=== PATIENT | male | born 1955 ===

== ENCOUNTER 2017-01-08 17:51 | Inpatient (IN) | payer BC, OTHER ==
[2017-01-08] MEDS ORDERED: DiphenhydrAMINE 50 mg/ml Inj IVP STA (18:27)
[2017-01-08 18:59] LABS: ABG ALLEN TEST YES; ARTERIAL BLOOD GAS HCO3 24.8 mmol/L (21-28); ARTERIAL BLOOD GAS MODE ROOM AIR; ARTERIAL BLOOD GAS PO2 105 mm/Hg (80-100)
[2017-01-08] MEDS ORDERED: Insulin Regular 100 units/ml SC STA (19:17)
[2017-01-08] MEDS ORDERED: Sodium Chloride 0.9% 1,000 ML IV STA (19:18)
--- NOTE | 2017-01-08 19:23 | ED PDOC ---
HPI: Abdomen Time Seen by Provider: 01/08/17 18:06 Chief Complaint (Nursing): Abdominal Pain Chief Complaint (Provider): Abdominal Pain History Per: Patient History/Exam Limitations: no limitations Onset/Duration Of Symptoms: Days (x1) Location Of Pain/Discomfort: Diffuse Quality Of Discomfort: "Pain" Associated Symptoms: Chills, Nausea, Vomiting, Loss Of Appetite Additional Complaint(s): 18:06 Stas Couch is a 61 year old male that presents to the ED with a chief complaint of intractable, nonbilious, nonbloody vomiting and abdominal pain that he has been experiencing for the past day. Patient states that he has no been able to take medication today due to symptoms. He has presented to ED many times in the past for the same episode. Past Medical History Reviewed: Historical Data, Nursing Documentation, Vital Signs Vital Signs: Last Vital Signs Temp 97.8 F 01/09/17 13:00 Pulse 71 01/09/17 13:00 Resp 18 01/09/17 13:00 BP 153/77 H 01/09/17 13:00 Pulse Ox 96 01/09/17 13:00 - Medical History PMH: Diabetes, HTN, Hypercholesterolemia, Kidney Stones, Pancreatitis Other PMH: Chronic Kidney Disease - Surgical History Surgical History: Cholecystectomy - Family History Family History: States: Other (Father of [place]) - Social History Alcohol: None Drugs: Denies - Home Medications Home Medications: Ambulatory Orders Medication Instructions Recorded Insulin Detemir [Levemir] 45 unit SC HS 01/08/17 Insulin Lispro [humALOG] 30 unit SC TID 01/08/17 Lisinopril [Zestril] 10 mg PO DAILY 01/08/17 amLODIPine [Norvasc] 10 mg PO DAILY 01/08/17 - Allergies Allergies/Adverse Reactions: Allergies Allergy/AdvReac Type Severity Reaction Status Date / Time iodine Allergy RASH Verified 01/08/17 17:59 Review of Systems ROS Statement: Except As Marked, All Systems Reviewed And Found Negative Constitutional: Positive for: Chills, Weakness, Malaise Cardiovascular: Positive for: Chest Pain, Light Headedness Respiratory: Positive for: Shortness of Breath Gastrointestinal: Positive for: Nausea, Vomiting, Abdominal Pain. Negative for : Diarrhea, Melena, Hematochezia, Hematemesis Physical Exam - Reviewed Nursing Documentation Reviewed: Yes Vital Signs Reviewed: Yes - Physical Exam Appears: Positive for: Uncomfortable, In Acute Distress Head Exam: Positive for: ATRAUMATIC, NORMOCEPHALIC Skin: Positive for: Warm, Dry Eye Exam: Positive for: EOMI, PERRL ENT: Positive for: Other (dry mucous membranes) Neck: Positive for: Painless ROM, Supple Cardiovascular/Chest: Positive for: Chest Non Tender, Tachycardia. Negative for : Murmur, Irregularly Irregular Respiratory: Positive for: Normal Breath Sounds. Negative for: Wheezing Gastrointestinal/Abdominal: Positive for: Bowel Sounds, Soft, Tenderness ( diffuse). Negative for: Mass, Distended, Guarding, Rebound Back: Positive for: Normal Inspection. Negative for: Vertebral Tenderness Extremity: Positive for: Normal ROM. Negative for: Calf Tenderness Lymphatic: Negative for: Adenopathy Neurologic/Psych: Positive for: Alert, Oriented. Negative for: Motor/Sensory Deficits - Laboratory Results Result Diagrams: 01/09/17 07:30 01/09/17 07:30 - ECG O2 Sat by Pulse Oximetry: 99 (RA) Pulse Ox Interpretation: Normal Medical Decision Making Medical Decision Makin:25 Initial Impression: Vomiting/Abdominal Pain Initial Plan: * CBC * CMP * PTT * PT * Lipase * Magnesium * Phosphorous * Troponin * Glucose * Blood * POC * Urine dipstick * Dilaudid 1 mg IV * Insulin 10 units SC * Pepcid 40 mg IV * Zofran 8 mg IV * Sodium Chloride 1000 mL at 1000 mLs/hr * Chest X-ray * Reevaluation Labs demonstrate leukocytosis and elevated lactic acid. Most likely due to inflammatory response from acute distress, and numbers are similar to previous admissions (current MR does not have most of this patient's chart). He is afebrile and has no other infectious symptoms. He is not in DKA. Pt typically requires bowel rest and IVF and symptomatic treatment for his symptoms. LUCILA Olmstead FP resident for hospitalization. Scribe Attestation: Documented by Teagan Day, acting as a scribe for Paola Arnold MD. Provider Scribe Attestation: All medical record entries made by the Scribe were at my direction and personally dictated by me. I have reviewed the chart and agree that the record accurately reflects my personal performance of the history, physical exam, medical decision making, and the department course for this patient. I have also personally directed, reviewed, and agree with the discharge instructions and disposition. Disposition - Clinical Impression Clinical Impression: Gastroparesis, Hyperglycemia Counseled Patient/Family Regarding: Studies Performed, Diagnosis - Disposition Disposition Time: 20:00 Condition: GUARDED - Pt Status Changed To: Hospital Disposition Of: Observation - POA Present On Arrival: Poor Glycemic Control
[2017-01-08 19:37] LABS: BASO # 0.2 K/uL (0.0-0.2); BASO % 1.1 % (0.0-2.0); HEMATOCRIT 41.7 % (35.0-51.0); LYMPH # 1.4 K/uL (1.0-4.3); LYMPH % 7.6 % (20.0-40.0); MEAN CORPUSCULAR HEMOGLOBIN 25.9 pg (27.0-31.0); MEAN CORPUSCULAR HGB CONC 32.7 g/dL (33.0-37.0); MEAN PLATELET VOLUME 9.5 fl (7.2-11.7); MONO # 0.8 K/uL (0.0-0.8); MONO % 4.3 % (0.0-10.0); NEUT # 16.2 K/uL (1.8-7.0); PLATELET COUNT 278 K/uL (130-400); RED CELL DISTRIBUTION WIDTH 16.1 % (11.5-14.5); WHITE BLOOD COUNT 18.7 K/uL (4.8-10.8)
[2017-01-08 19:50] LABS: ALB/GLOB RATIO 1.2 (1.0-2.1); ALKALINE PHOSPHATASE 91 U/L (38-126); AST/SGOT 93 U/L (17-59); BILIRUBIN,TOTAL 3.1 mg/dl (0.2-1.3); BLOOD UREA NITROGEN 14 mg/dl (9-20); CALCIUM 9.4 mg/dL (8.4-10.2); CARBON DIOXIDE 19 mmol/L (22-30); CHLORIDE 91 mmol/L (98-107); GFR AFRICAN-AMERICAN > 60; LIPASE 98 U/L (23-300); MAGNESIUM 1.6 MG/DL (1.6-2.3); PHOSPHOROUS 2.9 mg/dl (2.5-4.5); SODIUM 131 mmol/l (132-148)
[2017-01-08 19:59] LABS: ALT/SGPT < 6 U/L (21-72)
[2017-01-08] MEDS ORDERED: Sodium Chloride 0.9% 1,000 ML IV SCH (20:00)
[2017-01-08 20:03] LABS: GLUCOSE,RANDOM 476 mg/dL (75-110); POTASSIUM 8.9 MMOL/L (3.6-5.0)
[2017-01-08] MEDS ORDERED: Dextrose 50% SYRINGE Inj (50 ml) IV PRN (20:04)
[2017-01-08] MEDS ORDERED: Glucagon Recombinant 1 mg Inj IM PRN (20:04)
[2017-01-08] MEDS ORDERED: Insulin Regular 100 units/ml IV STA (20:06)
[2017-01-08 20:18] LABS: NEUTROPHIL 87 % (42-75); TOTAL CELLS COUNTED 100
--- NOTE | 2017-01-08 20:48 | CP.PCM.HP ---
<Nguyễn Olmstead - Last Filed: 01/09/17 01:28> History of Present Illness - History of Present Illness History of Present Illness: 61 M w/ PMHx of T2DM, HTN, diabetic neuropathy, gastroparesis, presented to ED with intractable abdominal pain associated with onset of nausea/vomiting started this morning. At time of evaluation, patient is poor historian as he just received Diluadid for pain. Patient has been historically poor at controlling DM. ROS is limited due to patient's clinical condition though denies chest pain, sob, or headache. Patient has been evaluated by GI Dr Hernandez previously for gastroparesis. Patient recently admitted earlier this month, Insulin regime was changed due to episode of hypoglycemia. Patient states taking Levemir 50U HS and Humalog 30U TID. Other history obtained from previous charts. PMH: DM w/Gastroparesis, HTN, HLD, Diabetic neuropathy, Drug Use Hx PSH: Lap Saranya Allergies: IV contrast (hives) Meds: As per chart ED Course: Vitals remarkable for tachycardia and elevated BP * CBC, CMP, Coags, Lipase, Mg, Phos, Troponin, Accucheck, Urine dipstick * Labs notable for leukocytosis, pH normal, Lactate 4.1, Glu 476, K 8.9 ( hemolyzed) * Dilaudid 1 mg IV x 2, Insulin 10 units SC x 2, Pepcid 40 mg IV, Zofran 8 mg IV * Sodium Chloride 1000 mL at 1000 mLs/hr * Chest X-ray Of note, patient's chart is mostly on Present on Admission - Present on Admission Any Indicators Present on Admission: Yes History of Uncontrolled Diabetes: Yes Review of Systems - Review of Systems Systems not reviewed;Unavailable: Acuity of Condition All systems: reviewed and no additional remarkable complaints except (mentioned in HPI) Past Patient History - Past Social History Alcohol: None Drugs: Denies - CARDIAC Hx Hypercholesterolemia: Yes Hx Hypertension: Yes - RENAL Hx Kidney Stones: Yes - GASTROINTESTINAL Hx Pancreatitis: Yes - PSYCHIATRIC Hx Substance Use: No - SURGICAL HISTORY Hx Cholecystectomy: Yes - ANESTHESIA Hx Anesthesia: Yes Hx Anesthesia Reactions: No Meds Allergies/Adverse Reactions: Allergies Allergy/AdvReac Type Severity Reaction Status Date / Time iodine Allergy RASH Verified 01/08/17 17:59 Physical Exam - Constitutional Appears: No Acute Distress - Head Exam Head Exam: ATRAUMATIC, NORMAL INSPECTION, NORMOCEPHALIC - Eye Exam Eye Exam: Normal appearance - Respiratory Exam Respiratory Exam: Clear to Auscultation Bilateral, NORMAL BREATHING PATTERN. absent: Decreased Breath Sounds, Rales, Rhonchi, Wheezes - Cardiovascular Exam Cardiovascular Exam: Tachycardia, +S1, +S2 - GI/Abdominal Exam GI & Abdominal Exam: Normal Bowel Sounds, Soft, Tenderness (diffuse) - Extremities Exam Extremities exam: Positive for: normal inspection - Neurological Exam Neurological exam: Alert - Psychiatric Exam Psychiatric exam: Normal Affect, Normal Mood - Skin Skin Exam: Dry, Intact, Normal Color, Warm Results - Vital Signs Recent Vital Signs: Last Vital Signs Temp 99.8 F H 01/08/17 18:00 Pulse 135 H 01/08/17 18:00 Resp 20 01/08/17 18:00 BP 161/90 H 01/08/17 18:00 Pulse Ox 99 01/08/17 19:31 - Labs Result Diagrams: 01/08/17 19:20 01/08/17 21:06 Assessment & Plan - Assessment and Plan (Free Text) Assessment: 61 M w/ PMHx of T2DM (uncontrolled), HTN, diabetic neuropathy, gastroparesis admitted for intractable abdominal pain associated with n/v and hyperglycemia. Of note, patient's chart is mostly on Plan: 1) Intractable abdominal pain, secondary to gastroparesis - Admit to telemetry for continuos cardiac monitoring - Pain control with dilaudid - Alternating Zofran/Reglan - Monitor for improvement/resolution 2) Nausea & vomiting, likely 2/2 gastroparesis - s/p IV pepcid, Zofran - Zofran 4mg, IV, Q6H - Reglan 10mg, IV, ACTID - Pepcid 20mg, BID, PO 3) Leukocytosis - Most c/w stress response given absence of febrile illness, CXR w/o changes when compared to prior. - Repeat CBC in AM 4) T2DM, uncontrolled - Poorly controlled diabetic, no signs of DKA or hyperosmolar at this time. ABG wnl though increased AG noted on initial chem - HgbA1c: 12% 10/2016 - Repeat CMP/lactic acid/serum osm stat - Accu-checks - Hypoglycemic Bundle (corrective high dose) - 1L bolus in ED, give another 1L at this time - c/w NS @ 250cc/hr and adjust accordingly to glucose reads - will hold home PO meds at this time until can confirm with pharmacy/patient - Will give Levemir 40HS and Humalog 30 ACTID 5) Hypertension, uncontrolled - c/w home medication 6) DVT prophylaxis - Lovenox 40mg, SC, Daily Of note, patient's chart is mostly on - Date & Time Date: 01/08/17 Time: 20:55 <Jordan Mccord - Last Filed: 01/09/17 07:11> Results - Vital Signs Recent Vital Signs: Last Vital Signs Temp 98.2 F 01/09/17 05:00 Pulse 102 H 01/09/17 05:00 Resp 20 01/09/17 05:00 BP 137/71 01/09/17 05:00 Pulse Ox 96 01/09/17 05:00 - Labs Result Diagrams: 01/08/17 19:20 01/08/17 21:06 Labs: Laboratory Results - last 24 hr 01/08/17 01/08/17 01/08/17 21:06 21:11 23:08 Sodium 134 Potassium 7.2 H* Chloride 94 L Carbon Dioxide 20 L Anion Gap 27 H BUN 14 Creatinine 0.8 Est GFR ( Amer) > 60 Est GFR (Non-Af Amer) > 60 POC Glucose (mg/dL) 394 H 408 H* Random Glucose 426 H* Lactic Acid 5.1 H* Calcium 9.3 Total Bilirubin 1.8 H AST 71 H D ALT < 6 L Alkaline Phosphatase 74 Total Protein 9.0 H Albumin 4.9 Globulin 4.1 H Albumin/Globulin Ratio 1.2 Urine Color Urine Clarity Urine pH Ur Specific [place] Urine Protein Urine Glucose (UA) Urine Ketones Urine Blood Urine Nitrate Urine Bilirubin Urine Urobilinogen Ur Leukocyte Esterase Urine RBC (Auto) Urine Microscopic WBC 01/09/17 01/09/17 00:54 04:36 Sodium Potassium Chloride Carbon Dioxide Anion Gap BUN Creatinine Est GFR ( Amer) Est GFR (Non-Af Amer) POC Glucose (mg/dL) 417 H* Random Glucose Lactic Acid Calcium Total Bilirubin AST ALT Alkaline Phosphatase Total Protein Albumin Globulin Albumin/Globulin Ratio Urine Color Straw Urine Clarity Clear Urine pH 7.0 Ur Specific [place] 1.022 Urine Protein Negative Urine Glucose (UA) >=500 Urine Ketones Trace Urine Blood Negative Urine Nitrate Negative Urine Bilirubin Negative Urine Urobilinogen 0.2-1.0 Ur Leukocyte Esterase Neg Urine RBC (Auto) 1 Urine Microscopic WBC < 1 Attending/Attestation - Attestation I have personally seen and examined this patient.: Yes I have fully participated in the care of the patient.: Yes I have reviewed all pertinent clinical information: Yes
[2017-01-08] MEDS: Sodium Chloride 0.9% 1,000 ML IV SCH ×2 (21:54→23:37)
[2017-01-08 21:56] LABS: ALB/GLOB RATIO 1.2 (1.0-2.1); ALKALINE PHOSPHATASE 74 U/L (38-126); AST/SGOT 71 U/L (17-59); BILIRUBIN,TOTAL 1.8 mg/dl (0.2-1.3); BLOOD UREA NITROGEN 14 mg/dl (9-20); CALCIUM 9.3 mg/dL (8.4-10.2); CARBON DIOXIDE 20 mmol/L (22-30); CHLORIDE 94 mmol/L (98-107); GFR AFRICAN-AMERICAN > 60; SODIUM 134 mmol/l (132-148)
[2017-01-08 22:00] LABS: ALT/SGPT < 6 U/L (21-72)
[2017-01-08] MEDS ORDERED: Insulin Regular 100 units/ml SC SCH (22:00)
[2017-01-08 22:04] LABS: GLUCOSE,RANDOM 426 mg/dL (75-110); POTASSIUM 7.2 MMOL/L (3.6-5.0)
[2017-01-08] MEDS: Insulin Detemir 100 Units/ml Inj SC SCH (23:29)
[2017-01-09] MEDS: Sodium Chloride 0.9% 1,000 ML IV SCH ×14 (00:41→21:25)
[2017-01-09] MEDS: Insulin Regular 100 units/ml SC SCH ×7 (02:13→22:11)
[2017-01-09 04:47] LABS: RBC URINE 1 /hpf (0-3); URINE BILIRUBIN NEGATIVE (NEGATIVE); URINE BLOOD NEGATIVE (NEGATIVE); URINE COLOR STRAW (YELLOW); URINE GLUCOSE (UA) >=500 mg/dL (Normal); URINE KETONE TRACE mg/dL (NEGATIVE); URINE LEUKOCYTE ESTERASE NEG Leu/uL (Negative); URINE PROTEIN NEGATIVE (NEGATIVE); URINE UROBILINOGEN 0.2-1.0 mg/dL (0.2-1.0); WBC URINE < 1 /hpf (0-5)
[2017-01-09] MEDS ORDERED: Insulin Lispro (humaLOG) 100 Units/ml Inj SC SCH (07:30)
[2017-01-09 07:35] LABS: HEMATOCRIT 38.1 % (35.0-51.0); MEAN CELL VOLUME 80.1 fl (80.0-94.0); MEAN CORPUSCULAR HEMOGLOBIN 25.5 pg (27.0-31.0); MEAN CORPUSCULAR HGB CONC 31.9 g/dL (33.0-37.0); RED CELL DISTRIBUTION WIDTH 15.7 % (11.5-14.5)
[2017-01-09 08:02] LABS: ALB/GLOB RATIO 1.1 (1.0-2.1); ALKALINE PHOSPHATASE 56 U/L (38-126); ALT/SGPT 23 U/L (21-72); AST/SGOT 17 U/L (17-59); BILIRUBIN,TOTAL 0.4 mg/dl (0.2-1.3); BLOOD UREA NITROGEN 9 mg/dl (9-20); CALCIUM 8.6 mg/dL (8.4-10.2); CARBON DIOXIDE 27 mmol/L (22-30); CHLORIDE 104 mmol/L (98-107); GFR AFRICAN-AMERICAN > 60; GLUCOSE,RANDOM 212 mg/dL (75-110); POTASSIUM 4.9 MMOL/L (3.6-5.0); SODIUM 142 mmol/l (132-148); TOTAL PROTEIN 6.6 G/DL (6.3-8.2)
--- NOTE | 2017-01-09 08:09 | CP.PCM.PN ---
<Iman Pyle - Last Filed: 01/09/17 15:53> Subjective - Date & Time of Evaluation Date of Evaluation: 01/09/17 Time of Evaluation: 07:40 - Subjective Subjective: Patient seen and examined bedside feeling better. No overnight events. Reports abd pain has subsided with meds, but he is still on pain 6/10 w/o radiation. Denies fever, N/V/D after admission. Denies dysuria, skin infection, URI infection. Objective - Vital Signs/Intake and Output Vital Signs (last 24 hours): Temp Pulse Resp BP Pulse Ox 97.8 F 82 18 134/69 99 01/09/17 08:01 01/09/17 08:01 01/09/17 08:01 01/09/17 08:01 01/09/17 08:01 - Medications Medications: Current Medications Atorvastatin Calcium (Lipitor) 10 mg PO DAILY [facility] Dextrose (Glutose 15) 0 gm PO ONCE PRN; Protocol PRN Reason: Hypoglycemia Protocol Dextrose (Dextrose 50% Inj) 0 ml IV STAT PRN; Protocol PRN Reason: Hyglycemia Protocol Enoxaparin Sodium (Lovenox) 40 mg SC DAILY [facility] PRN Reason: Protocol Famotidine (Pepcid) 20 mg PO BID [facility] Furosemide (Lasix) 40 mg PO DAILY [facility] Gabapentin (Neurontin) 300 mg PO TID [facility] Glucagon (Glucagen Diagnostic Kit) 0 mg IM STAT PRN; Protocol PRN Reason: Hypoglycemia Protocol Hydromorphone HCl (Dilaudid) 2 mg IVP Q4 PRN PRN Reason: Pain, moderate (4-7) Last Admin: 01/09/17 04:10 Dose: 2 mg Hydromorphone HCl (Dilaudid) 4 mg IVP Q6 PRN PRN Reason: Pain, severe (8-10) Sodium Chloride (Sodium Chloride 0.9%) 1,000 mls @ 250 mls/hr IV .Q4H [facility] Last Admin: 01/09/17 04:55 Dose: 250 mls/hr Sodium Chloride (Sodium Chloride 0.9%) 1,000 mls @ 999 mls/hr IV .Q1H1M [facility] Stop: 01/09/17 23:31 Last Admin: 01/09/17 00:41 Dose: Not Given Insulin Detemir (Levemir) 40 units SC HS [facility] Last Admin: 01/08/17 23:29 Dose: 40 units Insulin Human Lispro (Humalog) 30 units SC ACTID [facility] Insulin Human Regular (Humulin R) 0 units SC ACHS [facility] PRN Reason: Protocol Last Admin: 01/09/17 06:41 Dose: 8 units Lisinopril (Zestril) 10 mg PO HS [facility] Last Admin: 01/08/17 23:36 Dose: 10 mg Metformin HCl (Glucophage) 1,000 mg PO BIDWM [facility] Metoclopramide HCl (Reglan) 10 mg IVP TID [facility] Ondansetron HCl (Zofran Inj) 4 mg IVP Q6 PRN PRN Reason: Nausea/Vomiting - Labs Labs: 01/09/17 07:30 01/09/17 07:30 - Constitutional Appears: Non-toxic, No Acute Distress - Head Exam Head Exam: ATRAUMATIC, NORMOCEPHALIC - Eye Exam Eye Exam: Normal appearance - Respiratory Exam Respiratory Exam: Clear to Ausculation Bilateral. absent: Rales, Rhonchi, Wheezes - Cardiovascular Exam Cardiovascular Exam: REGULAR RHYTHM, +S1, +S2 - GI/Abdominal Exam GI & Abdominal Exam: Soft, Tenderness, Normal Bowel Sounds. absent: Rebound Additional comments: Td to palpation periumbilical area. - Extremities Exam Extremities Exam: Normal Inspection. absent: Calf Tenderness - Neurological Exam Neurological Exam: Alert, Awake, Oriented x3 - Psychiatric Exam Psychiatric exam: Normal Affect, Normal Mood - Skin Skin Exam: Intact Assessment and Plan - Assessment and Plan (Free Text) Plan: 61 M w/ PMHx of T2DM (uncontrolled), HTN, diabetic neuropathy, gastroparesis admitted for intractable abdominal pain associated with n/v and hyperglycemia. Of note, patient's chart is mostly on Plan: 1) Intractable abdominal pain, secondary to gastroparesis - Admit to telemetry - Dilaudid IV for pain control - Alternating Zofran/Reglan - Monitor for improvement/resolution 2) Nausea & vomiting -secondary to gastroparesis - IV pepcid, Zofran - Zofran 4mg, IV, Q6H - Reglan 10mg, IV, ACTID - Pepcid 20mg, BID, PO 3) Leukocytosis - Most c/w stress response given absence of febrile illness, CXR w/o changes when compared to prior. - F/U CBC 4) T2DM, uncontrolled - Poorly controlled diabetic.no signs of DKA or hyperosmolar at this time. ABG wnl though increased AG noted on initial chem - HgbA1c: 12% 10/2016 - Repeat CMP/lactic acid/serum osm stat - Accu-checks - Hypoglycemic Bundle (corrective high dose) - c/w NS @ 250cc/hr and adjust accordingly to glucose reads - Levemir 40HS -Humalog 30 ACTID 5) Hypertension, uncontrolled - c/w home medication -Lisinopril 10 mg PO daily 6) DVT prophylaxis - Lovenox 40mg, SC, Daily <Jerzy Salvador - Last Filed: 01/11/17 06:40> Objective - Vital Signs/Intake and Output Vital Signs (last 24 hours): Temp Pulse Resp BP Pulse Ox 98.5 F 86 20 162/74 H 97 01/11/17 04:47 01/11/17 04:47 01/11/17 04:47 01/11/17 04:47 01/11/17 04:47 - Medications Medications: Current Medications Amlodipine Besylate (Norvasc) 10 mg PO DAILY [facility] Last Admin: 01/10/17 08:27 Dose: 10 mg Atorvastatin Calcium (Lipitor) 10 mg PO DAILY [facility] Dextrose (Glutose 15) 0 gm PO ONCE PRN; Protocol PRN Reason: Hypoglycemia Protocol Dextrose (Dextrose 50% Inj) 0 ml IV STAT PRN; Protocol PRN Reason: Hyglycemia Protocol Enoxaparin Sodium (Lovenox) 40 mg SC DAILY [facility] PRN Reason: Protocol Last Admin: 01/10/17 08:20 Dose: 40 mg Famotidine (Pepcid) 20 mg PO BID [facility] Furosemide (Lasix) 40 mg PO DAILY [facility] Gabapentin (Neurontin) 300 mg PO TID [facility] Glucagon (Glucagen Diagnostic Kit) 0 mg IM STAT PRN; Protocol PRN Reason: Hypoglycemia Protocol Hydromorphone HCl (Dilaudid) 2 mg IVP Q4 PRN PRN Reason: Pain, moderate (4-7) Last Admin: 01/11/17 04:41 Dose: 2 mg Hydromorphone HCl (Dilaudid) 4 mg IVP Q6 PRN PRN Reason: Pain, severe (8-10) Sodium Chloride (Sodium Chloride 0.9%) 1,000 mls @ 250 mls/hr IV .Q4H [facility] Last Admin: 01/11/17 06:01 Dose: 250 mls/hr Insulin Detemir (Levemir) 40 units SC HS [facility] Last Admin: 01/10/17 22:10 Dose: Not Given Insulin Human Regular (Humulin R) 0 units SC ACHS [facility] PRN Reason: Protocol Last Admin: 01/10/17 22:10 Dose: Not Given Insulin Human Regular (Humulin R) 30 units SC ACTID [facility] Last Admin: 01/10/17 16:35 Dose: Not Given Lisinopril (Zestril) 10 mg PO HS [facility] Last Admin: 01/10/17 22:08 Dose: 10 mg Metformin HCl (Glucophage) 1,000 mg PO BIDWM [facility] Metoclopramide HCl (Reglan) 10 mg IVP TID [facility] Last Admin: 01/10/17 16:22 Dose: 10 mg Ondansetron HCl (Zofran Inj) 4 mg IVP Q6 PRN PRN Reason: Nausea/Vomiting - Labs Labs: 01/09/17 07:30 01/09/17 07:30 Attending/Attestation - Attestation I have personally seen and examined this patient.: Yes I have fully participated in the care of the patient.: Yes I have reviewed all pertinent clinical information, including history, physical exam and plan: Yes
[2017-01-09] MEDS: Enoxaparin 40 mg Syringe SC SCH (09:24)
--- NOTE | 2017-01-09 09:40 | RAD ---
HISTORY: vomiting COMPARISON: No prior. FINDINGS: LUNGS: No active pulmonary disease. PLEURA: No significant pleural effusion identified, no pneumothorax apparent. CARDIOVASCULAR: Normal. OSSEOUS STRUCTURES: No significant abnormalities. VISUALIZED UPPER ABDOMEN: Normal. OTHER FINDINGS: None. IMPRESSION: No active disease.
[2017-01-09] MEDS ORDERED: Insulin Regular 100 units/ml SC SCH (11:30)
--- NOTE | 2017-01-09 13:57 | CARD ---
APPROVED REPORT EKG Measurement Heart [id number] <Conclusion> Sinus tachycardia Otherwise normal ECG
[2017-01-09] MEDS: Insulin Detemir 100 Units/ml Inj SC SCH (22:12)
[2017-01-10] MEDS: Sodium Chloride 0.9% 1,000 ML IV SCH ×6 (01:25→22:11)
[2017-01-10] MEDS: Insulin Regular 100 units/ml SC SCH ×7 (06:35→22:10)
[2017-01-10] MEDS: Enoxaparin 40 mg Syringe SC SCH (08:20)
--- NOTE | 2017-01-10 08:48 | CP.PCM.PN ---
<Iman Pyle - Last Filed: 01/10/17 17:33> Subjective - Date & Time of Evaluation Date of Evaluation: 01/10/17 Time of Evaluation: 07:45 - Subjective Subjective: Patient seen and examined bedside feeling better today. Abdominal pain subsided with meds. Denies fever, nausea, vomiting, diarrhea. Start liquid diet. Objective - Vital Signs/Intake and Output Vital Signs (last 24 hours): Temp Pulse Resp BP Pulse Ox 98.7 F 83 18 149/74 95 01/10/17 08:00 01/10/17 08:27 01/10/17 08:00 01/10/17 08:27 01/10/17 08:00 - Medications Medications: Current Medications Amlodipine Besylate (Norvasc) 10 mg PO DAILY [facility] Last Admin: 01/10/17 08:27 Dose: 10 mg Atorvastatin Calcium (Lipitor) 10 mg PO DAILY [facility] Dextrose (Glutose 15) 0 gm PO ONCE PRN; Protocol PRN Reason: Hypoglycemia Protocol Dextrose (Dextrose 50% Inj) 0 ml IV STAT PRN; Protocol PRN Reason: Hyglycemia Protocol Enoxaparin Sodium (Lovenox) 40 mg SC DAILY [facility] PRN Reason: Protocol Last Admin: 01/10/17 08:20 Dose: 40 mg Famotidine (Pepcid) 20 mg PO BID [facility] Furosemide (Lasix) 40 mg PO DAILY [facility] Gabapentin (Neurontin) 300 mg PO TID [facility] Glucagon (Glucagen Diagnostic Kit) 0 mg IM STAT PRN; Protocol PRN Reason: Hypoglycemia Protocol Hydromorphone HCl (Dilaudid) 2 mg IVP Q4 PRN PRN Reason: Pain, moderate (4-7) Last Admin: 01/10/17 08:16 Dose: 2 mg Hydromorphone HCl (Dilaudid) 4 mg IVP Q6 PRN PRN Reason: Pain, severe (8-10) Sodium Chloride (Sodium Chloride 0.9%) 1,000 mls @ 250 mls/hr IV .Q4H [facility] Last Admin: 01/10/17 05:20 Dose: 250 mls/hr Insulin Detemir (Levemir) 40 units SC HS [facility] Last Admin: 01/09/17 22:12 Dose: Not Given Insulin Human Regular (Humulin R) 0 units SC ACHS [facility] PRN Reason: Protocol Last Admin: 01/10/17 06:35 Dose: Not Given Insulin Human Regular (Humulin R) 30 units SC ACTID [facility] Last Admin: 01/10/17 08:18 Dose: Not Given Lisinopril (Zestril) 10 mg PO HS [facility] Last Admin: 01/09/17 21:24 Dose: 10 mg Metformin HCl (Glucophage) 1,000 mg PO BIDWM [facility] Metoclopramide HCl (Reglan) 10 mg IVP TID [facility] Last Admin: 01/10/17 08:19 Dose: 10 mg Ondansetron HCl (Zofran Inj) 4 mg IVP Q6 PRN PRN Reason: Nausea/Vomiting - Labs Labs: 01/09/17 07:30 01/09/17 07:30 - Constitutional Appears: Non-toxic, No Acute Distress - Eye Exam Eye Exam: Normal appearance - Respiratory Exam Respiratory Exam: Clear to Ausculation Bilateral. absent: Rales, Rhonchi, Wheezes, Stridor - Cardiovascular Exam Cardiovascular Exam: REGULAR RHYTHM, +S1, +S2 - GI/Abdominal Exam GI & Abdominal Exam: Soft, Tenderness, Normal Bowel Sounds Additional comments: Mild Td to palpation epigastric area. no rebound td - Extremities Exam Extremities Exam: Normal Inspection. absent: Calf Tenderness, Pedal Edema - Psychiatric Exam Psychiatric exam: Normal Affect, Normal Mood - Skin Skin Exam: Intact Assessment and Plan - Assessment and Plan (Free Text) Plan: 61 M w/ PMHx of T2DM (uncontrolled), HTN, diabetic neuropathy, gastroparesis admitted for intractable abdominal pain associated with n/v and hyperglycemia. Of note, patient's chart is mostly on Plan: 1) Intractable abdominal pain, secondary to gastroparesis - Admit to telemetry - Dilaudid IV for pain control - Alternating Zofran/Reglan - Monitor for improvement/resolution 2) Nausea & vomiting -secondary to gastroparesis - IV pepcid, Zofran - Zofran 4mg, IV, Q6H - Reglan 10mg, IV, ACTID - Pepcid 20mg, BID, PO 3) Leukocytosis - Most c/w stress response given absence of febrile illness, CXR w/o changes when compared to prior. - F/U CBC 4) T2DM, uncontrolled - Poorly controlled diabetic. - HgbA1c: 12% 10/2016 - Accu-checks - Hypoglycemic Bundle (corrective high dose) - c/w NS @ 250cc/hr and adjust accordingly to glucose reads - Levemir 40HS -Humalog 30 ACTID 5) Hypertension, uncontrolled - c/w home medication -Lisinopril 10 mg PO daily 6) DVT prophylaxis - Lovenox 40mg, SC, Daily <SuriJordan A - Last Filed: 01/12/17 07:02> Objective - Vital Signs/Intake and Output Vital Signs (last 24 hours): Temp Pulse Resp BP Pulse Ox 97.8 F 85 18 162/77 H 96 01/12/17 04:50 01/12/17 04:50 01/12/17 04:50 01/12/17 04:50 01/12/17 04:50 - Medications Medications: Current Medications Amlodipine Besylate (Norvasc) 10 mg PO DAILY [facility] Last Admin: 01/11/17 08:51 Dose: 10 mg Atorvastatin Calcium (Lipitor) 10 mg PO DAILY [facility] Dextrose (Glutose 15) 0 gm PO ONCE PRN; Protocol PRN Reason: Hypoglycemia Protocol Dextrose (Dextrose 50% Inj) 0 ml IV STAT PRN; Protocol PRN Reason: Hyglycemia Protocol Enoxaparin Sodium (Lovenox) 40 mg SC DAILY [facility] PRN Reason: Protocol Last Admin: 01/11/17 08:51 Dose: 40 mg Famotidine (Pepcid) 20 mg PO BID [facility] Furosemide (Lasix) 40 mg PO DAILY [facility] Gabapentin (Neurontin) 300 mg PO TID [facility] Glucagon (Glucagen Diagnostic Kit) 0 mg IM STAT PRN; Protocol PRN Reason: Hypoglycemia Protocol Hydromorphone HCl (Dilaudid) 2 mg IVP Q4 PRN PRN Reason: Pain, moderate (4-7) Last Admin: 01/12/17 05:42 Dose: 2 mg Hydromorphone HCl (Dilaudid) 4 mg IVP Q6 PRN PRN Reason: Pain, severe (8-10) Insulin Detemir (Levemir) 40 units SC HS [facility] Last Admin: 01/11/17 22:12 Dose: Not Given Insulin Human Regular (Humulin R) 0 units SC ACHS [facility] PRN Reason: Protocol Last Admin: 01/11/17 22:11 Dose: Not Given Insulin Human Regular (Humulin R) 30 units SC ACTID [facility] Last Admin: 01/11/17 17:29 Dose: Not Given Lisinopril (Zestril) 10 mg PO HS [facility] Last Admin: 01/11/17 21:27 Dose: 10 mg Metformin HCl (Glucophage) 1,000 mg PO BIDWM [facility] Metoclopramide HCl (Reglan) 10 mg IVP TID [facility] Last Admin: 01/11/17 17:30 Dose: 10 mg Ondansetron HCl (Zofran Inj) 4 mg IVP Q6 PRN PRN Reason: Nausea/Vomiting - Labs Labs: 01/11/17 11:20 01/09/17 07:30 Attending/Attestation - Attestation I have personally seen and examined this patient.: Yes I have fully participated in the care of the patient.: Yes I have reviewed all pertinent clinical information, including history, physical exam and plan: Yes
[2017-01-10] MEDS: Insulin Detemir 100 Units/ml Inj SC SCH ×2 (22:07→22:10)
[2017-01-11] MEDS: Sodium Chloride 0.9% 1,000 ML IV SCH ×6 (02:00→23:06)
[2017-01-11] MEDS: Insulin Regular 100 units/ml SC SCH ×7 (06:59→22:11)
[2017-01-11] MEDS: Enoxaparin 40 mg Syringe SC SCH (08:51)
[2017-01-11 11:24] LABS: HEMATOCRIT 39.4 % (35.0-51.0); MEAN CELL VOLUME 79.9 fl (80.0-94.0); MEAN CORPUSCULAR HEMOGLOBIN 25.9 pg (27.0-31.0); MEAN CORPUSCULAR HGB CONC 32.4 g/dL (33.0-37.0); RED CELL DISTRIBUTION WIDTH 15.4 % (11.5-14.5); WHITE BLOOD COUNT 11.8 K/uL (4.8-10.8)
--- NOTE | 2017-01-11 12:20 | CP.PCM.PN ---
<LdIman medel - Last Filed: 01/11/17 15:19> Subjective - Date & Time of Evaluation Date of Evaluation: 01/11/17 Time of Evaluation: 07:20 - Subjective Subjective: Patient seen and examined bedside feeling better but still c/o abd pain occasional. On liquid diet for 24 hours. Willing to have soft diet. Denies N/V/ D. will start diabetic soft diet. Objective - Vital Signs/Intake and Output Vital Signs (last 24 hours): Temp Pulse Resp BP Pulse Ox 98.2 F 87 18 168/75 H 97 01/11/17 09:00 01/11/17 09:00 01/11/17 09:00 01/11/17 09:00 01/11/17 09:00 - Medications Medications: Current Medications Amlodipine Besylate (Norvasc) 10 mg PO DAILY [facility] Last Admin: 01/11/17 08:51 Dose: 10 mg Atorvastatin Calcium (Lipitor) 10 mg PO DAILY [facility] Dextrose (Glutose 15) 0 gm PO ONCE PRN; Protocol PRN Reason: Hypoglycemia Protocol Dextrose (Dextrose 50% Inj) 0 ml IV STAT PRN; Protocol PRN Reason: Hyglycemia Protocol Enoxaparin Sodium (Lovenox) 40 mg SC DAILY [facility] PRN Reason: Protocol Last Admin: 01/11/17 08:51 Dose: 40 mg Famotidine (Pepcid) 20 mg PO BID [facility] Furosemide (Lasix) 40 mg PO DAILY [facility] Gabapentin (Neurontin) 300 mg PO TID [facility] Glucagon (Glucagen Diagnostic Kit) 0 mg IM STAT PRN; Protocol PRN Reason: Hypoglycemia Protocol Hydromorphone HCl (Dilaudid) 2 mg IVP Q4 PRN PRN Reason: Pain, moderate (4-7) Last Admin: 01/11/17 08:49 Dose: 2 mg Hydromorphone HCl (Dilaudid) 4 mg IVP Q6 PRN PRN Reason: Pain, severe (8-10) Sodium Chloride (Sodium Chloride 0.9%) 1,000 mls @ 250 mls/hr IV .Q4H [facility] Last Admin: 01/11/17 12:05 Dose: 250 mls/hr Insulin Detemir (Levemir) 40 units SC HS [facility] Last Admin: 01/10/17 22:10 Dose: Not Given Insulin Human Regular (Humulin R) 0 units SC ACHS [facility] PRN Reason: Protocol Last Admin: 01/11/17 12:06 Dose: Not Given Insulin Human Regular (Humulin R) 30 units SC ACTID [facility] Last Admin: 01/11/17 12:06 Dose: 30 units Lisinopril (Zestril) 10 mg PO HS [facility] Last Admin: 01/10/17 22:08 Dose: 10 mg Metformin HCl (Glucophage) 1,000 mg PO BIDWM [facility] Metoclopramide HCl (Reglan) 10 mg IVP TID [facility] Last Admin: 01/11/17 12:05 Dose: 10 mg Ondansetron HCl (Zofran Inj) 4 mg IVP Q6 PRN PRN Reason: Nausea/Vomiting - Labs Labs: 01/11/17 11:20 01/09/17 07:30 - Constitutional Appears: Non-toxic, No Acute Distress - Neck Exam Neck Exam: Normal Inspection - Respiratory Exam Respiratory Exam: Clear to Ausculation Bilateral. absent: Rales, Rhonchi, Wheezes - Cardiovascular Exam Cardiovascular Exam: REGULAR RHYTHM, +S1, +S2 - GI/Abdominal Exam GI & Abdominal Exam: Soft, Tenderness, Normal Bowel Sounds. absent: Guarding, Rebound Additional comments: mild periumbilical Td, no guarding - Extremities Exam Extremities Exam: Normal Inspection. absent: Pedal Edema - Neurological Exam Neurological Exam: Alert, Awake, Oriented x3 - Psychiatric Exam Psychiatric exam: Normal Affect, Normal Mood - Skin Skin Exam: Intact Assessment and Plan - Assessment and Plan (Free Text) Plan: 61 M w/ PMHx of T2DM (uncontrolled), HTN, diabetic neuropathy, gastroparesis admitted for intractable abdominal pain associated with n/v and hyperglycemia. Of note, patient's chart is mostly on Plan: 1) Intractable abdominal pain, secondary to gastroparesis - Admit to telemetry - Dilaudid IV for pain control - Alternating Zofran/Reglan - Monitor for improvement/resolution 2) Nausea & vomiting -resolved -secondary to gastroparesis - IV pepcid, Zofran - Zofran 4mg, IV, Q6H - Reglan 10mg, IV, ACTID - Pepcid 20mg, BID, PO 3) Leukocytosis -resolved - Most c/w stress response given absence of febrile illness, CXR w/o changes when compared to prior. - F/U CBC 4) T2DM, uncontrolled - Poorly controlled diabetic. - HgbA1c: 12% 10/2016 -Blood sugar 222 mg/dl - Accu-checks - Hypoglycemic Bundle (corrective high dose) - c/w NS @ 250cc/hr and adjust accordingly to glucose reads - Levemir 40HS -Humalog 30 ACTID 5) Hypertension, uncontrolled - c/w home medication -Lisinopril 10 mg PO daily 6) DVT prophylaxis - Lovenox 40mg, SC, Daily <Jerzy Salvador - Last Filed: 01/12/17 07:16> Objective - Vital Signs/Intake and Output Vital Signs (last 24 hours): Temp Pulse Resp BP Pulse Ox 97.8 F 85 18 162/77 H 96 01/12/17 04:50 01/12/17 04:50 01/12/17 04:50 01/12/17 04:50 01/12/17 04:50 - Medications Medications: Current Medications Amlodipine Besylate (Norvasc) 10 mg PO DAILY [facility] Last Admin: 01/11/17 08:51 Dose: 10 mg Atorvastatin Calcium (Lipitor) 10 mg PO DAILY [facility] Dextrose (Glutose 15) 0 gm PO ONCE PRN; Protocol PRN Reason: Hypoglycemia Protocol Dextrose (Dextrose 50% Inj) 0 ml IV STAT PRN; Protocol PRN Reason: Hyglycemia Protocol Enoxaparin Sodium (Lovenox) 40 mg SC DAILY [facility] PRN Reason: Protocol Last Admin: 01/11/17 08:51 Dose: 40 mg Famotidine (Pepcid) 20 mg PO BID [facility] Furosemide (Lasix) 40 mg PO DAILY [facility] Gabapentin (Neurontin) 300 mg PO TID [facility] Glucagon (Glucagen Diagnostic Kit) 0 mg IM STAT PRN; Protocol PRN Reason: Hypoglycemia Protocol Hydromorphone HCl (Dilaudid) 2 mg IVP Q4 PRN PRN Reason: Pain, moderate (4-7) Last Admin: 01/12/17 05:42 Dose: 2 mg Hydromorphone HCl (Dilaudid) 4 mg IVP Q6 PRN PRN Reason: Pain, severe (8-10) Insulin Detemir (Levemir) 40 units SC [facility] Last Admin: 01/11/17 22:12 Dose: Not Given Insulin Human Regular (Humulin R) 0 units SC [facility] PRN Reason: Protocol Last Admin: 01/11/17 22:11 Dose: Not Given Insulin Human Regular (Humulin R) 30 units SC ACTID [facility] Last Admin: 01/11/17 17:29 Dose: Not Given Lisinopril (Zestril) 10 mg PO HS [facility] Last Admin: 01/11/17 21:27 Dose: 10 mg Metformin HCl (Glucophage) 1,000 mg PO BIDWM [facility] Metoclopramide HCl (Reglan) 10 mg IVP TID [facility] Last Admin: 01/11/17 17:30 Dose: 10 mg Ondansetron HCl (Zofran Inj) 4 mg IVP Q6 PRN PRN Reason: Nausea/Vomiting - Labs Labs: 01/11/17 11:20 01/09/17 07:30 Attending/Attestation - Attestation I have personally seen and examined this patient.: Yes I have fully participated in the care of the patient.: Yes I have reviewed all pertinent clinical information, including history, physical exam and plan: Yes
[2017-01-11] MEDS: Insulin Detemir 100 Units/ml Inj SC SCH (22:12)
[2017-01-12] MEDS: Sodium Chloride 0.9% 1,000 ML IV SCH (03:16)
[2017-01-12] MEDS: Insulin Regular 100 units/ml SC SCH ×7 (08:26→21:38)
[2017-01-12] MEDS: Enoxaparin 40 mg Syringe SC SCH (08:27)
--- NOTE | 2017-01-12 09:40 | CP.PCM.DIS ---
Provider - Provider Date of Admission: 01/08/17 19:51 Attending physician: Jordan Armstrong MD Hospital Course - Lab Results Lab Results: Most Recent Lab Values WBC 11.8 K/uL (4.8-10.8) H 01/11/17 11:20 RBC 4.93 Mil/uL (4.40-5.90) 01/11/17 11:20 Hgb 12.8 g/dL (12.0-18.0) 01/11/17 11:20 Hct 39.4 % (35.0-51.0) 01/11/17 11:20 MCV 79.9 fl (80.0-94.0) L 01/11/17 11:20 MCH 25.9 pg (27.0-31.0) L 01/11/17 11:20 MCHC 32.4 g/dL (33.0-37.0) L 01/11/17 11:20 RDW 15.4 % (11.5-14.5) H 01/11/17 11:20 Plt Count 210 K/uL (130-400) 01/11/17 11:20 MPV 9.5 fl (7.2-11.7) 01/08/17 19:20 Neut % (Auto) 87.0 % (50.0-75.0) H 01/08/17 19:20 Lymph % (Auto) 7.6 % (20.0-40.0) L 01/08/17 19:20 [place] % (Auto) 4.3 % (0.0-10.0) 01/08/17 19:20 Eos % (Auto) 0.0 % (0.0-4.0) 01/08/17 19:20 Baso % (Auto) 1.1 % (0.0-2.0) 01/08/17 19:20 Neut # 16.2 K/uL (1.8-7.0) H 01/08/17 19:20 Lymph # 1.4 K/uL (1.0-4.3) 01/08/17 19:20 [place] # 0.8 K/uL (0.0-0.8) 01/08/17 19:20 Eos # 0.0 K/uL (0.0-0.7) 01/08/17 19:20 Baso # 0.2 K/uL (0.0-0.2) 01/08/17 19:20 Neutrophils % (Manual) 87 % (42-75) H 01/08/17 19:20 Band Neutrophils % 3 % (0-2) H 01/08/17 19:20 Lymphocytes % (Manual) 6 % (20-50) L 01/08/17 19:20 Monocytes % (Manual) 4 % (0-10) 01/08/17 19:20 Platelet Estimate Normal (NORMAL) 01/08/17 19:20 Hypochromasia (manual) Slight 01/08/17 19:20 Microcytosis (manual) Slight 01/08/17 19:20 pCO2 28 mm/Hg (35-45) L 01/08/17 18:48 pO2 105 mm/Hg (80-100) H 01/08/17 18:48 HCO3 24.8 mmol/L (21-28) 01/08/17 18:48 ABG pH 7.50 (7.35-7.45) H 01/08/17 18:48 ABG Total CO2 22.7 mmol/L (22-28) 01/08/17 18:48 ABG O2 Saturation 100.1 % (95-98) H 01/08/17 18:48 ABG Base Excess -0.2 mmol/L (-2.0-3.0) 01/08/17 18:48 Kirby Test Yes 01/08/17 18:48 ABG Potassium 4.4 mmol/L (3.6-5.2) 01/08/17 18:48 A-a O2 Difference 10.0 mm/Hg 01/08/17 18:48 Sodium 126.0 mmol/L (132-148) L 01/08/17 18:48 Chloride 94.0 mmol/L (98-107) L 01/08/17 18:48 Glucose 489 mg/dL (75-110) H* 01/08/17 18:48 Lactate 4.1 mmol/L (0.7-2.1) H* 01/08/17 18:48 Vent Mode Room air 01/08/17 18:48 FiO2 21.0 % 01/08/17 18:48 Crit Value Called To chay Arnold md 01/08/17 18:48 Crit Value Called By Sb 01/08/17 18:48 Crit Value Read Back Y 01/08/17 18:48 Blood Gas Notified Time 18501/08/17 18:48 Sodium 142 mmol/l (132-148) 01/09/17 07:30 Potassium 4.9 MMOL/L (3.6-5.0) 01/09/17 07:30 Chloride 104 mmol/L (98-107) 01/09/17 07:30 Carbon Dioxide 27 mmol/L (22-30) 01/09/17 07:30 Anion Gap 16 (10-20) 01/09/17 07:30 BUN 9 mg/dl (9-20) 01/09/17 07:30 Creatinine 0.6 mg/dL (0.8-1.5) L 01/09/17 07:30 Est GFR ( Amer) > 60 01/09/17 07:30 Est GFR (Non-Af Amer) > 60 01/09/17 07:30 POC Glucose (mg/dL) 289 mg/dL (65-110) H 01/12/17 05:26 Random Glucose 212 mg/dL (75-110) H 01/09/17 07:30 Lactic Acid 1.8 MMOL/L (0.7-2.1) 01/09/17 07:30 Calcium 8.6 mg/dL (8.4-10.2) 01/09/17 07:30 Phosphorus 2.9 mg/dl (2.5-4.5) 01/08/17 19:20 Magnesium 1.6 MG/DL (1.6-2.3) 01/08/17 19:20 Total Bilirubin 0.4 mg/dl (0.2-1.3) 01/09/17 07:30 AST 17 U/L (17-59) D 01/09/17 07:30 ALT 23 U/L (21-72) 01/09/17 07:30 Alkaline Phosphatase 56 U/L (38-126) 01/09/17 07:30 Troponin I 0.0180 ng/mL (0.00-0.120) 01/08/17 19:20 Total Protein 6.6 G/DL (6.3-8.2) 01/09/17 07:30 Albumin 3.5 g/dL (3.5-5.0) D 01/09/17 07:30 Globulin 3.1 gm/dL (2.2-3.9) 01/09/17 07:30 Albumin/Globulin Ratio 1.1 (1.0-2.1) 01/09/17 07:30 Lipase 98 U/L (23-300) 01/08/17 19:20 Arterial Blood Potassium 4.4 mmol/L (3.6-5.2) 01/08/17 18:48 Urine Color Straw (YELLOW) 01/09/17 04:36 Urine Clarity Clear (Clear) 01/09/17 04:36 Urine pH 7.0 (5.0-8.0) 01/09/17 04:36 Ur Specific [place] 1.022 (1.003-1.030) 01/09/17 04:36 Urine Protein Negative mg/dL (NEGATIVE) 01/09/17 04:36 Urine Glucose (UA) >=500 mg/dL (Normal) 01/09/17 04:36 Urine Ketones Trace mg/dL (NEGATIVE) 01/09/17 04:36 Urine Blood Negative (NEGATIVE) 01/09/17 04:36 Urine Nitrate Negative (NEGATIVE) 01/09/17 04:36 Urine Bilirubin Negative (NEGATIVE) 01/09/17 04:36 Urine Urobilinogen 0.2-1.0 mg/dL (0.2-1.0) 01/09/17 04:36 Ur Leukocyte Esterase Neg Michael/uL (Negative) 01/09/17 04:36 Urine RBC (Auto) 1 /hpf (0-3) 01/09/17 04:36 Urine Microscopic WBC < 1 /hpf (0-5) 01/09/17 04:36 Discharge Exam - Head Exam Head Exam: ATRAUMATIC, NORMOCEPHALIC Discharge Plan - Follow Up Plan Condition: GUARDED Disposition: HOME/ ROUTINE Additional Instructions: -Follow up with Dr Armstrong in 7 days. -Follow up with GI Dr Yair Renteria in 2-3 weeks -Continue regular soft diet at home for 2 days. -Continue same home meds for diabetes and gastroparesis at home. -IF severe abdominal pain, vomiting, diarrhea, pass out go to ER
[2017-01-12] MEDS: Oxycodone/Acetaminophen 5/325 mg Tab PO PRN ×3 (09:57→21:30)
--- NOTE | 2017-01-12 15:12 | CP.PCM.PN ---
<LdIman medel - Last Filed: 01/12/17 15:36> Subjective - Date & Time of Evaluation Date of Evaluation: 01/12/17 Time of Evaluation: 07:55 - Subjective Subjective: Patient seen and examined bedside feeling better. Patient still c/o abd pain occs that has subsided with pain meds. Tolerating his diet. Denies nausea, vomiting, diarrhea, chest pain, palpitation. Patient willing to go home today due to he has to pay the rent. 13: 15 PM Patient reports that has not been tolerating completely regular diet and still has abd pain and is afraid to go home with abd pain. Possible discharge for tomorrow. Objective - Vital Signs/Intake and Output Vital Signs (last 24 hours): Temp Pulse Resp BP Pulse Ox 98.4 F 81 18 159/79 H 96 01/12/17 08:00 01/12/17 09:00 01/12/17 08:00 01/12/17 08:25 01/12/17 08:00 - Medications Medications: Current Medications Amlodipine Besylate (Norvasc) 10 mg PO DAILY [facility] Last Admin: 01/12/17 08:25 Dose: 10 mg Atorvastatin Calcium (Lipitor) 10 mg PO DAILY [facility] Dextrose (Glutose 15) 0 gm PO ONCE PRN; Protocol PRN Reason: Hypoglycemia Protocol Dextrose (Dextrose 50% Inj) 0 ml IV STAT PRN; Protocol PRN Reason: Hyglycemia Protocol Enoxaparin Sodium (Lovenox) 40 mg SC DAILY [facility] PRN Reason: Protocol Last Admin: 01/12/17 08:27 Dose: 40 mg Famotidine (Pepcid) 20 mg PO BID [facility] Furosemide (Lasix) 40 mg PO DAILY [facility] Gabapentin (Neurontin) 300 mg PO TID [facility] Glucagon (Glucagen Diagnostic Kit) 0 mg IM STAT PRN; Protocol PRN Reason: Hypoglycemia Protocol Insulin Detemir (Levemir) 40 units SC HS [facility] Last Admin: 01/11/17 22:12 Dose: Not Given Insulin Human Regular (Humulin R) 0 units SC ACHS [facility] PRN Reason: Protocol Last Admin: 01/12/17 08:26 Dose: Not Given Insulin Human Regular (Humulin R) 30 units SC ACTID [facility] Last Admin: 01/12/17 08:26 Dose: Not Given Lisinopril (Zestril) 10 mg PO HS [facility] Last Admin: 01/11/17 21:27 Dose: 10 mg Metformin HCl (Glucophage) 1,000 mg PO BIDWM [facility] Metoclopramide HCl (Reglan) 10 mg IVP TID [facility] Last Admin: 01/12/17 08:27 Dose: 10 mg Ondansetron HCl (Zofran Inj) 4 mg IVP Q6 PRN PRN Reason: Nausea/Vomiting Oxycodone/Acetaminophen (Percocet 5/325 Mg Tab) 1 tab PO Q6 PRN PRN Reason: Pain, severe (8-10) Stop: 01/15/17 09:52 Last Admin: 01/12/17 09:57 Dose: 1 tab - Labs Labs: 01/11/17 11:20 01/09/17 07:30 - Constitutional Appears: Non-toxic, No Acute Distress - Head Exam Head Exam: ATRAUMATIC, NORMOCEPHALIC - Eye Exam Eye Exam: Normal appearance - Respiratory Exam Respiratory Exam: Clear to Ausculation Bilateral. absent: Rales, Rhonchi, Wheezes - Cardiovascular Exam Cardiovascular Exam: REGULAR RHYTHM, +S1, +S2 - GI/Abdominal Exam GI & Abdominal Exam: Soft, Normal Bowel Sounds. absent: Tenderness - Extremities Exam Extremities Exam: absent: Calf Tenderness, Normal Inspection, Pedal Edema - Neurological Exam Neurological Exam: Alert, Awake, Oriented x3 - Psychiatric Exam Psychiatric exam: Normal Affect, Normal Mood - Skin Skin Exam: Intact Assessment and Plan - Assessment and Plan (Free Text) Plan: 61 M w/ PMHx of T2DM (uncontrolled), HTN, diabetic neuropathy, gastroparesis admitted for intractable abdominal pain associated with n/v and hyperglycemia. Of note, patient's chart is mostly on Plan: 1) Intractable abdominal pain, secondary to gastroparesis - Admit to telemetry - Percocet 1 tab Q 6h PRN - Alternating Zofran/Reglan - Monitor for improvement/resolution 2) Nausea & vomiting -resolved -secondary to gastroparesis - IV pepcid, Zofran - Zofran 4mg, IV, Q6H - Reglan 10mg, IV, ACTID - Pepcid 20mg, BID, PO 3) Leukocytosis -resolved - Most c/w stress response given absence of febrile illness, CXR w/o changes when compared to prior. 4) T2DM, uncontrolled - Poorly controlled diabetic. - HgbA1c: 12% 10/2016 -Blood sugar 289 mg/dl - Accu-checks - Hypoglycemic Bundle (corrective high dose) - Levemir 40HS -Humalog 30 ACTID 5) Hypertension, uncontrolled - c/w home medication -Lisinopril 10 mg PO daily 6) DVT prophylaxis - Lovenox 40mg, SC, Daily <Jordan Mccord - Last Filed: 01/17/17 07:02> Objective - Vital Signs/Intake and Output Vital Signs (last 24 hours): Temp Pulse Resp BP Pulse Ox 98.4 F 84 18 129/73 97 01/13/17 12:00 01/13/17 12:00 01/13/17 12:00 01/13/17 12:00 01/13/17 12:00 - Labs Labs: 01/11/17 11:20 01/09/17 07:30 Attending/Attestation - Attestation I have personally seen and examined this patient.: Yes I have fully participated in the care of the patient.: Yes I have reviewed all pertinent clinical information, including history, physical exam and plan: Yes
[2017-01-12] MEDS: Insulin Detemir 100 Units/ml Inj SC SCH (22:00)
[2017-01-13] MEDS: Insulin Regular 100 units/ml SC SCH ×4 (06:49→12:21)
[2017-01-13] MEDS: Enoxaparin 40 mg Syringe SC SCH (08:54)
[2017-01-13] MEDS: Oxycodone/Acetaminophen 5/325 mg Tab PO PRN (08:57)
--- NOTE | 2017-01-13 11:18 | CP.PCM.DIS ---
<Brandyn Palacio - Last Filed: 01/13/17 13:33> Provider - Provider Date of Admission: 01/08/17 19:51 Attending physician: Jordan Mccord MD Time Spent in preparation of Discharge (in minutes): 45 Hospital Course - Lab Results Lab Results: Most Recent Lab Values WBC 11.8 K/uL (4.8-10.8) H 01/11/17 11:20 RBC 4.93 Mil/uL (4.40-5.90) 01/11/17 11:20 Hgb 12.8 g/dL (12.0-18.0) 01/11/17 11:20 Hct 39.4 % (35.0-51.0) 01/11/17 11:20 MCV 79.9 fl (80.0-94.0) L 01/11/17 11:20 MCH 25.9 pg (27.0-31.0) L 01/11/17 11:20 MCHC 32.4 g/dL (33.0-37.0) L 01/11/17 11:20 RDW 15.4 % (11.5-14.5) H 01/11/17 11:20 Plt Count 210 K/uL (130-400) 01/11/17 11:20 MPV 9.5 fl (7.2-11.7) 01/08/17 19:20 Neut % (Auto) 87.0 % (50.0-75.0) H 01/08/17 19:20 Lymph % (Auto) 7.6 % (20.0-40.0) L 01/08/17 19:20 [place] % (Auto) 4.3 % (0.0-10.0) 01/08/17 19:20 Eos % (Auto) 0.0 % (0.0-4.0) 01/08/17 19:20 Baso % (Auto) 1.1 % (0.0-2.0) 01/08/17 19:20 Neut # 16.2 K/uL (1.8-7.0) H 01/08/17 19:20 Lymph # 1.4 K/uL (1.0-4.3) 01/08/17 19:20 [place] # 0.8 K/uL (0.0-0.8) 01/08/17 19:20 Eos # 0.0 K/uL (0.0-0.7) 01/08/17 19:20 Baso # 0.2 K/uL (0.0-0.2) 01/08/17 19:20 Neutrophils % (Manual) 87 % (42-75) H 01/08/17 19:20 Band Neutrophils % 3 % (0-2) H 01/08/17 19:20 Lymphocytes % (Manual) 6 % (20-50) L 01/08/17 19:20 Monocytes % (Manual) 4 % (0-10) 01/08/17 19:20 Platelet Estimate Normal (NORMAL) 01/08/17 19:20 Hypochromasia (manual) Slight 01/08/17 19:20 Microcytosis (manual) Slight 01/08/17 19:20 pCO2 28 mm/Hg (35-45) L 01/08/17 18:48 pO2 105 mm/Hg (80-100) H 01/08/17 18:48 HCO3 24.8 mmol/L (21-28) 01/08/17 18:48 ABG pH 7.50 (7.35-7.45) H 01/08/17 18:48 ABG Total CO2 22.7 mmol/L (22-28) 01/08/17 18:48 ABG O2 Saturation 100.1 % (95-98) H 01/08/17 18:48 ABG Base Excess -0.2 mmol/L (-2.0-3.0) 01/08/17 18:48 Kirby Test Yes 01/08/17 18:48 ABG Potassium 4.4 mmol/L (3.6-5.2) 01/08/17 18:48 A-a O2 Difference 10.0 mm/Hg 01/08/17 18:48 Sodium 126.0 mmol/L (132-148) L 01/08/17 18:48 Chloride 94.0 mmol/L (98-107) L 01/08/17 18:48 Glucose 489 mg/dL (75-110) H* 01/08/17 18:48 Lactate 4.1 mmol/L (0.7-2.1) H* 01/08/17 18:48 Vent Mode Room air 01/08/17 18:48 FiO2 21.0 % 01/08/17 18:48 Crit Value Called To chay Arnold md 01/08/17 18:48 Crit Value Called By Amarjit 01/08/17 18:48 Crit Value Read Back Y 01/08/17 18:48 Blood Gas Notified Time 18501/08/17 18:48 Sodium 142 mmol/l (132-148) 01/09/17 07:30 Potassium 4.9 MMOL/L (3.6-5.0) 01/09/17 07:30 Chloride 104 mmol/L (98-107) 01/09/17 07:30 Carbon Dioxide 27 mmol/L (22-30) 01/09/17 07:30 Anion Gap 16 (10-20) 01/09/17 07:30 BUN 9 mg/dl (9-20) 01/09/17 07:30 Creatinine 0.6 mg/dL (0.8-1.5) L 01/09/17 07:30 Est GFR ( Amer) > 60 01/09/17 07:30 Est GFR (Non-Af Amer) > 60 01/09/17 07:30 POC Glucose (mg/dL) 274 mg/dL (65-110) H 01/13/17 05:15 Random Glucose 212 mg/dL (75-110) H 01/09/17 07:30 Lactic Acid 1.8 MMOL/L (0.7-2.1) 01/09/17 07:30 Calcium 8.6 mg/dL (8.4-10.2) 01/09/17 07:30 Phosphorus 2.9 mg/dl (2.5-4.5) 01/08/17 19:20 Magnesium 1.6 MG/DL (1.6-2.3) 01/08/17 19:20 Total Bilirubin 0.4 mg/dl (0.2-1.3) 01/09/17 07:30 AST 17 U/L (17-59) D 01/09/17 07:30 ALT 23 U/L (21-72) 01/09/17 07:30 Alkaline Phosphatase 56 U/L (38-126) 01/09/17 07:30 Troponin I 0.0180 ng/mL (0.00-0.120) 01/08/17 19:20 Total Protein 6.6 G/DL (6.3-8.2) 01/09/17 07:30 Albumin 3.5 g/dL (3.5-5.0) D 01/09/17 07:30 Globulin 3.1 gm/dL (2.2-3.9) 01/09/17 07:30 Albumin/Globulin Ratio 1.1 (1.0-2.1) 01/09/17 07:30 Lipase 98 U/L (23-300) 01/08/17 19:20 Arterial Blood Potassium 4.4 mmol/L (3.6-5.2) 01/08/17 18:48 Urine Color Straw (YELLOW) 01/09/17 04:36 Urine Clarity Clear (Clear) 01/09/17 04:36 Urine pH 7.0 (5.0-8.0) 01/09/17 04:36 Ur Specific [place] 1.022 (1.003-1.030) 01/09/17 04:36 Urine Protein Negative mg/dL (NEGATIVE) 01/09/17 04:36 Urine Glucose (UA) >=500 mg/dL (Normal) 01/09/17 04:36 Urine Ketones Trace mg/dL (NEGATIVE) 01/09/17 04:36 Urine Blood Negative (NEGATIVE) 01/09/17 04:36 Urine Nitrate Negative (NEGATIVE) 01/09/17 04:36 Urine Bilirubin Negative (NEGATIVE) 01/09/17 04:36 Urine Urobilinogen 0.2-1.0 mg/dL (0.2-1.0) 01/09/17 04:36 Ur Leukocyte Esterase Neg Michael/uL (Negative) 01/09/17 04:36 Urine RBC (Auto) 1 /hpf (0-3) 01/09/17 04:36 Urine Microscopic WBC < 1 /hpf (0-5) 01/09/17 04:36 - Hospital Course Hospital Course: PAtient 61 y/o male IDDM type 2 HTN with multiplies admission due to abdominal pian secondary to gastroparesis reported feeling weel today tolerated d well PO , he had breakfast pain improved, he denied nausea,vomits, fever, chest pain palpitation urinary or sleeping problems. Discharge Exam - Head Exam Head Exam: ATRAUMATIC, NORMOCEPHALIC - Eye Exam Eye Exam: Normal appearance - ENT Exam ENT Exam: Mucous Membranes Dry - Neck Exam Neck exam: Full Rom - Respiratory Exam Respiratory Exam: Clear to PA & Lateral, NORMAL BREATHING PATTERN - Cardiovascular Exam Cardiovascular Exam: REGULAR RHYTHM, RRR, +S1. absent: JVD - GI/Abdominal Exam GI & Abdominal Exam: Normal Bowel Sounds - Extremities Exam Extremities exam: full ROM, normal capillary refill - Neurological Exam Neurological exam: Alert, Normal Gait, Oriented x3 - Psychiatric Exam Psychiatric exam: Normal Affect, Normal Mood - Skin Skin Exam: Normal Color Discharge Plan - Discharge Medications Prescriptions: Atorvastatin [Lipitor] 10 mg PO DAILY #30 tab Gabapentin [Neurontin] 300 mg PO TID #30 cap Famotidine [Pepcid] 20 mg PO BID #20 tab Metoclopramide HCl [Reglan] 10 mg PO Q8H #30 tablet MetFORMIN [glucoPHAGE] 1,000 mg PO BIDWM #60 tab - Follow Up Plan Condition: GUARDED Disposition: HOME/ ROUTINE Instructions: Diabetic Hyperglycemia (DC), Diabetic Gastroparesis (DC) Additional Instructions: -Follow up with Dr Mccord in 7 days. -Follow up with GI Dr Yair Renteria in 2-3 weeks -Continue regular soft diet at home for 2 days. -Continue same home meds for diabetes and gastroparesis at home. -IF severe abdominal pain, vomiting, diarrhea, pass out go to ER <Suzi Madrid - Last Filed: 01/14/17 09:03> Provider - Provider Date of Admission: 01/08/17 19:51 Attending physician: Jordan Mccord MD Hospital Course - Lab Results Lab Results: Most Recent Lab Values WBC 11.8 K/uL (4.8-10.8) H 01/11/17 11:20 RBC 4.93 Mil/uL (4.40-5.90) 01/11/17 11:20 Hgb 12.8 g/dL (12.0-18.0) 01/11/17 11:20 Hct 39.4 % (35.0-51.0) 01/11/17 11:20 MCV 79.9 fl (80.0-94.0) L 01/11/17 11:20 MCH 25.9 pg (27.0-31.0) L 01/11/17 11:20 MCHC 32.4 g/dL (33.0-37.0) L 01/11/17 11:20 RDW 15.4 % (11.5-14.5) H 01/11/17 11:20 Plt Count 210 K/uL (130-400) 01/11/17 11:20 MPV 9.5 fl (7.2-11.7) 01/08/17 19:20 Neut % (Auto) 87.0 % (50.0-75.0) H 01/08/17 19:20 Lymph % (Auto) 7.6 % (20.0-40.0) L 01/08/17 19:20 [place] % (Auto) 4.3 % (0.0-10.0) 01/08/17 19:20 Eos % (Auto) 0.0 % (0.0-4.0) 01/08/17 19:20 Baso % (Auto) 1.1 % (0.0-2.0) 01/08/17 19:20 Neut # 16.2 K/uL (1.8-7.0) H 01/08/17 19:20 Lymph # 1.4 K/uL (1.0-4.3) 01/08/17 19:20 [place] # 0.8 K/uL (0.0-0.8) 01/08/17 19:20 Eos # 0.0 K/uL (0.0-0.7) 01/08/17 19:20 Baso # 0.2 K/uL (0.0-0.2) 01/08/17 19:20 Neutrophils % (Manual) 87 % (42-75) H 01/08/17 19:20 Band Neutrophils % 3 % (0-2) H 01/08/17 19:20 Lymphocytes % (Manual) 6 % (20-50) L 01/08/17 19:20 Monocytes % (Manual) 4 % (0-10) 01/08/17 19:20 Platelet Estimate Normal (NORMAL) 01/08/17 19:20 Hypochromasia (manual) Slight 01/08/17 19:20 Microcytosis (manual) Slight 01/08/17 19:20 pCO2 28 mm/Hg (35-45) L 01/08/17 18:48 pO2 105 mm/Hg (80-100) H 01/08/17 18:48 HCO3 24.8 mmol/L (21-28) 01/08/17 18:48 ABG pH 7.50 (7.35-7.45) H 01/08/17 18:48 ABG Total CO2 22.7 mmol/L (22-28) 01/08/17 18:48 ABG O2 Saturation 100.1 % (95-98) H 01/08/17 18:48 ABG Base Excess -0.2 mmol/L (-2.0-3.0) 01/08/17 18:48 Kirby Test Yes 01/08/17 18:48 ABG Potassium 4.4 mmol/L (3.6-5.2) 01/08/17 18:48 A-a O2 Difference 10.0 mm/Hg 01/08/17 18:48 Sodium 126.0 mmol/L (132-148) L 01/08/17 18:48 Chloride 94.0 mmol/L (98-107) L 01/08/17 18:48 Glucose 489 mg/dL (75-110) H* 01/08/17 18:48 Lactate 4.1 mmol/L (0.7-2.1) H* 01/08/17 18:48 Vent Mode Room air 01/08/17 18:48 FiO2 21.0 % 01/08/17 18:48 Crit Value Called To chay Arnold md 01/08/17 18:48 Crit Value Called By Amarjit 01/08/17 18:48 Crit Value Read Back Y 01/08/17 18:48 Blood Gas Notified Time 1858 01/08/17 18:48 Sodium 142 mmol/l (132-148) 01/09/17 07:30 Potassium 4.9 MMOL/L (3.6-5.0) 01/09/17 07:30 Chloride 104 mmol/L (98-107) 01/09/17 07:30 Carbon Dioxide 27 mmol/L (22-30) 01/09/17 07:30 Anion Gap 16 (10-20) 01/09/17 07:30 BUN 9 mg/dl (9-20) 01/09/17 07:30 Creatinine 0.6 mg/dL (0.8-1.5) L 01/09/17 07:30 Est GFR ( Amer) > 60 01/09/17 07:30 Est GFR (Non-Af Amer) > 60 01/09/17 07:30 POC Glucose (mg/dL) 356 mg/dL (65-110) H 01/13/17 11:07 Random Glucose 212 mg/dL (75-110) H 01/09/17 07:30 Lactic Acid 1.8 MMOL/L (0.7-2.1) 01/09/17 07:30 Calcium 8.6 mg/dL (8.4-10.2) 01/09/17 07:30 Phosphorus 2.9 mg/dl (2.5-4.5) 01/08/17 19:20 Magnesium 1.6 MG/DL (1.6-2.3) 01/08/17 19:20 Total Bilirubin 0.4 mg/dl (0.2-1.3) 01/09/17 07:30 AST 17 U/L (17-59) D 01/09/17 07:30 ALT 23 U/L (21-72) 01/09/17 07:30 Alkaline Phosphatase 56 U/L (38-126) 01/09/17 07:30 Troponin I 0.0180 ng/mL (0.00-0.120) 01/08/17 19:20 Total Protein 6.6 G/DL (6.3-8.2) 01/09/17 07:30 Albumin 3.5 g/dL (3.5-5.0) D 01/09/17 07:30 Globulin 3.1 gm/dL (2.2-3.9) 01/09/17 07:30 Albumin/Globulin Ratio 1.1 (1.0-2.1) 01/09/17 07:30 Lipase 98 U/L (23-300) 01/08/17 19:20 Arterial Blood Potassium 4.4 mmol/L (3.6-5.2) 01/08/17 18:48 Urine Color Straw (YELLOW) 01/09/17 04:36 Urine Clarity Clear (Clear) 01/09/17 04:36 Urine pH 7.0 (5.0-8.0) 01/09/17 04:36 Ur Specific [place] 1.022 (1.003-1.030) 01/09/17 04:36 Urine Protein Negative mg/dL (NEGATIVE) 01/09/17 04:36 Urine Glucose (UA) >=500 mg/dL (Normal) 01/09/17 04:36 Urine Ketones Trace mg/dL (NEGATIVE) 01/09/17 04:36 Urine Blood Negative (NEGATIVE) 01/09/17 04:36 Urine Nitrate Negative (NEGATIVE) 01/09/17 04:36 Urine Bilirubin Negative (NEGATIVE) 01/09/17 04:36 Urine Urobilinogen 0.2-1.0 mg/dL (0.2-1.0) 01/09/17 04:36 Ur Leukocyte Esterase Neg [place]/uL (Negative) 01/09/17 04:36 Urine RBC (Auto) 1 /hpf (0-3) 01/09/17 04:36 Urine Microscopic WBC < 1 /hpf (0-5) 01/09/17 04:36 Discharge Exam - Skin Additional comments: ATTESTATION STATEMENT ATTENDING NOTE PATIENT SEEN AND EXAMINED. CASE DISCUSSED WITH RESIDENT. AGREE WITH PLAN.
[2017-01-13 12:24] VITALS: BP 129/73; PULSE 84; RESP 18; TEMP 98.4; O2SAT 97
== END 2017-01-13 15:00 | disposition home or self-care (01) | DRG 74 ==
LOC: H.ER 17:51 → H.ERHOLD 19:51 → H.TEL 21:56
PROVIDERS: ADMIT Family Medicine; ATTEND Family Medicine
DX: E11.43 Type 2 diabetes mellitus with diabetic autonomic (poly)neuropathy (principal); E11.22 Type 2 diabetes mellitus with diabetic chronic kidney disease; K31.84 Gastroparesis; E11.65 Type 2 diabetes mellitus with hyperglycemia; E78.00 Pure hypercholesterolemia, unspecified; E78.5 Hyperlipidemia, unspecified; I12.9 Hypertensive chronic kidney disease with stage 1 through stage 4 chronic kidney disease, or unspecified chronic kidney disease; N18.9 Chronic kidney disease, unspecified

== ENCOUNTER 2017-01-15 22:05 | Inpatient (IN) | payer OTHER ==
[2017-01-15] MEDS ORDERED: Sodium Chloride 0.9% 1,000 ML IV STA (22:37)
[2017-01-15 22:55] LABS: BASO # 0.1 K/uL (0.0-0.2); BASO % 0.6 % (0.0-2.0); HEMATOCRIT 46.9 % (35.0-51.0); LYMPH # 0.8 K/uL (1.0-4.3); LYMPH % 4.7 % (20.0-40.0); MEAN CELL VOLUME 79.9 fl (80.0-94.0); MEAN CORPUSCULAR HEMOGLOBIN 25.3 pg (27.0-31.0); MEAN CORPUSCULAR HGB CONC 31.7 g/dL (33.0-37.0); MEAN PLATELET VOLUME 9.3 fl (7.2-11.7); MONO # 0.3 K/uL (0.0-0.8); MONO % 2.1 % (0.0-10.0); NEUT # 15.4 K/uL (1.8-7.0); NEUT % 92.6 % (50.0-75.0); NRBC % 0.1 % (0.0-0.0); PLATELET COUNT 297 K/uL (130-400); RED CELL DISTRIBUTION WIDTH 15.9 % (11.5-14.5); WHITE BLOOD COUNT 16.6 K/uL (4.8-10.8)
--- NOTE | 2017-01-15 23:00 | ED PDOC ---
HPI: Abdomen Time Seen by Provider: 01/15/17 22:26 Chief Complaint (Nursing): Abdominal Pain Chief Complaint (Provider): Abdominal Pain History Per: Patient History/Exam Limitations: no limitations Onset/Duration Of Symptoms: Hrs (started aroud 2 PM today) Associated Symptoms: Nausea, Vomiting. denies: Fever, Diarrhea Additional Complaint(s): 22:26 Stas Couch is a 61 year old male with a history of diabetes, diabetic gastroparesis, and SVT that presents to the ED with a chief complaint of epigastric abdominal pain, nausea, and vomiting that began around 2:00 PM today. Patient states that he has vomited several times, and has been experiencing shortness of breath and chest pain for the past few hours. He denies any fever or diarrhea. PMD: Jordan Mccord Past Medical History Reviewed: Historical Data, Nursing Documentation, Vital Signs Vital Signs: Last Vital Signs Temp 98.9 F 01/16/17 00:47 Pulse 105 H 01/16/17 02:00 Resp 20 01/16/17 02:00 BP 213/109 H 01/16/17 02:00 Pulse Ox 99 01/16/17 02:00 - Medical History PMH: Diabetes, HTN, Hypercholesterolemia, Kidney Stones, Pancreatitis, Chronic Kidney Disease - Surgical History Surgical History: Cholecystectomy - Family History Family History: States: Unknown Family Hx - Home Medications Home Medications: Ambulatory Orders Medication Instructions Recorded Insulin Detemir [Levemir] 45 unit SC HS 01/08/17 Insulin Lispro [humALOG] 30 unit SC TID 01/08/17 Lisinopril [Zestril] 10 mg PO DAILY 01/08/17 amLODIPine [Norvasc] 10 mg PO DAILY 01/08/17 Atorvastatin [Lipitor] 10 mg PO DAILY #30 tab 01/13/17 Famotidine [Pepcid] 20 mg PO BID #20 tab 01/13/17 Gabapentin [Neurontin] 300 mg PO TID #30 cap 01/13/17 MetFORMIN [glucoPHAGE] 1,000 mg PO BIDWM #60 tab 01/13/17 Metoclopramide HCl [Reglan] 10 mg PO Q8H #30 tablet 01/13/17 oxyCODONE/Acetaminophen [Percocet 1 tab PO Q6 PRN #0 tab 01/13/17 5/325 mg Tab] - Allergies Allergies/Adverse Reactions: Allergies Allergy/AdvReac Type Severity Reaction Status Date / Time iodine Allergy RASH Verified 01/08/17 17:59 Review of Systems ROS Statement: Except As Marked, All Systems Reviewed And Found Negative Constitutional: Negative for: Fever Cardiovascular: Positive for: Chest Pain Respiratory: Positive for: Shortness of Breath Gastrointestinal: Positive for: Nausea, Vomiting, Abdominal Pain (epigastric). Negative for: Diarrhea Physical Exam - Reviewed Nursing Documentation Reviewed: Yes Vital Signs Reviewed: Yes - Physical Exam Appears: Positive for: Uncomfortable, In Acute Distress Head Exam: Positive for: ATRAUMATIC, NORMOCEPHALIC Skin: Positive for: Normal Color, Warm Cardiovascular/Chest: Positive for: Regular Rate, Rhythm, Tachycardia (SVT). Negative for: Edema, Murmur Gastrointestinal/Abdominal: Positive for: Soft, Tenderness (epigastric tenderness) Extremity: Positive for: Normal ROM. Negative for: Tenderness Neurologic/Psych: Positive for: Alert, Oriented - Laboratory Results Result Diagrams: 01/15/17 22:50 01/15/17 22:50 - ECG O2 Sat by Pulse Oximetry: 98 (RA) Pulse Ox Interpretation: Normal - Progress Re-evaluation Time: 23:50 Condition: Re-examined, Improving,but remains with symptoms - Critical Care Total Time (In Min): 30 Documented Critical Care: Time excludes all time spent performint seperately billable procedures Medical Decision Making Medical Decision Makin:10 Initial Impression: Diabetic Hyperglycemia r/o DKA, SVT, Diabetic Gastroparesis with current vomiting and abdominal pain Initial Plan: * EKG done at 22:12 showed SVT, rate 220 BPM. Normal QRS, no ST changes. According to ACLS protocol, patient placed in critical care for 30 minutes for SVT treatment. Given peripheral line adenosine 6 mg administered for conversion of SVT. Rate converted successfully, no complications, tolerated well. * EKG after adenosine showered sinus tachycardia [id number] BPM, normal QRS, no ST changes. * VBG Shock Panel * CMP * CBC * Lipase * Troponin * Ketone Serum * Reglan 10 mg IV * Sodium Chloride 1000 mL at 1000 mLs/hr * Reevaluate * Discussed with Dr Wilkerson who will be on consult for SVT and elevated trop. Recommends ASA and admission to ICU. Scribe Attestation: Documented by Teagan Day, acting as a scribe for Denise Galvan MD. Provider Scribe Attestation: All medical record entries made by the Scribe were at my direction and personally dictated by me. I have reviewed the chart and agree that the record accurately reflects my personal performance of the history, physical exam, medical decision making, and the department course for this patient. I have also personally directed, reviewed, and agree with the discharge instructions and disposition Disposition - Clinical Impression Clinical Impression: Hyperglycemia due to type 1 diabetes mellitus, SVT (supraventricular tachycardia), Elevated troponin, Abdominal pain, Gastroparesis - Patient ED Disposition Is Patient to be Admitted: Yes Discussed With : Reji Villalobos Doctor Will See Patient In The: ED Counseled Patient/Family Regarding: Studies Performed, Diagnosis - Disposition Disposition Time: 23:40 Condition: CRITICAL - Pt Status Changed To: Hospital Disposition Of: Inpatient - Admit Certification Admit to Inpatient:: After my assessment, the patient will require hospitalization for at least two midnights. This is because of the severity of symptoms shown, intensity of services needed, and/or the medical risk in this patient being treated as an outpatient. - POA Present On Arrival: Poor Glycemic Control
[2017-01-15 23:06] LABS: ALKALINE PHOSPHATASE 85 U/L (38-126); ALT/SGPT 47 U/L (21-72); AST/SGOT 37 U/L (17-59); BILIRUBIN,TOTAL 0.7 mg/dl (0.2-1.3); BLOOD UREA NITROGEN 10 mg/dl (9-20); CALCIUM 9.8 mg/dL (8.4-10.2); CARBON DIOXIDE 20 mmol/L (22-30); CHLORIDE 97 mmol/L (98-107); GFR AFRICAN-AMERICAN > 60; LIPASE 59 U/L (23-300); POTASSIUM 3.6 MMOL/L (3.6-5.0); SODIUM 143 mmol/l (132-148); TOTAL PROTEIN 8.5 G/DL (6.3-8.2)
[2017-01-15 23:07] LABS: ALB/GLOB RATIO 1.2 (1.0-2.1)
[2017-01-15 23:08] LABS: GLUCOSE,RANDOM 471 mg/dL (75-110)
[2017-01-15 23:20] LABS: NEUTROPHIL 91 % (42-75); TOTAL CELLS COUNTED 100
[2017-01-15] MEDS ORDERED: Insulin Regular 100 units/ml IV STA (23:20)
[2017-01-15] MEDS ORDERED: Potassium Chl 20 mEq in NS 1,000 ML IV SCH (23:30)
[2017-01-15] MEDS ORDERED: Insulin Regular 100 units/ml ONE (23:46)
[2017-01-15] MEDS ORDERED: Aspirin 325 mg EC Tablets PO ONE (23:46)
[2017-01-16 00:06] LABS: ABG ALLEN TEST YES; ARTERIAL BLOOD GAS HCO3 24.5 mmol/L (21-28); ARTERIAL BLOOD GAS PH 7.44 (7.35-7.45); ARTERIAL BLOOD GAS PO2 75 mm/Hg (80-100)
--- NOTE | 2017-01-16 00:30 | CP.PCM.CON ---
History of Present Illness - History of Present Illness History of Present Illness: CC/reason for ICU: n/v/abd pain 2/2 DM gastroparesis, elevated trop 2/2 SVT This is a 61 YOM w/MHx significant for DM2 with complications, HTN, and HLD with recurrent gastroparesis who presents to ER today with similar symptoms as in the past. He has had n/v and abd pain since earlier today. States he has been unable to take his insulin today as well and was noted to be in an SVT on admission. Denies CP/SOB/f/c/d. ROS: 14 systems reviewed, negative other than HPI MHx: DM2 with recurrent gastroparesis, neuropathy, HTN, HLD, substance abuse SHx: Lap jaren Allergies: Contrast dye Medications: per med rec Family/Social Hx: No EtOH or tobacco, does have Hx of multiple substance abuse Past Patient History - Past Medical History & Family History Past Medical History?: Yes - Past Social History Smoking Status: Never Smoked - CARDIAC Hx Hypercholesterolemia: Yes Hx Hypertension: Yes - PULMONARY Hx Respiratory Disorders: No - NEUROLOGICAL Hx Neurological Disorder: No - HEENT Hx HEENT Problems: No - RENAL Hx Chronic Kidney Disease: Yes Hx Kidney Stones: Yes - ENDOCRINE/METABOLIC Hx Endocrine Disorders: Yes Hx Diabetes Mellitus Type 1: Yes - HEMATOLOGICAL/ONCOLOGICAL Hx Blood Disorders: No - INTEGUMENTARY Hx Dermatological Problems: No - MUSCULOSKELETAL/RHEUMATOLOGICAL Hx Musculoskeletal Disorders: No Hx Falls: No - GASTROINTESTINAL Hx Pancreatitis: Yes - GENITOURINARY/GYNECOLOGICAL Hx Genitourinary Disorders: No - PSYCHIATRIC Hx Psychophysiologic Disorder: No Hx Substance Use: No - SURGICAL HISTORY Hx Cholecystectomy: Yes - ANESTHESIA Hx Anesthesia: Yes Hx Anesthesia Reactions: No Meds Allergies/Adverse Reactions: Allergies Allergy/AdvReac Type Severity Reaction Status Date / Time iodine Allergy RASH Verified 01/08/17 17:59 - Medications Medications: Current Medications Enoxaparin Sodium (Lovenox) 40 mg SC DAILY MONSTER PRN Reason: Protocol Potassium Chloride/Sodium Chloride (Potassium Chl 20 Meq In Ns) 1,000 mls @ 500 mls/hr IV .Q2H [facility] Last Admin: 01/15/17 23:54 Dose: 500 mls/hr Metoclopramide HCl (Reglan) 10 mg IVP Q6 PRN PRN Reason: Nausea/Vomiting Ondansetron HCl (Zofran Inj) 4 mg IVP Q6 PRN PRN Reason: Nausea/Vomiting Physical Exam - Constitutional Appears: No Acute Distress - Head Exam Head Exam: ATRAUMATIC, NORMOCEPHALIC - Eye Exam Eye Exam: EOMI, PERRL - ENT Exam ENT Exam: Mucous Membranes Dry - Neck Exam Neck exam: Positive for: Full Rom - Respiratory Exam Respiratory Exam: Clear to Auscultation Bilateral, NORMAL BREATHING PATTERN - Cardiovascular Exam Cardiovascular Exam: Tachycardia, +S1, +S2 - GI/Abdominal Exam GI & Abdominal Exam: Normal Bowel Sounds, Soft, Tenderness - Extremities Exam Extremities exam: Positive for: full ROM, normal inspection - Neurological Exam Neurological exam: Alert, CN II-XII Intact, Oriented x3 - Psychiatric Exam Psychiatric exam: Normal Affect, Normal Mood - Skin Skin Exam: Dry, Warm Results - Vital Signs Recent Vital Signs: Last Vital Signs Temp 99.9 F H 01/15/17 22:06 Pulse 122 H 01/16/17 00:29 Resp 18 01/16/17 00:29 BP 196/98 H 01/16/17 00:29 Pulse Ox 99 01/16/17 00:29 - Labs Result Diagrams: 01/15/17 22:50 01/15/17 22:50 Labs: Laboratory Results - last 24 hr 01/15/17 01/15/17 22:50 23:45 WBC 16.6 H RBC 5.87 Hgb 14.9 D Hct 46.9 MCV 79.9 L MCH 25.3 L MCHC 31.7 L RDW 15.9 H Plt Count 297 MPV 9.3 Neut % (Auto) 92.6 H Lymph % (Auto) 4.7 L [place] % (Auto) 2.1 Eos % (Auto) 0.0 Baso % (Auto) 0.6 Neut # 15.4 H Lymph # 0.8 L [place] # 0.3 Eos # 0.0 Baso # 0.1 Neutrophils % (Manual) 91 H Band Neutrophils % 1 Lymphocytes % (Manual) 5 L Monocytes % (Manual) 3 Platelet Estimate Normal Hypochromasia (manual) Slight Microcytosis (manual) Slight pCO2 34 L pO2 75 L HCO3 24.5 ABG pH 7.44 ABG Total CO2 24.1 ABG O2 Saturation 98.2 H ABG Base Excess -0.5 Kirby Test Yes ABG Potassium 3.8 A-a O2 Difference 32.0 Glucose 462 H* Lactate 1.7 FiO2 21.0 Crit Value Called To Denise smith md Crit Value Called By 6001 Crit Value Read Back Y Blood Gas Notified Time 6 Sodium 143 137.0 Potassium 3.6 Chloride 97 L 102.0 Carbon Dioxide 20 L Anion Gap 30 H BUN 10 Creatinine 0.6 L Est GFR ( Amer) > 60 Est GFR (Non-Af Amer) > 60 Random Glucose 471 H* D Calcium 9.8 Total Bilirubin 0.7 AST 37 ALT 47 Alkaline Phosphatase 85 Troponin I 0.1770 H* Total Protein 8.5 H Albumin 4.6 Globulin 4.0 H Albumin/Globulin Ratio 1.2 Lipase 59 Arterial Blood Potassium 3.8 - EKG Data EKG Interpreted by: Myself EKG shows normal: Sinus rhythm Rate: Tachycardia Assessment & Plan (1) Elevated troponin Assessment and Plan: 61 y/o male with multiple medical probs and recurrent admissions for gastroparesis and also for SVT returns today with similar symptoms. 1) Elevated troponins -serial trops -AM EKG -Echo if no recent available -Cardiology consult -Received 325 of ASA, would not give any other anticoag unless 2nd troponin is significantly elevated 2) Elevated ser gluc -- normal pH, no DKA and does not appear to be HONC at this point -NPO for now, IVF -Accucheck -Resume home insulin dose with SSI as needed 3) Diabetic gastroparesis -NPO and IVF for now -IV Reglan and zofran PRN for n/v -Dilaudid x 1-2 more doses for abd pain, then scale back 4) HTN -- BP elevated -Given a dose of 20 IV labetolol with improvement -Cont home BP medications as tolerated -Stop/decrease IVF if tolerating PO 5) DVT PPx -- SQ Lovenox Status: Acute (2) Gastroparesis Status: Acute (3) SVT (supraventricular tachycardia) Status: Acute (4) Hyperglycemia Status: Acute
[2017-01-16 01:15] VITALS: BMI 31.4
[2017-01-16] MEDS ORDERED: Labetalol 5mg/ml (4ml) IVP STA (01:33)
--- NOTE | 2017-01-16 01:50 | CP.PCM.HP ---
<Reji Villalobos - Last Filed: 01/16/17 05:58> History of Present Illness - History of Present Illness History of Present Illness: 61 yo M w PMHx of Gastroparesis, DM2, HTN, Nephrolithiasis, and CKD is admitted for SVT associated w sharp, 07/24, diffuse abdominal pain associated with several bouts of vomiting. Pt states pain began at 2pm after eating a [employer] $ 0.99 cheeseburger. As per report from ER physician, canvassing manager Dr Wilkerson, is aware of SVT and states elevated troponins have occurred w previous episodes of SVT. Pt is in obvious distress and is requesting pain/nausea medication. He states chest pain has resolved, but he denies fevers/chills, SOB, dyspnea, hematemesis, diarrhea, constipation, hematochezia, or melena. PMD: Dr. Mccord PMH: DM w/Gastroparesis, HTN, HLD, Diabetic neuropathy, Drug Use Hx PSH: Lap Saranya Allergies: IV contrast (hives) Meds: As per chart ER Course: -CBC -CMP -Lipase -Ketone -EKG -IVF -Dilaudid -Zofran -NS 1L -Adenosine -Insulin -Cardio Consult Present on Admission - Present on Admission Any Indicators Present on Admission: Yes History of DVT/PE: No History of Uncontrolled Diabetes: Yes Urinary Catheter: No Decubitus Ulcer Present: No Review of Systems - Review of Systems Review of Systems: see HPI Past Patient History - Past Medical History & Family History Past Medical History?: Yes - Past Social History Smoking Status: Never Smoked - CARDIAC Hx Hypercholesterolemia: Yes Hx Hypertension: Yes - PULMONARY Hx Respiratory Disorders: No - NEUROLOGICAL Hx Neurological Disorder: No - HEENT Hx HEENT Problems: No - RENAL Hx Chronic Kidney Disease: Yes Hx Kidney Stones: Yes - ENDOCRINE/METABOLIC Hx Endocrine Disorders: Yes Hx Diabetes Mellitus Type 1: Yes - HEMATOLOGICAL/ONCOLOGICAL Hx Blood Disorders: No - INTEGUMENTARY Hx Dermatological Problems: No - MUSCULOSKELETAL/RHEUMATOLOGICAL Hx Musculoskeletal Disorders: No Hx Falls: No - GASTROINTESTINAL Hx Pancreatitis: Yes - GENITOURINARY/GYNECOLOGICAL Hx Genitourinary Disorders: No - PSYCHIATRIC Hx Psychophysiologic Disorder: No Hx Substance Use: No - SURGICAL HISTORY Hx Cholecystectomy: Yes - ANESTHESIA Hx Anesthesia: Yes Hx Anesthesia Reactions: No Meds Allergies/Adverse Reactions: Allergies Allergy/AdvReac Type Severity Reaction Status Date / Time iodine Allergy RASH Verified 01/08/17 17:59 Physical Exam - Constitutional Appears: In Acute Distress, Unkempt - Head Exam Head Exam: ATRAUMATIC, NORMAL INSPECTION - Eye Exam Eye Exam: EOMI Pupil Exam: PERRL - ENT Exam ENT Exam: Mucous Membranes Dry - Neck Exam Neck exam: Positive for: Full Rom - Respiratory Exam Respiratory Exam: Clear to Auscultation Bilateral. absent: Rales, Respiratory Distress - Cardiovascular Exam Cardiovascular Exam: REGULAR RHYTHM - GI/Abdominal Exam GI & Abdominal Exam: Normal Bowel Sounds, Tenderness - Neurological Exam Neurological exam: Alert, CN II-XII Intact, Oriented x3 Results - Vital Signs Recent Vital Signs: Last Vital Signs Temp 98.9 F 01/16/17 00:47 Pulse 122 H 01/16/17 00:47 Resp 18 01/16/17 00:47 BP 196/98 H 01/16/17 00:47 Pulse Ox 99 01/16/17 00:29 - Labs Result Diagrams: 01/15/17 22:50 01/15/17 22:50 Assessment & Plan - Assessment and Plan (Free Text) Plan: 61 yo M w PMHx of Gastroparesis, DM2, HTN, Nephrolithiasis, and CKD is admitted for SVT associated w sharp, 10/10 abd pain 1) SVT w +troponin -Troponin 0.177 (H) -EKG: No acute infarct -f/u Serial Troponins -f/u Echo -f/u Cardio Consult 2) Intractable abdominal pain -Very likely due to gastroparesis -Dilaudid for pain control -Zofran -Reglan -Pepcid -f/u pain control 3) DM2 -Poorly controlled -DKA/HHS ruled out; pH 7.44 -Insulin 10u given, awaiting f/u FS -Levemir 40u SC HS -Humalog 30 ACTID -f/u FS -f/u labs 4) HTN -Uncontrolled -Continue w home medication 5) DVT Prophylaxis -Lovenox 40mg SC Daily 6) PUD Prophylaxis -Pepcid BID <Jordan Mccord - Last Filed: 01/17/17 07:06> Results - Vital Signs Recent Vital Signs: Last Vital Signs Temp 97.7 F 01/17/17 05:00 Pulse 95 H 01/17/17 05:00 Resp 20 01/17/17 05:00 BP 163/89 H 01/17/17 05:00 Pulse Ox 98 01/17/17 05:00 - Labs Result Diagrams: 01/16/17 08:49 01/16/17 08:49 Labs: Laboratory Results - last 24 hr 01/16/17 01/16/17 01/16/17 08:49 11:22 16:01 WBC 17.1 H RBC 4.99 Hgb 12.6 D Hct 39.6 MCV 79.2 L MCH 25.2 L MCHC 31.8 L RDW 15.9 H Plt Count 280 MPV 9.1 Neut % (Auto) 82.7 H Lymph % (Auto) 10.0 L Ramsey % (Auto) 6.5 Eos % (Auto) 0.0 Baso % (Auto) 0.8 Neut # 14.2 H Lymph # 1.7 Ramsey # 1.1 H Eos # 0.0 Baso # 0.1 Sodium 138 Potassium 3.6 Chloride 100 Carbon Dioxide 25 Anion Gap 17 BUN 10 Creatinine 0.6 L Est GFR ( Amer) > 60 Est GFR (Non-Af Amer) > 60 POC Glucose (mg/dL) 215 H 69 Random Glucose 286 H Calcium 8.8 Troponin I 0.4050 H* Digoxin < 0.4 L 01/16/17 01/16/17 01/16/17 16:13 17:20 21:26 WBC RBC Hgb Hct MCV MCH MCHC RDW Plt Count MPV Neut % (Auto) Lymph % (Auto) Ramsey % (Auto) Eos % (Auto) Baso % (Auto) Neut # Lymph # Ramsey # Eos # Baso # Sodium Potassium Chloride Carbon Dioxide Anion Gap BUN Creatinine Est GFR ( Amer) Est GFR (Non-Af Amer) POC Glucose (mg/dL) 165 H 279 H Random Glucose Calcium Troponin I 0.3050 H* Digoxin 01/17/17 01/17/17 02:07 05:32 WBC RBC Hgb Hct MCV MCH MCHC RDW Plt Count MPV Neut % (Auto) Lymph % (Auto) Ramsey % (Auto) Eos % (Auto) Baso % (Auto) Neut # Lymph # Ramsey # Eos # Baso # Sodium Potassium Chloride Carbon Dioxide Anion Gap BUN Creatinine Est GFR ( Amer) Est GFR (Non-Af Amer) POC Glucose (mg/dL) 338 H 350 H Random Glucose Calcium Troponin I Digoxin Attending/Attestation - Attestation I have personally seen and examined this patient.: Yes I have fully participated in the care of the patient.: Yes I have reviewed all pertinent clinical information: Yes
[2017-01-16] MEDS: Sodium Chloride 0.9% 1,000 ML IV SCH ×2 (06:49→21:53)
[2017-01-16] MEDS: Insulin Lispro (humaLOG) 100 Units/ml Inj SC SCH ×3 (06:51→16:11)
--- NOTE | 2017-01-16 07:58 | CP.PCM.PN ---
<William Bloom - Last Filed: 01/16/17 11:58> Subjective - Date & Time of Evaluation Date of Evaluation: 01/16/17 Time of Evaluation: 07:54 - Subjective Subjective: The patient is a 61 y/o man w PMHx of Gastroparesis, DM2, HTN, Nephrolithiasis, and CKD is admitted for SVT associated w sharp, 07/24, diffuse abdominal pain associated with several bouts of vomiting. The patient was seen this morning. There are no acute events since arriving to ICU. Patient's repeat BP and tachycardia is less severe compared to earlier this morning. Patient is sitting up, tolerating clear liquids, and reports less pain than initial presentation. The patient denies headaches, dizziness, chest pain, dyspnea, nausea, vomiting, dysuria, diarrhea, and fevers. Objective - Vital Signs/Intake and Output Vital Signs (last 24 hours): Temp Pulse Resp BP Pulse Ox 98.8 F 100 H 17 140/75 100 01/16/17 04:00 01/16/17 06:00 01/16/17 06:00 01/16/17 06:00 01/16/17 06:00 Intake and Output: 01/16/17 01/16/17 06:59 18:59 Intake Total 500 126 Output Total 700 400 Balance -200 -274 - Medications Medications: Current Medications Amlodipine Besylate (Norvasc) 10 mg PO DAILY COUNTS [facility]CLUDE 234 BEDS AT [facility] Atorvastatin Calcium (Lipitor) 10 mg PO DAILY COUNTS INCLUDE 234 BEDS AT THE [facility] Enoxaparin Sodium (Lovenox) 40 mg SC DAILY COUNTS INCLUDE 234 BEDS AT THE [facility] PRN Reason: Protocol Famotidine (Pepcid) 20 mg PO BID COUNTS INCLUDE 234 BEDS AT THE [facility] Gabapentin (Neurontin) 300 mg PO TID COUNTS INCLUDE 234 BEDS AT THE [facility] Potassium Chloride/Sodium Chloride (Potassium Chl 20 Meq In Ns) 1,000 mls @ 500 mls/hr IV .Q2H COUNTS INCLUDE 234 BEDS AT THE [facility] Last Admin: 01/15/17 23:54 Dose: 500 mls/hr Sodium Chloride (Sodium Chloride 0.9%) 1,000 mls @ 126 mls/hr IV .Q7H57M COUNTS INCLUDE 234 BEDS AT THE [facility] Stop: 01/17/17 06:16 Last Admin: 01/16/17 06:49 Dose: 126 mls/hr Insulin Detemir (Levemir) 40 units SC HS COUNTS INCLUDE 234 BEDS AT [facility] Insulin Human Lispro (Humalog) 30 units SC ACTID COUNTS INCLUDE 234 BEDS AT THE [facility] Last Admin: 01/16/17 06:51 Dose: 30 u Lisinopril (Zestril) 10 mg PO DAILY COUNTS INCLUDE 234 BEDS AT [facility] Metformin HCl (Glucophage) 1,000 mg PO BIDWM COUNTS INCLUDE 234 BEDS AT THE [facility] Metoclopramide HCl (Reglan) 10 mg IVP Q6 PRN PRN Reason: Nausea/Vomiting Metoprolol Tartrate (Lopressor) 25 mg PO Q12 COUNTS INCLUDE 234 BEDS AT THE [facility] Ondansetron HCl (Zofran Inj) 4 mg IVP Q6 PRN PRN Reason: Nausea/Vomiting Oxycodone/Acetaminophen (Percocet 5/325 Mg Tab) 1 tab PO Q4 PRN PRN Reason: Pain, severe (8-10) Stop: 01/19/17 07:42 - Constitutional Appears: No Acute Distress - Head Exam Head Exam: ATRAUMATIC, NORMOCEPHALIC - Eye Exam Eye Exam: EOMI Pupil Exam: PERRL - Respiratory Exam Respiratory Exam: Clear to Ausculation Bilateral, NORMAL BREATHING PATTERN. absent: Accessory Muscle Use, Chest Wall Tenderness, Decreased Breath Sounds, Prolonged Expiratory Phase, Rales, Rhonchi, Wheezes, Respiratory Distress, Stridor - Cardiovascular Exam Cardiovascular Exam: Tachycardia, REGULAR RHYTHM - GI/Abdominal Exam GI & Abdominal Exam: Soft, Tenderness, Normal Bowel Sounds Additional comments: obese abdomen - Extremities Exam Extremities Exam: absent: Calf Tenderness, Tenderness - Neurological Exam Neurological Exam: Alert, Awake, Oriented x3 - Skin Skin Exam: Dry, Intact, Warm Assessment and Plan - Assessment and Plan (Free Text) Assessment: The patient is a 61 y/o man w PMHx of Gastroparesis, DM2, HTN, Nephrolithiasis, and CKD is admitted for SVT associated w sharp, 07/24, diffuse abdominal pain associated with several bouts of vomiting Plan: 1) SVT w +troponin -given adenosine in ED -Troponin 0.177 (H) -EKG: No acute infarct, NSR -2nd troponin elevated at 0.4050 -follow up 3rd troponin -f/u Echo -Cardio Consult, Dr. Wilkerson saw patient; recommendations appreciated 2) Intractable abdominal pain -Very likely due to gastroparesis -DC Dilaudid for pain control -start percocet PO Q4h -Zofran prn for nausea -Reglan prn for nausea and gastroparesis -Pepcid -monitor pain 3) DM2 -Poorly controlled -DKA/HHS ruled out; pH 7.44 -Insulin 10u given, awaiting f/u FS -Levemir 40u SC HS -Humalog 30 ACTID -metformin 1000 mg BID w/ meals -gabapentin 300 mg TID -1 maintenance IVF, NS @ 126mL/hr -f/u FS -f/u labs -dietitian referral ordered 4) HTN -Uncontrolled -last BP 140/75 -Continue w home medication: lisinopril 10 mg PO daily, amlodipine 10 mg PO daily, metoprolol tartrate 25 mg PO Q12 5) Hypercholesterolemia -atorvastatin 10 mg PO daily 6) DVT Prophylaxis -Lovenox 40mg SC Daily 7) PUD Prophylaxis -Pepcid BID <Jordan Mccord - Last Filed: 01/17/17 07:07> Objective - Vital Signs/Intake and Output Vital Signs (last 24 hours): Temp Pulse Resp BP Pulse Ox 97.7 F 95 H 20 163/89 H 98 01/17/17 05:00 01/17/17 05:00 01/17/17 05:00 01/17/17 05:00 01/17/17 05:00 - Medications Medications: Current Medications Amlodipine Besylate (Norvasc) 10 mg PO DAILY COUNTS INCLUDE 234 BEDS AT [facility] Last Admin: 01/16/17 08:13 Dose: 10 mg Atorvastatin Calcium (Lipitor) 10 mg PO DAILY COUNTS INCLUDE 234 BEDS AT [facility] Last Admin: 01/16/17 08:12 Dose: 10 mg Enoxaparin Sodium (Lovenox) 40 mg SC DAILY COUNTS INCLUDE 234 BEDS AT THE [facility] PRN Reason: Protocol Last Admin: 01/16/17 08:13 Dose: 40 mg Famotidine (Pepcid) 20 mg PO BID COUNTS INCLUDE 234 BEDS AT [facility] Last Admin: 01/16/17 16:12 Dose: 20 mg Gabapentin (Neurontin) 300 mg PO TID COUNTS INCLUDE 234 BEDS AT [facility] Last Admin: 01/16/17 16:11 Dose: 300 mg Potassium Chloride/Sodium Chloride (Potassium Chl 20 Meq In Ns) 1,000 mls @ 500 mls/hr IV .Q2H COUNTS INCLUDE 234 BEDS AT THE [facility] Last Admin: 01/15/17 23:54 Dose: 500 mls/hr Insulin Detemir (Levemir) 40 units SC HS COUNTS INCLUDE 234 BEDS AT [facility] Last Admin: 01/16/17 21:53 Dose: Not Given Insulin Human Lispro (Humalog) 30 units SC ACTID COUNTS INCLUDE 234 BEDS AT [facility] Last Admin: 01/16/17 16:11 Dose: Not Given Insulin Human Lispro (Humalog) 0 units SC ACHS COUNTS INCLUDE 234 BEDS AT THE [facility] PRN Reason: Protocol Lisinopril (Zestril) 10 mg PO DAILY COUNTS INCLUDE 234 BEDS AT [facility] Last Admin: 01/16/17 08:14 Dose: 10 mg Metformin HCl (Glucophage) 1,000 mg PO BIDWM COUNTS INCLUDE 234 BEDS AT [facility] Last Admin: 01/16/17 16:11 Dose: Not Given Metoclopramide HCl (Reglan) 10 mg IVP Q6 PRN PRN Reason: Nausea/Vomiting Metoprolol Tartrate (Lopressor) 25 mg PO Q12 COUNTS INCLUDE 234 BEDS AT THE [facility] Last Admin: 01/16/17 21:06 Dose: 25 mg Ondansetron HCl (Zofran Inj) 4 mg IVP Q6 PRN PRN Reason: Nausea/Vomiting Oxycodone/Acetaminophen (Percocet 5/325 Mg Tab) 1 tab PO Q4 PRN PRN Reason: Pain, severe (8-10) Stop: 01/19/17 07:42 Last Admin: 01/17/17 02:14 Dose: 1 tab - Labs Labs: 01/16/17 08:49 01/16/17 08:49 Attending/Attestation - Attestation I have personally seen and examined this patient.: Yes I have fully participated in the care of the patient.: Yes I have reviewed all pertinent clinical information, including history, physical exam and plan: Yes
[2017-01-16] MEDS: Enoxaparin 40 mg Syringe SC SCH (08:13)
[2017-01-16 08:59] LABS: BASO # 0.1 K/uL (0.0-0.2); BASO % 0.8 % (0.0-2.0); HEMATOCRIT 39.6 % (35.0-51.0); LYMPH # 1.7 K/uL (1.0-4.3); MEAN CELL VOLUME 79.2 fl (80.0-94.0); MEAN CORPUSCULAR HEMOGLOBIN 25.2 pg (27.0-31.0); MEAN CORPUSCULAR HGB CONC 31.8 g/dL (33.0-37.0); MEAN PLATELET VOLUME 9.1 fl (7.2-11.7); MONO # 1.1 K/uL (0.0-0.8); MONO % 6.5 % (0.0-10.0); NEUT # 14.2 K/uL (1.8-7.0); NEUT % 82.7 % (50.0-75.0); NRBC % 0.1 % (0.0-0.0); RED CELL DISTRIBUTION WIDTH 15.9 % (11.5-14.5); WHITE BLOOD COUNT 17.1 K/uL (4.8-10.8)
[2017-01-16 09:15] LABS: BLOOD UREA NITROGEN 10 mg/dl (9-20); CALCIUM 8.8 mg/dL (8.4-10.2); CARBON DIOXIDE 25 mmol/L (22-30); CHLORIDE 100 mmol/L (98-107); GFR AFRICAN-AMERICAN > 60; GLUCOSE,RANDOM 286 mg/dL (75-110); POTASSIUM 3.6 MMOL/L (3.6-5.0); SODIUM 138 mmol/l (132-148)
--- NOTE | 2017-01-16 10:32 | CP.PCM.CON ---
History of Present Illness - History of Present Illness History of Present Illness: THE PATIENT IS A 61 YEAR OLD MALE KNOWN TO ME FROM [facility] ADMISSIONS. HE HAS A HISTORY OF HYPERTENSION, HYPERLIPIDEMIA, DM, CHRONIC PANCREATITIS AND GASTROPARESIS. HE IS OFTEN ADMITTED FOR SEVERE ABDOMINAL PAIN AND THIS TRIGGERS HYPERTENSION AND PRIOR EPISODES OF SVT WITH MILDLY ELEVATED TROPONINS. THERE IS ALSO A QUESTION OF COMPLIANCE WITH HIS MEDICINES INCLUDING METOPROLOL. HE STATES THAT HE FORGOT TO TAKE HIS METOPROLOL YESTERDAY AND LATER ATE A CHEESEBURGER AND HAD SEVERE ABDOMINAL PAIN AND THEN NOTED A RAPID HEART RATE THAT LASTED ABOUT 4 HOURS. HE DID NOT HAVE ANY CHEST PAIN BUT HAD SOB. HE WAS FOUND TO BE IN SVT AGAIN IN THE ER AND WAS GIVEN IV ADENOSINE WITH CONVERSION TO SINUS RHYTHM WITHOUT ANY ACUTE CHANGES. HIS TROPONIN WAS MILDLY ELEVATED HAS HAPPENED BEFORE AFTER AN SVT EPISODE. HE FEELS GOOD NOW. Past Patient History - Past Medical History & Family History Past Medical History?: Yes - Past Social History Smoking Status: Never Smoked - CARDIAC Hx Hypercholesterolemia: Yes Hx Hypertension: Yes - PULMONARY Hx Respiratory Disorders: No - NEUROLOGICAL Hx Neurological Disorder: No - HEENT Hx HEENT Problems: No - RENAL Hx Chronic Kidney Disease: Yes Hx Kidney Stones: Yes - ENDOCRINE/METABOLIC Hx Endocrine Disorders: Yes Hx Diabetes Mellitus Type 1: Yes - HEMATOLOGICAL/ONCOLOGICAL Hx Blood Disorders: No - INTEGUMENTARY Hx Dermatological Problems: No - MUSCULOSKELETAL/RHEUMATOLOGICAL Hx Musculoskeletal Disorders: No Hx Falls: No - GASTROINTESTINAL Hx Pancreatitis: Yes - GENITOURINARY/GYNECOLOGICAL Hx Genitourinary Disorders: No - PSYCHIATRIC Hx Psychophysiologic Disorder: No Hx Substance Use: No - SURGICAL HISTORY Hx Cholecystectomy: Yes - ANESTHESIA Hx Anesthesia: Yes Hx Anesthesia Reactions: No Meds Allergies/Adverse Reactions: Allergies Allergy/AdvReac Type Severity Reaction Status Date / Time iodine Allergy RASH Verified 01/08/17 17:59 - Medications Medications: Current Medications Amlodipine Besylate (Norvasc) 10 mg PO DAILY [facility] Last Admin: 01/16/17 08:13 Dose: 10 mg Atorvastatin Calcium (Lipitor) 10 mg PO DAILY [facility] Last Admin: 01/16/17 08:12 Dose: 10 mg Enoxaparin Sodium (Lovenox) 40 mg SC DAILY [facility] PRN Reason: Protocol Last Admin: 01/16/17 08:13 Dose: 40 mg Famotidine (Pepcid) 20 mg PO BID [facility] Last Admin: 01/16/17 08:14 Dose: 20 mg Gabapentin (Neurontin) 300 mg PO TID [facility] Last Admin: 01/16/17 08:13 Dose: 300 mg Potassium Chloride/Sodium Chloride (Potassium Chl 20 Meq In Ns) 1,000 mls @ 500 mls/hr IV .Q2H [facility] Last Admin: 01/15/17 23:54 Dose: 500 mls/hr Sodium Chloride (Sodium Chloride 0.9%) 1,000 mls @ 126 mls/hr IV .Q7H57M [facility] Stop: 01/17/17 06:16 Last Admin: 01/16/17 06:49 Dose: 126 mls/hr Insulin Detemir (Levemir) 40 units SC HS [facility] Insulin Human Lispro (Humalog) 30 units SC ACTID [facility] Last Admin: 01/16/17 06:51 Dose: 30 u Lisinopril (Zestril) 10 mg PO DAILY [facility] Last Admin: 01/16/17 08:14 Dose: 10 mg Metformin HCl (Glucophage) 1,000 mg PO BIDWM [facility] Last Admin: 01/16/17 08:11 Dose: 1,000 mg Metoclopramide HCl (Reglan) 10 mg IVP Q6 PRN PRN Reason: Nausea/Vomiting Metoprolol Tartrate (Lopressor) 25 mg PO Q12 [facility] Last Admin: 01/16/17 08:13 Dose: 25 mg Ondansetron HCl (Zofran Inj) 4 mg IVP Q6 PRN PRN Reason: Nausea/Vomiting Oxycodone/Acetaminophen (Percocet 5/325 Mg Tab) 1 tab PO Q4 PRN PRN Reason: Pain, severe (8-10) Stop: 01/19/17 07:42 Physical Exam - Respiratory Exam Respiratory Exam: Clear to Auscultation Bilateral - Cardiovascular Exam Cardiovascular Exam: REGULAR RHYTHM, +S1 - Additional Findings Additional findings: EKG #1 SVT, R 220 EKG #2 ST, R 131, NO ACUTE CHANGES K+ 3.6 ECHOCARDIOGRAM WITHIN THE PAST YEAR SHOWED GOOD LV SYSTOLIC FUNCTION Results - Vital Signs Recent Vital Signs: Last Vital Signs Temp 98.2 F 01/16/17 08:00 Pulse 100 H 01/16/17 08:14 Resp 18 01/16/17 08:00 BP 143/70 01/16/17 08:14 Pulse Ox 100 01/16/17 08:00 - Labs Result Diagrams: 01/16/17 08:49 01/16/17 08:49 Labs: Laboratory Results - last 24 hr 01/16/17 01/16/17 01/16/17 01:55 05:28 08:49 WBC 17.1 H RBC 4.99 Hgb 12.6 D Hct 39.6 MCV 79.2 L MCH 25.2 L MCHC 31.8 L RDW 15.9 H Plt Count 280 MPV 9.1 Neut % (Auto) 82.7 H Lymph % (Auto) 10.0 L Emmet % (Auto) 6.5 Eos % (Auto) 0.0 Baso % (Auto) 0.8 Neut # 14.2 H Lymph # 1.7 Emmet # 1.1 H Eos # 0.0 Baso # 0.1 Sodium 138 Potassium 3.6 Chloride 100 Carbon Dioxide 25 Anion Gap 17 BUN 10 Creatinine 0.6 L Est GFR ( Amer) > 60 Est GFR (Non-Af Amer) > 60 POC Glucose (mg/dL) 392 H 394 H Random Glucose 286 H Calcium 8.8 Troponin I 0.4050 H* Digoxin < 0.4 L Assessment & Plan - Assessment and Plan (Free Text) Assessment: SVT FROM NON-COMPLIANCE WITH BETA PAOLA THE PATIENT DIS NOT HAVE CHEST PAIN AND THE MILDLY ELEVATED TROPONIN WAS PROBABLY FROM THE 4 HOUR SVT EPISODE HYPERTENSION CHRONIC PANCREATITIS DM WITH GASTROPARESIS Plan: THE PATIENT WAS GIVEN O2, ADENOSINE AND ASPIRIN IN THE ER METOPROLOL, AMLODIPINE, LISINOPRIL, GLUCOPHAGE AND ATORVASTATIN THE PATIENT WAS ADMITTED TO THE ICU AND CAN BE TRANSFERRED TO 4N ON TELEMETRY RECOMMEND OBSERVING PATIENT ONE MORE NIGHT IN LIGHT OF THE SVT EPISODE OUT PATIENT STRESS THEN IN THE NEAR FUTURE IS RECOMMENDED
[2017-01-16] MEDS: Oxycodone/Acetaminophen 5/325 mg Tab PO PRN ×3 (10:33→22:10)
--- NOTE | 2017-01-16 19:53 | CARD ---
APPROVED REPORT EXAM: Two-dimensional and M-mode echocardiogram with Doppler and color Doppler. Other Information Quality : GoodRhythm : NSR INDICATION Elevated Troponin 2D DIMENSIONS IVSd1.16 (0.7-1.1cm)LVDd4.71 (3.9-5.9cm) LVOT Diameter2.19 (1.8-2.4cm)PWd1.11 (0.7-1.1cm) IVSs1.50 (0.8-1.2cm)LVDs3.02 (2.5-4.0cm) FS (%) 35.9 %PWs1.57 (0.8-1.2cm) M-Mode DIMENSIONS Left Atrium (MM)4.00 (2.5-4.0cm)IVSd1.26 (0.7-1.1cm) Aortic Root2.85 (2.2-3.7cm)LVDd4.29 (4.0-5.6cm) Aortic Cusp Exc.2.09 (1.5-2.0cm)PWd1.32 (0.7-1.1cm) IVSs1.88 cmFS (%) 42 % LVDs2.50 (2.0-3.8cm)PWs1.71 cm Mitral Valve MV E Cpzoekqi08.0cm/sMV DECEL [id number] A Sxrsrbyg45.3cm/s MV OKS17rsN/A ratio1.1MVA (PHT)4.16cm2 TDI Lateral E' Peak V7.90cm/sMedial E' Peak V8.64cm/sE/Lateral E'11.4 E/Medial E'10.4 Pulmonary Valve PV Peak Utirdlvg53.4cm/s Tricuspid Valve TR Peak Euutolnb570bv/sRAP [id number] Peak Gr.17mmHg [id number] LEFT VENTRICLE The left ventricle is normal size. There is normal left ventricular wall thickness. The left ventricular function is normal. The left ventricular ejection fraction is - 65%. There is normal LV segmental wall motion. The left ventricular diastolic function is normal. No left ventricle thrombus noted on this study. There is no ventricular septal defect visualized. There is no left ventricular aneurysm. There is no mass noted in the left ventricle. RIGHT VENTRICLE The right ventricle is normal size. There is normal right ventricular wall thickness. The right ventricular systolic function is normal. ATRIA The left atrium size is normal. There is no thrombus suspected in the left atrium. The right atrium size is normal. The interatrial septum is intact with no evidence for an atrial septal defect. AORTIC VALVE The aortic valve is normal in structure and function. No aortic regurgitation is present. There is no aortic valvular stenosis. MITRAL VALVE The mitral valve is normal in structure and function. There is no evidence of mitral valve prolapse. There is no mitral valve stenosis. There is no mitral valve regurgitation noted. TRICUSPID VALVE The tricuspid valve is normal in structure and function. There is trace tricuspid regurgitation. Right ventricular systolic pressure is estimated at 27 mmHg. There is no tricuspid valve prolapse or vegetation. There is no tricuspid valve stenosis. PULMONIC VALVE The pulmonary valve is normal in structure and function. There is no pulmonic valvular regurgitation. GREAT VESSELS The aortic root is normal in size. The IVC is normal in size and collapses >50% with inspiration. PERICARDIAL EFFUSION Tiny anterior and posterior echo free space. There is no pleural effusion. <Conclusion> The left ventricle is normal in size and wall thickness. The left ventricular function is normal. The left ventricular ejection fraction is - 65%. The left atrium, right ventricle and right atrium are normal in size. The mitral, aortic and tricuspid valves are normal. There is trace tricuspid regurgitation.
--- NOTE | 2017-01-16 20:00 | CARD ---
APPROVED REPORT EKG Measurement Heart [id number] <Conclusion> Normal sinus rhythm Normal ECG
--- NOTE | 2017-01-16 20:05 | CARD ---
APPROVED REPORT EKG Measurement Heart [id number] <Conclusion> Supraventricular tachycardia Septal infarct, age undetermined ST & T wave abnormality, consider inferior ischemia Abnormal ECG
--- NOTE | 2017-01-16 20:05 | CARD ---
APPROVED REPORT EKG Measurement Heart [id number] [place] [id number] <Conclusion> Sinus tachycardia with premature atrial complexes Possible Left atrial enlargement Borderline ECG
[2017-01-16] MEDS: Insulin Detemir 100 Units/ml Inj SC SCH (21:53)
[2017-01-17] MEDS ORDERED: Labetalol 5mg/ml (4ml) IVP STA ×2 (00:47→16:16)
[2017-01-17] MEDS: Oxycodone/Acetaminophen 5/325 mg Tab PO PRN ×4 (02:14→21:21)
[2017-01-17] MEDS: Sodium Chloride 0.9% 1,000 ML IV SCH (05:48)
[2017-01-17] MEDS: Insulin Lispro (humaLOG) 100 Units/ml Inj SC SCH ×10 (09:21→21:54)
[2017-01-17] MEDS: Enoxaparin 40 mg Syringe SC SCH (09:29)
--- NOTE | 2017-01-17 12:03 | CP.PCM.PN ---
Subjective - Date & Time of Evaluation Date of Evaluation: 01/17/17 Time of Evaluation: 11:30 - Subjective Subjective: PATIENT STATES HIS BLOOD PRESSURE WAS HIGH, HAD VOMITING TODAY, AND HE FEELS WEEK Objective - Vital Signs/Intake and Output Vital Signs (last 24 hours): Temp Pulse Resp BP Pulse Ox 97.8 F 100 H 20 181/78 H 100 01/17/17 08:08 01/17/17 09:28 01/17/17 08:08 01/17/17 09:28 01/17/17 08:08 Intake and Output: 01/17/17 01/17/17 06:59 18:59 Intake Total 1750 Output Total 1600 Balance 150 - Medications Medications: Current Medications Amlodipine Besylate (Norvasc) 10 mg PO DAILY [facility] Last Admin: 01/17/17 09:28 Dose: 10 mg Atorvastatin Calcium (Lipitor) 10 mg PO DAILY [facility] Last Admin: 01/17/17 09:29 Dose: 10 mg Enoxaparin Sodium (Lovenox) 40 mg SC DAILY [facility] PRN Reason: Protocol Last Admin: 01/17/17 09:29 Dose: 40 mg Famotidine (Pepcid) 20 mg PO BID [facility] Last Admin: 01/17/17 09:28 Dose: 20 mg Gabapentin (Neurontin) 300 mg PO TID [facility] Last Admin: 01/17/17 09:27 Dose: 300 mg Potassium Chloride/Sodium Chloride (Potassium Chl 20 Meq In Ns) 1,000 mls @ 500 mls/hr IV .Q2H [facility] Last Admin: 01/15/17 23:54 Dose: 500 mls/hr Insulin Detemir (Levemir) 40 units SC HS [facility] Last Admin: 01/16/17 21:53 Dose: Not Given Insulin Human Lispro (Humalog) 30 units SC ACTID [facility] Last Admin: 01/17/17 09:21 Dose: Not Given Insulin Human Lispro (Humalog) 0 units SC ACHS [facility] PRN Reason: Protocol Last Admin: 01/17/17 10:53 Dose: Not Given Lisinopril (Zestril) 10 mg PO DAILY [facility] Last Admin: 01/17/17 09:27 Dose: 10 mg Metformin HCl (Glucophage) 1,000 mg PO BIDWM [facility] Last Admin: 01/17/17 09:26 Dose: 1,000 mg Metoclopramide HCl (Reglan) 10 mg IVP Q6 PRN PRN Reason: Nausea/Vomiting Last Admin: 01/17/17 07:57 Dose: 10 mg Metoprolol Tartrate (Lopressor) 25 mg PO Q12 [facility] Last Admin: 01/17/17 09:27 Dose: 25 mg Ondansetron HCl (Zofran Inj) 4 mg IVP Q6 PRN PRN Reason: Nausea/Vomiting Oxycodone/Acetaminophen (Percocet 5/325 Mg Tab) 1 tab PO Q4 PRN PRN Reason: Pain, severe (8-10) Stop: 01/19/17 07:42 Last Admin: 01/17/17 09:44 Dose: 1 tab - Labs Labs: 01/16/17 08:49 01/16/17 08:49 - Respiratory Exam Respiratory Exam: Clear to Ausculation Bilateral - Cardiovascular Exam Cardiovascular Exam: REGULAR RHYTHM, +S1, +S2 - Additional Findings Additional findings: [employer] NSR ECHO GOOD LV FUNCTION Assessment and Plan - Assessment and Plan (Free Text) Assessment: HYPERTENSION SVT DM WITH GASTROPARESIS Plan: CONTINUE METOPROLOL, ZESTRIL, AMLODIPINE, ATORVASTATIN, LOVENOX, INSULIN EKG AND TROPONIN IN AM
--- NOTE | 2017-01-17 14:47 | CP.PCM.PN ---
<William Bloom - Last Filed: 01/17/17 14:43> Subjective - Date & Time of Evaluation Date of Evaluation: 01/17/17 Time of Evaluation: 07:15 - Subjective Subjective: The patient is a 61 y/o man w PMHx of Gastroparesis, DM2, HTN, Nephrolithiasis, and CKD is admitted for SVT associated w sharp, 07/24, diffuse abdominal pain associated with several bouts of vomiting. The patient was seen this morning. There are no acute events since arriving to ICU. The patient had an elevated BP of 190 systolic, which resolved with labetolol 5 mg. The patient was asymptomatic and had no complaints despite elevated BP. The patient is refusing to take his insulin because he states that he "knows his own body and when his sugar is elevated." However, his blood sugars have risen to the 300s. Patient is sitting up, tolerating PO on heart healthy diet, and reports less pain than initial presentation. The patient had nausea this morning and had I episode of non-bloody/non-bilious vomit. The patient denies headaches, dizziness, chest pain, dyspnea, dysuria, diarrhea, and fevers Objective - Vital Signs/Intake and Output Vital Signs (last 24 hours): Temp Pulse Resp BP Pulse Ox 97.8 F 87 20 164/72 H 95 01/17/17 12:43 01/17/17 12:43 01/17/17 12:43 01/17/17 12:43 01/17/17 12:43 Intake and Output: 01/17/17 01/17/17 06:59 18:59 Intake Total 1750 Output Total 1600 Balance 150 - Medications Medications: Current Medications Amlodipine Besylate (Norvasc) 10 mg PO DAILY [facility] Last Admin: 01/17/17 09:28 Dose: 10 mg Atorvastatin Calcium (Lipitor) 10 mg PO DAILY [facility] Last Admin: 01/17/17 09:29 Dose: 10 mg Enoxaparin Sodium (Lovenox) 40 mg SC DAILY [facility] PRN Reason: Protocol Last Admin: 01/17/17 09:29 Dose: 40 mg Famotidine (Pepcid) 20 mg PO BID [facility] Last Admin: 01/17/17 09:28 Dose: 20 mg Gabapentin (Neurontin) 300 mg PO TID [facility] Last Admin: 01/17/17 13:04 Dose: 300 mg Potassium Chloride/Sodium Chloride (Potassium Chl 20 Meq In Ns) 1,000 mls @ 500 mls/hr IV .Q2H [facility] Last Admin: 01/15/17 23:54 Dose: 500 mls/hr Insulin Detemir (Levemir) 40 units SC HS [facility] Last Admin: 01/16/17 21:53 Dose: Not Given Insulin Human Lispro (Humalog) 30 units SC ACTID [facility] Last Admin: 01/17/17 13:04 Dose: Not Given Insulin Human Lispro (Humalog) 0 units SC ACHS [facility] PRN Reason: Protocol Last Admin: 01/17/17 13:05 Dose: Not Given Lisinopril (Zestril) 10 mg PO DAILY [facility] Last Admin: 01/17/17 09:27 Dose: 10 mg Metformin HCl (Glucophage) 1,000 mg PO BIDWM [facility] Last Admin: 01/17/17 09:26 Dose: 1,000 mg Metoclopramide HCl (Reglan) 10 mg IVP Q6 PRN PRN Reason: Nausea/Vomiting Last Admin: 01/17/17 07:57 Dose: 10 mg Metoprolol Tartrate (Lopressor) 25 mg PO Q12 [facility] Last Admin: 01/17/17 09:27 Dose: 25 mg Ondansetron HCl (Zofran Inj) 4 mg IVP Q6 PRN PRN Reason: Nausea/Vomiting Oxycodone/Acetaminophen (Percocet 5/325 Mg Tab) 1 tab PO Q4 PRN PRN Reason: Pain, severe (8-10) Stop: 01/19/17 07:42 Last Admin: 01/17/17 09:44 Dose: 1 tab - Labs Labs: 01/16/17 08:49 01/16/17 08:49 - Constitutional Appears: No Acute Distress - Head Exam Head Exam: ATRAUMATIC, NORMOCEPHALIC - Eye Exam Eye Exam: EOMI Pupil Exam: PERRL - ENT Exam ENT Exam: Mucous Membranes Moist - Neck Exam Neck Exam: Full ROM - Respiratory Exam Respiratory Exam: Clear to Ausculation Bilateral, NORMAL BREATHING PATTERN. absent: Accessory Muscle Use, Chest Wall Tenderness, Decreased Breath Sounds, Prolonged Expiratory Phase, Rales, Rhonchi, Wheezes, Respiratory Distress, Stridor - Cardiovascular Exam Cardiovascular Exam: REGULAR RHYTHM. absent: Tachycardia - GI/Abdominal Exam GI & Abdominal Exam: Soft, Normal Bowel Sounds. absent: Tenderness Additional comments: obese abdomen - Extremities Exam Extremities Exam: Normal Inspection. absent: Calf Tenderness, Pedal Edema, Tenderness - Neurological Exam Neurological Exam: Alert, Awake, Normal Gait, Oriented x3 - Skin Skin Exam: Dry, Intact, Normal Color, Warm Assessment and Plan - Assessment and Plan (Free Text) Assessment: The patient is a 61 y/o man w PMHx of Gastroparesis, DM2, HTN, Nephrolithiasis, and CKD is admitted for SVT associated w sharp, 07/24, diffuse abdominal pain associated with several bouts of vomiting Plan: 1) SVT w +troponin -given adenosine in ED -Troponin 0.177 (H) -EKG: No acute infarct, NSR -2nd troponin elevated at 0.4050 -3rd troponin 0.3050 -Echo: EF 65%, LV normal in size, wall thickness, and function; mitral tricuspid , and aortic valves are normal; trace tricuspid regurgitation -Cardio Consult, Dr. Wilkerson saw patient; recommendations appreciated -repeat EKG and troponins tomorrow AM 2) Intractable abdominal pain -Very likely due to gastroparesis -continue with percocet PO Q4h -Zofran prn for nausea -Reglan prn for nausea and gastroparesis -Pepcid -monitor pain 3) DM2 -Poorly controlled -DKA/HHS ruled out; pH 7.44 -Insulin 10u given, awaiting f/u FS -Levemir 40u SC HS -Humalog 30 ACTID -metformin 1000 mg BID w/ meals -gabapentin 300 mg TID -1 maintenance IVF, NS @ 126mL/hr -f/u FS -f/u labs -dietitian referral ordered -patient refusing insulin 4) HTN -Uncontrolled -BP systolic 190 overnight, resolved with labetolol 5 mg -last BP 164/72 -Continue w home medication: lisinopril 10 mg PO daily, amlodipine 10 mg PO daily, metoprolol tartrate 25 mg PO Q12 5) Hypercholesterolemia -atorvastatin 10 mg PO daily 6) DVT Prophylaxis -Lovenox 40mg SC Daily 7) PUD Prophylaxis -Pepcid BID <Jordan Mccord - Last Filed: 01/23/17 06:56> Objective - Vital Signs/Intake and Output Vital Signs (last 24 hours): Temp Pulse Resp BP Pulse Ox 97.9 F 86 18 144/82 98 01/19/17 13:00 01/19/17 13:00 01/19/17 13:00 01/19/17 13:00 01/19/17 13:00 - Labs Labs: 01/16/17 08:49 01/16/17 08:49 Attending/Attestation - Attestation I have personally seen and examined this patient.: Yes I have fully participated in the care of the patient.: Yes I have reviewed all pertinent clinical information, including history, physical exam and plan: Yes
[2017-01-17] MEDS: Insulin Detemir 100 Units/ml Inj SC SCH (21:56)
[2017-01-18] MEDS: Oxycodone/Acetaminophen 5/325 mg Tab PO PRN ×4 (03:38→22:28)
[2017-01-18] MEDS: Insulin Lispro (humaLOG) 100 Units/ml Inj SC SCH ×6 (06:53→22:31)
[2017-01-18] MEDS ORDERED: Insulin Detemir 100 Units/ml Inj SC SCH (08:12)
[2017-01-18] MEDS: Enoxaparin 40 mg Syringe SC SCH (08:17)
--- NOTE | 2017-01-18 09:37 | CP.PCM.PN ---
<William Bloom - Last Filed: 01/18/17 15:54> Subjective - Date & Time of Evaluation Date of Evaluation: 01/18/17 Time of Evaluation: 09:34 - Subjective Subjective: The patient is a 61 y/o man w PMHx of Gastroparesis, DM2, HTN, Nephrolithiasis, and CKD is admitted for SVT associated w sharp, 07/24, diffuse abdominal pain associated with several bouts of vomiting. The patient was seen this morning. There are no acute events. The patient's elevated BP's have stabilized but still elevated at 160/80. The patient is refusing to take his insulin because he states that he "knows his own body and when his sugar is elevated." However, his blood sugars have risen to the 300s. Patient is also not eating and drinks juices for lunch. Patient is sitting up , tolerating PO on heart healthy diet, and reports less pain than initial presentation. The patient complains of some nausea with 1-2 episodes non-bloody /non-bilious vomit. The patient denies headaches, dizziness, chest pain, dyspnea, dysuria, diarrhea, and fevers Objective - Vital Signs/Intake and Output Vital Signs (last 24 hours): Temp Pulse Resp BP Pulse Ox 98.3 F 88 18 160/80 H 99 01/18/17 08:18 01/18/17 09:00 01/18/17 08:18 01/18/17 08:35 01/18/17 08:18 - Medications Medications: Current Medications Amlodipine Besylate (Norvasc) 10 mg PO DAILY [facility] Last Admin: 01/18/17 08:35 Dose: 10 mg Atorvastatin Calcium (Lipitor) 10 mg PO DAILY [facility] Last Admin: 01/18/17 08:16 Dose: 10 mg Enoxaparin Sodium (Lovenox) 40 mg SC DAILY [facility] PRN Reason: Protocol Last Admin: 01/18/17 08:17 Dose: 40 mg Famotidine (Pepcid) 20 mg PO BID [facility] Last Admin: 01/18/17 08:13 Dose: 20 mg Gabapentin (Neurontin) 300 mg PO TID [facility] Last Admin: 01/18/17 08:14 Dose: 300 mg Insulin Detemir (Levemir) 20 units SC [facility] Insulin Human Lispro (Humalog) 30 units SC ACTID [facility] Last Admin: 01/18/17 08:12 Dose: 30 u Insulin Human Lispro (Humalog) 0 units SC ACHS [facility] PRN Reason: Protocol Last Admin: 01/18/17 06:53 Dose: 8 unit Lisinopril (Zestril) 10 mg PO DAILY [facility] Last Admin: 01/18/17 08:15 Dose: 10 mg Metformin HCl (Glucophage) 1,000 mg PO BIDWM [facility] Last Admin: 01/18/17 08:16 Dose: 1,000 mg Metoclopramide HCl (Reglan) 10 mg IVP Q6 PRN PRN Reason: Nausea/Vomiting Last Admin: 01/17/17 07:57 Dose: 10 mg Metoprolol Tartrate (Lopressor) 25 mg PO Q12 [facility] Last Admin: 01/18/17 08:16 Dose: 25 mg Ondansetron HCl (Zofran Inj) 4 mg IVP Q6 PRN PRN Reason: Nausea/Vomiting Oxycodone/Acetaminophen (Percocet 5/325 Mg Tab) 1 tab PO Q4 PRN PRN Reason: Pain, severe (8-10) Stop: 01/19/17 07:42 Last Admin: 01/18/17 03:38 Dose: 1 tab - Labs Labs: 01/16/17 08:49 01/16/17 08:49 - Constitutional Appears: No Acute Distress - Head Exam Head Exam: ATRAUMATIC, NORMOCEPHALIC - ENT Exam ENT Exam: Mucous Membranes Moist - Respiratory Exam Respiratory Exam: Clear to Ausculation Bilateral. absent: Accessory Muscle Use , Chest Wall Tenderness, Decreased Breath Sounds, Prolonged Expiratory Phase, Rales, Rhonchi, Wheezes, Respiratory Distress, Stridor - Cardiovascular Exam Cardiovascular Exam: REGULAR RHYTHM. absent: Tachycardia - GI/Abdominal Exam GI & Abdominal Exam: Soft, Normal Bowel Sounds. absent: Tenderness Additional comments: obese abdomen - Extremities Exam Extremities Exam: Full ROM. absent: Calf Tenderness, Tenderness - Neurological Exam Neurological Exam: Alert, Awake, Oriented x3 - Skin Skin Exam: Dry, Intact, Normal Color, Warm Assessment and Plan - Assessment and Plan (Free Text) Assessment: The patient is a 61 y/o man w PMHx of Gastroparesis, DM2, HTN, Nephrolithiasis, and CKD is admitted for SVT associated w sharp, 10/10, diffuse abdominal pain associated with several bouts of vomiting Plan: 1) SVT w +troponin -given adenosine in ED -Troponin 0.177 (H) -EKG: No acute infarct, NSR -2nd troponin elevated at 0.4050 -3rd troponin 0.3050 -Echo: EF 65%, LV normal in size, wall thickness, and function; mitral tricuspid , and aortic valves are normal; trace tricuspid regurgitation -Cardio Consult, Dr. Wilkerson saw patient; recommendations appreciated -EKG: (prelim), NSR, normal EKG -troponins: 0.1070 2) Intractable abdominal pain -Very likely due to gastroparesis -continue with percocet PO Q4h -Zofran prn for nausea -Reglan prn for nausea and gastroparesis -Pepcid -monitor pain 3) DM2 -Poorly controlled -DKA/HHS ruled out; pH 7.44 -decreased Levemir 40u SC HS to 20 units -decreased Humalog 30 ACTID to 10 units -metformin 1000 mg BID w/ meals -gabapentin 300 mg TID -1 maintenance IVF, NS @ 126mL/hr -f/u FS -hypoglycemia protocol ordered -dietitian referral, recommendations appreciated -patient refusing levemir insulin, agrees to half dose (20 units) 4) HTN -Uncontrolled -BP systolic 190 overnight, resolved with labetolol 5 mg -last BP 164/72 -Continue w home medication: lisinopril 10 mg PO daily, amlodipine 10 mg PO daily, metoprolol tartrate 25 mg PO Q12 5) Hypercholesterolemia -atorvastatin 10 mg PO daily 6) DVT Prophylaxis -Lovenox 40mg SC Daily 7) PUD Prophylaxis -Pepcid BID <Jordan Mccord - Last Filed: 01/23/17 06:57> Objective - Vital Signs/Intake and Output Vital Signs (last 24 hours): Temp Pulse Resp BP Pulse Ox 97.9 F 86 18 144/82 98 01/19/17 13:00 01/19/17 13:00 01/19/17 13:00 01/19/17 13:00 01/19/17 13:00 - Labs Labs: 01/16/17 08:49 01/16/17 08:49 Attending/Attestation - Attestation I have personally seen and examined this patient.: Yes I have fully participated in the care of the patient.: Yes I have reviewed all pertinent clinical information, including history, physical exam and plan: Yes
--- NOTE | 2017-01-18 10:57 | CP.PCM.PN ---
Subjective - Date & Time of Evaluation Date of Evaluation: 01/18/17 Time of Evaluation: 10:00 - Subjective Subjective: NO CHEST PAIN OR SOB HAD VOMITING AGAIN Objective - Vital Signs/Intake and Output Vital Signs (last 24 hours): Temp Pulse Resp BP Pulse Ox 98.3 F 88 18 160/80 H 99 01/18/17 08:18 01/18/17 09:00 01/18/17 08:18 01/18/17 08:35 01/18/17 08:18 - Medications Medications: Current Medications Amlodipine Besylate (Norvasc) 10 mg PO DAILY [facility] Last Admin: 01/18/17 08:35 Dose: 10 mg Atorvastatin Calcium (Lipitor) 10 mg PO DAILY [facility] Last Admin: 01/18/17 08:16 Dose: 10 mg Enoxaparin Sodium (Lovenox) 40 mg SC DAILY [facility] PRN Reason: Protocol Last Admin: 01/18/17 08:17 Dose: 40 mg Famotidine (Pepcid) 20 mg PO BID [facility] Last Admin: 01/18/17 08:13 Dose: 20 mg Gabapentin (Neurontin) 300 mg PO TID [facility] Last Admin: 01/18/17 08:14 Dose: 300 mg Insulin Detemir (Levemir) 20 units SC HS [facility] Insulin Human Lispro (Humalog) 30 units SC ACTID [facility] Last Admin: 01/18/17 08:12 Dose: 30 u Insulin Human Lispro (Humalog) 0 units SC ACHS [facility] PRN Reason: Protocol Last Admin: 01/18/17 06:53 Dose: 8 unit Lisinopril (Zestril) 10 mg PO DAILY [facility] Last Admin: 01/18/17 08:15 Dose: 10 mg Metformin HCl (Glucophage) 1,000 mg PO BIDWM [facility] Last Admin: 01/18/17 08:16 Dose: 1,000 mg Metoclopramide HCl (Reglan) 10 mg IVP Q6 PRN PRN Reason: Nausea/Vomiting Last Admin: 01/17/17 07:57 Dose: 10 mg Metoprolol Tartrate (Lopressor) 25 mg PO Q12 [facility] Last Admin: 01/18/17 08:16 Dose: 25 mg Ondansetron HCl (Zofran Inj) 4 mg IVP Q6 PRN PRN Reason: Nausea/Vomiting Oxycodone/Acetaminophen (Percocet 5/325 Mg Tab) 1 tab PO Q4 PRN PRN Reason: Pain, severe (8-10) Stop: 01/19/17 07:42 Last Admin: 01/18/17 03:38 Dose: 1 tab - Labs Labs: 01/16/17 08:49 01/16/17 08:49 - Respiratory Exam Respiratory Exam: Clear to Ausculation Bilateral - Cardiovascular Exam Cardiovascular Exam: REGULAR RHYTHM, +S1, +S2 - Additional Findings Additional findings: EKG NSR TROPONIN NORMAL Assessment and Plan - Assessment and Plan (Free Text) Assessment: HYPERTENSION S/P SVT WHEN NON-COMPLIANT WITH METOPROLOL-REMAINS IN NSR DM GASTROPARESIS Plan: CONTINUE METOPROLOL, AMLODIPINE, LISINOPRIL, ATORVASTATIN, LOVENOX
[2017-01-18] MEDS ORDERED: Dextrose 50% SYRINGE Inj (50 ml) IV PRN (11:54)
[2017-01-18] MEDS ORDERED: Glucagon Recombinant 1 mg Inj IM PRN (11:54)
[2017-01-18] MEDS ORDERED: Dextrose 50% SYRINGE Inj (50 ml) ONE (11:56)
--- NOTE | 2017-01-18 11:57 | CARD ---
APPROVED REPORT EKG Measurement Heart [id number] <Conclusion> Normal sinus rhythm Normal ECG
[2017-01-19] MEDS: Oxycodone/Acetaminophen 5/325 mg Tab PO PRN ×3 (03:31→13:29)
--- NOTE | 2017-01-19 08:17 | CP.PCM.PN ---
<William Bloom - Last Filed: 01/19/17 14:08> Subjective - Date & Time of Evaluation Date of Evaluation: 01/19/17 Time of Evaluation: 08:15 - Subjective Subjective: The patient is a 61 y/o man w PMHx of Gastroparesis, DM2, HTN, Nephrolithiasis, and CKD is admitted for SVT associated w sharp, 07/24, diffuse abdominal pain associated with several bouts of vomiting. The patient was seen this morning. There are no acute events. The patient's BP 's have stabilized in 130s systolic. The patient is now taking his insulin. Patient is also now eating his food. Patient is sitting up, tolerating PO on heart healthy diet, and reports less pain than initial presentation. The patient denies headaches, dizziness, chest pain, dyspnea, dysuria, diarrhea, and fevers Objective - Vital Signs/Intake and Output Vital Signs (last 24 hours): Temp Pulse Resp BP Pulse Ox 98.4 F 74 20 131/76 97 01/19/17 04:17 01/19/17 04:17 01/19/17 04:17 01/19/17 04:17 01/19/17 04:17 Intake and Output: 01/19/17 01/19/17 06:59 18:59 Intake Total 350 Output Total 480 Balance -130 - Medications Medications: Current Medications Amlodipine Besylate (Norvasc) 10 mg PO DAILY [facility] Last Admin: 01/18/17 08:35 Dose: 10 mg Atorvastatin Calcium (Lipitor) 10 mg PO DAILY [facility] Last Admin: 01/18/17 08:16 Dose: 10 mg Dextrose (Glutose 15) 0 gm PO ONCE PRN; Protocol PRN Reason: Hypoglycemia Protocol Dextrose (Dextrose 50% Inj) 0 ml IV STAT PRN; Protocol PRN Reason: Hyglycemia Protocol Last Admin: 01/18/17 12:03 Dose: 50 ml Enoxaparin Sodium (Lovenox) 40 mg SC DAILY [facility] PRN Reason: Protocol Last Admin: 01/18/17 08:17 Dose: 40 mg Famotidine (Pepcid) 20 mg PO BID [facility] Last Admin: 01/18/17 16:08 Dose: 20 mg Gabapentin (Neurontin) 300 mg PO TID [facility] Last Admin: 01/18/17 16:08 Dose: 300 mg Glucagon (Glucagen Diagnostic Kit) 0 mg IM STAT PRN; Protocol PRN Reason: Hypoglycemia Protocol Insulin Detemir (Levemir) 20 units SC HS [facility] Last Admin: 01/18/17 22:32 Dose: 20 u Insulin Human Lispro (Humalog) 0 units SC ACHS [facility] PRN Reason: Protocol Last Admin: 01/18/17 22:31 Dose: Not Given Insulin Human Lispro (Humalog) 15 units SC ACTID [facility] Last Admin: 01/18/17 16:44 Dose: Not Given Lisinopril (Zestril) 10 mg PO DAILY [facility] Last Admin: 01/18/17 08:15 Dose: 10 mg Metformin HCl (Glucophage) 1,000 mg PO BIDWM [facility] Last Admin: 01/18/17 16:10 Dose: 1,000 mg Metoclopramide HCl (Reglan) 10 mg IVP Q6 PRN PRN Reason: Nausea/Vomiting Last Admin: 01/17/17 07:57 Dose: 10 mg Metoprolol Tartrate (Lopressor) 25 mg PO Q12 [facility] Last Admin: 01/18/17 22:00 Dose: 25 mg Ondansetron HCl (Zofran Inj) 4 mg IVP Q6 PRN PRN Reason: Nausea/Vomiting - Labs Labs: 01/16/17 08:49 01/16/17 08:49 - Constitutional Appears: No Acute Distress - Head Exam Head Exam: ATRAUMATIC, NORMOCEPHALIC - ENT Exam ENT Exam: Mucous Membranes Moist - Neck Exam Neck Exam: Full ROM - Respiratory Exam Respiratory Exam: Clear to Ausculation Bilateral. absent: Accessory Muscle Use , Chest Wall Tenderness, Decreased Breath Sounds, Prolonged Expiratory Phase, Rales, Rhonchi, Wheezes, Respiratory Distress, Stridor - Cardiovascular Exam Cardiovascular Exam: REGULAR RHYTHM. absent: Tachycardia - GI/Abdominal Exam GI & Abdominal Exam: Soft, Normal Bowel Sounds. absent: Tenderness Additional comments: obese abdomen - Extremities Exam Extremities Exam: Normal Inspection. absent: Calf Tenderness, Tenderness - Neurological Exam Neurological Exam: Alert, Awake, Normal Gait, Oriented x3 - Skin Skin Exam: Dry, Intact, Normal Color, Warm Assessment and Plan - Assessment and Plan (Free Text) Assessment: The patient is a 61 y/o man w PMHx of Gastroparesis, DM2, HTN, Nephrolithiasis, and CKD is admitted for SVT associated w adria, 07/24, diffuse abdominal pain associated with several bouts of vomiting Plan: 1) SVT w +troponin -given adenosine in ED -Troponin 0.177 (H) -EKG: No acute infarct, NSR -2nd troponin elevated at 0.4050 -3rd troponin 0.3050 -Echo: EF 65%, LV normal in size, wall thickness, and function; mitral tricuspid , and aortic valves are normal; trace tricuspid regurgitation -Cardio Consult, Dr. Wilkerson; recommendations appreciated -EKG: NSR, normal EKG -troponins: 0.1070 2) Intractable abdominal pain -Very likely due to gastroparesis -continue with percocet PO Q4h -Zofran prn for nausea -Reglan prn for nausea and gastroparesis -Pepcid -monitor pain 3) DM2 -Poorly controlled -DKA/HHS ruled out; pH 7.44 -decreased Levemir 40u SC HS to 20 units -decreased Humalog 30 ACTID to 15 units -metformin 1000 mg BID w/ meals -gabapentin 300 mg TID -1 maintenance IVF, NS @ 126mL/hr -f/u FS -hypoglycemia protocol ordered -dietitian referral, recommendations appreciated -patient taking levemir insulin 4) HTN -Uncontrolled -BP stable -last BP 131/76 -Continue w home medication: lisinopril 10 mg PO daily, amlodipine 10 mg PO daily, metoprolol tartrate 25 mg PO Q12 5) Hypercholesterolemia -atorvastatin 10 mg PO daily 6) DVT Prophylaxis -Lovenox 40mg SC Daily 7) PUD Prophylaxis -Pepcid BID <Jordan Mccord - Last Filed: 01/23/17 06:58> Objective - Vital Signs/Intake and Output Vital Signs (last 24 hours): Temp Pulse Resp BP Pulse Ox 97.9 F 86 18 144/82 98 01/19/17 13:00 01/19/17 13:00 01/19/17 13:00 01/19/17 13:00 01/19/17 13:00 - Labs Labs: 01/16/17 08:49 01/16/17 08:49 Attending/Attestation - Attestation I have personally seen and examined this patient.: Yes I have fully participated in the care of the patient.: Yes I have reviewed all pertinent clinical information, including history, physical exam and plan: Yes
[2017-01-19] MEDS: Insulin Lispro (humaLOG) 100 Units/ml Inj SC SCH ×4 (08:26→12:31)
[2017-01-19 08:32] VITALS: RESP 18; O2SAT 98
--- NOTE | 2017-01-19 09:32 | CP.PCM.PN ---
Subjective - Date & Time of Evaluation Date of Evaluation: 01/19/17 Time of Evaluation: 08:00 - Subjective Subjective: FEELS BETTER NO CHEST PAIN, PALPITATIONS OR SOB Objective - Vital Signs/Intake and Output Vital Signs (last 24 hours): Temp Pulse Resp BP Pulse Ox 98.1 F 91 H 18 109/62 98 01/19/17 08:31 01/19/17 08:31 01/19/17 08:31 01/19/17 08:31 01/19/17 08:31 Intake and Output: 01/19/17 01/19/17 06:59 18:59 Intake Total 350 Output Total 480 Balance -130 - Medications Medications: Current Medications Amlodipine Besylate (Norvasc) 10 mg PO DAILY [facility] Last Admin: 01/19/17 08:29 Dose: Not Given Atorvastatin Calcium (Lipitor) 10 mg PO DAILY [facility] Last Admin: 01/19/17 08:27 Dose: 10 mg Dextrose (Glutose 15) 0 gm PO ONCE PRN; Protocol PRN Reason: Hypoglycemia Protocol Dextrose (Dextrose 50% Inj) 0 ml IV STAT PRN; Protocol PRN Reason: Hyglycemia Protocol Last Admin: 01/18/17 12:03 Dose: 50 ml Enoxaparin Sodium (Lovenox) 40 mg SC DAILY [facility] PRN Reason: Protocol Last Admin: 01/18/17 08:17 Dose: 40 mg Famotidine (Pepcid) 20 mg PO BID [facility] Last Admin: 01/19/17 08:25 Dose: 20 mg Gabapentin (Neurontin) 300 mg PO TID [facility] Last Admin: 01/19/17 08:25 Dose: 300 mg Glucagon (Glucagen Diagnostic Kit) 0 mg IM STAT PRN; Protocol PRN Reason: Hypoglycemia Protocol Insulin Detemir (Levemir) 20 units SC HS [facility] Last Admin: 01/18/17 22:32 Dose: 20 u Insulin Human Lispro (Humalog) 0 units SC ACHS [facility] PRN Reason: Protocol Last Admin: 01/19/17 08:28 Dose: Not Given Insulin Human Lispro (Humalog) 15 units SC ACTID [facility] Last Admin: 01/19/17 08:26 Dose: 15 u Lisinopril (Zestril) 10 mg PO DAILY [facility] Last Admin: 01/19/17 08:29 Dose: Not Given Metformin HCl (Glucophage) 1,000 mg PO BIDWM [facility] Last Admin: 01/19/17 08:26 Dose: 1,000 mg Metoclopramide HCl (Reglan) 10 mg IVP Q6 PRN PRN Reason: Nausea/Vomiting Last Admin: 01/17/17 07:57 Dose: 10 mg Metoprolol Tartrate (Lopressor) 25 mg PO Q12 [facility] Last Admin: 01/19/17 08:28 Dose: Not Given Ondansetron HCl (Zofran Inj) 4 mg IVP Q6 PRN PRN Reason: Nausea/Vomiting Oxycodone/Acetaminophen (Percocet 5/325 Mg Tab) 1 tab PO Q4 PRN PRN Reason: Pain, severe (8-10) Stop: 01/22/17 08:22 Last Admin: 01/19/17 08:24 Dose: 1 tab - Labs Labs: 01/16/17 08:49 01/16/17 08:49 - Respiratory Exam Respiratory Exam: Clear to Ausculation Bilateral - Cardiovascular Exam Cardiovascular Exam: REGULAR RHYTHM, +S1, +S2 - Additional Findings Additional 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
--- NOTE | 2017-01-19 10:48 | CP.PCM.DIS ---
<William Bloom - Last Filed: 01/19/17 14:08> Provider - Provider Date of Admission: 01/15/17 23:54 Attending physician: Jordan Mccord MD Time Spent in preparation of Discharge (in minutes): 30 Diagnosis - Discharge Diagnosis (1) SVT (supraventricular tachycardia) Status: Acute (2) Gastroparesis Status: Chronic Hospital Course - Lab Results Lab Results: Micro Results 01/16/17 17:00 Nose MRSA Culture (Admit) - Final MRSA NOT DETECTED 01/16/17 14:30 Naris MRSA Culture (Admit) - Final MRSA NOT DETECTED Most Recent Lab Values WBC 17.1 K/uL (4.8-10.8) H 01/16/17 08:49 RBC 4.99 Mil/uL (4.40-5.90) 01/16/17 08:49 Hgb 12.6 g/dL (12.0-18.0) D 01/16/17 08:49 Hct 39.6 % (35.0-51.0) 01/16/17 08:49 MCV 79.2 fl (80.0-94.0) L 01/16/17 08:49 MCH 25.2 pg (27.0-31.0) L 01/16/17 08:49 MCHC 31.8 g/dL (33.0-37.0) L 01/16/17 08:49 RDW 15.9 % (11.5-14.5) H 01/16/17 08:49 Plt Count 280 K/uL (130-400) 01/16/17 08:49 MPV 9.1 fl (7.2-11.7) 01/16/17 08:49 Neut % (Auto) 82.7 % (50.0-75.0) H 01/16/17 08:49 Lymph % (Auto) 10.0 % (20.0-40.0) L 01/16/17 08:49 [place] % (Auto) 6.5 % (0.0-10.0) 01/16/17 08:49 Eos % (Auto) 0.0 % (0.0-4.0) 01/16/17 08:49 Baso % (Auto) 0.8 % (0.0-2.0) 01/16/17 08:49 Neut # 14.2 K/uL (1.8-7.0) H 01/16/17 08:49 Lymph # 1.7 K/uL (1.0-4.3) 01/16/17 08:49 [place] # 1.1 K/uL (0.0-0.8) H 01/16/17 08:49 Eos # 0.0 K/uL (0.0-0.7) 01/16/17 08:49 Baso # 0.1 K/uL (0.0-0.2) 01/16/17 08:49 Neutrophils % (Manual) 91 % (42-75) H 01/15/17 22:50 Band Neutrophils % 1 % (0-2) 01/15/17 22:50 Lymphocytes % (Manual) 5 % (20-50) L 01/15/17 22:50 Monocytes % (Manual) 3 % (0-10) 01/15/17 22:50 Platelet Estimate Normal (NORMAL) 01/15/17 22:50 Hypochromasia (manual) Slight 01/15/17 22:50 Microcytosis (manual) Slight 01/15/17 22:50 pCO2 34 mm/Hg (35-45) L 01/15/17 23:45 pO2 75 mm/Hg (80-100) L 01/15/17 23:45 HCO3 24.5 mmol/L (21-28) 01/15/17 23:45 ABG pH 7.44 (7.35-7.45) 01/15/17 23:45 ABG Total CO2 24.1 mmol/L (22-28) 01/15/17 23:45 ABG O2 Saturation 98.2 % (95-98) H 01/15/17 23:45 ABG Base Excess -0.5 mmol/L (-2.0-3.0) 01/15/17 23:45 Kirby Test Yes 01/15/17 23:45 ABG Potassium 3.8 mmol/L (3.6-5.2) 01/15/17 23:45 A-a O2 Difference 32.0 mm/Hg 01/15/17 23:45 Sodium 137.0 mmol/L (132-148) 01/15/17 23:45 Chloride 102.0 mmol/L (98-107) 01/15/17 23:45 Glucose 462 mg/dL (75-110) H* 01/15/17 23:45 Lactate 1.7 mmol/L (0.7-2.1) 01/15/17 23:45 FiO2 21.0 % 01/15/17 23:45 Crit Value Called To Denise smith md 01/15/17 23:45 Crit Value Called By [id number] 01/15/17 23:45 Crit Value Read Back Y 01/15/17 23:45 Blood Gas Notified Time 6 01/15/17 23:45 Sodium 138 mmol/l (132-148) 01/16/17 08:49 Potassium 3.6 MMOL/L (3.6-5.0) 01/16/17 08:49 Chloride 100 mmol/L (98-107) 01/16/17 08:49 Carbon Dioxide 25 mmol/L (22-30) 01/16/17 08:49 Anion Gap 17 (10-20) 01/16/17 08:49 BUN 10 mg/dl (9-20) 01/16/17 08:49 Creatinine 0.6 mg/dL (0.8-1.5) L 01/16/17 08:49 Est GFR ( Amer) > 60 01/16/17 08:49 Est GFR (Non-Af Amer) > 60 01/16/17 08:49 POC Glucose (mg/dL) 293 mg/dL (65-110) H 01/19/17 05:39 Random Glucose 286 mg/dL (75-110) H 01/16/17 08:49 Calcium 8.8 mg/dL (8.4-10.2) 01/16/17 08:49 Total Bilirubin 0.7 mg/dl (0.2-1.3) 01/15/17 22:50 AST 37 U/L (17-59) 01/15/17 22:50 ALT 47 U/L (21-72) 01/15/17 22:50 Alkaline Phosphatase 85 U/L (38-126) 01/15/17 22:50 Troponin I 0.1070 ng/mL (0.00-0.120) 01/18/17 06:10 Total Protein 8.5 G/DL (6.3-8.2) H 01/15/17 22:50 Albumin 4.6 g/dL (3.5-5.0) 01/15/17 22:50 Globulin 4.0 gm/dL (2.2-3.9) H 01/15/17 22:50 Albumin/Globulin Ratio 1.2 (1.0-2.1) 01/15/17 22:50 Lipase 59 U/L (23-300) 01/15/17 22:50 Arterial Blood Potassium 3.8 mmol/L (3.6-5.2) 01/15/17 23:45 Digoxin < 0.4 ng/mL (0.8-2.0) L 01/16/17 08:49 Serum Ketones Trace (NEGATIVE) 01/15/17 22:50 - Hospital Course Hospital Course: The patient is a 61 y/o man w PMHx of Gastroparesis, DM2, HTN, Nephrolithiasis, and CKD is admitted for SVT associated w sharp, 07/24, diffuse abdominal pain associated with several bouts of vomiting. The patient was treated in ED for SVt with adenosine. The patient had CBC, CMP, ABG, Lipase,troponins, ketone, and EKG done. The patient was given IVF bolus NS, dilaudid, zofran, and insulin. Critical care and cardiology were consulted. The patient was initially admitted to ICU but was transferred to regular Tele floor. The patient had elevated troponins but has had history of elevated tropinins with SVT. The patient was seen by cardiology who recommended stress test as outpatient due to currently being too weak for this admission. Patient had an echo that showed no acute abnormalities and otherwise normal with EF of 65%. The patient's BPs were initially severely elevated but resolved with labetolol. The patient is on 3 antihypertensive medications to control BP. The patient' s SVT resolved but the patient complains of nausea/vomiting. The patient's blood sugars were elevated due to patient refusing insulin in fear of hypoglycemia. The patient is improving steadily and is now taking his insulin. The patient was also seen by telemarketing manager/cage supervisor. The patient was initially on dilaudid for pain management but switched to PO percocet. The patient has been seen, examined, and deemed medically fit with no contraindication for discharge home. The patient will have home medications e- prescribed to [facility] and will be given written script for percocet. The patient is to follow up with Dr. Renteria for GI, Dr. Wilkerson for cardiology, and Dr. Mccord. - Date & Time of H&P Date of H&P: 01/16/17 Time of H&P: 01:39 Discharge Exam - Head Exam Head Exam: ATRAUMATIC, NORMOCEPHALIC - Eye Exam Eye Exam: EOMI Pupil Exam: PERRL - ENT Exam ENT Exam: Mucous Membranes Moist - Respiratory Exam Respiratory Exam: Clear to PA & Lateral. absent: Accessory Muscle Use, Chest Wall Tenderness, Decreased Breath Sounds, Prolonged Expiratory Phase, Rales, Rhonchi, Wheezes, Respiratory Distress, Stridor - Cardiovascular Exam Cardiovascular Exam: REGULAR RHYTHM. absent: Tachycardia - GI/Abdominal Exam GI & Abdominal Exam: Normal Bowel Sounds. absent: Soft, Tenderness Additional comments: obese abdomen - Neurological Exam Neurological exam: Alert, Normal Gait, Oriented x3 - Skin Skin Exam: Dry, Intact, Normal Color, Warm Discharge Plan - Discharge Medications Prescriptions: Metoprolol Tartrate [Lopressor] 25 mg PO Q12 #60 tab oxyCODONE/Acetaminophen [Percocet 5/325 mg Tab] 1 tab PO Q6 PRN #120 tab PRN Reason: Pain, Severe (8-10) - Follow Up Plan Condition: GOOD Disposition: HOME/ ROUTINE Instructions: Supraventricular Tachycardia (DC), Diabetic Gastroparesis (DC), Diabetic Hyperglycemia (DC) Referrals: Yair Renteria MD [Staff Provider] - Gregory Wilkerson MD [Staff Provider] - Jordan Mccord MD [Family Provider] - <Jordan Mccord - Last Filed: 01/23/17 06:59> Provider - Provider Date of Admission: 01/15/17 23:54 Attending physician: Jordan Mccord MD Hospital Course - Lab Results Lab Results: Micro Results 01/16/17 17:00 Nose MRSA Culture (Admit) - Final MRSA NOT DETECTED 01/16/17 14:30 Naris MRSA Culture (Admit) - Final MRSA NOT DETECTED Most Recent Lab Values WBC 17.1 K/uL (4.8-10.8) H 01/16/17 08:49 RBC 4.99 Mil/uL (4.40-5.90) 01/16/17 08:49 Hgb 12.6 g/dL (12.0-18.0) D 01/16/17 08:49 Hct 39.6 % (35.0-51.0) 01/16/17 08:49 MCV 79.2 fl (80.0-94.0) L 01/16/17 08:49 MCH 25.2 pg (27.0-31.0) L 01/16/17 08:49 MCHC 31.8 g/dL (33.0-37.0) L 01/16/17 08:49 RDW 15.9 % (11.5-14.5) H 01/16/17 08:49 Plt Count 280 K/uL (130-400) 01/16/17 08:49 MPV 9.1 fl (7.2-11.7) 01/16/17 08:49 Neut % (Auto) 82.7 % (50.0-75.0) H 01/16/17 08:49 Lymph % (Auto) 10.0 % (20.0-40.0) L 01/16/17 08:49 [place] % (Auto) 6.5 % (0.0-10.0) 01/16/17 08:49 Eos % (Auto) 0.0 % (0.0-4.0) 01/16/17 08:49 Baso % (Auto) 0.8 % (0.0-2.0) 01/16/17 08:49 Neut # 14.2 K/uL (1.8-7.0) H 01/16/17 08:49 Lymph # 1.7 K/uL (1.0-4.3) 01/16/17 08:49 [place] # 1.1 K/uL (0.0-0.8) H 01/16/17 08:49 Eos # 0.0 K/uL (0.0-0.7) 01/16/17 08:49 Baso # 0.1 K/uL (0.0-0.2) 01/16/17 08:49 Neutrophils % (Manual) 91 % (42-75) H 01/15/17 22:50 Band Neutrophils % 1 % (0-2) 01/15/17 22:50 Lymphocytes % (Manual) 5 % (20-50) L 01/15/17 22:50 Monocytes % (Manual) 3 % (0-10) 01/15/17 22:50 Platelet Estimate Normal (NORMAL) 01/15/17 22:50 Hypochromasia (manual) Slight 01/15/17 22:50 Microcytosis (manual) Slight 01/15/17 22:50 pCO2 34 mm/Hg (35-45) L 01/15/17 23:45 pO2 75 mm/Hg (80-100) L 01/15/17 23:45 HCO3 24.5 mmol/L (21-28) 01/15/17 23:45 ABG pH 7.44 (7.35-7.45) 01/15/17 23:45 ABG Total CO2 24.1 mmol/L (22-28) 01/15/17 23:45 ABG O2 Saturation 98.2 % (95-98) H 01/15/17 23:45 ABG Base Excess -0.5 mmol/L (-2.0-3.0) 01/15/17 23:45 Kirby Test Yes 01/15/17 23:45 ABG Potassium 3.8 mmol/L (3.6-5.2) 01/15/17 23:45 A-a O2 Difference 32.0 mm/Hg 01/15/17 23:45 Sodium 137.0 mmol/L (132-148) 01/15/17 23:45 Chloride 102.0 mmol/L (98-107) 01/15/17 23:45 Glucose 462 mg/dL (75-110) H* 01/15/17 23:45 Lactate 1.7 mmol/L (0.7-2.1) 01/15/17 23:45 FiO2 21.0 % 01/15/17 23:45 Crit Value Called To Denise smith md 01/15/17 23:45 Crit Value Called By [id number] 01/15/17 23:45 Crit Value Read Back Y 01/15/17 23:45 Blood Gas Notified Time 6 01/15/17 23:45 Sodium 138 mmol/l (132-148) 01/16/17 08:49 Potassium 3.6 MMOL/L (3.6-5.0) 01/16/17 08:49 Chloride 100 mmol/L (98-107) 01/16/17 08:49 Carbon Dioxide 25 mmol/L (22-30) 01/16/17 08:49 Anion Gap 17 (10-20) 01/16/17 08:49 BUN 10 mg/dl (9-20) 01/16/17 08:49 Creatinine 0.6 mg/dL (0.8-1.5) L 01/16/17 08:49 Est GFR ( Amer) > 60 01/16/17 08:49 Est GFR (Non-Af Amer) > 60 01/16/17 08:49 POC Glucose (mg/dL) 216 mg/dL (65-110) H 01/19/17 11:12 Random Glucose 286 mg/dL (75-110) H 01/16/17 08:49 Calcium 8.8 mg/dL (8.4-10.2) 01/16/17 08:49 Total Bilirubin 0.7 mg/dl (0.2-1.3) 01/15/17 22:50 AST 37 U/L (17-59) 01/15/17 22:50 ALT 47 U/L (21-72) 01/15/17 22:50 Alkaline Phosphatase 85 U/L (38-126) 01/15/17 22:50 Troponin I 0.1070 ng/mL (0.00-0.120) 01/18/17 06:10 Total Protein 8.5 G/DL (6.3-8.2) H 01/15/17 22:50 Albumin 4.6 g/dL (3.5-5.0) 01/15/17 22:50 Globulin 4.0 gm/dL (2.2-3.9) H 01/15/17 22:50 Albumin/Globulin Ratio 1.2 (1.0-2.1) 01/15/17 22:50 Lipase 59 U/L (23-300) 01/15/17 22:50 Arterial Blood Potassium 3.8 mmol/L (3.6-5.2) 01/15/17 23:45 Digoxin < 0.4 ng/mL (0.8-2.0) L 01/16/17 08:49 Serum Ketones Trace (NEGATIVE) 01/15/17 22:50 Attending/Attestation - Attestation I have personally seen and examined this patient.: Yes I have fully participated in the care of the patient.: Yes I have reviewed all pertinent clinical information, including history, physical exam and plan: Yes
[2017-01-19] MEDS: Enoxaparin 40 mg Syringe SC SCH (12:29)
[2017-01-19 15:06] VITALS: BP 144/82; PULSE 86; TEMP 97.9
== END 2017-01-19 15:20 | disposition home or self-care (01) | DRG 309 ==
LOC: H.ER 22:05 → H.ERHOLD 23:54 → H.ICU/CCU 01-16 01:07 → H.TEL 01-16 17:54
PROVIDERS: ADMIT Family Medicine; ATTEND Family Medicine
DX: I47.1 Supraventricular tachycardia (principal); K86.1 Other chronic pancreatitis; K31.84 Gastroparesis; E11.43 Type 2 diabetes mellitus with diabetic autonomic (poly)neuropathy; E11.65 Type 2 diabetes mellitus with hyperglycemia; I10 Essential (primary) hypertension; E78.5 Hyperlipidemia, unspecified; Z91.14 Patient's other noncompliance with medication regimen

== ENCOUNTER 2017-02-03 14:01 | Inpatient (IN) | payer OTHER ==
[2017-02-03 14:01] VITALS: BMI 31.4
[2017-02-03] MEDS ORDERED: HYDROmorphone 0.5 mg/0.5 ml ISec IVP STA (14:25)
[2017-02-03] MEDS ORDERED: HYDROmorphone 0.5 mg/0.5 ml ISec ONE ×2 (14:27→15:11)
[2017-02-03] MEDS ORDERED: Sodium Chloride 0.9% 1,000 ML IV SCH ×2 (14:30→17:45)
--- NOTE | 2017-02-03 14:34 | ED PDOC ---
HPI: Abdomen Time Seen by Provider: 02/03/17 14:15 Chief Complaint (Nursing): Abdominal Pain History Per: Patient Additional Complaint(s): Pt is a 61 yr old male who states that "my pancreatitis" is acting up again. Pt states that he get pancreatitis exacerbations from time to time and that his last episode was 3-4 wks ago. Pt states that the trigger is unknown--today he simply woke up with the abd pain. The pain is located mid-abdomen above the umbilicus. (+) several episodes of vomiting. No fever. Pt states that he is usually admitted to the hospital when he gets pancreatitis. Pt describes the pain as strong and is a "9" on a 1-10 scale. Denies alcohol consumption. PMD: Dr. Jordna Armstrong . Past Medical History Reviewed: Historical Data, Nursing Documentation, Vital Signs - Medical History PMH: Diabetes, HTN, Hypercholesterolemia, Kidney Stones, Pancreatitis, Chronic Kidney Disease Other PMH: Other PMH: SVT, diabetic gastroparesis - Surgical History Surgical History: Cholecystectomy - Family History Family History: States: Diabetes - Social History Current smoker - smoking cessation education provided: No Alcohol: None Drugs: Denies - Home Medications Home Medications: Ambulatory Orders Medication Instructions Recorded Lisinopril [Zestril] 10 mg PO DAILY 01/08/17 amLODIPine [Norvasc] 10 mg PO DAILY 01/08/17 Atorvastatin [Lipitor] 10 mg PO DAILY #30 tab 01/13/17 Famotidine [Pepcid] 20 mg PO BID #20 tab 01/13/17 Gabapentin [Neurontin] 300 mg PO TID #30 cap 01/13/17 MetFORMIN [glucoPHAGE] 1,000 mg PO BIDWM #60 tab 01/13/17 Metoclopramide HCl [Reglan] 10 mg PO Q8H #30 tablet 01/13/17 Insulin Detemir [Levemir] 20 units SC HS vial 01/19/17 Insulin Lispro [humALOG] 15 unit SC TID #1 01/19/17 Metoprolol Tartrate [Lopressor] 25 mg PO Q12 #60 tab 01/19/17 oxyCODONE/Acetaminophen [Percocet 1 tab PO Q6 PRN #120 tab 01/19/17 5/325 mg Tab] - Allergies Allergies/Adverse Reactions: Allergies Allergy/AdvReac Type Severity Reaction Status Date / Time iodine Allergy RASH Verified 01/08/17 17:59 Review of Systems Constitutional: Negative for: Fever Cardiovascular: Negative for: Chest Pain Respiratory: Negative for: Shortness of Breath Gastrointestinal: Positive for: Nausea, Vomiting, Abdominal Pain Genitourinary Male: Negative for: Dysuria Physical Exam - Reviewed Nursing Documentation Reviewed: Yes Vital Signs Reviewed: Yes - Physical Exam Appears: Positive for: Uncomfortable (patient is vomiting in front of me) Skin: Positive for: Normal Color, Warm, Dry Eye Exam: Positive for: Normal appearance ENT: Positive for: Normal ENT Inspection Neck: Positive for: Normal Cardiovascular/Chest: Positive for: Regular Rate, Rhythm Respiratory: Positive for: Normal Breath Sounds. Negative for: Rales, Rhonchi Gastrointestinal/Abdominal: Positive for: Bowel Sounds, Soft, Tenderness (mid- abdomen). Negative for: Guarding, Rebound Back: Positive for: Normal Inspection Extremity: Positive for: Normal ROM Lymphatic: Positive for: Deferred Neurologic/Psych: Positive for: Alert. Negative for: Motor/Sensory Deficits Medical Decision Making Medical Decision Making: Initial Impression: Pancreatitis Initial Plan: Will check labs, hydrate, give anti-emetic and pain medication (pt is requesting that his first dose of pain medication be given IM while the RN looks for an IV) Disposition - Clinical Impression Clinical Impression: Pancreatitis - Patient ED Disposition Is Patient to be Admitted: Transfer of Care - Disposition Disposition Time: 15:00 Condition: FAIR Patient Signed Over To: Marysol Rodriguez Handoff Comments: To follow up lab results, reassess patient to see if symptoms are improving and disposition accordingly.
[2017-02-03 15:17] LABS: BASO # 0.1 K/uL (0.0-0.2); BASO % 0.7 % (0.0-2.0); HEMATOCRIT 43.5 % (35.0-51.0); LYMPH % 6.6 % (20.0-40.0); MEAN CELL VOLUME 80.1 fl (80.0-94.0); MEAN CORPUSCULAR HEMOGLOBIN 25.6 pg (27.0-31.0); MEAN CORPUSCULAR HGB CONC 31.9 g/dL (33.0-37.0); MEAN PLATELET VOLUME 9.4 fl (7.2-11.7); MONO # 0.3 K/uL (0.0-0.8); MONO % 1.8 % (0.0-10.0); NEUT % 90.9 % (50.0-75.0); PLATELET COUNT 275 K/uL (130-400); RED CELL DISTRIBUTION WIDTH 16.2 % (11.5-14.5); WHITE BLOOD COUNT 15.4 K/uL (4.8-10.8)
[2017-02-03 15:19] LABS: VENOUS BLOOD GAS BASE EXCESS 3.7 mmol/L (0.0-2.0); VENOUS BLOOD GAS PCO2 39 mmHg (40-60); VENOUS BLOOD PH 7.46 (7.32-7.43)
[2017-02-03 15:35] LABS: ALB/GLOB RATIO 1.1 (1.0-2.1); ALCOHOL SERUM < 10 mg/dl (0-10); ALKALINE PHOSPHATASE 84 U/L (38-126); ALT/SGPT 27 U/L (21-72); AST/SGOT 23 U/L (17-59); BILIRUBIN,TOTAL 0.7 mg/dl (0.2-1.3); BLOOD UREA NITROGEN 11 mg/dl (9-20); CALCIUM 10.5 mg/dL (8.4-10.2); CARBON DIOXIDE 21 mmol/L (22-30); CHLORIDE 96 mmol/L (98-107); GFR AFRICAN-AMERICAN > 60; LIPASE 60 U/L (23-300); POTASSIUM 4.9 MMOL/L (3.6-5.0); SODIUM 140 mmol/l (132-148); TOTAL PROTEIN 8.7 G/DL (6.3-8.2)
[2017-02-03 15:41] LABS: RBC URINE 9 /hpf (0-3); URINE BILIRUBIN NEGATIVE (NEGATIVE); URINE BLOOD NEGATIVE (NEGATIVE); URINE COLOR STRAW (YELLOW); URINE GLUCOSE (UA) >=500 mg/dL (Normal); URINE KETONE 80 mg/dL (NEGATIVE); URINE LEUKOCYTE ESTERASE NEG Leu/uL (Negative); URINE PROTEIN 30 mg/dL (NEGATIVE); URINE UROBILINOGEN 0.2-1.0 mg/dL (0.2-1.0); WBC URINE < 1 /hpf (0-5)
[2017-02-03 15:50] LABS: GLUCOSE,RANDOM 404 mg/dL (75-110)
[2017-02-03] MEDS ORDERED: Sodium Chloride 0.9% 1,000 ML IV STA (16:17)
[2017-02-03] MEDS ORDERED: Insulin Regular 100 units/ml IV STA ×2 (16:17→18:01)
[2017-02-03] MEDS ORDERED: Insulin Regular 100 units/ml ONE (16:22)
[2017-02-03 16:56] LABS: NEUTROPHIL 89 % (42-75); REACTIVE LYMPHOCYTES 2 % (0-0); TOTAL CELLS COUNTED 100
[2017-02-03 16:58] LABS: LARGE PLATELETS PRESENT
--- NOTE | 2017-02-03 17:10 | ED PDOC ---
- Laboratory Results Result Diagrams: 02/03/17 15:00 02/03/17 15:00 - Progress ED Course And Treament: Pt administered multiple doses of pain medication, no relief of pain. Re-evaluation Time: 17:00 Condition: Unchanged Disposition - Clinical Impression Clinical Impression: Intractable abdominal pain, Intractable vomiting - POA Present On Arrival: Poor Glycemic Control - Disposition Disposition: Hospitalized as Observation Patient Disposition Time: 17:10 Condition: STABLE
--- NOTE | 2017-02-03 17:29 | CP.PCM.HP ---
History of Present Illness - History of Present Illness History of Present Illness: 61 M w/ PMHx of T2DM, HTN, diabetic neuropathy, gastroparesis, presented to ED with complaints of his "pancreatitis is acting up again" (pt does not have dpocumented history of pancreatitis but does have gastroparesis that leads to abdominal pain as he does not eat in small portions) pt reports intractable abdominal pain associated with onset of nausea/vomiting started this morning. At time of evaluation, patient stated he was in too much pain and really needed something to take the edge off as he could not talk due to due pain. Patient has been historically poor at controlling DM. ROS is limited due to patient's clinical condition though denies chest pain, sob, or headache. Patient has been evaluated by GI previously for gastroparesis. Other history obtained from previous charts.Patient recently admitted earlier this month, Insulin regime was changed due to episode of hypoglycemia. PMH: DM w/Gastroparesis, HTN, HLD, Diabetic neuropathy, Drug Use Hx PSH: Lap Saranya Allergies: IV contrast (hives) Meds: As per chart Of note, patient's has 2 medical records as this medical record does not have any of his previous visit from previous years - for more info please look up Present on Admission - Present on Admission Any Indicators Present on Admission: Yes History of Uncontrolled Diabetes: Yes Review of Systems - Review of Systems All systems: reviewed and no additional remarkable complaints except Review of Systems: Per HPI Past Patient History - Past Medical History & Family History Past Medical History?: Yes - Past Social History Smoking Status: Never Smoked - CARDIAC Hx Hypercholesterolemia: Yes Hx Hypertension: Yes - PULMONARY Hx Respiratory Disorders: No - NEUROLOGICAL Hx Neurological Disorder: No - HEENT Hx HEENT Problems: No - RENAL Hx Chronic Kidney Disease: Yes Hx Kidney Stones: Yes - ENDOCRINE/METABOLIC Hx Endocrine Disorders: Yes Hx Diabetes Mellitus Type 1: Yes - HEMATOLOGICAL/ONCOLOGICAL Hx Blood Disorders: No - INTEGUMENTARY Hx Dermatological Problems: No - MUSCULOSKELETAL/RHEUMATOLOGICAL Hx Musculoskeletal Disorders: No Hx Falls: No - GASTROINTESTINAL Hx Pancreatitis: Yes - GENITOURINARY/GYNECOLOGICAL Hx Genitourinary Disorders: No - PSYCHIATRIC Hx Psychophysiologic Disorder: No Hx Substance Use: No - SURGICAL HISTORY Hx Cholecystectomy: Yes - ANESTHESIA Hx Anesthesia: Yes Hx Anesthesia Reactions: No Meds Allergies/Adverse Reactions: Allergies Allergy/AdvReac Type Severity Reaction Status Date / Time iodine Allergy RASH Verified 01/08/17 17:59 Physical Exam - Constitutional Appears: Well, No Acute Distress - Head Exam Head Exam: NORMOCEPHALIC - Eye Exam Eye Exam: Normal appearance - ENT Exam ENT Exam: Mucous Membranes Moist - Neck Exam Neck exam: Negative for: Tenderness, Thyromegaly - Respiratory Exam Respiratory Exam: Clear to Auscultation Bilateral, NORMAL BREATHING PATTERN. absent: Rhonchi, Wheezes - Cardiovascular Exam Cardiovascular Exam: REGULAR RHYTHM, +S1, +S2 - GI/Abdominal Exam GI & Abdominal Exam: Normal Bowel Sounds, Soft, Tenderness - Extremities Exam Extremities exam: Negative for: calf tenderness, pedal edema - Neurological Exam Neurological exam: Alert, Oriented x3 Results - Vital Signs Recent Vital Signs: Last Vital Signs Temp 97.6 F 02/03/17 17:19 Pulse 120 H 02/03/17 17:19 Resp 16 02/03/17 17:19 BP 188/96 H 02/03/17 17:19 Pulse Ox 97 02/03/17 17:19 - Labs Result Diagrams: 02/03/17 15:00 02/03/17 15:00 Labs: Laboratory Results - last 24 hr 02/03/17 02/03/17 02/03/17 15:00 15:10 15:20 WBC 15.4 H RBC 5.43 Hgb 13.9 Hct 43.5 MCV 80.1 MCH 25.6 L MCHC 31.9 L RDW 16.2 H Plt Count 275 MPV 9.4 Neut % (Auto) 90.9 H Lymph % (Auto) 6.6 L [place] % (Auto) 1.8 Eos % (Auto) 0.0 Baso % (Auto) 0.7 Neut # 14.0 H Lymph # 1.0 [place] # 0.3 Eos # 0.0 Baso # 0.1 Neutrophils % (Manual) 89 H Band Neutrophils % 1 Lymphocytes % (Manual) 6 L Reactive Lymphs % 2 H Monocytes % (Manual) 2 Platelet Estimate Normal Large Platelets Present Anisocytosis (manual) Slight pO2 28 L VBG pH 7.46 H VBG pCO2 39 L VBG HCO3 26.8 VBG Total CO2 28.9 H VBG O2 Sat (Calc) 63.1 VBG Base Excess 3.7 H VBG Potassium 4.5 Glucose 423 H* Lactate 3.8 H FiO2 21.0 Blood Gas Comments Vbg Crit Value Called To Brenna mark r.n. Crit Value Called By Cheyanne Crit Value Read Back Y Blood Gas Notified Time 1518 Sodium 140 135.0 Potassium 4.9 Chloride 96 L 95.0 L Carbon Dioxide 21 L Anion Gap 28 H BUN 11 Creatinine 0.6 L Est GFR ( Amer) > 60 Est GFR (Non-Af Amer) > 60 Random Glucose 404 H* D Calcium 10.5 H Total Bilirubin 0.7 AST 23 ALT 27 Alkaline Phosphatase 84 Total Protein 8.7 H Albumin 4.5 Globulin 4.2 H Albumin/Globulin Ratio 1.1 Lipase 60 Venous Blood Potassium 4.5 Urine Color Straw Urine Clarity Clear Urine pH 8.0 Ur Specific [place] 1.024 Urine Protein 30 Urine Glucose (UA) >=500 Urine Ketones 80 Urine Blood Negative Urine Nitrate Negative Urine Bilirubin Negative Urine Urobilinogen 0.2-1.0 Ur Leukocyte Esterase Neg Urine RBC (Auto) 9 H Urine Microscopic WBC < 1 Ur Squamous Epith Cells < 1 Alcohol, Quantitative < 10 Assessment & Plan - Assessment and Plan (Free Text) Assessment: 61 M w/ PMHx of T2DM (uncontrolled), HTN, diabetic neuropathy, gastroparesis admitted for intractable abdominal pain associated with n/v and hyperglycemia. Please note patient's chart is mostly on Plan: 1) Intractable abdominal pain, secondary to gastroparesis - NPO - Pain control with dilaudid - Alternating Zofran/Reglan - Monitor for improvement/resolution 2) T2DM, uncontrolled - Poorly controlled diabetic, no signs of DKA or hyperosmolar at this time. - HgbA1c: 12% 10/2016 - Repeat CMP/lactic acid - Accu-checks -SSI (corrective high dose) - Hypoglycemic Bundle - 1L bolus in ED, give another 1L at this time - c/w NS @ 200cc/hr and adjust accordingly to glucose reads - will hold home metformin and humalog PO - Continue with Levemir HS 3) Nausea & vomiting, likely 2/2 gastroparesis - Zofran 4mg, IV, Q6H - Reglan 10mg, TID 4) Leukocytosis - Most c/w stress response given absence of febrile illness, CXR w/o changes when compared to prior. - Repeat CBC in AM 5) Hypertension, uncontrolled - c/w home medication 6) DVT prophylaxis - Lovenox 40mg SC Daily
[2017-02-03] MEDS ORDERED: Glucagon Recombinant 1 mg Inj IM PRN (17:32)
[2017-02-03] MEDS ORDERED: Dextrose 50% SYRINGE Inj (50 ml) IV PRN (17:32)
[2017-02-03] MEDS ORDERED: Labetalol 5mg/ml (4ml) ONE (17:51)
[2017-02-03] MEDS ORDERED: Labetalol 5mg/ml (4ml) IVP STA (17:52)
[2017-02-03] MEDS: Insulin Detemir 100 Units/ml Inj SC SCH ×2 (22:13→22:24)
[2017-02-03] MEDS: Insulin Regular 100 units/ml SC SCH (22:13)
[2017-02-03] MEDS: Sodium Chloride 0.9% 1,000 ML IV SCH (22:15)
[2017-02-04] MEDS: Sodium Chloride 0.9% 1,000 ML IV SCH ×4 (04:54→22:13)
[2017-02-04] MEDS: Insulin Regular 100 units/ml SC SCH ×4 (06:35→21:33)
[2017-02-04 07:15] LABS: HEMATOCRIT 36.2 % (35.0-51.0); MEAN CELL VOLUME 81.2 fl (80.0-94.0); MEAN CORPUSCULAR HEMOGLOBIN 25.6 pg (27.0-31.0); MEAN CORPUSCULAR HGB CONC 31.5 g/dL (33.0-37.0); RED CELL DISTRIBUTION WIDTH 16.1 % (11.5-14.5); WHITE BLOOD COUNT 14.5 K/uL (4.8-10.8)
[2017-02-04 07:17] LABS: ALKALINE PHOSPHATASE 46 U/L (38-126); ALT/SGPT 27 U/L (21-72); AST/SGOT 16 U/L (17-59); BILIRUBIN,TOTAL 0.5 mg/dl (0.2-1.3); BLOOD UREA NITROGEN 9 mg/dl (9-20); CARBON DIOXIDE 21 mmol/L (22-30); CHLORIDE 104 mmol/L (98-107); GFR AFRICAN-AMERICAN > 60; GLUCOSE,RANDOM 258 mg/dL (75-110); POTASSIUM 4.2 MMOL/L (3.6-5.0); SODIUM 138 mmol/l (132-148); TOTAL PROTEIN 6.1 G/DL (6.3-8.2)
[2017-02-04] MEDS: Enoxaparin 40 mg Syringe SC SCH (09:03)
--- NOTE | 2017-02-04 09:11 | CP.PCM.PN ---
Subjective - Date & Time of Evaluation Date of Evaluation: 02/04/17 Time of Evaluation: 09:04 - Subjective Subjective: pt seen and examined at bedside. No acute events overnight. Lying in bed comfortably, mild discomfort, but NAD. Reports being able to sleep all night without difficulty. Reports improvement in abdominal pain but is still about a 6 /10 and exacerbated by movement. Feels thirsty. Denies nausea, vomiting, and diarrhea last night. Pt seen ambulating around room before rounding but upon interviewing reports he has not been OOB/ambulating. Denies fever/chills, night sweats, headaches, changes in vision, CP/SOB/Palpitations, N/V/D/C, urinary symptoms. Objective - Vital Signs/Intake and Output Vital Signs (last 24 hours): Temp Pulse Resp BP Pulse Ox 98.7 F 91 H 18 153/72 H 95 02/04/17 08:07 02/04/17 08:07 02/04/17 08:07 02/04/17 08:07 02/04/17 08:07 - Medications Medications: Current Medications Amlodipine Besylate (Norvasc) 10 mg PO DAILY [facility] Atorvastatin Calcium (Lipitor) 10 mg PO DAILY [facility] Dextrose (Glutose 15) 0 gm PO ONCE PRN; Protocol PRN Reason: Hypoglycemia Protocol Dextrose (Dextrose 50% Inj) 0 ml IV STAT PRN; Protocol PRN Reason: Hyglycemia Protocol Enoxaparin Sodium (Lovenox) 40 mg SC DAILY [facility] PRN Reason: Protocol Famotidine (Pepcid) 20 mg PO BID [facility] Gabapentin (Neurontin) 300 mg PO TID [facility] Glucagon (Glucagen Diagnostic Kit) 0 mg IM STAT PRN; Protocol PRN Reason: Hypoglycemia Protocol Hydromorphone HCl (Dilaudid) 1 mg IVP Q4 PRN PRN Reason: Pain, moderate (4-7) Hydromorphone HCl (Dilaudid) 2 mg IVP Q6 PRN PRN Reason: Pain, severe (8-10) Last Admin: 02/04/17 06:04 Dose: 2 mg Sodium Chloride (Sodium Chloride 0.9%) 1,000 mls @ 200 mls/hr IV .Q5H [facility] Last Admin: 02/04/17 04:54 Dose: 200 mls/hr Insulin Detemir (Levemir) 20 units SC HS [facility] Last Admin: 02/03/17 22:24 Dose: Not Given Insulin Human Regular (Humulin R) 0 units SC ACHS [facility] PRN Reason: Protocol Last Admin: 02/04/17 06:35 Dose: 6 u Lisinopril (Zestril) 10 mg PO DAILY [facility] Metoclopramide HCl (Reglan) 10 mg IVP Q6 PRN PRN Reason: Nausea/Vomiting Metoprolol Tartrate (Lopressor) 25 mg PO Q12 [facility] Last Admin: 02/03/17 22:12 Dose: 25 mg - Labs Labs: 02/04/17 07:04 02/04/17 07:04 - Constitutional Appears: Non-toxic, No Acute Distress - Head Exam Head Exam: ATRAUMATIC, NORMOCEPHALIC (plethoric face) - Eye Exam Eye Exam: EOMI. absent: Conjunctival injection, Periorbital swelling, Scleral icterus Pupil Exam: PERRL - ENT Exam ENT Exam: Mucous Membranes Moist. absent: Mucous Membranes Dry - Neck Exam Neck Exam: Full ROM - Respiratory Exam Respiratory Exam: Clear to Ausculation Bilateral, NORMAL BREATHING PATTERN. absent: Rales, Rhonchi, Wheezes - Cardiovascular Exam Cardiovascular Exam: REGULAR RHYTHM, RRR, +S1, +S2. absent: Tachycardia, JVD, Murmur - GI/Abdominal Exam GI & Abdominal Exam: Guarding (voluntary), Soft, Hypoactive Bowel Sounds ( Hypoactive throughout, but HYPERactive in RLQ.), Rebound. absent: Distended, Firm, Rigid, Mass - Extremities Exam Extremities Exam: absent: Calf Tenderness, Pedal Edema - Neurological Exam Neurological Exam: Alert, Awake, CN II-XII Intact, Oriented x3 - Psychiatric Exam Psychiatric exam: Normal Affect, Normal Mood - Skin Skin Exam: Dry, Intact, Normal Color, Warm Assessment and Plan - Assessment and Plan (Free Text) Assessment: 61 M w/ PMHx of T2DM (uncontrolled), HTN, diabetic neuropathy, gastroparesis admitted for intractable abdominal pain associated with n/v and hyperglycemia. Plan: 1) Intractable abdominal pain, secondary to gastroparesis - Zofran 4mg, IV, Q6H - Reglan 10mg, TID - pain control ( Diladid 1mg, 2mg, Percocet) - allowed small amounts of water - Monitor for improvement/resolution - Abd Flat plate: pending - Troponin: f/u - Urine Tox: f/u - procalcitonin: f/u 2) T2DM, uncontrolled - HgbA1c: 12% 10/2016 - Repeat CMP/lactic acid - Accu-checks - SSI (corrective high dose) - Hypoglycemic Bundle - held home metformin and humalog PO - Continue with Levemir HS - AM Cortisol: pending 4) Leukocytosis - Most c/w stress response given absence of febrile illness, CXR w/o changes when compared to prior. - Repeat CBC in AM 5) Hypertension, uncontrolled - c/w home medication 6) DVT prophylaxis - Lovenox 40mg SC Daily
--- NOTE | 2017-02-04 11:57 | RAD ---
HISTORY: Rule out obstruction COMPARISON: None FINDINGS: BOWEL: The the bowel gas pattern is non obstructive. BONES: Normal. OTHER FINDINGS: Surgical clips in the right upper quadrant are related to prior cholecystectomy. IMPRESSION: Non specific bowel gas pattern.
[2017-02-04] MEDS: Insulin Detemir 100 Units/ml Inj SC SCH (21:34)
[2017-02-04] MEDS: Docusate-Senna 50 mg-8.6 mg Tab PO SCH (21:57)
[2017-02-05] MEDS: Sodium Chloride 0.9% 1,000 ML IV SCH ×2 (03:17→09:09)
[2017-02-05] MEDS: Insulin Regular 100 units/ml SC SCH ×5 (06:44→21:18)
[2017-02-05 08:03] LABS: BASO # 0.1 K/uL (0.0-0.2); BASO % 0.4 % (0.0-2.0); EOS # 0.2 K/uL (0.0-0.7); EOS % 1.4 % (0.0-4.0); HEMATOCRIT 36.2 % (35.0-51.0); LYMPH # 1.8 K/uL (1.0-4.3); MEAN CELL VOLUME 80.1 fl (80.0-94.0); MEAN CORPUSCULAR HEMOGLOBIN 25.5 pg (27.0-31.0); MEAN CORPUSCULAR HGB CONC 31.8 g/dL (33.0-37.0); MEAN PLATELET VOLUME 9.2 fl (7.2-11.7); MONO # 0.9 K/uL (0.0-0.8); MONO % 6.7 % (0.0-10.0); NEUT # 9.8 K/uL (1.8-7.0); NEUT % 77.5 % (50.0-75.0); RED CELL DISTRIBUTION WIDTH 16.5 % (11.5-14.5); WHITE BLOOD COUNT 12.7 K/uL (4.8-10.8)
--- NOTE | 2017-02-05 09:47 | CP.PCM.PN ---
<Braulio Dietrich - Last Filed: 02/05/17 11:15> Subjective - Date & Time of Evaluation Date of Evaluation: 02/05/17 Time of Evaluation: 07:05 - Subjective Subjective: pt seen and examined at bedside this morning. No acute events overnight. Has not been OOB/ambulating yet. Reports improving pain controlled with meds but still complains of some abdominal discomfort. Tolerating PO CLD without nausea or vomiting. Reports feeling hungry. No new medical complaints. Denies fever/ chills, headaches, changes in vision, CP/SOB/palpitations, D/C, urinary symptoms. Objective - Vital Signs/Intake and Output Vital Signs (last 24 hours): Temp Pulse Resp BP Pulse Ox 98.3 F 75 18 169/74 H 97 02/05/17 08:00 02/05/17 08:00 02/05/17 08:00 02/05/17 08:00 02/05/17 08:00 - Medications Medications: Current Medications Amlodipine Besylate (Norvasc) 10 mg PO DAILY [facility] Last Admin: 02/05/17 09:05 Dose: 10 mg Atorvastatin Calcium (Lipitor) 10 mg PO DAILY [facility] Last Admin: 02/05/17 09:04 Dose: 10 mg Dextrose (Glutose 15) 0 gm PO ONCE PRN; Protocol PRN Reason: Hypoglycemia Protocol Dextrose (Dextrose 50% Inj) 0 ml IV STAT PRN; Protocol PRN Reason: Hyglycemia Protocol Docusate Sodium (Colace) 100 mg PO DAILY [facility] Last Admin: 02/05/17 09:10 Dose: Not Given Enoxaparin Sodium (Lovenox) 40 mg SC DAILY [facility] PRN Reason: Protocol Last Admin: 02/04/17 09:03 Dose: 40 mg Famotidine (Pepcid) 20 mg PO BID [facility] Last Admin: 02/05/17 09:05 Dose: 20 mg Gabapentin (Neurontin) 300 mg PO TID [facility] Last Admin: 02/05/17 09:05 Dose: 300 mg Glucagon (Glucagen Diagnostic Kit) 0 mg IM STAT PRN; Protocol PRN Reason: Hypoglycemia Protocol Hydromorphone HCl (Dilaudid) 1 mg IVP Q4 PRN PRN Reason: Pain, moderate (4-7) Last Admin: 02/05/17 05:46 Dose: 1 mg Hydromorphone HCl (Dilaudid) 2 mg IVP Q6 PRN PRN Reason: Pain, severe (8-10) Last Admin: 02/05/17 01:15 Dose: 2 mg Insulin Detemir (Levemir) 20 units SC [facility] Last Admin: 02/04/17 21:34 Dose: Not Given Insulin Human Regular (Humulin R) 0 units SC [facility] PRN Reason: Protocol Last Admin: 02/05/17 06:44 Dose: 2 u Lisinopril (Zestril) 10 mg PO [facility] Metoclopramide HCl (Reglan) 10 mg IVP Q6 [facility] Last Admin: 02/05/17 09:07 Dose: 10 mg Metoprolol Tartrate (Lopressor) 25 mg PO Q12 [facility] Last Admin: 02/05/17 09:05 Dose: 25 mg Senna/Docusate Sodium (Senokot S 50 Mg-8.6 Mg) 2 tab PO [facility] Last Admin: 02/04/17 21:57 Dose: 2 tab - Labs Labs: 02/05/17 07:57 - Constitutional Appears: Non-toxic, No Acute Distress - Eye Exam Eye Exam: EOMI Pupil Exam: PERRL - ENT Exam ENT Exam: Mucous Membranes Moist - Respiratory Exam Respiratory Exam: Clear to Ausculation Bilateral, NORMAL BREATHING PATTERN. absent: Rales, Rhonchi, Wheezes - Cardiovascular Exam Cardiovascular Exam: REGULAR RHYTHM, RRR, +S1, +S2. absent: JVD, Rubs - GI/Abdominal Exam GI & Abdominal Exam: Guarding (voluntary guarding), Soft, Tenderness ( supraumbilical tenderness to palpation, unchanged.), Hyperactive Bowel Sounds ( hyperactive in RLQ), Hypoactive Bowel Sounds (hypoactive in LLQ, LUQ). absent: Rebound - Extremities Exam Extremities Exam: Full ROM, Normal Inspection. absent: Calf Tenderness, Pedal Edema, Tenderness - Neurological Exam Neurological Exam: Alert, Awake, CN II-XII Intact, Oriented x3 Assessment and Plan - Assessment and Plan (Free Text) Assessment: 61 M w/ PMHx of T2DM (uncontrolled), HTN, diabetic neuropathy, gastroparesis admitted for intractable abdominal pain associated with n/v and hyperglycemia. Plan: 1) Intractable abdominal pain, secondary to gastroparesis - Zofran 4mg, IV, Q6H - Reglan 10mg, TID - pain control ( Diladid 1mg, 2mg, Percocet) - tolerated CLD, advanced to full liquid - Monitor for improvement/resolution - Abd Flat plate: non-specific bowel gas pattern - Troponin: negative - Urine Tox: +Opiates - procalcitonin: f/u pain improving, will continue to control till pain is controlled strictly with oral meds. -referral to GI for possible GI pacemaker 2) T2DM, uncontrolled - HgbA1c: 12% 10/2016 - Repeat CMP/lactic acid - Accu-checks - SSI (corrective high dose) - Hypoglycemic Bundle - held home metformin and humalog PO - Continue with Levemir HS - AM Cortisol: pending 4) Leukocytosis - Most c/w stress response given absence of febrile illness, CXR w/o changes when compared to prior. - Repeat CBC: 12.7>11.5/36.2<213 5) Hypertension, uncontrolled - c/w home medication 6) DVT prophylaxis - Lovenox 40mg SC Daily <Jordan Mccord - Last Filed: 02/07/17 07:16> Objective - Vital Signs/Intake and Output Vital Signs (last 24 hours): Temp Pulse Resp BP Pulse Ox 98.0 F 68 18 154/75 H 95 02/06/17 12:03 02/06/17 12:03 02/06/17 12:03 02/06/17 12:03 02/06/17 12:03 - Labs Labs: 02/05/17 07:57 Attending/Attestation - Attestation I have personally seen and examined this patient.: Yes I have fully participated in the care of the patient.: Yes I have reviewed all pertinent clinical information, including history, physical exam and plan: Yes
[2017-02-05] MEDS: Enoxaparin 40 mg Syringe SC SCH (11:40)
[2017-02-05] MEDS: Insulin Detemir 100 Units/ml Inj SC SCH (21:22)
[2017-02-05] MEDS: Docusate-Senna 50 mg-8.6 mg Tab PO SCH (21:22)
[2017-02-06 08:21] VITALS: RESP 18
[2017-02-06] MEDS: Insulin Regular 100 units/ml SC SCH ×2 (09:03→12:25)
[2017-02-06] MEDS: Enoxaparin 40 mg Syringe SC SCH (09:05)
[2017-02-06] MEDS ORDERED: Oxycodone/Acetaminophen 5/325 mg Tab PO PRN (11:22)
[2017-02-06 12:04] VITALS: BP 154/75; PULSE 68; TEMP 98; O2SAT 95
--- NOTE | 2017-02-06 13:05 | CP.PCM.DIS ---
<Braulio Dietrich - Last Filed: 02/06/17 13:46> Provider - Provider Date of Admission: 02/04/17 11:21 Attending physician: Jordan Mccord MD Time Spent in preparation of Discharge (in minutes): 35 Diagnosis - Discharge Diagnosis (1) Gastroparesis due to DM Status: Chronic Comment: no pathology found on imaging, labs WNL, pain was controlled, pt was able to tolerate PO intake upon discharge, V/D resolved Hospital Course - Lab Results Lab Results: Micro Results 02/04/17 13:30 Blood Blood Culture - Preliminary NO GROWTH AFTER 24 HOURS 02/04/17 13:30 Blood Blood Culture - Preliminary NO GROWTH AFTER 24 HOURS Most Recent Lab Values WBC 12.7 K/uL (4.8-10.8) H 02/05/17 07:57 RBC 4.52 Mil/uL (4.40-5.90) 02/05/17 07:57 Hgb 11.5 g/dL (12.0-18.0) L 02/05/17 07:57 Hct 36.2 % (35.0-51.0) 02/05/17 07:57 MCV 80.1 fl (80.0-94.0) 02/05/17 07:57 MCH 25.5 pg (27.0-31.0) L 02/05/17 07:57 MCHC 31.8 g/dL (33.0-37.0) L 02/05/17 07:57 RDW 16.5 % (11.5-14.5) H 02/05/17 07:57 Plt Count 213 K/uL (130-400) 02/05/17 07:57 MPV 9.2 fl (7.2-11.7) 02/05/17 07:57 Neut % (Auto) 77.5 % (50.0-75.0) H 02/05/17 07:57 Lymph % (Auto) 14.0 % (20.0-40.0) L 02/05/17 07:57 [place] % (Auto) 6.7 % (0.0-10.0) 02/05/17 07:57 Eos % (Auto) 1.4 % (0.0-4.0) 02/05/17 07:57 Baso % (Auto) 0.4 % (0.0-2.0) 02/05/17 07:57 Neut # 9.8 K/uL (1.8-7.0) H 02/05/17 07:57 Lymph # 1.8 K/uL (1.0-4.3) 02/05/17 07:57 [place] # 0.9 K/uL (0.0-0.8) H 02/05/17 07:57 Eos # 0.2 K/uL (0.0-0.7) 02/05/17 07:57 Baso # 0.1 K/uL (0.0-0.2) 02/05/17 07:57 Neutrophils % (Manual) 89 % (42-75) H 02/03/17 15:00 Band Neutrophils % 1 % (0-2) 02/03/17 15:00 Lymphocytes % (Manual) 6 % (20-50) L 02/03/17 15:00 Reactive Lymphs % 2 % (0-0) H 02/03/17 15:00 Monocytes % (Manual) 2 % (0-10) 02/03/17 15:00 Platelet Estimate Normal (NORMAL) 02/03/17 15:00 Large Platelets Present 02/03/17 15:00 Anisocytosis (manual) Slight 02/03/17 15:00 pO2 28 mm/Hg (30-55) L 02/03/17 15:10 VBG pH 7.46 (7.32-7.43) H 02/03/17 15:10 VBG pCO2 39 mmHg (40-60) L 02/03/17 15:10 VBG HCO3 26.8 mmol/L 02/03/17 15:10 VBG Total CO2 28.9 mmol/L (22-28) H 02/03/17 15:10 VBG O2 Sat (Calc) 63.1 % (40-65) 02/03/17 15:10 VBG Base Excess 3.7 mmol/L (0.0-2.0) H 02/03/17 15:10 VBG Potassium 4.5 mmol/L (3.6-5.2) 02/03/17 15:10 Sodium 135.0 mmol/L (132-148) 02/03/17 15:10 Chloride 95.0 mmol/L (98-107) L 02/03/17 15:10 Glucose 423 mg/dL (75-110) H* 02/03/17 15:10 Lactate 3.8 mmol/L (0.7-2.1) H 02/03/17 15:10 FiO2 21.0 % 02/03/17 15:10 Blood Gas Comments Vbg 02/03/17 15:10 Crit Value Called To Brenna mark r.n. 02/03/17 15:10 Crit Value Called By Cheyanne 02/03/17 15:10 Crit Value Read Back Y 02/03/17 15:10 Blood Gas Notified Time 1518 02/03/17 15:10 Sodium 138 mmol/l (132-148) 02/04/17 07:04 Potassium 4.2 MMOL/L (3.6-5.0) 02/04/17 07:04 Chloride 104 mmol/L (98-107) 02/04/17 07:04 Carbon Dioxide 21 mmol/L (22-30) L 02/04/17 07:04 Anion Gap 17 (10-20) 02/04/17 07:04 BUN 9 mg/dl (9-20) 02/04/17 07:04 Creatinine 0.6 mg/dL (0.8-1.5) L 02/04/17 07:04 Est GFR ( Amer) > 60 02/04/17 07:04 Est GFR (Non-Af Amer) > 60 02/04/17 07:04 POC Glucose (mg/dL) 271 mg/dL (65-110) H 02/06/17 10:56 Random Glucose 258 mg/dL (75-110) H 02/04/17 07:04 Calcium 8.0 mg/dL (8.4-10.2) L 02/04/17 07:04 Total Bilirubin 0.5 mg/dl (0.2-1.3) 02/04/17 07:04 AST 16 U/L (17-59) L D 02/04/17 07:04 ALT 27 U/L (21-72) 02/04/17 07:04 Alkaline Phosphatase 46 U/L (38-126) 02/04/17 07:04 Troponin I < 0.0120 ng/mL (0.00-0.120) 02/04/17 13:30 Total Protein 6.1 G/DL (6.3-8.2) L 02/04/17 07:04 Albumin 3.0 g/dL (3.5-5.0) L D 02/04/17 07:04 Globulin 3.0 gm/dL (2.2-3.9) 02/04/17 07:04 Albumin/Globulin Ratio 1.0 (1.0-2.1) 02/04/17 07:04 Lipase 60 U/L (23-300) 02/03/17 15:00 Procalcitonin < 0.05 NG/ML (0.19-0.49) L 02/04/17 13:30 Cortisol AM Sample 12.2 ug/dL (4.46-22.7) 02/05/17 07:57 Venous Blood Potassium 4.5 mmol/L (3.6-5.2) 02/03/17 15:10 Urine Color Straw (YELLOW) 02/03/17 15:20 Urine Clarity Clear (Clear) 02/03/17 15:20 Urine pH 8.0 (5.0-8.0) 02/03/17 15:20 Ur Specific [place] 1.024 (1.003-1.030) 02/03/17 15:20 Urine Protein 30 mg/dL (NEGATIVE) 02/03/17 15:20 Urine Glucose (UA) >=500 mg/dL (Normal) 02/03/17 15:20 Urine Ketones 80 mg/dL (NEGATIVE) 02/03/17 15:20 Urine Blood Negative (NEGATIVE) 02/03/17 15:20 Urine Nitrate Negative (NEGATIVE) 02/03/17 15:20 Urine Bilirubin Negative (NEGATIVE) 02/03/17 15:20 Urine Urobilinogen 0.2-1.0 mg/dL (0.2-1.0) 02/03/17 15:20 Ur Leukocyte Esterase Neg Michael/uL (Negative) 02/03/17 15:20 Urine RBC (Auto) 9 /hpf (0-3) H 02/03/17 15:20 Urine Microscopic WBC < 1 /hpf (0-5) 02/03/17 15:20 Ur Squamous Epith Cells < 1 /hpf (0-5) 02/03/17 15:20 Urine Opiates Screen Positive (NEGATIVE) H 02/04/17 16:30 Urine Methadone Screen Negative (NEGATIVE) 02/04/17 16:30 Ur Barbiturates Screen Negative (NEGATIVE) 02/04/17 16:30 Ur Phencyclidine Scrn Negative (NEGATIVE) 02/04/17 16:30 Ur Amphetamines Screen Negative (NEGATIVE) 02/04/17 16:30 U Benzodiazepines Scrn Negative (NEGATIVE) 02/04/17 16:30 U Oth Cocaine Metabols Negative (NEGATIVE) 02/04/17 16:30 U Cannabinoids Screen Negative (NEGATIVE) 02/04/17 16:30 Alcohol, Quantitative < 10 mg/dl (0-10) 02/03/17 15:00 - Hospital Course Hospital Course: 62 y/o male with a PMHx of T2DM (uncontrolled), HTN, diabetic neuropathy, and known gastroparesis was admitted for intractable abdominal pain associated with nausea, vomiting, loose stools and hyperglycemia. During his hospital stay, pain was controlled with Dilaudid and Percocet. He was noted to have an elevated WBC, but that resolved on its own as the pt was afebrile with no signs of infection. Abdominal flat plate was ordered, which did not show any specific bowel abnormalities. He was slowly progressed with same sips of water, then clears, and then soft diet. He tolerated each transition well. Pain was well controlled. He improved daily. He was tested for PO tolerance and oral medication tolerance on his last day. The pt tolerated both respectively and after an uneventful hospital stay, he was discharged in stable condition. Discharge Exam - Head Exam Head Exam: ATRAUMATIC, NORMOCEPHALIC (plethoric face) - Eye Exam Eye Exam: EOMI Pupil Exam: PERRL - ENT Exam ENT Exam: Mucous Membranes Moist - Respiratory Exam Respiratory Exam: Clear to PA & Lateral, NORMAL BREATHING PATTERN, UNREMARKABLE - Cardiovascular Exam Cardiovascular Exam: REGULAR RHYTHM, RRR, +S1, +S2. absent: JVD, Systolic Murmur - GI/Abdominal Exam GI & Abdominal Exam: Guarding (voluntary guarding), Hyperactive Bowel Sounds ( in RLQ), Hypoactive Bowel Sounds (everywhere outside RLQ), Normal Bowel Sounds, Soft, Tenderness - Extremities Exam Extremities exam: full ROM, normal inspection, pedal pulses present - Back Exam Back exam: absent: CVA tenderness (L), CVA tenderness (R) - Neurological Exam Neurological exam: Alert, CN II-XII Intact, Normal Gait, Oriented x3 - Psychiatric Exam Psychiatric exam: Normal Affect, Normal Mood - Skin Skin Exam: Dry, Intact, Normal Color Discharge Plan - Follow Up Plan Condition: STABLE Disposition: HOME/ ROUTINE Instructions: Diabetic Gastroparesis (DC), Abdominal Pain (ED) Additional Instructions: schedule and follow up with Dr. Jordan Mccord within the week any worsening uncontrollable pain, with vomiting or diarrhea report back to ED. <Jordan Mccord - Last Filed: 02/07/17 07:24> Provider - Provider Date of Admission: 02/04/17 11:21 Attending physician: Jordan Mccord MD Hospital Course - Lab Results Lab Results: Micro Results 02/04/17 13:30 Blood Blood Culture - Preliminary NO GROWTH AFTER 48 HOURS 02/04/17 13:30 Blood Blood Culture - Preliminary NO GROWTH AFTER 48 HOURS Most Recent Lab Values WBC 12.7 K/uL (4.8-10.8) H 02/05/17 07:57 RBC 4.52 Mil/uL (4.40-5.90) 02/05/17 07:57 Hgb 11.5 g/dL (12.0-18.0) L 02/05/17 07:57 Hct 36.2 % (35.0-51.0) 02/05/17 07:57 MCV 80.1 fl (80.0-94.0) 02/05/17 07:57 MCH 25.5 pg (27.0-31.0) L 02/05/17 07:57 MCHC 31.8 g/dL (33.0-37.0) L 02/05/17 07:57 RDW 16.5 % (11.5-14.5) H 02/05/17 07:57 Plt Count 213 K/uL (130-400) 02/05/17 07:57 MPV 9.2 fl (7.2-11.7) 02/05/17 07:57 Neut % (Auto) 77.5 % (50.0-75.0) H 02/05/17 07:57 Lymph % (Auto) 14.0 % (20.0-40.0) L 02/05/17 07:57 [place] % (Auto) 6.7 % (0.0-10.0) 02/05/17 07:57 Eos % (Auto) 1.4 % (0.0-4.0) 02/05/17 07:57 Baso % (Auto) 0.4 % (0.0-2.0) 02/05/17 07:57 Neut # 9.8 K/uL (1.8-7.0) H 02/05/17 07:57 Lymph # 1.8 K/uL (1.0-4.3) 02/05/17 07:57 [place] # 0.9 K/uL (0.0-0.8) H 02/05/17 07:57 Eos # 0.2 K/uL (0.0-0.7) 02/05/17 07:57 Baso # 0.1 K/uL (0.0-0.2) 02/05/17 07:57 Neutrophils % (Manual) 89 % (42-75) H 02/03/17 15:00 Band Neutrophils % 1 % (0-2) 02/03/17 15:00 Lymphocytes % (Manual) 6 % (20-50) L 02/03/17 15:00 Reactive Lymphs % 2 % (0-0) H 02/03/17 15:00 Monocytes % (Manual) 2 % (0-10) 02/03/17 15:00 Platelet Estimate Normal (NORMAL) 02/03/17 15:00 Large Platelets Present 02/03/17 15:00 Anisocytosis (manual) Slight 02/03/17 15:00 pO2 28 mm/Hg (30-55) L 02/03/17 15:10 VBG pH 7.46 (7.32-7.43) H 02/03/17 15:10 VBG pCO2 39 mmHg (40-60) L 02/03/17 15:10 VBG HCO3 26.8 mmol/L 02/03/17 15:10 VBG Total CO2 28.9 mmol/L (22-28) H 02/03/17 15:10 VBG O2 Sat (Calc) 63.1 % (40-65) 02/03/17 15:10 VBG Base Excess 3.7 mmol/L (0.0-2.0) H 02/03/17 15:10 VBG Potassium 4.5 mmol/L (3.6-5.2) 02/03/17 15:10 Sodium 135.0 mmol/L (132-148) 02/03/17 15:10 Chloride 95.0 mmol/L (98-107) L 02/03/17 15:10 Glucose 423 mg/dL (75-110) H* 02/03/17 15:10 Lactate 3.8 mmol/L (0.7-2.1) H 02/03/17 15:10 FiO2 21.0 % 02/03/17 15:10 Blood Gas Comments Vbg 02/03/17 15:10 Crit Value Called To Brenna mark r.n. 02/03/17 15:10 Crit Value Called By Cheyanne 02/03/17 15:10 Crit Value Read Back Y 02/03/17 15:10 Blood Gas Notified Time 1518 02/03/17 15:10 Sodium 138 mmol/l (132-148) 02/04/17 07:04 Potassium 4.2 MMOL/L (3.6-5.0) 02/04/17 07:04 Chloride 104 mmol/L (98-107) 02/04/17 07:04 Carbon Dioxide 21 mmol/L (22-30) L 02/04/17 07:04 Anion Gap 17 (10-20) 02/04/17 07:04 BUN 9 mg/dl (9-20) 02/04/17 07:04 Creatinine 0.6 mg/dL (0.8-1.5) L 02/04/17 07:04 Est GFR ( Amer) > 60 02/04/17 07:04 Est GFR (Non-Af Amer) > 60 02/04/17 07:04 POC Glucose (mg/dL) 271 mg/dL (65-110) H 02/06/17 10:56 Random Glucose 258 mg/dL (75-110) H 02/04/17 07:04 Calcium 8.0 mg/dL (8.4-10.2) L 02/04/17 07:04 Total Bilirubin 0.5 mg/dl (0.2-1.3) 02/04/17 07:04 AST 16 U/L (17-59) L D 02/04/17 07:04 ALT 27 U/L (21-72) 02/04/17 07:04 Alkaline Phosphatase 46 U/L (38-126) 02/04/17 07:04 Troponin I < 0.0120 ng/mL (0.00-0.120) 02/04/17 13:30 Total Protein 6.1 G/DL (6.3-8.2) L 02/04/17 07:04 Albumin 3.0 g/dL (3.5-5.0) L D 02/04/17 07:04 Globulin 3.0 gm/dL (2.2-3.9) 02/04/17 07:04 Albumin/Globulin Ratio 1.0 (1.0-2.1) 02/04/17 07:04 Lipase 60 U/L (23-300) 02/03/17 15:00 Procalcitonin < 0.05 NG/ML (0.19-0.49) L 02/04/17 13:30 Cortisol AM Sample 12.2 ug/dL (4.46-22.7) 02/05/17 07:57 Venous Blood Potassium 4.5 mmol/L (3.6-5.2) 02/03/17 15:10 Urine Color Straw (YELLOW) 02/03/17 15:20 Urine Clarity Clear (Clear) 02/03/17 15:20 Urine pH 8.0 (5.0-8.0) 02/03/17 15:20 Ur Specific [place] 1.024 (1.003-1.030) 02/03/17 15:20 Urine Protein 30 mg/dL (NEGATIVE) 02/03/17 15:20 Urine Glucose (UA) >=500 mg/dL (Normal) 02/03/17 15:20 Urine Ketones 80 mg/dL (NEGATIVE) 02/03/17 15:20 Urine Blood Negative (NEGATIVE) 02/03/17 15:20 Urine Nitrate Negative (NEGATIVE) 02/03/17 15:20 Urine Bilirubin Negative (NEGATIVE) 02/03/17 15:20 Urine Urobilinogen 0.2-1.0 mg/dL (0.2-1.0) 02/03/17 15:20 Ur Leukocyte Esterase Neg Michael/uL (Negative) 02/03/17 15:20 Urine RBC (Auto) 9 /hpf (0-3) H 02/03/17 15:20 Urine Microscopic WBC < 1 /hpf (0-5) 02/03/17 15:20 Ur Squamous Epith Cells < 1 /hpf (0-5) 02/03/17 15:20 Urine Opiates Screen Positive (NEGATIVE) H 02/04/17 16:30 Urine Methadone Screen Negative (NEGATIVE) 02/04/17 16:30 Ur Barbiturates Screen Negative (NEGATIVE) 02/04/17 16:30 Ur Phencyclidine Scrn Negative (NEGATIVE) 02/04/17 16:30 Ur Amphetamines Screen Negative (NEGATIVE) 02/04/17 16:30 U Benzodiazepines Scrn Negative (NEGATIVE) 02/04/17 16:30 U Oth Cocaine Metabols Negative (NEGATIVE) 02/04/17 16:30 U Cannabinoids Screen Negative (NEGATIVE) 02/04/17 16:30 Alcohol, Quantitative < 10 mg/dl (0-10) 02/03/17 15:00 Attending/Attestation - Attestation I have personally seen and examined this patient.: Yes I have fully participated in the care of the patient.: Yes I have reviewed all pertinent clinical information, including history, physical exam and plan: Yes
== END 2017-02-06 14:49 | disposition home or self-care (01) | DRG 74 ==
LOC: H.ER 14:01 → H.ERHOLD 17:07 → H.TEL 19:16 → OBSVTOIN 02-04 11:21
PROVIDERS: ADMIT Family Medicine; ATTEND Family Medicine
DX: E11.43 Type 2 diabetes mellitus with diabetic autonomic (poly)neuropathy (principal); E11.22 Type 2 diabetes mellitus with diabetic chronic kidney disease; E11.65 Type 2 diabetes mellitus with hyperglycemia; K31.84 Gastroparesis; E78.00 Pure hypercholesterolemia, unspecified; E78.5 Hyperlipidemia, unspecified; I12.9 Hypertensive chronic kidney disease with stage 1 through stage 4 chronic kidney disease, or unspecified chronic kidney disease; N18.9 Chronic kidney disease, unspecified; Z91.041 Radiographic dye allergy status; D72.829 Elevated white blood cell count, unspecified

== ENCOUNTER 2017-05-09 10:45 | Inpatient (IN) | payer OTHER ==
[2017-05-09] MEDS ORDERED: Sodium Chloride 0.9% 1,000 ML IV STA ×3 (11:30→14:31)
[2017-05-09] MEDS ORDERED: Lidocaine 1% Inj (20ml) ONE (11:54)
--- NOTE | 2017-05-09 12:40 | ED PDOC ---
HPI: Abdomen Time Seen by Provider: 05/09/17 11:00 Chief Complaint (Nursing): Abdominal Pain History Per: Patient Onset/Duration Of Symptoms: Days (2) Current Symptoms Are (Timing): Still Present Severity: Moderate Pain Scale Rating Of: 4 Location Of Pain/Discomfort: Epigastric Quality Of Discomfort: Unable To Describe Associated Symptoms: Nausea, Vomiting. denies: Diarrhea Exacerbating Factors: Food Alleviating Factors: None Additional Complaint(s): Epigastric abd pain assoc with nausea and vomiting x 2 days. Denies fever or diarrhea. Past Medical History Vital Signs: Last Vital Signs Temp 98.8 F 05/09/17 13:10 Pulse 134 H 05/09/17 13:10 Resp 21 05/09/17 13:10 BP 202/107 H 05/09/17 13:10 Pulse Ox 97 05/09/17 13:10 - Medical History PMH: Diabetes, HTN, Hypercholesterolemia, Kidney Stones, Pancreatitis, Chronic Kidney Disease Denies: HIV - Surgical History Surgical History: Cholecystectomy - Family History Family History: States: Unknown Family Hx, Diabetes - Home Medications Home Medications: Ambulatory Orders Medication Instructions Recorded Lisinopril [Zestril] 10 mg PO DAILY 01/08/17 amLODIPine [Norvasc] 10 mg PO DAILY 01/08/17 Atorvastatin [Lipitor] 10 mg PO DAILY #30 tab 01/13/17 Famotidine [Pepcid] 20 mg PO BID #20 tab 01/13/17 Gabapentin [Neurontin] 300 mg PO TID #30 cap 01/13/17 MetFORMIN [glucoPHAGE] 1,000 mg PO BIDWM #60 tab 01/13/17 Metoclopramide HCl [Reglan] 10 mg PO Q8H #30 tablet 01/13/17 Insulin Detemir [Levemir] 20 units SC HS vial 01/19/17 Insulin Lispro [humALOG] 15 unit SC TID #1 01/19/17 Metoprolol Tartrate [Lopressor] 25 mg PO Q12 #60 tab 01/19/17 oxyCODONE/Acetaminophen [Percocet 1 tab PO Q6 PRN #120 tab 01/19/17 5/325 mg Tab] - Allergies Allergies/Adverse Reactions: Allergies Allergy/AdvReac Type Severity Reaction Status Date / Time iodine Allergy RASH Verified 01/08/17 17:59 Review of Systems ROS Statement: Except As Marked, All Systems Reviewed And Found Negative Constitutional: Negative for: Fever Gastrointestinal: Positive for: Nausea, Vomiting, Abdominal Pain Physical Exam - Reviewed Nursing Documentation Reviewed: Yes Vital Signs Reviewed: Yes - Physical Exam Appears: Positive for: Non-toxic Head Exam: Positive for: ATRAUMATIC, NORMAL INSPECTION, NORMOCEPHALIC Skin: Positive for: Normal Color, Warm, DRY Eye Exam: Positive for: EOMI, Normal appearance, PERRL ENT: Positive for: Normal ENT Inspection Neck: Positive for: Normal, Painless ROM Cardiovascular/Chest: Positive for: Regular Rate, Rhythm Respiratory: Positive for: CNT, Normal Breath Sounds Gastrointestinal/Abdominal: Positive for: Bowel Sounds, Soft, Tenderness ( epigastric) Back: Positive for: Normal Inspection Extremity: Positive for: Normal ROM Neurologic/Psych: Positive for: Alert, Oriented - Laboratory Results Result Diagrams: 05/09/17 13:40 - ECG O2 Sat by Pulse Oximetry: 98 - Progress Re-evaluation Time: 14:38 Condition: Unchanged - Critical Care Total Time (In Min): 30 Documented Critical Care: Time excludes all time spent performint seperately billable procedures Disposition - Clinical Impression Clinical Impression: Gastroparesis due to DM, DKA (diabetic ketoacidosis) - Patient ED Disposition Is Patient to be Admitted: Yes - Disposition Disposition Time: 14:37 Condition: FAIR Forms: [facility] (Danish) - Pt Status Changed To: Hospital Disposition Of: Inpatient - Admit Certification Admit to Inpatient:: After my assessment, the patient will require hospitalization for at least two midnights. This is because of the severity of symptoms shown, intensity of services needed, and/or the medical risk in this patient being treated as an outpatient. - POA Present On Arrival: None
[2017-05-09] MEDS ORDERED: Insulin Regular 100 units/ml SC STA (12:44)
--- NOTE | 2017-05-09 12:52 | PCM.SURG1 ---
Surgeon's Initial Post Op Note - Surgeon's Notes Surgeon: Jasbir Alfredo MD Vine Pruner: None Type of Anesthesia: Local Pre-Operative Diagnosis: Poor venous access Operative Findings: Patent right basilic vein. Post-Operative Diagnosis: Poor venous access Operation Performed: Single lumen picc placement right basilic vein, 39 cm. Tip is in the SVC. Specimen/Specimens Removed: None Estimated Blood Loss: EBL {In ML}: 2 Blood Products Given: N/A Drains Used: No Drains Post-Op Condition: Fair Date of Surgery/Procedure: 05/09/17 Time of Surgery/Procedure: 12:50
[2017-05-09] MEDS ORDERED: Insulin Regular 100 units/ml ONE (13:17)
[2017-05-09] MEDS ORDERED: Labetalol 5 mg/ml Inj 20ML IVP STA (13:54)
[2017-05-09 14:15] LABS: ALB/GLOB RATIO 1.4 (1.0-2.1); AST/SGOT 30 U/L (17-59); BLOOD UREA NITROGEN 22 mg/dl (9-20); GFR AFRICAN-AMERICAN > 60; GFR NON-AFRICAN AMERICAN > 60
[2017-05-09 14:16] LABS: ALT/SGPT 25 U/L (21-72); CALCIUM 10.6 mg/dL (8.4-10.2); LIPASE 240 U/L (23-300)
[2017-05-09] MEDS ORDERED: Glucagon Recombinant 1 mg Inj IM PRN ×3 (14:27→21:52)
[2017-05-09] MEDS ORDERED: Dextrose 50% SYRINGE Inj (50 ml) IV PRN ×3 (14:27→21:52)
[2017-05-09 14:36] LABS: BASO % 0.2 % (0.0-2.0); HEMOGLOBIN 14.9 g/dL (12.0-18.0); LYMPH # 1.4 K/uL (1.0-4.3); LYMPH % 5.1 % (20.0-40.0); MEAN CELL VOLUME 81.4 fl (80.0-94.0); MEAN CORPUSCULAR HEMOGLOBIN 25.8 pg (27.0-31.0); MEAN CORPUSCULAR HGB CONC 31.7 g/dL (33.0-37.0); MEAN PLATELET VOLUME 11.3 fl (7.2-11.7); MONO # 1.1 K/uL (0.0-0.8); NEUT # 25.2 K/uL (1.8-7.0); NEUT % 90.7 % (50.0-75.0); PLATELET COUNT 249 K/uL (130-400); RBC 5.79 Mil/uL (4.40-5.90); RED CELL DISTRIBUTION WIDTH 16.4 % (11.5-14.5); WHITE BLOOD COUNT 27.8 K/uL (4.8-10.8)
[2017-05-09 14:47] LABS: ABG ALLEN TEST YES; ARTERIAL BLOOD GAS HCO3 17.2 mmol/L (21-28); ARTERIAL BLOOD GAS O2 SAT 98.5 % (95-98); ARTERIAL BLOOD GAS PCO2 30 mm/Hg (35-45); ARTERIAL BLOOD GAS PH 7.31 (7.35-7.45); ARTERIAL BLOOD GAS PO2 85 mm/Hg (80-100)
--- NOTE | 2017-05-09 15:14 | RAD ---
HISTORY: cough COMPARISON: Comparison chest 01/08/2017 FINDINGS: LUNGS: Suspect mild bibasilar atelectasis right greater than left. Interval placement right sided PICC line with tip in the SVC PLEURA: No significant pleural effusion identified, no pneumothorax apparent. CARDIOVASCULAR: Heart remains enlarged. OSSEOUS STRUCTURES: Mild multilevel degenerative spondylosis of the thoracic spine VISUALIZED UPPER ABDOMEN: Re- demonstrated are metallic clips right upper quadrant gliotic consistent with prior cholecystectomy OTHER FINDINGS: None. IMPRESSION: No active disease.
[2017-05-09 15:16] LABS: ANISOCYTOSIS SLIGHT; LYMPHOCYTE 5 % (20-50); MONOCYTE 4 % (0-10); NEUTROPHIL 91 % (42-75); PLATELET ESTIMATE NORMAL (NORMAL); TOTAL CELLS COUNTED 100
[2017-05-09 15:17] LABS: LARGE PLATELETS PRESENT
[2017-05-09 16:05] LABS: URINE BILIRUBIN NEGATIVE (NEGATIVE); URINE BLOOD SMALL (NEGATIVE); URINE CLARITY CLEAR (Clear); URINE COLOR STRAW (YELLOW); URINE GLUCOSE (UA) >=500 mg/dL (Normal); URINE LEUKOCYTE ESTERASE NEG Leu/uL (Negative); URINE NITRATE NEGATIVE (NEGATIVE); URINE PROTEIN 100 mg/dL (NEGATIVE); URINE UROBILINOGEN 0.2-1.0 mg/dL (0.2-1.0)
--- NOTE | 2017-05-09 17:12 | CP.PCM.HP ---
<EddieKayleigh - Last Filed: 05/09/17 17:18> History of Present Illness - History of Present Illness History of Present Illness: 62 yr old M presented to the ED by ambulance with complaint of abd pain, nausea and vomiting since yesterday after lunch. He denies fevers, chills, SOB, chest pain or dizziness. His abdominal pain is 10/10, is periumbilical and radiates inside his abd through to his back. His multiple episodes of emesis have been nonbilious and nonbloody. His last meal yesterday for lunch was [employer] with baked potatoes, while at work his BP was in the 200's/100's. On the way home he was able to drive but had to pulling unit floorhand due to emesis. Since yesterday he has only been able to tolerate water by mouth. He has normal urine and stool output. He has a PMHx including IDDM Type 2, HTN, HLD, diabetic neuropathy and recurrent diabetic gastroparesis. PMD: Dr. Armstrong Specialists: Dr. Landrum- GI PMHx: IDDM Type 2, HTN, HLD, diabetic neuropathy and recurrent diabetic gastroparesis SurgHx: Laparascopic cholecystectomy Social: hx substance abuse, former smoker Meds: Atorvastatin 10mg PO QD, Famotidine 20mg PO BID, Gabapentin 600mg PO TID, Insulin Lispro 52 units SC HS, Lisinopril 10mg PO QD, Metformin 1,000 mg PO BID , Reglan 10mg PO Q8, Metoprolol 25mg PO Q12, Percocet 1 tab PO Q4 PRN pain, Pioglitazone 30mg PO QD Allergies: IV iodine contrast (hives) ED course: -VSS: BP 164/97 mmHg, HR 130, T 99.4F, O2 98% room air -CBC: WBC 27.8, H/H 14.9/47.1, plts 249, left shift 90.7 -CMP: Na 137 , K+ 4.7, Cl 97, HCO3 17, BUN/Cr 22/0.9, glucose 586 , anion gap 28 -ABG: pCO2 30, pO2 85, HCO3 17, pH 7.31, glucose 551, Lactate: 2.2 -Lipase: 240 -UA: ketones 80, rest wnl -BCx, UCx -ED tx: Right basilic vein PICC line placed, IV Insulin 6 units stat, NS 1L IV bolus, NS at rate of 250 mls/hr, Clonidine 0.2mg PO once, Labetolol 10mg IV stat , Dyclomine 10mg PO once, Reglan 10mg IV once, Famotidine 20mg IV once, Insulin drip at 10 units/hr, Morphine 4mg IM once, Morphine 4 mg IV once, Present on Admission - Present on Admission Any Indicators Present on Admission: Yes History of DVT/PE: No History of Uncontrolled Diabetes: Yes Urinary Catheter: No Decubitus Ulcer Present: No Review of Systems - Review of Systems All systems: reviewed and no additional remarkable complaints except (for what is mentioned in HPI) Past Patient History - Past Medical History & Family History Past Medical History?: Yes - Past Social History Smoking Status: Former Smoker - CARDIAC Hx Hypercholesterolemia: Yes Hx Hypertension: Yes - PULMONARY Hx Respiratory Disorders: No - NEUROLOGICAL Hx Neurological Disorder: No - HEENT Hx HEENT Problems: No - RENAL Hx Chronic Kidney Disease: Yes Hx Kidney Stones: Yes - ENDOCRINE/METABOLIC Hx Endocrine Disorders: Yes Hx Diabetes Mellitus Type 2: Yes - HEMATOLOGICAL/ONCOLOGICAL Hx Human Immunodeficiency Virus (HIV): No - INTEGUMENTARY Hx Dermatological Problems: No - MUSCULOSKELETAL/RHEUMATOLOGICAL Hx Musculoskeletal Disorders: No Hx Falls: No - GASTROINTESTINAL Hx Pancreatitis: Yes - GENITOURINARY/GYNECOLOGICAL Hx Genitourinary Disorders: No - PSYCHIATRIC Hx Psychophysiologic Disorder: Yes Hx Substance Use: Yes - SURGICAL HISTORY Hx Cholecystectomy: Yes - ANESTHESIA Hx Anesthesia: Yes Hx Anesthesia Reactions: No Meds Allergies/Adverse Reactions: Allergies Allergy/AdvReac Type Severity Reaction Status Date / Time iodine Allergy RASH Verified 01/08/17 17:59 Physical Exam - Constitutional Appears: Non-toxic - Head Exam Head Exam: ATRAUMATIC, NORMOCEPHALIC - Eye Exam Eye Exam: EOMI, PERRL - ENT Exam ENT Exam: Mucous Membranes Moist (patient drinking ice water in ED) - Neck Exam Neck exam: Positive for: Full Rom. Negative for: Lymphadenopathy - Respiratory Exam Respiratory Exam: Clear to Auscultation Bilateral, NORMAL BREATHING PATTERN - Cardiovascular Exam Cardiovascular Exam: REGULAR RHYTHM, +S1, +S2 - GI/Abdominal Exam GI & Abdominal Exam: Guarding, Normal Bowel Sounds, Soft, Tenderness (to light palpation diffuse , worse periumbilically) - Extremities Exam Extremities exam: Positive for: full ROM (RUE PICC line in place, IV fluids running). Negative for: calf tenderness, pedal edema - Back Exam Back exam: absent: CVA tenderness (L), CVA tenderness (R) - Neurological Exam Neurological exam: Alert, CN II-XII Intact, Oriented x3 - Psychiatric Exam Psychiatric exam: Flat Affect, Normal Mood - Skin Skin Exam: Dry, Intact, Normal Color, Warm Results - Vital Signs Recent Vital Signs: Last Vital Signs Temp 98 F 05/09/17 16:37 Pulse 109 H 05/09/17 16:37 Resp 20 05/09/17 16:37 BP 129/80 05/09/17 16:37 Pulse Ox 98 05/09/17 16:37 - Labs Result Diagrams: 05/09/17 13:40 05/09/17 13:40 Labs: Laboratory Results - last 24 hr 05/09/17 15:45 Urine Color Straw Urine Clarity Clear Urine pH 6.0 Ur Specific Spencer 1.027 Urine Protein 100 Urine Glucose (UA) >=500 Urine Ketones 80 Urine Blood Small Urine Nitrate Negative Urine Bilirubin Negative Urine Urobilinogen 0.2-1.0 Ur Leukocyte Esterase Neg Urine RBC (Auto) 7 H Urine Microscopic WBC < 1 Assessment & Plan - Assessment and Plan (Free Text) Assessment: 62 yr old M admitted for DKA, severe abd pain, n/v and intolerance to PO diet since yesterday. Patient currently on insulin drip, NPO, abd pain managed with medication. Patient will be admitted to ICU for further management. Endocrinology was consulted. DKA -glucose 586, serum HCO3 17, Anion gap 28 -ketonuria 80 -Admit to ICU -Insulin drip at 10 units/hr -IVF 1/2 NS + KCl 20 Meq at rate of 150mls/hr -Accucheck Q2 -NPO -f/u repeat BMP Intractable abdominal pain/Nausea/vomiting -acute -Likely secondary to worsened diabetic gastroparesis -Lipase wnl -NPO diet -Pain controlled with Dilaudid 1mg IV Q4 PRN for moderate pain 4-7, Dilaudid 2mg IV Q4 PRN for severe pain 8-10 -Zofran 4mg IV Q4 PRN nausea/vomiting -Reglan 10mg IV ACTID -Continue IVF SIRS -WBC 27.8, pt tachycardic on admission at 130 -rest of vitals signs within normal limits -pt has PMHx of chronic high baseline leukocytosis -f/u BCx, UCx, CBC in AM IDDM2 -uncontrolled -Home meds held for now: Metformin 1,000 mg PO BID, Pioglitazone 30mg PO QD, Insulin Lispro 52 units SC HS -insulin drip as per DKA management above -Accuchecks ACHS Hypertension -uncontrolled, chronic -Likely exacerbated by acute pain -Continue home medications Lisinopril 10mg PO HS, Metoprolol succinate 25mg PO QD -Continue telemetry monitoring DVT Prophylaxis -Lovenox 40mg SC daily - Date & Time Date: 05/09/17 Time: 13:00 <Jordan Armstrong - Last Filed: 05/10/17 10:27> Results - Vital Signs Recent Vital Signs: Last Vital Signs Temp 98.2 F 05/10/17 08:00 Pulse 94 H 05/10/17 08:33 Resp 11 L 05/10/17 08:00 BP 144/86 05/10/17 08:33 Pulse Ox 96 05/10/17 08:00 - Labs Result Diagrams: 05/10/17 05:05 05/10/17 05:05 Labs: Laboratory Results - last 24 hr 05/09/17 05/09/17 05/09/17 15:34 15:45 16:35 WBC RBC Hgb Hct MCV MCH MCHC RDW Plt Count MPV Neut % (Auto) Lymph % (Auto) Dundy % (Auto) Eos % (Auto) Baso % (Auto) Neut # Lymph # Dundy # Eos # Baso # Sodium Potassium Chloride Carbon Dioxide Anion Gap BUN Creatinine Est GFR ( Amer) Est GFR (Non-Af Amer) POC Glucose (mg/dL) 490 H* 389 H Random Glucose Calcium Magnesium Total Bilirubin AST ALT Alkaline Phosphatase Total Protein Albumin Globulin Albumin/Globulin Ratio Triglycerides Cholesterol LDL Cholesterol Direct HDL Cholesterol Lipase TSH 3rd Generation Urine Color Straw Urine Clarity Clear Urine pH 6.0 Ur Specific Spencer 1.027 Urine Protein 100 Urine Glucose (UA) >=500 Urine Ketones 80 Urine Blood Small Urine Nitrate Negative Urine Bilirubin Negative Urine Urobilinogen 0.2-1.0 Ur Leukocyte Esterase Neg Urine RBC (Auto) 7 H Urine Microscopic WBC < 1 05/09/17 05/09/17 05/09/17 17:36 18:37 20:30 WBC RBC Hgb Hct MCV MCH MCHC RDW Plt Count MPV Neut % (Auto) Lymph % (Auto) Dundy % (Auto) Eos % (Auto) Baso % (Auto) Neut # Lymph # Dundy # Eos # Baso # Sodium 137 Potassium 3.9 Chloride 105 Carbon Dioxide 23 Anion Gap 13 BUN 19 Creatinine 0.7 L Est GFR ( Amer) > 60 Est GFR (Non-Af Amer) > 60 POC Glucose (mg/dL) 256 H 216 H Random Glucose 86 Calcium 9.2 Magnesium Total Bilirubin AST ALT Alkaline Phosphatase Total Protein Albumin Globulin Albumin/Globulin Ratio Triglycerides Cholesterol LDL Cholesterol Direct HDL Cholesterol Lipase TSH 3rd Generation Urine Color Urine Clarity Urine pH Ur Specific Spencer Urine Protein Urine Glucose (UA) Urine Ketones Urine Blood Urine Nitrate Urine Bilirubin Urine Urobilinogen Ur Leukocyte Esterase Urine RBC (Auto) Urine Microscopic WBC 05/09/17 05/09/17 05/10/17 20:54 22:55 04:54 WBC RBC Hgb Hct MCV MCH MCHC RDW Plt Count MPV Neut % (Auto) Lymph % (Auto) Dundy % (Auto) Eos % (Auto) Baso % (Auto) Neut # Lymph # Dundy # Eos # Baso # Sodium Potassium Chloride Carbon Dioxide Anion Gap BUN Creatinine Est GFR ( Amer) Est GFR (Non-Af Amer) POC Glucose (mg/dL) 79 201 H 306 H Random Glucose Calcium Magnesium Total Bilirubin AST ALT Alkaline Phosphatase Total Protein Albumin Globulin Albumin/Globulin Ratio Triglycerides Cholesterol LDL Cholesterol Direct HDL Cholesterol Lipase TSH 3rd Generation Urine Color Urine Clarity Urine pH Ur Specific Spencer Urine Protein Urine Glucose (UA) Urine Ketones Urine Blood Urine Nitrate Urine Bilirubin Urine Urobilinogen Ur Leukocyte Esterase Urine RBC (Auto) Urine Microscopic WBC 05/10/17 05/10/17 05:05 05:05 WBC 22.7 H RBC 4.59 Hgb 11.8 L D Hct 37.3 MCV 81.1 MCH 25.8 L MCHC 31.8 L RDW 15.6 H Plt Count 188 MPV 10.7 Neut % (Auto) 82.6 H Lymph % (Auto) 9.0 L Dundy % (Auto) 7.7 Eos % (Auto) 0.3 Baso % (Auto) 0.4 Neut # 18.7 H Lymph # 2.0 Dundy # 1.7 H Eos # 0.1 Baso # 0.1 Sodium 132 Potassium 4.0 Chloride 101 Carbon Dioxide 25 Anion Gap 11 BUN 16 Creatinine 0.7 L Est GFR ( Amer) > 60 Est GFR (Non-Af Amer) > 60 POC Glucose (mg/dL) Random Glucose 290 H Calcium 8.3 L Magnesium 1.7 Total Bilirubin 0.6 AST 22 ALT 23 Alkaline Phosphatase 49 Total Protein 6.2 L Albumin 3.4 L D Globulin 2.8 Albumin/Globulin Ratio 1.2 Triglycerides 81 Cholesterol 143 LDL Cholesterol Direct 88 HDL Cholesterol 35 Lipase 54 TSH 3rd Generation 1.18 Urine Color Urine Clarity Urine pH Ur Specific Spencer Urine Protein Urine Glucose (UA) Urine Ketones Urine Blood Urine Nitrate Urine Bilirubin Urine Urobilinogen Ur Leukocyte Esterase Urine RBC (Auto) Urine Microscopic WBC Attending/Attestation - Attestation I have personally seen and examined this patient.: Yes I have fully participated in the care of the patient.: Yes I have reviewed all pertinent clinical information: Yes
[2017-05-09] MEDS ORDERED: Potassium Chloride 20 MEQ in Sodium Chloride 0.45% 1,000 ML IV SCH ×2 (19:00→19:02)
[2017-05-09 21:13] LABS: BLOOD UREA NITROGEN 19 mg/dl (9-20); CALCIUM 9.2 mg/dL (8.4-10.2); GFR AFRICAN-AMERICAN > 60; GFR NON-AFRICAN AMERICAN > 60
--- NOTE | 2017-05-09 21:14 | CP.CCUPN ---
CCU Subjective - Physician Review Subjective (Free Text): Consultation for ICU admission and mgmt: 62M with PMH of DM II, recurrent and frequent DKAs, HTN, Hyperlipidemia, Obesity , Pancreatitis with intermittent chronic abdominal pain, narcotic substance abuse with pain medication -seeking behavior, admitted again today for DKA assoc with abdominal pain, nausea and vomiting. Usual past presentations have consisted of: DKA with abdominal pain, and requesting frequent pain relief with Dilaudid specifically. In the ER, found to be in DKA with serum Bicarb 17, BS= 586 and pH 7.31, lactate = 2.2 and AG approx 28, Lipase 240, and Urine with + ketones. He states he has been compliant with his insulin regimen. He denies any recent fevers, chills, cough, chest pain, SOB, palpitations, diarrhea , hematemesis , melena, headaches, dizziness, focal weakness, night sweats, nor an new dietary food intake, nor recent travel outside of [place]. He required a PICC line to be placed in ER for a more secure IV access. ALLERGIES: iodine contrast IV Home Meds: Pioglit, Metformin, Lispro insulin, Radha, Reglan, Lopressor, Lisinopril, Atorvastatin, Pepcid, Percocet . Other PMSFH: All nursing and physician documentation reviewed, no new pertinent info relevant to current problems. MAJOR PROBLEMS: 1. DKA 2. R/o Pancreatitis versus Hyperlipasemia 2' DKA / DM Gastroparesis 3. Accelerated HTN 4. H/o narcotic Substance Abuse, r/o other concurrent substance abuse PLAN: 1. IVF Hydration and insulin drip till AG normalizes. Check HGB A1c. 2. K supplementation as DKA resolves and serum bicarb normalizes, check mag and phos levels. 3. US Liver, GB, pancreas. Previous workup in the past has been negative. If abdominal pain persists, consider Gen Surg / GI consultation. 4. Urin Tox screen CCU Objective - Vital Signs / Intake & Output Vital Signs (Last 4 hours): Vital Signs Temp Pulse Resp BP Pulse Ox 05/09/17 18:16 99 F 109 H 18 119/66 05/09/17 17:41 99 F 109 H 18 119/66 99 - Physical Exam Head: Positive for: Normocephalic Pupils: Positive for: PERRL Extroacular Muscles: Positive for: EOMI Conjunctiva: Positive for: Normal. Negative for: Icteric Mouth: Positive for: Moist Mucous Membranes Pharnyx: Positive for: Normal. Negative for: ERYTHEMA, EXUDATE Neck: Negative for: Meningeal Signs, JVD, Lymphadenopathy Respiratory/Chest: Positive for: Clear to Auscultation. Negative for: Accessory Muscle Use, Wheezes Cardiovascular: Positive for: Regular Rate and Rhythm. Negative for: Murmurs, Rub Abdomen: Positive for: Normal Bowel Sounds. Negative for: Distention, Peritoneal Signs, Mass/Organomegaly Lower Extremity: Positive for: NORMAL PULSES. Negative for: CALF TENDERNESS, Cyanosis Neurological: Positive for: GCS=15, Motor Func Grossly Intact, Normal Sensory Function Skin: Positive for: Warm. Negative for: Rashes - Medications Active Medications: Active Medications Generic Name Dose Route Start Last Admin Trade Name Freq PRN Reason Stop Dose Admin Dextrose 0 ml 05/09/17 14:27 Dextrose 50% Inj IV STAT PRN Hyglycemia Protocol Protocol Dextrose 0 gm 05/09/17 14:27 Glutose 15 PO ONCE PRN Hypoglycemia Protocol Protocol Enoxaparin Sodium 40 mg 05/10/17 09:00 Lovenox SC DAILY MONSTER Protocol Famotidine 20 mg 05/09/17 21:00 05/09/17 20:41 Pepcid PO 20 mg Q12 MONSTER Administration Glucagon 0 mg 05/09/17 14:27 Glucagen Diagnostic Kit IM STAT PRN Hypoglycemia Protocol Protocol Hydromorphone HCl 1 mg 05/09/17 18:12 Dilaudid IVP Q4 PRN Pain, moderate (4-7) Hydromorphone HCl 2 mg 05/09/17 19:38 05/09/17 20:32 Dilaudid IVP 2 mg Q4 PRN Administration Pain, severe (8-10) Insulin Human Regular 100 101 mls @ 10.1 mls/hr 05/09/17 18:54 units/ Sodium Chloride IV .Q10H MONSTER Protocol 10 UNITS/HR Potassium Chloride 20 meq/ 1,010 mls @ 150 mls/hr 05/09/17 19:02 05/09/17 20: 42 Sodium Chloride IV 05/10/17 19:00 150 mls/hr .[id number] MONSTER Administration Lisinopril 10 mg 05/10/17 09:00 Zestril PO DAILY MONSTER Metoclopramide HCl 10 mg 05/10/17 07:30 Reglan IVP ACTID [facility] Metoprolol Tartrate 25 mg 05/10/17 09:00 Lopressor PO Q12 MONSTER - Patient Studies Lab Studies: Lab Studies 05/09/17 05/09/17 05/09/17 Range/Units 20:54 18:37 15:45 POC Glucose (mg/dL) 79 216 H (65-110) mg/dL Urine Color Straw (YELLOW) Urine Clarity Clear (Clear) Urine pH 6.0 (5.0-8.0) Ur Specific [place] 1.027 (1.003-1.030) Urine Protein 100 (NEGATIVE) mg/dL Urine Glucose (UA) >=500 (Normal) mg/dL Urine Ketones 80 (NEGATIVE) mg/dL Urine Blood Small (NEGATIVE) Urine Nitrate Negative (NEGATIVE) Urine Bilirubin Negative (NEGATIVE) Urine Urobilinogen 0.2-1.0 (0.2-1.0) mg/dL Ur Leukocyte Esterase Neg (Negative) Michael/uL Urine RBC (Auto) 7 H (0-3) /hpf Urine Microscopic WBC < 1 (0-5) /hpf Laboratory Results - last 24 hr 05/09/17 05/09/17 05/09/17 15:45 18:37 20:54 POC Glucose (mg/dL) 216 H 79 Urine Color Straw Urine Clarity Clear Urine pH 6.0 Ur Specific [place] 1.027 Urine Protein 100 Urine Glucose (UA) >=500 Urine Ketones 80 Urine Blood Small Urine Nitrate Negative Urine Bilirubin Negative Urine Urobilinogen 0.2-1.0 Ur Leukocyte Esterase Neg Urine RBC (Auto) 7 H Urine Microscopic WBC < 1 Radiology Interpretations (Free Text): (my interp) - clear, no gross consolidation EKG/Cardiology Interpretations (Free Text): Sinus Tachy, no acute ischemic changes (my interp). Fingerstick Blood Sugar Results: 216 Review of Systems - Review of Systems Review of Systems: as above, other 10+ ROS without pertinent negs or positives. Critical Care Progress Note - Extremities/Vascular Does the Patient have a Central Venous Catheter?: Yes Does the Patient need a Central Venous Catheter?: Yes Does the Patient have a Causey Catheter?: No Does the Patient need a Causey Catheter?: No - Prophylaxis GI Prophylaxis GI: Pepsid - Prophylaxis DVT Prophylaxis DVT: Lovenox - Nutrition Nutrition: Nutrition Category Date Time Status NPO Diet [DIET] Diets 05/09/17 Dinner Active
[2017-05-09] MEDS: Potassium Ch 20mEq in D5-1/2NS 1,000 ML IV SCH (21:30)
[2017-05-09] MEDS: Insulin Lispro (humaLOG) 100 Units/ml Inj SC SCH (23:06)
[2017-05-10] MEDS: Potassium Ch 20mEq in D5-1/2NS 1,000 ML IV SCH ×3 (04:51→21:05)
[2017-05-10 05:36] LABS: BASO # 0.1 K/uL (0.0-0.2); BASO % 0.4 % (0.0-2.0); EOS # 0.1 K/uL (0.0-0.7); EOS % 0.3 % (0.0-4.0); HEMOGLOBIN 11.8 g/dL (12.0-18.0); MEAN CELL VOLUME 81.1 fl (80.0-94.0); MEAN CORPUSCULAR HEMOGLOBIN 25.8 pg (27.0-31.0); MEAN CORPUSCULAR HGB CONC 31.8 g/dL (33.0-37.0); MEAN PLATELET VOLUME 10.7 fl (7.2-11.7); MONO # 1.7 K/uL (0.0-0.8); MONO % 7.7 % (0.0-10.0); NEUT # 18.7 K/uL (1.8-7.0); NEUT % 82.6 % (50.0-75.0); RBC 4.59 Mil/uL (4.40-5.90); RED CELL DISTRIBUTION WIDTH 15.6 % (11.5-14.5); WHITE BLOOD COUNT 22.7 K/uL (4.8-10.8)
[2017-05-10 05:43] LABS: ALB/GLOB RATIO 1.2 (1.0-2.1); ALBUMIN 3.4 g/dL (3.5-5.0); ALT/SGPT 23 U/L (21-72); AST/SGOT 22 U/L (17-59); BLOOD UREA NITROGEN 16 mg/dl (9-20); CALCIUM 8.3 mg/dL (8.4-10.2); GFR AFRICAN-AMERICAN > 60; GFR NON-AFRICAN AMERICAN > 60; HDL CHOLESTEROL 35 MG/DL (30-70); LIPASE 54 U/L (23-300); MAGNESIUM 1.7 MG/DL (1.6-2.3)
[2017-05-10 05:54] LABS: LDL CHOLESTEROL 88 mg/dL (0-129)
[2017-05-10] MEDS: Insulin Lispro (humaLOG) 100 Units/ml Inj SC SCH ×7 (06:54→21:13)
--- NOTE | 2017-05-10 08:18 | CON ---
DATE: ICU ROOM: #430 HISTORY OF PRESENT ILLNESS: This is a 62-year-old male with known history of type 2 insulin-requiring diabetes and longstanding gastroparesis, presenting here with intractable vomiting episodes and associated upper abdominal pain with nausea, dyspepsia, and generalized body weakness and is now being referred for diabetic evaluation and management. PAST MEDICAL HISTORY: As mentioned above. History of type 2 insulin-requiring diabetes, currently using Lispro, Humalog, given 52 units subcu t.i.d. as noted. He denies use of any long-acting basal insulin at this time. He is also on Actos taken as 30 mg daily and metformin at 1000 mg b.i.d. with meals. History of hypertensive cardiovascular disease and dyslipidemia, history of diabetic retinopathy and polyneuropathy with occasional painful paresthesias, history of recurrent diabetic gastroparesis with multiple admissions for the same. Had a prior laparoscopic cholecystectomy for underlying cholelithiasis. FAMILY HISTORY: Positive for diabetes, hypertension. SOCIAL HISTORY: The patient admits to previous history of smoking but quit a few months ago. No other substance use. He has a supportive family otherwise. REVIEW OF SYSTEMS: As mentioned above, admits to episodic bouts of dizziness and lightheadedness, worse on the day of admission. Also admits to easy fatigability and tiredness with bifrontal headaches. No chest pains or palpitations, but admits to occasional shortness of breath, especially on exertion. His oral intake has been variable and suboptimal with nausea, dyspepsia, and diffuse upper abdominal pain. Moreover, he also developed sudden onset of intractable vomiting episodes prompting this admission. No alterations of bowel or in the urinary patterns. He admits also to recent nocturia and polydipsia as noted. PHYSICAL EXAMINATION GENERAL: This is an overweight male, in no apparent distress. VITAL SIGNS: Blood pressure of 160/100, pulse of 90 beats per minute and regular, temperature of 99, respirations 20. Height is 5 feet 9 inches. Ty is 230 pounds. HEENT: Head is normocephalic. Eyes are anicteric with pink conjunctivae. Funduscopy not possible at this time. Ears, nose, and throat otherwise normal. NECK: Supple. Thyroid gland is normal in size. No carotid bruits or cervical adenopathy. CARDIOPULMONARY: Adynamic precordium. S1 and S2 is rapid and regular. LUNGS: Clear to auscultation. ABDOMEN: Flat, soft with positive bowel sounds. There is positive direct tenderness, but no evidence of rebound. Bowel sounds are present. EXTREMITIES: No peripheral edema. Pulses are +2 bilaterally. LABORATORY DATA: His initial chemistry showed a BUN of 22, sodium 137, potassium 4.7, chloride 97, CO2 is 17, glucose is 586, and creatinine is 0.9. His glucose levels tonight have ranged from 79 to 216 mg/dL. The latest CO2 is 23. ASSESSMENT: This is a 62-year-old male with uncontrolled and decompensated type 2 insulin-requiring diabetes, presented here with recurrent diabetic gastroparesis with acute exacerbation of the above-mentioned gastrointestinal-related symptoms and also concomitant hyperosmolar hyperglycemic state with mild ketose and dehydration and is now being referred for diabetic evaluation and management. PLAN OF MANAGEMENT: We will continue the vigorous IV hydration at this time with added potassium supplementation, as this is actually the most optimal therapy for this metabolic presentation, and we will discontinue the insulin drip infusion at this time. We will start him right away on a basal and bolus insulin regimen which is more physiologic at this time and start him with Levemir to be given as 20 units subcu at bedtime daily as ordered. We will add Humalog given as 10 units subcu t.i.d. before meals as ordered. We will modify the coverage scale to obviate hypoglycemia and detail order has been given. We will titrate his insulin regimen as his oral intake improves accordingly. We will advance him now to a soft moderate consistency diet which is also quite healthy as noted and ordered. We will also obtain serial chemistries and supplement accordingly as needed. We will also obtain baseline thyroid study and lipid panel as given. We will also obtain a hemoglobin A1C to optimize glycemic control and baseline thyroid functions studies will be ordered. We will follow. Yvette López MD
[2017-05-10] MEDS: Enoxaparin 40 mg Syringe SC SCH (08:32)
--- NOTE | 2017-05-10 10:37 | CARD ---
APPROVED REPORT EKG Measurement Heart [id number] <Conclusion> Sinus tachycardia Possible Left atrial enlargement Borderline ECG
--- NOTE | 2017-05-10 16:15 | CP.PCM.PN ---
<Kayleigh Morgan - Last Filed: 05/10/17 16:12> Subjective - Date & Time of Evaluation Date of Evaluation: 05/10/17 Time of Evaluation: 07:10 - Subjective Subjective: Patient seen and examined at bedside with Dr. Salvador, reports he is feeling much better today, has an appetite. Abdominal pain persists. Denies chest pain, weakness, dizziness or nausea/vomiting. Will advance diet as tolerated. Objective - Vital Signs/Intake and Output Vital Signs (last 24 hours): Temp Pulse Resp BP Pulse Ox 98.6 F 77 17 118/67 99 05/10/17 16:00 05/10/17 16:00 05/10/17 16:00 05/10/17 16:00 05/10/17 16:00 Intake and Output: 05/10/17 05/10/17 06:59 18:59 Intake Total 2135 400 Output Total 840 200 Balance 1295 200 - Medications Medications: Current Medications Dextrose (Dextrose 50% Inj) 0 ml IV STAT PRN; Protocol PRN Reason: Hyglycemia Protocol Dextrose (Glutose 15) 0 gm PO ONCE PRN; Protocol PRN Reason: Hypoglycemia Protocol Enoxaparin Sodium (Lovenox) 40 mg SC DAILY [facility] PRN Reason: Protocol Last Admin: 05/10/17 08:32 Dose: 40 mg Famotidine (Pepcid) 20 mg PO Q12 [facility] Last Admin: 05/10/17 08:32 Dose: 20 mg Glucagon (Glucagen Diagnostic Kit) 0 mg IM STAT PRN; Protocol PRN Reason: Hypoglycemia Protocol Hydromorphone HCl (Dilaudid) 1 mg IVP Q4 PRN PRN Reason: Pain, moderate (4-7) Hydromorphone HCl (Dilaudid) 2 mg IVP Q4 PRN PRN Reason: Pain, severe (8-10) Last Admin: 05/10/17 13:07 Dose: 2 mg Potassium Chloride/Dextrose/Sod Cl (Potassium Chl 20 Meq In D5-1/2ns) 1,000 mls @ 150 mls/hr IV .Q6H40M [facility] Stop: 05/10/17 21:22 Last Admin: 05/10/17 13:06 Dose: 150 mls/hr Insulin Detemir (Levemir) 24 units SC HS [facility] Insulin Human Lispro (Humalog) 0 units SC ACHS [facility] PRN Reason: Protocol Last Admin: 05/10/17 12:10 Dose: Not Given Insulin Human Lispro (Humalog) 14 units SC AC [facility] Lisinopril (Zestril) 10 mg PO DAILY [facility] Last Admin: 05/10/17 08:33 Dose: 10 mg Metoclopramide HCl (Reglan) 10 mg IVP ACTID [facility] Last Admin: 05/10/17 12:11 Dose: 10 mg Metoprolol Tartrate (Lopressor) 25 mg PO Q12 [facility] Last Admin: 05/10/17 08:31 Dose: 25 mg - Labs Labs: 05/10/17 05:05 05/10/17 05:05 - Constitutional Appears: Non-toxic, No Acute Distress - Head Exam Head Exam: ATRAUMATIC, NORMOCEPHALIC - Eye Exam Eye Exam: EOMI, PERRL - ENT Exam ENT Exam: Mucous Membranes Moist - Neck Exam Neck Exam: Full ROM - Respiratory Exam Respiratory Exam: Clear to Ausculation Bilateral, NORMAL BREATHING PATTERN - Cardiovascular Exam Cardiovascular Exam: REGULAR RHYTHM, +S1, +S2 - GI/Abdominal Exam GI & Abdominal Exam: Soft (obese), Tenderness (mild, diffuse to light palpation) - Extremities Exam Extremities Exam: Full ROM (RUE PICC line patent). absent: Calf Tenderness, Pedal Edema - Back Exam Back Exam: absent: CVA tenderness (L), CVA tenderness (R) - Neurological Exam Neurological Exam: Alert, Awake, CN II-XII Intact - Psychiatric Exam Psychiatric exam: Normal Affect, Normal Mood - Skin Skin Exam: Dry, Intact, Warm Assessment and Plan - Assessment and Plan (Free Text) Assessment: 62 yr old M admitted for DKA, severe abd pain, n/v and intolerance to PO diet since yesterday. DKA and SIRS have resolved s/p IV medication and IV fluids, abd pain persists and is managed with medication. Endocrinology on consult and DM medication was adjusted. Patient will be admitted to ICU for further management. Endocrinology was consulted. Intractable abdominal pain -acute on chronic, nausea and vomiting have resolved -Likely secondary to worsened diabetic gastroparesis -Lipase wnl -advance diet as tolerated -Pain controlled with Dilaudid 1mg IV Q4 PRN for moderate pain 4-7, Dilaudid 2mg IV Q4 PRN for severe pain 8-10 -Zofran 4mg IV Q4 PRN nausea/vomiting -Reglan 10mg IV ACTID Leukocytosis -WBC 22.7 -pt has PMHx of chronic high baseline leukocytosis -vitals signs within normal limits -f/u BCx, UCx, CBC in AM IDDM2 -uncontrolled -Endocrinology on consult-Dr. López: start Insulin Lispro 14 units SC AC, Insulin Detemir 24 units SC HS, Insulin Regular SC ACHS low dose protocol -Home meds held for now: Metformin 1,000 mg PO BID, Pioglitazone 30mg PO QD, Insulin Lispro 52 units SC HS -Accuchecks ACHS Hypertension -uncontrolled, chronic -Continue home medications Lisinopril 10mg PO HS, Metoprolol succinate 25mg PO QD -Monitor BP DVT Prophylaxis -Lovenox 40mg SC daily DKA -resolved SIRS -resolved <Jerzy Salvador - Last Filed: 05/14/17 06:59> Objective - Vital Signs/Intake and Output Vital Signs (last 24 hours): Temp Pulse Resp BP Pulse Ox 97.8 F 80 17 143/77 98 05/13/17 16:34 05/13/17 16:34 05/13/17 16:34 05/13/17 16:34 05/13/17 16:34 - Labs Labs: 05/13/17 06:00 05/11/17 06:30 Attending/Attestation - Attestation I have personally seen and examined this patient.: Yes I have fully participated in the care of the patient.: Yes I have reviewed all pertinent clinical information, including history, physical exam and plan: Yes
--- NOTE | 2017-05-10 17:55 | CP.CCUPN ---
CCU Subjective - Physician Review Subjective (Free Text): Still c/o intermittent nonspecific abdominal pain, states he requires Dilaudid for relief, but not now assoc with nausea, vomiting, nor any change in BMs. Mentation is normal and intact, no fevers or chills. Off insulin drip as of 10Pm yesterday as per [employer]. Given one time dose of Clonidine for accel hypertension. ROS: no new pertinent negs or positives on 10+ system review. Other PMSFH: All nursing and physician documentation reviewed, no new pertinent info relevant to current problems. MAJOR PROBLEMS: 1. DKA 2. No Pancreatitis, resolved Hyperlipasemia 2' DKA / DM Gastroparesis 3. Accelerated HTN 4. H/o narcotic Substance Abuse, r/o other concurrent substance abuse PLAN: 1. Stable for further observation on regular cuevas bed. No further need for ICU monitoring. 2. IVF hydration ongoing. 3. Monitor BS levels on current insulin regimen. 4. Chronic abd pain remains problematic with narcotic drug-seeking behavior. CCU Objective - Vital Signs / Intake & Output Vital Signs (Last 4 hours): Vital Signs Temp Pulse Resp BP Pulse Ox 05/10/17 16:00 98.6 F 77 17 118/67 99 Intake and Output (Last 8hrs): Intake & Output 05/10/17 05/10/17 05/10/17 06:59 14:59 22:59 Intake Total 2135 1600 300 Output Total 840 700 350 Balance 1295 900 -50 Intake: IV 1775 1200 300 Oral 360 400 Output: Urine 840 700 350 Urine, Voided 840 700 350 Other: # Voids Urine, Voided 1 - Physical Exam Head: Positive for: Normocephalic Pupils: Positive for: PERRL Extroacular Muscles: Positive for: EOMI Conjunctiva: Positive for: Normal. Negative for: Icteric Mouth: Positive for: Moist Mucous Membranes Pharnyx: Positive for: Normal. Negative for: ERYTHEMA, EXUDATE Neck: Negative for: Meningeal Signs, JVD, Lymphadenopathy Respiratory/Chest: Positive for: Clear to Auscultation. Negative for: Accessory Muscle Use, Wheezes Cardiovascular: Positive for: Regular Rate and Rhythm. Negative for: Murmurs, Rub Abdomen: Positive for: Normal Bowel Sounds. Negative for: Distention, Peritoneal Signs, Mass/Organomegaly Lower Extremity: Positive for: NORMAL PULSES. Negative for: CALF TENDERNESS, Cyanosis Neurological: Positive for: GCS=15, Motor Func Grossly Intact, Normal Sensory Function Skin: Positive for: Warm. Negative for: Rashes - Medications Active Medications: Active Medications Generic Name Dose Route Start Last Admin Trade Name Freq PRN Reason Stop Dose Admin Dextrose 0 ml 05/09/17 21:52 Dextrose 50% Inj IV STAT PRN Hyglycemia Protocol Protocol Dextrose 0 gm 05/09/17 21:52 Glutose 15 PO ONCE PRN Hypoglycemia Protocol Protocol Enoxaparin Sodium 40 mg 05/10/17 09:00 05/10/17 08:32 Lovenox SC 40 mg DAILY [facility] Administration Protocol Famotidine 20 mg 05/09/17 21:00 05/10/17 08:32 Pepcid PO 20 mg Q12 [facility] Administration Glucagon 0 mg 05/09/17 21:52 Glucagen Diagnostic Kit IM STAT PRN Hypoglycemia Protocol Protocol Hydromorphone HCl 1 mg 05/09/17 18:12 Dilaudid IVP Q4 PRN Pain, moderate (4-7) Hydromorphone HCl 2 mg 05/09/17 19:38 05/10/17 17:04 Dilaudid IVP 2 mg Q4 PRN Administration Pain, severe (8-10) Potassium Chloride/Dextrose/Sod Cl 1,000 mls @ 150 mls/hr 05/09/17 21:30 13:06 Potassium Chl 20 Meq In D5-1/2ns IV 05/10/17 21:22 150 mls/hr .Q6H40M [facility] Administration Insulin Detemir 24 units 05/10/17 22:00 Levemir SC HS [facility] Insulin Human Lispro 0 units 05/09/17 23:00 05/10/17 16:37 Humalog SC Not Given ACHS [facility] Protocol Insulin Human Lispro 14 units 05/10/17 16:30 05/10/17 16:35 Humalog SC 14 unit AC [facility] Administration Lisinopril 10 mg 05/10/17 09:00 05/10/17 08:33 Zestril PO 10 mg DAILY [facility] Administration Metoclopramide HCl 10 mg 05/10/17 07:30 05/10/17 16:34 Reglan IVP 10 mg ACTID [facility] Administration Metoprolol Tartrate 25 mg 05/10/17 09:00 05/10/17 08:31 Lopressor PO 25 mg Q12 [facility] Administration - Patient Studies Lab Studies: Microbiology Studies 05/09/17 16:15 Blood Culture - Preliminary Blood-Thru Central Line NO GROWTH AFTER 24 HOURS Lab Studies 05/10/17 05/10/17 05/10/17 Range/Units 16:35 11:06 05:05 WBC (4.8-10.8) K/uL RBC (4.40-5.90) Mil/uL Hgb (12.0-18.0) g/dL Hct (35.0-51.0) % MCV (80.0-94.0) fl MCH (27.0-31.0) pg MCHC (33.0-37.0) g/dL RDW (11.5-14.5) % Plt Count (130-400) K/uL MPV (7.2-11.7) fl Neut % (Auto) (50.0-75.0) % Lymph % (Auto) (20.0-40.0) % [place] % (Auto) (0.0-10.0) % Eos % (Auto) (0.0-4.0) % Baso % (Auto) (0.0-2.0) % Neut # (1.8-7.0) K/uL Lymph # (1.0-4.3) K/uL [place] # (0.0-0.8) K/uL Eos # (0.0-0.7) K/uL Baso # (0.0-0.2) K/uL Sodium (132-148) mmol/l Potassium (3.6-5.0) MMOL/L Chloride (98-107) mmol/L Carbon Dioxide (22-30) mmol/L Anion Gap (10-20) BUN (9-20) mg/dl Creatinine (0.8-1.5) mg/dL Est GFR ( Amer) Est GFR (Non-Af Amer) POC Glucose (mg/dL) 179 H 195 H (65-110) mg/dL Random Glucose (75-110) mg/dL Hemoglobin A1c 12.2 H (4.2-6.5) % Calcium (8.4-10.2) mg/dL Magnesium (1.6-2.3) MG/DL Total Bilirubin (0.2-1.3) mg/dl AST (17-59) U/L ALT (21-72) U/L Alkaline Phosphatase (38-126) U/L Total Protein (6.3-8.2) G/DL Albumin (3.5-5.0) g/dL Globulin (2.2-3.9) gm/dL Albumin/Globulin Ratio (1.0-2.1) Triglycerides (0-149) mg/DL Cholesterol (0-199) mg/dL LDL Cholesterol Direct (0-129) mg/dL HDL Cholesterol (30-70) MG/DL Lipase (23-300) U/L Procalcitonin (0.19-0.49) NG/ML TSH 3rd Generation (0.46-4.68) mIU/ML 05/10/17 05/10/17 05/10/17 Range/Units 05:05 05:05 04:54 WBC 22.7 H (4.8-10.8) K/uL RBC 4.59 (4.40-5.90) Mil/uL Hgb 11.8 L D (12.0-18.0) g/dL Hct 37.3 (35.0-51.0) % MCV 81.1 (80.0-94.0) fl MCH 25.8 L (27.0-31.0) pg MCHC 31.8 L (33.0-37.0) g/dL RDW 15.6 H (11.5-14.5) % Plt Count 188 (130-400) K/uL MPV 10.7 (7.2-11.7) fl Neut % (Auto) 82.6 H (50.0-75.0) % Lymph % (Auto) 9.0 L (20.0-40.0) % [place] % (Auto) 7.7 (0.0-10.0) % Eos % (Auto) 0.3 (0.0-4.0) % Baso % (Auto) 0.4 (0.0-2.0) % Neut # 18.7 H (1.8-7.0) K/uL Lymph # 2.0 (1.0-4.3) K/uL [place] # 1.7 H (0.0-0.8) K/uL Eos # 0.1 (0.0-0.7) K/uL Baso # 0.1 (0.0-0.2) K/uL Sodium 132 (132-148) mmol/l Potassium 4.0 (3.6-5.0) MMOL/L Chloride 101 (98-107) mmol/L Carbon Dioxide 25 (22-30) mmol/L Anion Gap 11 (10-20) BUN 16 (9-20) mg/dl Creatinine 0.7 L (0.8-1.5) mg/dL Est GFR ( Amer) > 60 Est GFR (Non-Af Amer) > 60 POC Glucose (mg/dL) 306 H (65-110) mg/dL Random Glucose 290 H (75-110) mg/dL Hemoglobin A1c (4.2-6.5) % Calcium 8.3 L (8.4-10.2) mg/dL Magnesium 1.7 (1.6-2.3) MG/DL Total Bilirubin 0.6 (0.2-1.3) mg/dl AST 22 (17-59) U/L ALT 23 (21-72) U/L Alkaline Phosphatase 49 (38-126) U/L Total Protein 6.2 L (6.3-8.2) G/DL Albumin 3.4 L D (3.5-5.0) g/dL Globulin 2.8 (2.2-3.9) gm/dL Albumin/Globulin Ratio 1.2 (1.0-2.1) Triglycerides 81 (0-149) mg/DL Cholesterol 143 (0-199) mg/dL LDL Cholesterol Direct 88 (0-129) mg/dL HDL Cholesterol 35 (30-70) MG/DL Lipase 54 (23-300) U/L Procalcitonin (0.19-0.49) NG/ML TSH 3rd Generation 1.18 (0.46-4.68) mIU/ML 05/09/17 05/09/17 05/09/17 Range/Units 22:55 20:54 20:30 WBC (4.8-10.8) K/uL RBC (4.40-5.90) Mil/uL Hgb (12.0-18.0) g/dL Hct (35.0-51.0) % MCV (80.0-94.0) fl MCH (27.0-31.0) pg MCHC (33.0-37.0) g/dL RDW (11.5-14.5) % Plt Count (130-400) K/uL MPV (7.2-11.7) fl Neut % (Auto) (50.0-75.0) % Lymph % (Auto) (20.0-40.0) % [place] % (Auto) (0.0-10.0) % Eos % (Auto) (0.0-4.0) % Baso % (Auto) (0.0-2.0) % Neut # (1.8-7.0) K/uL Lymph # (1.0-4.3) K/uL [place] # (0.0-0.8) K/uL Eos # (0.0-0.7) K/uL Baso # (0.0-0.2) K/uL Sodium 137 (132-148) mmol/l Potassium 3.9 (3.6-5.0) MMOL/L Chloride 105 (98-107) mmol/L Carbon Dioxide 23 (22-30) mmol/L Anion Gap 13 (10-20) BUN 19 (9-20) mg/dl Creatinine 0.7 L (0.8-1.5) mg/dL Est GFR ( Amer) > 60 Est GFR (Non-Af Amer) > 60 POC Glucose (mg/dL) 201 H 79 (65-110) mg/dL Random Glucose 86 (75-110) mg/dL Hemoglobin A1c (4.2-6.5) % Calcium 9.2 (8.4-10.2) mg/dL Magnesium (1.6-2.3) MG/DL Total Bilirubin (0.2-1.3) mg/dl AST (17-59) U/L ALT (21-72) U/L Alkaline Phosphatase (38-126) U/L Total Protein (6.3-8.2) G/DL Albumin (3.5-5.0) g/dL Globulin (2.2-3.9) gm/dL Albumin/Globulin Ratio (1.0-2.1) Triglycerides (0-149) mg/DL Cholesterol (0-199) mg/dL LDL Cholesterol Direct (0-129) mg/dL HDL Cholesterol (30-70) MG/DL Lipase (23-300) U/L Procalcitonin (0.19-0.49) NG/ML TSH 3rd Generation (0.46-4.68) mIU/ML 05/09/17 05/09/17 05/09/17 Range/Units 18:59 18:37 17:36 WBC (4.8-10.8) K/uL RBC (4.40-5.90) Mil/uL Hgb (12.0-18.0) g/dL Hct (35.0-51.0) % MCV (80.0-94.0) fl MCH (27.0-31.0) pg MCHC (33.0-37.0) g/dL RDW (11.5-14.5) % Plt Count (130-400) K/uL MPV (7.2-11.7) fl Neut % (Auto) (50.0-75.0) % Lymph % (Auto) (20.0-40.0) % [place] % (Auto) (0.0-10.0) % Eos % (Auto) (0.0-4.0) % Baso % (Auto) (0.0-2.0) % Neut # (1.8-7.0) K/uL Lymph # (1.0-4.3) K/uL [place] # (0.0-0.8) K/uL Eos # (0.0-0.7) K/uL Baso # (0.0-0.2) K/uL Sodium (132-148) mmol/l Potassium (3.6-5.0) MMOL/L Chloride (98-107) mmol/L Carbon Dioxide (22-30) mmol/L Anion Gap (10-20) BUN (9-20) mg/dl Creatinine (0.8-1.5) mg/dL Est GFR ( Amer) Est GFR (Non-Af Amer) POC Glucose (mg/dL) 216 H 256 H (65-110) mg/dL Random Glucose (75-110) mg/dL Hemoglobin A1c (4.2-6.5) % Calcium (8.4-10.2) mg/dL Magnesium (1.6-2.3) MG/DL Total Bilirubin (0.2-1.3) mg/dl AST (17-59) U/L ALT (21-72) U/L Alkaline Phosphatase (38-126) U/L Total Protein (6.3-8.2) G/DL Albumin (3.5-5.0) g/dL Globulin (2.2-3.9) gm/dL Albumin/Globulin Ratio (1.0-2.1) Triglycerides (0-149) mg/DL Cholesterol (0-199) mg/dL LDL Cholesterol Direct (0-129) mg/dL HDL Cholesterol (30-70) MG/DL Lipase (23-300) U/L Procalcitonin < 0.05 L (0.19-0.49) NG/ML TSH 3rd Generation (0.46-4.68) mIU/ML 05/09/17 05/09/17 Range/Units 16:35 15:34 WBC (4.8-10.8) K/uL RBC (4.40-5.90) Mil/uL Hgb (12.0-18.0) g/dL Hct (35.0-51.0) % MCV (80.0-94.0) fl MCH (27.0-31.0) pg MCHC (33.0-37.0) g/dL RDW (11.5-14.5) % Plt Count (130-400) K/uL MPV (7.2-11.7) fl Neut % (Auto) (50.0-75.0) % Lymph % (Auto) (20.0-40.0) % [place] % (Auto) (0.0-10.0) % Eos % (Auto) (0.0-4.0) % Baso % (Auto) (0.0-2.0) % Neut # (1.8-7.0) K/uL Lymph # (1.0-4.3) K/uL [place] # (0.0-0.8) K/uL Eos # (0.0-0.7) K/uL Baso # (0.0-0.2) K/uL Sodium (132-148) mmol/l Potassium (3.6-5.0) MMOL/L Chloride (98-107) mmol/L Carbon Dioxide (22-30) mmol/L Anion Gap (10-20) BUN (9-20) mg/dl Creatinine (0.8-1.5) mg/dL Est GFR ( Amer) Est GFR (Non-Af Amer) POC Glucose (mg/dL) 389 H 490 H* (65-110) mg/dL Random Glucose (75-110) mg/dL Hemoglobin A1c (4.2-6.5) % Calcium (8.4-10.2) mg/dL Magnesium (1.6-2.3) MG/DL Total Bilirubin (0.2-1.3) mg/dl AST (17-59) U/L ALT (21-72) U/L Alkaline Phosphatase (38-126) U/L Total Protein (6.3-8.2) G/DL Albumin (3.5-5.0) g/dL Globulin (2.2-3.9) gm/dL Albumin/Globulin Ratio (1.0-2.1) Triglycerides (0-149) mg/DL Cholesterol (0-199) mg/dL LDL Cholesterol Direct (0-129) mg/dL HDL Cholesterol (30-70) MG/DL Lipase (23-300) U/L Procalcitonin (0.19-0.49) NG/ML TSH 3rd Generation (0.46-4.68) mIU/ML Laboratory Results - last 24 hr 05/09/17 05/09/17 05/09/17 15:34 16:35 17:36 WBC RBC Hgb Hct MCV MCH MCHC RDW Plt Count MPV Neut % (Auto) Lymph % (Auto) [place] % (Auto) Eos % (Auto) Baso % (Auto) Neut # Lymph # [place] # Eos # Baso # Sodium Potassium Chloride Carbon Dioxide Anion Gap BUN Creatinine Est GFR ( Amer) Est GFR (Non-Af Amer) POC Glucose (mg/dL) 490 H* 389 H 256 H Random Glucose Hemoglobin A1c Calcium Magnesium Total Bilirubin AST ALT Alkaline Phosphatase Total Protein Albumin Globulin Albumin/Globulin Ratio Triglycerides Cholesterol LDL Cholesterol Direct HDL Cholesterol Lipase Procalcitonin TSH 3rd Generation 05/09/17 05/09/17 05/09/17 18:37 18:59 20:30 WBC RBC Hgb Hct MCV MCH MCHC RDW Plt Count MPV Neut % (Auto) Lymph % (Auto) [place] % (Auto) Eos % (Auto) Baso % (Auto) Neut # Lymph # [place] # Eos # Baso # Sodium 137 Potassium 3.9 Chloride 105 Carbon Dioxide 23 Anion Gap 13 BUN 19 Creatinine 0.7 L Est GFR ( Amer) > 60 Est GFR (Non-Af Amer) > 60 POC Glucose (mg/dL) 216 H Random Glucose 86 Hemoglobin A1c Calcium 9.2 Magnesium Total Bilirubin AST ALT Alkaline Phosphatase Total Protein Albumin Globulin Albumin/Globulin Ratio Triglycerides Cholesterol LDL Cholesterol Direct HDL Cholesterol Lipase Procalcitonin < 0.05 L TSH 3rd Generation 05/09/17 05/09/17 05/10/17 20:54 22:55 04:54 WBC RBC Hgb Hct MCV MCH MCHC RDW Plt Count MPV Neut % (Auto) Lymph % (Auto) [place] % (Auto) Eos % (Auto) Baso % (Auto) Neut # Lymph # [place] # Eos # Baso # Sodium Potassium Chloride Carbon Dioxide Anion Gap BUN Creatinine Est GFR ( Amer) Est GFR (Non-Af Amer) POC Glucose (mg/dL) 79 201 H 306 H Random Glucose Hemoglobin A1c Calcium Magnesium Total Bilirubin AST ALT Alkaline Phosphatase Total Protein Albumin Globulin Albumin/Globulin Ratio Triglycerides Cholesterol LDL Cholesterol Direct HDL Cholesterol Lipase Procalcitonin TSH 3rd Generation 05/10/17 05/10/17 05/10/17 05:05 05:05 05:05 WBC 22.7 H RBC 4.59 Hgb 11.8 L D Hct 37.3 MCV 81.1 MCH 25.8 L MCHC 31.8 L RDW 15.6 H Plt Count 188 MPV 10.7 Neut % (Auto) 82.6 H Lymph % (Auto) 9.0 L [place] % (Auto) 7.7 Eos % (Auto) 0.3 Baso % (Auto) 0.4 Neut # 18.7 H Lymph # 2.0 [place] # 1.7 H Eos # 0.1 Baso # 0.1 Sodium 132 Potassium 4.0 Chloride 101 Carbon Dioxide 25 Anion Gap 11 BUN 16 Creatinine 0.7 L Est GFR ( Amer) > 60 Est GFR (Non-Af Amer) > 60 POC Glucose (mg/dL) Random Glucose 290 H Hemoglobin A1c 12.2 H Calcium 8.3 L Magnesium 1.7 Total Bilirubin 0.6 AST 22 ALT 23 Alkaline Phosphatase 49 Total Protein 6.2 L Albumin 3.4 L D Globulin 2.8 Albumin/Globulin Ratio 1.2 Triglycerides 81 Cholesterol 143 LDL Cholesterol Direct 88 HDL Cholesterol 35 Lipase 54 Procalcitonin TSH 3rd Generation 1.18 05/10/17 05/10/17 11:06 16:35 WBC RBC Hgb Hct MCV MCH MCHC RDW Plt Count MPV Neut % (Auto) Lymph % (Auto) [place] % (Auto) Eos % (Auto) Baso % (Auto) Neut # Lymph # [place] # Eos # Baso # Sodium Potassium Chloride Carbon Dioxide Anion Gap BUN Creatinine Est GFR ( Amer) Est GFR (Non-Af Amer) POC Glucose (mg/dL) 195 H 179 H Random Glucose Hemoglobin A1c Calcium Magnesium Total Bilirubin AST ALT Alkaline Phosphatase Total Protein Albumin Globulin Albumin/Globulin Ratio Triglycerides Cholesterol LDL Cholesterol Direct HDL Cholesterol Lipase Procalcitonin TSH 3rd Generation Fingerstick Blood Sugar Results: 179 Critical Care Progress Note - Nutrition Nutrition: Nutrition Category Date Time Status Liquid Diet [DIET] Diets 05/10/17 Breakfast Active
--- NOTE | 2017-05-10 20:14 | PN ---
ENDO FOLLOWUP NOTE LOCATION: ICU, room 430. This is a 62-year-old male with recent uncontrolled type 2 insulin requiring diabetes presenting here with smaller hypoglycemic state and mild ketosis and also dehydration and has since then received intensive insulin therapy and vigorous IV hydration and is now being followed closely for metabolic management. His glycemic levels are much improved at this time, and the overnight glucose values were still elevated at 201 to 306 mg/dL. Today however, the glucose levels have improved with the initiation of a basal and bolus insulin regimen as ordered. The glucose values are now 179 to 195 mg/dL. His hemoglobin A1c, however, is extremely elevated at 12.2% and clearly indicative of suboptimal metabolic control of his diabetic condition even prior to this admission. The latest chemistry shows a BUN of 16, sodium 132, potassium 4.0, chloride 101, CO2 of 25, glucose 290, and creatinine 0.7. So at this time, we will modify his basal and bolus insulin regimen and increase the Humalog to 14 units subQ t.i.d. before meals to start at dinnertime today as ordered. We will also increase the basal insulin with Levemir to be given as 24 units subQ at bedtime daily is given. We will continue the low-dose correction scale using Humalog insulin as ordered. We will initiate diabetic education and dietary instruction with the patient and also include nutritional evaluation for healthier food choices as noted. We will obtain serial chemistries and supplement accordingly as needed. We will also continue vigorous IV hydration as given to optimize his fluid and electrolyte losses from the recent increased osmotic diuresis. We will follow. Yvette López MD
[2017-05-10] MEDS ORDERED: Insulin Detemir 100 Units/ml Inj SC SCH ×2 (22:00)
[2017-05-11 07:03] LABS: HEMOGLOBIN 12.8 g/dL (12.0-18.0); MEAN CELL VOLUME 81.6 fl (80.0-94.0); MEAN CORPUSCULAR HEMOGLOBIN 25.8 pg (27.0-31.0); MEAN CORPUSCULAR HGB CONC 31.6 g/dL (33.0-37.0); RBC 4.95 Mil/uL (4.40-5.90); WHITE BLOOD COUNT 13.5 K/uL (4.8-10.8)
[2017-05-11 07:16] LABS: BLOOD UREA NITROGEN 9 mg/dl (9-20); CALCIUM 8.4 mg/dL (8.4-10.2); GFR AFRICAN-AMERICAN > 60; GFR NON-AFRICAN AMERICAN > 60
[2017-05-11] MEDS: Potassium Ch 20mEq in D5-1/2NS 1,000 ML IV SCH (07:19)
[2017-05-11] MEDS: Insulin Lispro (humaLOG) 100 Units/ml Inj SC SCH ×9 (07:53→22:10)
[2017-05-11] MEDS: Enoxaparin 40 mg Syringe SC SCH ×2 (08:23→09:58)
--- NOTE | 2017-05-11 12:28 | CP.PCM.PN ---
<Kayleigh Morgan - Last Filed: 05/11/17 12:25> Subjective - Date & Time of Evaluation Date of Evaluation: 05/11/17 Time of Evaluation: 07:25 - Subjective Subjective: Patient seen and examined at bedside with Dr. Armstrong, in no acute distress. Reports his abd pain persists and managed with medication, he is tolerating clear liquid diet. Denies chest pain, SOB, weakness or dizziness. Possibility of obtaining gastric pacemaker was discussed with patient, pt will consider and f/u with his GI as outpatient. Will advance diet as tolerated. Objective - Vital Signs/Intake and Output Vital Signs (last 24 hours): Temp Pulse Resp BP Pulse Ox 98.2 F 86 18 160/84 H 98 05/11/17 07:36 05/11/17 08:22 05/11/17 07:36 05/11/17 08:23 05/11/17 07:36 Intake and Output: 05/11/17 05/11/17 06:59 18:59 Intake Total 850 Output Total 800 Balance 50 - Medications Medications: Current Medications Dextrose (Dextrose 50% Inj) 0 ml IV STAT PRN; Protocol PRN Reason: Hyglycemia Protocol Dextrose (Glutose 15) 0 gm PO ONCE PRN; Protocol PRN Reason: Hypoglycemia Protocol Enoxaparin Sodium (Lovenox) 40 mg SC DAILY [facility] PRN Reason: Protocol Last Admin: 05/11/17 09:58 Dose: Not Given Famotidine (Pepcid) 20 mg PO Q12 [facility] Last Admin: 05/11/17 08:22 Dose: 20 mg Glucagon (Glucagen Diagnostic Kit) 0 mg IM STAT PRN; Protocol PRN Reason: Hypoglycemia Protocol Hydromorphone HCl (Dilaudid) 1 mg IVP Q4 PRN PRN Reason: Pain, moderate (4-7) Hydromorphone HCl (Dilaudid) 2 mg IVP Q4 PRN PRN Reason: Pain, severe (8-10) Last Admin: 05/11/17 08:52 Dose: 2 mg Insulin Detemir (Levemir) 24 units SC HS [facility] Last Admin: 05/10/17 21:13 Dose: 24 units Insulin Human Lispro (Humalog) 0 units SC ACHS [facility] PRN Reason: Protocol Last Admin: 05/11/17 12:16 Dose: 4 units Insulin Human Lispro (Humalog) 14 units SC AC [facility] Last Admin: 05/11/17 12:15 Dose: 14 unit Lisinopril (Zestril) 10 mg PO DAILY [facility] Last Admin: 05/11/17 08:22 Dose: 10 mg Metoclopramide HCl (Reglan) 10 mg IVP ACTID [facility] Last Admin: 05/11/17 12:18 Dose: 10 mg Metoprolol Tartrate (Lopressor) 25 mg PO Q12 [facility] Last Admin: 05/11/17 08:23 Dose: 25 mg - Labs Labs: 05/11/17 06:30 05/11/17 06:30 - Constitutional Appears: No Acute Distress - Head Exam Head Exam: ATRAUMATIC, NORMOCEPHALIC - Eye Exam Eye Exam: EOMI, PERRL - ENT Exam ENT Exam: Mucous Membranes Moist - Neck Exam Neck Exam: Full ROM. absent: Lymphadenopathy - Respiratory Exam Respiratory Exam: Clear to Ausculation Bilateral, NORMAL BREATHING PATTERN - Cardiovascular Exam Cardiovascular Exam: REGULAR RHYTHM, +S1, +S2 - GI/Abdominal Exam GI & Abdominal Exam: Soft (obese), Tenderness (diffuse to light palpation), Normal Bowel Sounds - Extremities Exam Extremities Exam: Full ROM (RUE PICC line patent) - Back Exam Back Exam: absent: CVA tenderness (L), CVA tenderness (R) - Neurological Exam Neurological Exam: Alert, Awake, CN II-XII Intact, Oriented x3 - Psychiatric Exam Psychiatric exam: Normal Affect, Normal Mood - Skin Skin Exam: Dry, Intact, Warm Assessment and Plan - Assessment and Plan (Free Text) Assessment: 62 yr old M admitted for DKA, severe abd pain, n/v and intolerance to PO diet . DKA and SIRS have resolved s/p IV medication and IV fluids, abd pain persists and is managed with medication. Endocrinology on consult and DM medication was adjusted. Patient tolerated clear liquid diet, will advance to full liquid diet. Intractable abdominal pain -acute on chronic, nausea and vomiting have resolved -Likely secondary to worsened diabetic gastroparesis -Lipase wnl -advance diet as tolerated -Pain controlled with Dilaudid 1mg IV Q4 PRN for moderate pain 4-7, Dilaudid 2mg IV Q4 PRN for severe pain 8-10 -Zofran 4mg IV Q4 PRN nausea/vomiting -Reglan 20 mg IV ACTID Leukocytosis -improving, WBC 13.5 -pt has PMHx of chronic high baseline leukocytosis -vitals signs within normal limits -BCx and UCx negative x 24hrs IDDM2 -uncontrolled -Endocrinology on consult-Dr. López: start Insulin Lispro 14 units SC AC, Insulin Detemir 24 units SC HS, Insulin Regular SC ACHS low dose protocol -Home meds held for now: Metformin 1,000 mg PO BID, Pioglitazone 30mg PO QD, Insulin Lispro 52 units SC HS -Accuchecks ACHS Hypertension -uncontrolled, chronic -Continue home medications Lisinopril 10mg PO HS, Metoprolol succinate 25mg PO Q12 -Monitor BP DVT Prophylaxis -Lovenox 40mg SC daily <Jordan Armstrong - Last Filed: 05/14/17 06:49> Objective - Vital Signs/Intake and Output Vital Signs (last 24 hours): Temp Pulse Resp BP Pulse Ox 97.8 F 80 17 143/77 98 05/13/17 16:34 05/13/17 16:34 05/13/17 16:34 05/13/17 16:34 05/13/17 16:34 - Labs Labs: 05/13/17 06:00 05/11/17 06:30 Attending/Attestation - Attestation I have personally seen and examined this patient.: Yes I have fully participated in the care of the patient.: Yes I have reviewed all pertinent clinical information, including history, physical exam and plan: Yes
[2017-05-11] MEDS ORDERED: Insulin Detemir 100 Units/ml Inj SC SCH (22:00)
--- NOTE | 2017-05-11 22:24 | PN ---
ENDOCRINOLOGY FOLLOWUP NOTE LOCATION: Room 669. SUBJECTIVE: This is a 62-year-old male with recent uncontrolled type 2 insulin requiring diabetes presenting here with with acute exacerbation of diabetic gastroparesis and supervening hyperosmolar hyperglycemic state and dehydration and is being followed closely for metabolic management. He received intensive insulin therapy and vigorous IV hydration in the intensive care unit and since then he improved clinically and metabolically as noted thereof. His oral intake remained quite variable as per the nursing staff. He also continues to have episodic bouts of abdominal pain that has improved accordingly as noted. He is currently on clear liquid diet as given. LABORATORY DATA: His glucose values have ranged from 136 to 343 mm/dL. It was 273 before breakfast this morning and the latest chemistry showed BUN of 9, sodium 133, potassium 4.4, chloride 101, CO2 of 26, glucose 275 and creatinine 0.6. PLAN: So, at this time, we will modify once again his basal and bolus insulin regimen and increase the Humalog to 14 units subcu t.i.d. before meals to start at dinner time today as ordered. We will increase his basal insulin with Levemir to be given of 30 units subcu at bedtime daily was given. We will titrate incrementally as indicated to optimize metabolic control. We will also continue the low dose correction scale using Humalog insulin as given. We will continue the IV hydration as ordered and will titrate incremental as indicated to optimize metabolic control. We will obtain serial chemistries and also repeat another chemistry tomorrow morning and supplement accordingly as needed. We will follow with you. Yvette López MD
[2017-05-12] MEDS: Potassium Ch 20mEq in D5-1/2NS 1,000 ML IV SCH ×2 (00:58→13:04)
[2017-05-12] MEDS: Insulin Lispro (humaLOG) 100 Units/ml Inj SC SCH ×8 (07:21→21:51)
[2017-05-12] MEDS: Enoxaparin 40 mg Syringe SC SCH (08:59)
--- NOTE | 2017-05-12 14:52 | PN ---
ENDOCRINOLOGY FOLLOWUP NOTE LOCATION: Room 669. SUBJECTIVE: This is a 62-year-old male with recent uncontrolled type 2 insulin-requiring diabetes presenting here with diffuse abdominal pain and supervening intractable vomiting episode related to possible resurgence of his diabetic gastroparesis and is now being followed closely for metabolic management. He was also in hyperosmolar hyperglycemic state and dehydration and received intensive insulin therapy and vigorous IV hydration as ordered. His latest chemistry showed a BUN of 9, sodium 133, potassium 4.4, chloride 101, CO2 of 26, glucose 275 and creatinine 0.6. His glucose levels are fluctuating as his oral intake has improved accordingly. His glucose levels have ranged from 232 to 298 mg/dL. So at this time, we will modify his basal and bolus insulin regimen and increase the Humalog to 18 units subQ t.i.d. before meals to start at dinnertime today as ordered. We will also increase the Levemir to 34 units subQ at bedtime daily to start tonight. We will titrate incremental as indicated to optimize metabolic control. We will follow. Yvette López MD
[2017-05-12] MEDS ORDERED: Insulin Detemir 100 Units/ml Inj SC SCH (22:00)
--- NOTE | 2017-05-12 22:46 | CP.PCM.PN ---
Subjective - Date & Time of Evaluation Date of Evaluation: 05/12/17 Time of Evaluation: 08:10 - Subjective Subjective: Patient seen and examined at bedside. Reports he has been able to tolerate minimal PO diet due to his severe abdominal pain. IV fluids were resumed. Denies chest pain, weakness, dizziness or nausea/vomiting. Objective - Vital Signs/Intake and Output Vital Signs (last 24 hours): Temp Pulse Resp BP Pulse Ox 97.5 F L 77 17 134/76 97 05/12/17 17:00 05/12/17 21:50 05/12/17 17:00 05/12/17 21:50 05/12/17 17:00 Intake and Output: 05/12/17 05/13/17 18:59 06:59 Intake Total 600 Output Total 450 Balance 150 - Medications Medications: Current Medications Dextrose (Dextrose 50% Inj) 0 ml IV STAT PRN; Protocol PRN Reason: Hyglycemia Protocol Dextrose (Glutose 15) 0 gm PO ONCE PRN; Protocol PRN Reason: Hypoglycemia Protocol Enoxaparin Sodium (Lovenox) 40 mg SC DAILY [facility] PRN Reason: Protocol Last Admin: 05/12/17 08:59 Dose: 40 mg Famotidine (Pepcid) 20 mg PO Q12 [facility] Last Admin: 05/12/17 21:49 Dose: 20 mg Glucagon (Glucagen Diagnostic Kit) 0 mg IM STAT PRN; Protocol PRN Reason: Hypoglycemia Protocol Hydromorphone HCl (Dilaudid) 1 mg IVP Q4 PRN PRN Reason: Pain, moderate (4-7) Hydromorphone HCl (Dilaudid) 2 mg IVP Q4 PRN PRN Reason: Pain, severe (8-10) Last Admin: 05/12/17 21:39 Dose: 2 mg Potassium Chloride/Dextrose/Sod Cl (Potassium Chl 20 Meq In D5-1/2ns) 1,000 mls @ 100 mls/hr IV .Q10H [facility] Stop: 05/12/17 23:47 Last Admin: 05/12/17 13:04 Dose: 100 mls/hr Insulin Detemir (Levemir) 34 units SC HS [facility] Last Admin: 05/12/17 21:49 Dose: 34 units Insulin Human Lispro (Humalog) 0 units SC ACHS [facility] PRN Reason: Protocol Last Admin: 05/12/17 21:51 Dose: 3 units Insulin Human Lispro (Humalog) 18 units SC AC [facility] Last Admin: 05/12/17 16:32 Dose: Not Given Lisinopril (Zestril) 10 mg PO DAILY [facility] Last Admin: 05/12/17 08:58 Dose: 10 mg Metoclopramide HCl (Reglan) 20 mg IVP ACTID [facility] Last Admin: 05/12/17 16:34 Dose: 20 mg Metoprolol Tartrate (Lopressor) 25 mg PO Q12 [facility] Last Admin: 05/12/17 21:50 Dose: 25 mg - Labs Labs: 05/11/17 06:30 05/11/17 06:30 - Constitutional Appears: Other (Ill) - Head Exam Head Exam: ATRAUMATIC, NORMOCEPHALIC - Eye Exam Eye Exam: EOMI, PERRL - ENT Exam ENT Exam: Mucous Membranes Moist - Neck Exam Neck Exam: Full ROM. absent: Lymphadenopathy - Respiratory Exam Respiratory Exam: Clear to Ausculation Bilateral, NORMAL BREATHING PATTERN - Cardiovascular Exam Cardiovascular Exam: REGULAR RHYTHM, +S1, +S2 - GI/Abdominal Exam GI & Abdominal Exam: Soft (obese), Tenderness (diffusely to light palpation), Normal Bowel Sounds - Extremities Exam Extremities Exam: Full ROM. absent: Calf Tenderness, Pedal Edema - Back Exam Back Exam: absent: CVA tenderness (L), CVA tenderness (R) - Neurological Exam Neurological Exam: Alert, Awake, CN II-XII Intact - Psychiatric Exam Psychiatric exam: Flat Affect - Skin Skin Exam: Dry, Intact, Warm Assessment and Plan - Assessment and Plan (Free Text) Assessment: 62 yr old M admitted for DKA, severe abd pain, n/v and intolerance to PO diet . DKA and SIRS have resolved s/p IV medication and IV fluids, abd pain persists and is managed with medication. Endocrinology on consult and DM medication further adjusted. Patient tolerating minimal PO fluid, IV fluids resumed. Plan: Intractable abdominal pain -acute on chronic, nausea and vomiting have resolved -Likely secondary to worsened diabetic gastroparesis -Lipase wnl -advance diet as tolerated, in meatime IV fluids D5 1/2 NS with KCl 20 Meq at rate of 100 mls/hr -Pain controlled with Dilaudid 1mg IV Q4 PRN for moderate pain 4-7, Dilaudid 2mg IV Q4 PRN for severe pain 8-10 -Zofran 4mg IV Q4 PRN nausea/vomiting -Reglan 20 mg IV ACTID Leukocytosis -stable, WBC 13.5 -pt has PMHx of chronic high baseline leukocytosis -vitals signs within normal limits -BCx neg 48hrs and UCx negative IDDM2 -uncontrolled -Endocrinology on consult-Dr. López: start Insulin Lispro 14 units SC AC, Insulin Detemir 30 units SC HS, Insulin Regular SC ACHS low dose protocol -Home meds held for now: Metformin 1,000 mg PO BID, Pioglitazone 30mg PO QD, Insulin Lispro 52 units SC HS -Accuchecks ACHS Hypertension -uncontrolled, chronic -Continue home medications Lisinopril 10mg PO HS, Metoprolol succinate 25mg PO Q12 -Monitor BP DVT Prophylaxis -Lovenox 40mg SC daily
[2017-05-12] MEDS ORDERED: Potassium Ch 20mEq in D5-1/2NS 1,000 ML IV SCH (23:45)
[2017-05-13] MEDS: Insulin Lispro (humaLOG) 100 Units/ml Inj SC SCH ×6 (07:00→16:26)
[2017-05-13 07:28] LABS: HEMOGLOBIN 13.9 g/dL (12.0-18.0); MEAN CELL VOLUME 81.6 fl (80.0-94.0); MEAN CORPUSCULAR HEMOGLOBIN 26.5 pg (27.0-31.0); MEAN CORPUSCULAR HGB CONC 32.4 g/dL (33.0-37.0); RBC 5.27 Mil/uL (4.40-5.90); RED CELL DISTRIBUTION WIDTH 15.5 % (11.5-14.5); WHITE BLOOD COUNT 10.5 K/uL (4.8-10.8)
[2017-05-13] MEDS: Enoxaparin 40 mg Syringe SC SCH (09:28)
[2017-05-13] MEDS: Potassium Ch 20mEq in D5-1/2NS 1,000 ML IV SCH (09:31)
--- NOTE | 2017-05-13 09:50 | CP.PCM.PN ---
Subjective - Date & Time of Evaluation Date of Evaluation: 05/13/17 Time of Evaluation: 09:05 - Subjective Subjective: Pt seen and evaluated at bedside, pt is upset he had not gotten his pain medication since last night at 9:30pm, initially pt was not responding to questions, he later reported he was able to eat half a bagel today, denies any nausea or vomiting after that. his nurse brought him pain medication while i was at bedside. Objective - Vital Signs/Intake and Output Vital Signs (last 24 hours): Temp Pulse Resp BP Pulse Ox 97.5 F L 83 20 144/82 97 05/13/17 09:33 05/13/17 09:33 05/13/17 09:33 05/13/17 09:33 05/13/17 09:33 - Medications Medications: Current Medications Dextrose (Dextrose 50% Inj) 0 ml IV STAT PRN; Protocol PRN Reason: Hyglycemia Protocol Dextrose (Glutose 15) 0 gm PO ONCE PRN; Protocol PRN Reason: Hypoglycemia Protocol Enoxaparin Sodium (Lovenox) 40 mg SC DAILY [facility] PRN Reason: Protocol Last Admin: 05/12/17 08:59 Dose: 40 mg Famotidine (Pepcid) 20 mg PO Q12 [facility] Last Admin: 05/12/17 21:49 Dose: 20 mg Glucagon (Glucagen Diagnostic Kit) 0 mg IM STAT PRN; Protocol PRN Reason: Hypoglycemia Protocol Hydromorphone HCl (Dilaudid) 1 mg IVP Q4 PRN PRN Reason: Pain, moderate (4-7) Hydromorphone HCl (Dilaudid) 2 mg IVP Q4 PRN PRN Reason: Pain, severe (8-10) Last Admin: 05/12/17 21:39 Dose: 2 mg Potassium Chloride/Dextrose/Sod Cl (Potassium Chl 20 Meq In D5-1/2ns) 1,000 mls @ 100 mls/hr IV .Q10H [facility] Stop: 05/14/17 23:47 Last Admin: 05/13/17 01:00 Dose: 100 mls/hr Insulin Detemir (Levemir) 34 units SC HS [facility] Last Admin: 05/12/17 21:49 Dose: 34 units Insulin Human Lispro (Humalog) 0 units SC ACHS [facility] PRN Reason: Protocol Last Admin: 05/13/17 07:00 Dose: Not Given Insulin Human Lispro (Humalog) 18 units SC AC [facility] Last Admin: 05/12/17 16:32 Dose: Not Given Lisinopril (Zestril) 10 mg PO DAILY [facility] Last Admin: 05/12/17 08:58 Dose: 10 mg Metoclopramide HCl (Reglan) 20 mg IVP ACTID [facility] Last Admin: 05/12/17 16:34 Dose: 20 mg Metoprolol Tartrate (Lopressor) 25 mg PO Q12 [facility] Last Admin: 05/12/17 21:50 Dose: 25 mg - Labs Labs: 05/13/17 06:00 05/11/17 06:30 - Constitutional Appears: Non-toxic, No Acute Distress - Eye Exam Eye Exam: Normal appearance - ENT Exam ENT Exam: Mucous Membranes Moist - Respiratory Exam Respiratory Exam: Clear to Ausculation Bilateral, NORMAL BREATHING PATTERN. absent: Rhonchi, Wheezes - Cardiovascular Exam Cardiovascular Exam: REGULAR RHYTHM, +S1, +S2 - GI/Abdominal Exam GI & Abdominal Exam: Soft, Tenderness, Normal Bowel Sounds - Extremities Exam Extremities Exam: absent: Calf Tenderness, Pedal Edema - Neurological Exam Neurological Exam: Alert, Awake, Oriented x3 - Psychiatric Exam Psychiatric exam: Agitated Assessment and Plan - Assessment and Plan (Free Text) Assessment: 62 yr old M admitted for DKA, severe abd pain, n/v and intolerance to PO diet . DKA and SIRS have resolved s/p IV medication and IV fluids, abd pain persists and is managed with medication. Endocrinology on consult and DM medication further adjusted. Plan: Intractable abdominal pain -acute on chronic, nausea and vomiting have resolved -Likely secondary to worsened diabetic gastroparesis -Lipase wnl -advance diet as tolerated, in meatime IV fluids D5 1/2 NS with KCl 20 Meq at rate of 100 mls/hr -Pain controlled with Dilaudid 1mg IV Q4 PRN for moderate pain 4-7, Dilaudid 2mg IV Q4 PRN for severe pain 8-10 -Zofran 4mg IV Q4 PRN nausea/vomiting -Reglan 20 mg IV ACTID Leukocytosis -stable, WBC 13.5 -pt has PMHx of chronic high baseline leukocytosis -vitals signs within normal limits -BCx neg 48hrs and UCx negative IDDM2 -uncontrolled -Endocrinology on consult-Dr. López: start Insulin Lispro 14 units SC AC, Insulin Detemir 30 units SC HS, Insulin Regular SC ACHS low dose protocol -Home meds held for now: Metformin 1,000 mg PO BID, Pioglitazone 30mg PO QD, Insulin Lispro 52 units SC HS -Accuchecks ACHS Hypertension -uncontrolled, chronic -Continue home medications Lisinopril 10mg PO HS, Metoprolol succinate 25mg PO Q12 -Monitor BP DVT Prophylaxis -Lovenox 40mg SC daily Discharge Disposition: pt currently tolerating diabetic diet, and remain medically stable. Possible discharge in the morning
--- NOTE | 2017-05-13 14:04 | PN ---
DATE: 05/13/2017 Room 669. SUBJECTIVE: This is a 62-year-old male with recent uncontrolled type 2 insulin-requiring diabetes presenting here with intractable vomiting and associated diffuse abdominal pain and has been evaluated to have acute exacerbation diabetic gastroparesis and is now being followed closely for metabolic management. His oral intake remains quite variable and suboptimal at this time as noted and continues to have episodic abdominal pain as noted. His glycemic levels today have ranged from 295-486 mg/dL. The glucose level at bedtime was 360 last night as noted. LABORATORY DATA: The latest chemistry showed a BUN of 9, sodium 133, potassium 4.4, chloride 101, CO2 of 26, glucose 275, and creatinine 0.6. PLAN: So at this time, we will repeat the chemistries tomorrow and adjust his IV fluid hydration accordingly. We will also modify his current basal and bolus insulin regimen as ordered today. We will increase his Humalog to 24 units subcutaneous t.i.d. before meals to start at the lunch time today as ordered. We will also increase the Levemir to 40 units subcutaneous at bedtime daily to start tonight. We will continue the low dose correction scale using Humalog insulin as given. We will follow her . Yvette López MD
[2017-05-13 16:35] VITALS: BP 143/77; PULSE 80; RESP 17; TEMP 97.8; O2SAT 98
--- NOTE | 2017-05-13 20:36 | CP.PCM.DIS ---
Provider - Provider Date of Admission: 05/09/17 14:35 Attending physician: Jordan Armstrong MD Consults: Follow up with Dr. Armstrong in the next 2-3 days. If symptoms worsen please return to the ER Time Spent in preparation of Discharge (in minutes): 30 Diagnosis - Discharge Diagnosis (1) DKA (diabetic ketoacidosis) Status: Acute (2) Abdominal pain Status: Acute Hospital Course - Lab Results Lab Results: Micro Results 05/09/17 16:15 Blood-Thru Central Line Blood Culture - Preliminary NO GROWTH AFTER 4 DAYS 05/10/17 04:57 Nose MRSA Culture (Admit) - Final MRSA NOT DETECTED 05/09/17 15:45 Urine,Clean Catch Urine Culture - Final No Growth (<1,000 CFU/ML) Most Recent Lab Values WBC 10.5 K/uL (4.8-10.8) 05/13/17 06:00 RBC 5.27 Mil/uL (4.40-5.90) 05/13/17 06:00 Hgb 13.9 g/dL (12.0-18.0) 05/13/17 06:00 Hct 43.0 % (35.0-51.0) 05/13/17 06:00 MCV 81.6 fl (80.0-94.0) 05/13/17 06:00 MCH 26.5 pg (27.0-31.0) L 05/13/17 06:00 MCHC 32.4 g/dL (33.0-37.0) L 05/13/17 06:00 RDW 15.5 % (11.5-14.5) H 05/13/17 06:00 Plt Count 175 K/uL (130-400) 05/13/17 06:00 MPV 10.7 fl (7.2-11.7) 05/10/17 05:05 Neut % (Auto) 82.6 % (50.0-75.0) H 05/10/17 05:05 Lymph % (Auto) 9.0 % (20.0-40.0) L 05/10/17 05:05 [place] % (Auto) 7.7 % (0.0-10.0) 05/10/17 05:05 Eos % (Auto) 0.3 % (0.0-4.0) 05/10/17 05:05 Baso % (Auto) 0.4 % (0.0-2.0) 05/10/17 05:05 Neut # 18.7 K/uL (1.8-7.0) H 05/10/17 05:05 Lymph # 2.0 K/uL (1.0-4.3) 05/10/17 05:05 [place] # 1.7 K/uL (0.0-0.8) H 05/10/17 05:05 Eos # 0.1 K/uL (0.0-0.7) 05/10/17 05:05 Baso # 0.1 K/uL (0.0-0.2) 05/10/17 05:05 Neutrophils % (Manual) 91 % (42-75) H 05/09/17 13:40 Lymphocytes % (Manual) 5 % (20-50) L 05/09/17 13:40 Monocytes % (Manual) 4 % (0-10) 05/09/17 13:40 Platelet Estimate Normal (NORMAL) 05/09/17 13:40 Large Platelets Present 05/09/17 13:40 Anisocytosis (manual) Slight 05/09/17 13:40 pCO2 30 mm/Hg (35-45) L 05/09/17 14:26 pO2 85 mm/Hg (80-100) 05/09/17 14:26 HCO3 17.2 mmol/L (21-28) L 05/09/17 14:26 ABG pH 7.31 (7.35-7.45) L 05/09/17 14:26 ABG Total CO2 16.0 mmol/L (22-28) L 05/09/17 14:26 ABG O2 Saturation 98.5 % (95-98) H 05/09/17 14:26 ABG Base Excess -9.7 mmol/L (-2.0-3.0) L 05/09/17 14:26 [place] Test Yes 05/09/17 14:26 ABG Potassium 4.9 mmol/L (3.6-5.2) 05/09/17 14:26 A-a O2 Difference 27.0 mm/Hg 05/09/17 14:26 Sodium 128.0 mmol/L (132-148) L 05/09/17 14:26 Chloride 99.0 mmol/L (98-107) 05/09/17 14:26 Glucose 551 mg/dL (75-110) H* D 05/09/17 14:26 Lactate 2.2 mmol/L (0.7-2.1) H 05/09/17 14:26 FiO2 21.0 % 05/09/17 14:26 Crit Value Called To Dr riki gurrola 05/09/17 14:26 Crit Value Called By 15 05/09/17 14:26 Crit Value Read Back Y 05/09/17 14:26 Blood Gas Notified Time 1447 05/09/17 14:26 Sodium 133 mmol/l (132-148) 05/11/17 06:30 Potassium 4.4 MMOL/L (3.6-5.0) 05/11/17 06:30 Chloride 101 mmol/L (98-107) 05/11/17 06:30 Carbon Dioxide 26 mmol/L (22-30) 05/11/17 06:30 Anion Gap 11 (10-20) 05/11/17 06:30 BUN 9 mg/dl (9-20) 05/11/17 06:30 Creatinine 0.6 mg/dL (0.8-1.5) L 05/11/17 06:30 Est GFR ( Amer) > 60 05/11/17 06:30 Est GFR (Non-Af Amer) > 60 05/11/17 06:30 POC Glucose (mg/dL) 148 mg/dL (65-110) H 05/13/17 17:09 Random Glucose 275 mg/dL (75-110) H 05/11/17 06:30 Hemoglobin A1c 12.2 % (4.2-6.5) H 05/10/17 05:05 Calcium 8.4 mg/dL (8.4-10.2) 05/11/17 06:30 Magnesium 1.7 MG/DL (1.6-2.3) 05/10/17 05:05 Total Bilirubin 0.6 mg/dl (0.2-1.3) 05/10/17 05:05 AST 22 U/L (17-59) 05/10/17 05:05 ALT 23 U/L (21-72) 05/10/17 05:05 Alkaline Phosphatase 49 U/L (38-126) 05/10/17 05:05 Total Protein 6.2 G/DL (6.3-8.2) L 05/10/17 05:05 Albumin 3.4 g/dL (3.5-5.0) L D 05/10/17 05:05 Globulin 2.8 gm/dL (2.2-3.9) 05/10/17 05:05 Albumin/Globulin Ratio 1.2 (1.0-2.1) 05/10/17 05:05 Triglycerides 81 mg/DL (0-149) 05/10/17 05:05 Cholesterol 143 mg/dL (0-199) 05/10/17 05:05 LDL Cholesterol Direct 88 mg/dL (0-129) 05/10/17 05:05 HDL Cholesterol 35 MG/DL (30-70) 05/10/17 05:05 Lipase 54 U/L (23-300) 05/10/17 05:05 Procalcitonin < 0.05 NG/ML (0.19-0.49) L 05/09/17 18:59 TSH 3rd Generation 1.18 mIU/ML (0.46-4.68) 05/10/17 05:05 Arterial Blood Potassium 4.9 mmol/L (3.6-5.2) 05/09/17 14:26 Urine Color Straw (YELLOW) 05/09/17 15:45 Urine Clarity Clear (Clear) 05/09/17 15:45 Urine pH 6.0 (5.0-8.0) 05/09/17 15:45 Ur Specific [place] 1.027 (1.003-1.030) 05/09/17 15:45 Urine Protein 100 mg/dL (NEGATIVE) 05/09/17 15:45 Urine Glucose (UA) >=500 mg/dL (Normal) 05/09/17 15:45 Urine Ketones 80 mg/dL (NEGATIVE) 05/09/17 15:45 Urine Blood Small (NEGATIVE) 05/09/17 15:45 Urine Nitrate Negative (NEGATIVE) 05/09/17 15:45 Urine Bilirubin Negative (NEGATIVE) 05/09/17 15:45 Urine Urobilinogen 0.2-1.0 mg/dL (0.2-1.0) 05/09/17 15:45 Ur Leukocyte Esterase Neg Michael/uL (Negative) 05/09/17 15:45 Urine RBC (Auto) 7 /hpf (0-3) H 05/09/17 15:45 Urine Microscopic WBC < 1 /hpf (0-5) 05/09/17 15:45 - Hospital Course Hospital Course: 62 yr old M admitted for DKA, severe abd pain, n/v and intolerance to PO diet . DKA and SIRS have resolved s/p IV medication and IV fluids, abd pain persists and is managed with medication. Intractable abdominal pain -acute on chronic, nausea and vomiting have resolved -Likely secondary to worsened diabetic gastroparesis -Lipase wnl -advance diet as tolerated, in meatime IV fluids D5 1/2 NS with KCl 20 Meq at rate of 100 mls/hr -Pain was controlled with Dilaudid 1mg IV Q4 PRN for moderate pain 4-7, Dilaudid 2mg IV Q4 PRN for severe pain 8-10 -Zofran 4mg IV Q4 PRN nausea/vomiting -Reglan 20 mg IV ACTID Leukocytosis -stable, WBC 13.5 -pt has PMHx of chronic high baseline leukocytosis -vitals signs within normal limits -BCx neg 48hrs and UCx negative IDDM2 -uncontrolled -Endocrinology on consult-Dr. López: start Insulin Lispro 14 units SC AC, Insulin Detemir 30 units SC HS, Insulin Regular SC ACHS low dose protocol -Home meds were held: Metformin 1,000 mg PO BID, Pioglitazone 30mg PO QD, Insulin Lispro 52 units SC HS -Accuchecks ACHS Hypertension -uncontrolled, chronic - home medications Lisinopril 10mg PO HS, Metoprolol succinate 25mg PO Q12 were continued -Monitor BP DVT Prophylaxis -Lovenox 40mg SC daily Patient was tolerating diabetic diet, and remain medically stable. PT is stable for discharge. Picc line has been removed from patients right arm, no bleeding noted on site. PAtient has been advised to continue with home mediations as well as Levemir 40 units SC HS as per Dr. López. - PT will be given a note to return to work tomorrow. Discharge Exam - Head Exam Head Exam: ATRAUMATIC, NORMOCEPHALIC - Eye Exam Eye Exam: Normal appearance Pupil Exam: NORMAL ACCOMODATION - Respiratory Exam Respiratory Exam: Clear to PA & Lateral, NORMAL BREATHING PATTERN - Cardiovascular Exam Cardiovascular Exam: REGULAR RHYTHM, +S1, +S2 - GI/Abdominal Exam GI & Abdominal Exam: Soft - Skin Skin Exam: Dry, Warm Additional comments: Picc line removed no bleeding noted on site of right arm Discharge Plan - Discharge Medications Prescriptions: Insulin Detemir [Levemir] 40 units SC HS #3 vial - Follow Up Plan Condition: GOOD Disposition: HOME/ ROUTINE Instructions: Diabetic Gastroparesis (DC), Diabetic Ketoacidosis (DC), Diabetic Ketoacidosis (GEN), Diabetes Mellitus Type 2 in Adults (DC), Acute Abdominal Pain (DC), Acute Abdominal Pain (GEN) Additional Instructions: PT is stable for discharge. Picc line has been removed from patients right arm , no bleeding noted on site. PT advised to apply pressure on arm over next 15 mins. PAtient has been advised to continue with home mediations as well as Levemir 40 units SC HS as per Dr. López. - PT will be given a note to return to work tomorrow. Referrals: Jordan Armstrong MD [Staff Provider] -
[2017-05-13] MEDS ORDERED: Insulin Detemir 100 Units/ml Inj SC SCH (22:00)
--- NOTE | 2017-05-14 13:34 | VASCULAR ---
PROCEDURE: Date of procedure: 05/09/2017 Procedure: 1. Placement of a right arm PICC with ultrasound and fluoroscopic guidance, CPT 11897 2. PICC tip confirmation with spot radiograph and is in the superior vena cava Medications: 1 percent lidocaine Total Fluoro time: 3.3 seconds Radiation: 0.58 MGy EBL: 2 cc HISTORY: Infection requiring long-term IV antibiotics TECHNIQUE: Following informed consent and procedure time-out, the patient was placed supine on the interventional table and the right arm prepped and draped in the usual sterile fashion. Ultrasound showed a patent and compressible right basilic vein. After the skin was anesthetized with lidocaine, the basilic vein was accessed with micro micropuncture technique using ultrasound guidance. A guidewire was then advanced under fluoroscopic guidance into the superior vena cava. An image documenting ultrasound guidance for vascular access was permanently saved. The length of the single-lumen 4 [place] PICC was trimmed to 39 centimeters and advanced through a peel-away sheath. The PICC was position with tip of PICC confirm a spot radiograph the superior vena cava. The PICC was secured to the patient's skin. The PICC was flushed. A biopatch and sterile dressing was applied. IMPRESSION: Placement of a single-lumen 4 [place] PICC trimmed to 36 centimeters via right basilic vein. The tip of the PICC is confirmed with spot radiograph and is in the superior vena cava.
== END 2017-05-13 18:12 | disposition home or self-care (01) | DRG 74 ==
LOC: H.ER 10:45 → H.ERHOLD 14:35 → H.ICU/CCU 18:27 → H.MEDSURG1 05-11
PROVIDERS: ADMIT Family Medicine; ATTEND Family Medicine
PROC: 02HV33Z Insertion of Infusion Device into Superior Vena Cava, Percutaneous Approach (ICD-10-PCS; principal; 2017-05-09)
PROC: B518ZZA Fluoroscopy of Superior Vena Cava, Guidance (ICD-10-PCS; 2017-05-09)
PROC: B548ZZA Ultrasonography of Superior Vena Cava, Guidance (ICD-10-PCS; 2017-05-09)
DX: E11.43 Type 2 diabetes mellitus with diabetic autonomic (poly)neuropathy (principal); E87.0 Hyperosmolality and hypernatremia; I13.10 Hypertensive heart and chronic kidney disease without heart failure, with stage 1 through stage 4 chronic kidney disease, or unspecified chronic kidney disease; E13.10 Other specified diabetes mellitus with ketoacidosis without coma; E86.0 Dehydration; E11.22 Type 2 diabetes mellitus with diabetic chronic kidney disease; K31.84 Gastroparesis; E11.319 Type 2 diabetes mellitus with unspecified diabetic retinopathy without macular edema; E78.00 Pure hypercholesterolemia, unspecified; E78.5 Hyperlipidemia, unspecified; N18.9 Chronic kidney disease, unspecified; Z79.4 Long term (current) use of insulin; Z79.84 Long term (current) use of oral hypoglycemic drugs; Z79.899 Other long term (current) drug therapy; Z87.442 Personal history of urinary calculi; Z87.891 Personal history of nicotine dependence; Z90.49 Acquired absence of other specified parts of digestive tract; E66.9 Obesity, unspecified; Z68.34 Body mass index [BMI] 34.0-34.9, adult; G89.29 Other chronic pain; F45.9 Somatoform disorder, unspecified; R00.0 Tachycardia, unspecified; E11.65 Type 2 diabetes mellitus with hyperglycemia

== ENCOUNTER 2017-05-28 10:09 | Inpatient (IN) | payer OTHER ==
[2017-05-28] MEDS ORDERED: Sodium Chloride 0.9% 1,000 ML IV STA ×2 (10:35→14:09)
[2017-05-28] MEDS ORDERED: Insulin Regular 100 units/ml IV STA ×2 (10:38→14:33)
--- NOTE | 2017-05-28 10:40 | ED PDOC ---
HPI: Abdomen Time Seen by Provider: 05/28/17 10:21 Chief Complaint (Nursing): Abdominal Pain Chief Complaint (Provider): Vomiting History Per: Patient Additional Complaint(s): 62 yr old M presented to the ED by ambulance with complaint of abd pain, nausea and vomiting since 3 am. He denies fevers, chills, SOB, chest pain or dizziness. His abdominal pain is 10/10, is periumbilical and radiates inside his abd through to his back. His multiple episodes of emesis have been nonbilious and nonbloody. Pt comes into ED drinking water and asking for more, stating he is very thirsty. Pt has a PMHx including IDDM Type 2, HTN, HLD, diabetic neuropathy and recurrent diabetic gastroparesis. Pt reports taking all his medications yesterday as per usual. PMD: Dr. Armstrong Specialists: Dr. Landrum- GI PMHx: IDDM Type 2, HTN, HLD, diabetic neuropathy and recurrent diabetic gastroparesis SurgHx: Laparascopic cholecystectomy Social: hx substance abuse, former smoker Meds: Atorvastatin 10mg PO QD, Famotidine 20mg PO BID, Gabapentin 600mg PO TID, Insulin Lispro 52 units SC HS, Lisinopril 10mg PO QD, Metformin 1,000 mg PO BID , Reglan 10mg PO Q8, Metoprolol 25mg PO Q12, Percocet 1 tab PO Q4 PRN pain, Pioglitazone 30mg PO QD Allergies: IV iodine contrast (hives) Past Medical History Reviewed: Historical Data, Nursing Documentation, Vital Signs Vital Signs: Last Vital Signs Temp 98.5 F 05/28/17 13:48 Pulse 135 H 05/28/17 13:48 Resp 22 05/28/17 13:48 BP 150/69 05/28/17 13:48 Pulse Ox 98 05/28/17 14:15 - Medical History PMH: Diabetes, HTN, Hypercholesterolemia, Kidney Stones, Pancreatitis, Chronic Kidney Disease Denies: HIV - Surgical History Surgical History: Cholecystectomy - Family History Family History: States: Unknown Family Hx, Diabetes - Social History Current smoker - smoking cessation education provided: No Alcohol: None Drugs: Denies - Home Medications Home Medications: Ambulatory Orders Medication Instructions Recorded Lisinopril [Zestril] 10 mg PO DAILY 01/08/17 Atorvastatin [Lipitor] 10 mg PO DAILY #30 tab 04/01/17 Famotidine [Pepcid] 20 mg PO BID #20 tab 01/13/17 MetFORMIN [glucoPHAGE] 1,000 mg PO BIDWM #60 tab 01/13/17 Metoclopramide HCl [Reglan] 10 mg PO Q8H #30 tablet 01/13/17 Metoprolol Tartrate [Lopressor] 25 mg PO Q12 #60 tab 01/19/17 Gabapentin [Neurontin] 600 mg PO TID 05/09/17 Insulin Lispro [humALOG] 52 unit SC ACTID 05/09/17 Oxycodone HCl/Acetaminophen 1 tab PO Q4H PRN 05/09/17 [Percocet 7.5-325 mg Tablet] Pioglitazone [Actos] 30 mg PO DAILY 05/09/17 Insulin Detemir [Levemir] 40 units SC HS #3 vial 05/13/17 - Allergies Allergies/Adverse Reactions: Allergies Allergy/AdvReac Type Severity Reaction Status Date / Time iodine Allergy RASH Verified 05/28/17 10:15 Review of Systems ROS Statement: Except As Marked, All Systems Reviewed And Found Negative Gastrointestinal: Positive for: Nausea, Vomiting, Abdominal Pain Physical Exam - Reviewed Nursing Documentation Reviewed: Yes Vital Signs Reviewed: Yes - Physical Exam Appears: Positive for: Non-toxic, No Acute Distress, Uncomfortable Head Exam: Positive for: ATRAUMATIC, NORMAL INSPECTION, NORMOCEPHALIC Skin: Positive for: Normal Color, Warm, DRY Eye Exam: Positive for: EOMI, Normal appearance, PERRL ENT: Positive for: Normal ENT Inspection Neck: Positive for: Normal, Painless ROM Cardiovascular/Chest: Positive for: Regular Rate, Rhythm Respiratory: Positive for: CNT, Normal Breath Sounds Gastrointestinal/Abdominal: Positive for: Normal Exam, Bowel Sounds, Soft, Tenderness (epigastric and periumbilical) Back: Positive for: Normal Inspection Extremity: Positive for: Normal ROM Neurologic/Psych: Positive for: Alert, Oriented - Laboratory Results Result Diagrams: 05/28/17 13:54 05/28/17 13:54 - ECG O2 Sat by Pulse Oximetry: 98 Medical Decision Making Medical Decision Making: Finger stick upon arrival > 500 HR: 135 Diagnostics ordered including ABG shock panel Insulin, Zofran and Morphine administered IM, IV access unable to be obtained by multiple RNs attempted for access Pt sent to IR for PICC line to be inserted. Lactate on ABG 3.6, PH 7.41. repeat ordered Pt placed on bus driver/monitor, EKG obtained ST at 130 bpm, no axis devation or acute ST changes, as read by ED MD WBC 19.4 After PICC line, IVF running and insulin administered IV. Pt complaining of abdominal pain, requesting Dilaudid. 1 mg Administered IV Repeat vitals on monitor: BP: 136/72 P: 133 POX: 100% on RA Pt meets criteria for severe sepsis. ED MD Dr. Martinez aware. Dr. Martinez spoke to Provider Relations Manager, arrangements made for ICU admission. Pt's PMD is Dr. Armstrong. Residents made aware and presented to see and evaluate Pt at bedside. DKA, gastroparesis, Severe Sepsis Disposition - Clinical Impression Clinical Impression: DKA (diabetic ketoacidosis), Gastroparesis, Severe sepsis - Patient ED Disposition Is Patient to be Admitted: Yes - Disposition Disposition Time: 15:02 Condition: STABLE Forms: [facility] ([place]) - POA Present On Arrival: Poor Glycemic Control
[2017-05-28] MEDS ORDERED: Morphine 4 MG/ML VIAL ONE (10:43)
[2017-05-28 10:59] LABS: ABG ALLEN TEST YES; ARTERIAL BLOOD GAS HCO3 21.7 mmol/L (21-28); ARTERIAL BLOOD GAS O2 SAT 97.1 % (95-98); ARTERIAL BLOOD GAS PCO2 31 mm/Hg (35-45); ARTERIAL BLOOD GAS PH 7.41 (7.35-7.45); ARTERIAL BLOOD GAS PO2 71 mm/Hg (80-100); ARTERIAL BLOOD GAS TCO2 20.6 mmol/L (22-28)
--- NOTE | 2017-05-28 12:46 | RAD ---
PROCEDURE: CHEST RADIOGRAPH, 1 VIEW HISTORY: abdominal pain COMPARISON: 05/09/2017. FINDINGS: LUNGS: Clear. PLEURA: No pneumothorax or pleural fluid seen. CARDIOVASCULAR: No radiographic findings to suggest acute or significant cardiovascular disease. OSSEOUS STRUCTURES: No significant abnormalities. VISUALIZED UPPER ABDOMEN: Normal. OTHER FINDINGS: None. IMPRESSION: No active disease. No acute/significant interval changes. No preliminary report provided by emergency department personnel.
[2017-05-28] MEDS ORDERED: Lidocaine 1% Inj (20ml) ONE (12:51)
--- NOTE | 2017-05-28 13:09 | PCM.SURG1 ---
Surgeon's Initial Post Op Note - Surgeon's Notes Surgeon: Jasbir Alfredo MD Optometric Coordinator: NONE Type of Anesthesia: Local Pre-Operative Diagnosis: Poor venous access Operative Findings: Patent rigth basilic vein Post-Operative Diagnosis: Poor venous access Operation Performed: Single lumen picc placement right basilic vein, 37 CM. Tip in SVC. Specimen/Specimens Removed: None Estimated Blood Loss: EBL {In ML}: 2 Blood Products Given: N/A Drains Used: No Drains Post-Op Condition: Fair Date of Surgery/Procedure: 05/28/17 Time of Surgery/Procedure: 13:05
[2017-05-28] MEDS ORDERED: HYDROmorphone 0.5 mg/0.5 ml ISec IVP STA (13:36)
[2017-05-28] MEDS ORDERED: HYDROmorphone 0.5 mg/0.5 ml ISec ONE (13:42)
[2017-05-28 14:03] LABS: BASO % 0.3 % (0.0-2.0); LYMPH # 0.7 K/uL (1.0-4.3); LYMPH % 3.8 % (20.0-40.0); MEAN CELL VOLUME 81.3 fl (80.0-94.0); MEAN CORPUSCULAR HEMOGLOBIN 25.6 pg (27.0-31.0); MEAN CORPUSCULAR HGB CONC 31.4 g/dL (33.0-37.0); MEAN PLATELET VOLUME 10.2 fl (7.2-11.7); MONO # 0.2 K/uL (0.0-0.8); MONO % 1.2 % (0.0-10.0); NEUT # 18.4 K/uL (1.8-7.0); NEUT % 94.7 % (50.0-75.0); PLATELET COUNT 240 K/uL (130-400); RBC 5.49 Mil/uL (4.40-5.90); RED CELL DISTRIBUTION WIDTH 15.8 % (11.5-14.5); WHITE BLOOD COUNT 19.4 K/uL (4.8-10.8)
[2017-05-28 14:10] LABS: URINE CLARITY CLEAR (Clear); URINE COLOR LT.YELLOW (YELLOW)
[2017-05-28 14:11] LABS: URINE BILIRUBIN NEGATIVE (NEGATIVE); URINE GLUCOSE (UA) >=1000 mg/dL (Normal)
[2017-05-28 14:12] LABS: ALB/GLOB RATIO 1.4 (1.0-2.1); ALBUMIN 4.7 g/dL (3.5-5.0); ALT/SGPT 30 U/L (21-72); AMYLASE 165 U/L (30-110); AST/SGOT 23 U/L (17-59); BLOOD UREA NITROGEN 18 mg/dl (9-20); CALCIUM 10.2 mg/dL (8.4-10.2); GFR AFRICAN-AMERICAN > 60; GFR NON-AFRICAN AMERICAN > 60; LIPASE 117 U/L (23-300)
[2017-05-28 14:12] LABS: URINE BLOOD SMALL (NEGATIVE); URINE UROBILINOGEN 0.2 mg/dL (0.2-1.0)
[2017-05-28 14:13] LABS: SQUAMOUS EPITHIAL 3 /hpf (0-5); URINE LEUKOCYTE ESTERASE NEG Leu/uL (Negative); URINE NITRATE NEGATIVE (NEGATIVE)
[2017-05-28 14:44] LABS: BANDS 1 % (0-2); LYMPHOCYTE 4 % (20-50); MONOCYTE 1 % (0-10); NEUTROPHIL 94 % (42-75); PLATELET ESTIMATE NORMAL (NORMAL); TOTAL CELLS COUNTED 100
[2017-05-28 14:45] LABS: ANISOCYTOSIS SLIGHT; LARGE PLATELETS PRESENT
[2017-05-28] MEDS ORDERED: Insulin Regular 100 units/ml ONE (14:49)
[2017-05-28 14:57] LABS: INR 1.1 (0.9-1.2); PARTIAL THROMBOPLASTIN TIME 30.7 Seconds (25.6-37.1); PROTHROMBIN TIME 11.1 Seconds (9.8-13.1)
[2017-05-28] MEDS ORDERED: Dextrose 50% SYRINGE Inj (50 ml) IV PRN ×2 (15:45→16:22)
[2017-05-28] MEDS ORDERED: Glucagon Recombinant 1 mg Inj IM PRN ×2 (15:45→16:22)
[2017-05-28] MEDS ORDERED: Metoprolol 1 mg/ml Inj IVP STA (16:12)
--- NOTE | 2017-05-28 16:19 | CP.PCM.HP ---
<Theron Raymundo - Last Filed: 05/28/17 18:04> History of Present Illness - History of Present Illness History of Present Illness: 62 yr old gentleman presented to the ED with complaint of severe abdominal pain with associated nausea and vomiting since 3:00AM. He only had chicken yesterday , nothing different in his diet. Has been taking his medications as prescribed, with the exception of this morning. Patient only offered complaint of abdominal pain, that is 10/10 in severity, periumbilical and constant. The nausea and vomiting have subsided. He is tolerating sips of water but has intractable pain. ROS: Admits: nausea, vomiting, abdominal pain. Denies any fevers, chills, headaches, dizziness, chest pain, dyspnea, pedal edema. PMD: Dr. Mccord GI: Dr. Renteria PMHx: IDDM, HTN, HLD, neuropathy, gastroparesis SurgHx: Laparascopic cholecystectomy Social: hx substance abuse, former smoker Medications confirmed with both pharmacies 05/28 as follows: Atorvastatin 10mg PO QD, Famotidine 20mg PO BID, Gabapentin 600mg PO TID, Insulin humalog 52 units SC before meals, Lisinopril 10mg PO QD, Metformin 1, 000 mg PO BID, Reglan 10mg PO Q8, Metoprolol 25mg PO Q12, Percocet 7.5/325 PO Q4 PRN pain, Pioglitazone 30mg PO QD Allergies: IV iodine contrast (hives) ED course: T:98, HR: 135, BP: 184/102, RR 20, sPO2:98 * NS 1L bolus x 2 * CBC: leukocytosis (19.4) * CMP: hypochloremic : 95, hyperglycemia: 550, K+: 4.2 * lactic acid: 5.1 * amylase:: 165 * lipase:117 * lactate: 3.6 * morphine 4mg x 2 * dilaudid 1mg x 1 * PICC line insertion Pharmacy: [facility] [ ]/ [facility] ( / [facility] : ) Present on Admission - Present on Admission Any Indicators Present on Admission: No Past Patient History - Past Medical History & Family History Past Medical History?: Yes - Past Social History Alcohol: None Drugs: Denies - CARDIAC Hx Hypercholesterolemia: Yes Hx Hypertension: Yes - PULMONARY Hx Respiratory Disorders: No - NEUROLOGICAL Hx Neurological Disorder: No - HEENT Hx HEENT Problems: No - RENAL Hx Chronic Kidney Disease: Yes Hx Kidney Stones: Yes - ENDOCRINE/METABOLIC Hx Endocrine Disorders: Yes Hx Diabetes Mellitus Type 2: Yes - HEMATOLOGICAL/ONCOLOGICAL Hx Human Immunodeficiency Virus (HIV): No - INTEGUMENTARY Hx Dermatological Problems: No - MUSCULOSKELETAL/RHEUMATOLOGICAL Hx Musculoskeletal Disorders: No Hx Falls: No - GASTROINTESTINAL Hx Pancreatitis: Yes - GENITOURINARY/GYNECOLOGICAL Hx Genitourinary Disorders: No - PSYCHIATRIC Hx Psychophysiologic Disorder: Yes Hx Substance Use: Yes - SURGICAL HISTORY Hx Cholecystectomy: Yes - ANESTHESIA Hx Anesthesia: Yes Hx Anesthesia Reactions: No Meds Allergies/Adverse Reactions: Allergies Allergy/AdvReac Type Severity Reaction Status Date / Time iodine Allergy RASH Verified 05/28/17 10:15 Physical Exam - Constitutional Appears: Toxic, In Acute Distress (secondary to pain) - Eye Exam Eye Exam: absent: Conjunctival injection Additional comments: tearing bilaterally - ENT Exam ENT Exam: Mucous Membranes Dry - Neck Exam Neck exam: Positive for: Normal Inspection - Respiratory Exam Respiratory Exam: Clear to Auscultation Bilateral, NORMAL BREATHING PATTERN. absent: Rales, Rhonchi, Wheezes - Cardiovascular Exam Cardiovascular Exam: Tachycardia (sinus ), REGULAR RHYTHM, +S1, +S2 - GI/Abdominal Exam GI & Abdominal Exam: Diminished Bowel Sounds, Distended, Tenderness ( periumbilical) - Rectal Exam Rectal Exam: Deferred - Extremities Exam Extremities exam: Negative for: pedal edema, tenderness - Neurological Exam Neurological exam: Alert, CN II-XII Intact, Oriented x3 - Psychiatric Exam Psychiatric exam: Normal Affect, Normal Mood - Skin Skin Exam: Dry, Intact Results - Vital Signs Recent Vital Signs: Last Vital Signs Temp 98.7 F 05/28/17 16:03 Pulse 128 H 05/28/17 16:03 Resp 16 05/28/17 16:03 BP 190/103 H 05/28/17 16:03 Pulse Ox 95 05/28/17 16:03 - Labs Result Diagrams: 05/28/17 13:54 05/28/17 13:54 Labs: Laboratory Results - last 24 hr 05/28/17 14:56 POC Glucose (mg/dL) 450 H* - EKG Data EKG shows normal: Sinus rhythm Rate: Tachycardia Assessment & Plan (1) DKA (diabetic ketoacidosis) Assessment and Plan: 62 yr old gentleman presented to the ED with complaint of severe abdominal pain with associated nausea and vomiting admitted for DKA. Hyperglycemia >500 with Anion Gap of 25. Given IV fluids and started on insulin. Patients BG is trending down. Upon the evaluation of the patient by the literary writer in the ED, patients HR 130s -sinus tachycardia, BP 190s/110s. Gave lopressor 5mg and Dilaudid 2mg. -Admit to ICU. -IVF 1/2 NS + 20meq K @ 250cc's -Insulin drip as per protocol -NPO -home medications to be restarted tomorrow except for metoprolol and reglan -pain control - Dilaudid -reglan 10mg TID (home medication) -BMP q 2 x 2, anion gap of 25, follow AG and potassium -accucheck q 1 Status: Acute (2) Hypertension Assessment and Plan: uncontrolled, 2' to not taking medication and pain -has not taken any BP meds today -stat dose of lopressor given in ED, restart metoprolol at home dose tonight -monitor BP closely Status: Chronic (3) Intractable abdominal pain Assessment and Plan: 2' to gastroparesis pain control with dilaudid famotidine 20mg held, protonix 40mg ivp daily Status: Acute (4) Gastroparesis Assessment and Plan: cause of intractable pain, acutely worsened 2' to uncontrolled DM -reglan 10mg TID, IVP Status: Chronic (5) Diabetic neuropathy Assessment and Plan: -Gabapentin 600mg TID -restart in AM Status: Chronic (6) SVT (supraventricular tachycardia) Assessment and Plan: sinus tachcardia is likely multifactorial, patient is in severe pain and has not taken his metoprolol today. -improved with stat dose of lopressor -monitor Status: Acute (7) IDDM (insulin dependent diabetes mellitus) Assessment and Plan: chronically uncontrolled, acutely patient is in DKA. -last hga1c: 12.2% in april 2017 -humalog 52 units with meals, held for now given pt is on insulin drip. -monitor blood glucose with accuchecks. Status: Chronic (8) DVT prophylaxis Assessment and Plan: -scds -lovenox 40mg sc Status: Acute <Jordan Mccord A - Last Filed: 05/29/17 14:01> Results - Vital Signs Recent Vital Signs: Last Vital Signs Temp 97.7 F 05/29/17 12:00 Pulse 60 05/29/17 12:00 Resp 11 L 05/29/17 12:00 BP 124/62 05/29/17 12:00 Pulse Ox 97 05/29/17 12:00 - Labs Result Diagrams: 05/29/17 04:20 05/29/17 04:20 Labs: Laboratory Results - last 24 hr 05/28/17 05/28/17 05/28/17 14:56 15:30 16:19 WBC RBC Hgb Hct MCV MCH MCHC RDW Plt Count Sodium Potassium Chloride Carbon Dioxide Anion Gap BUN Creatinine Est GFR ( Amer) Est GFR (Non-Af Amer) POC Glucose (mg/dL) 450 H* 420 H* 389 H Random Glucose Lactic Acid Calcium Phosphorus Magnesium Troponin I Amylase Lipase 05/28/17 05/28/17 05/28/17 16:55 17:52 18:06 WBC RBC Hgb Hct MCV MCH MCHC RDW Plt Count Sodium 136 Potassium 4.3 Chloride 101 Carbon Dioxide 23 Anion Gap 16 BUN 16 Creatinine 0.7 L Est GFR ( Amer) > 60 Est GFR (Non-Af Amer) > 60 POC Glucose (mg/dL) 349 H 292 H Random Glucose 355 H Lactic Acid Calcium 8.9 Phosphorus Magnesium Troponin I Amylase 142 H Lipase 75 05/28/17 05/28/17 05/28/17 18:06 18:44 18:51 WBC RBC Hgb Hct MCV MCH MCHC RDW Plt Count Sodium Potassium Chloride Carbon Dioxide Anion Gap BUN Creatinine Est GFR ( Amer) Est GFR (Non-Af Amer) POC Glucose (mg/dL) 314 H Random Glucose Lactic Acid 1.2 Calcium Phosphorus 4.0 Magnesium 1.7 Troponin I < 0.0120 Amylase Lipase 05/28/17 05/28/17 05/28/17 19:58 21:09 22:06 WBC RBC Hgb Hct MCV MCH MCHC RDW Plt Count Sodium Potassium Chloride Carbon Dioxide Anion Gap BUN Creatinine Est GFR ( Amer) Est GFR (Non-Af Amer) POC Glucose (mg/dL) 270 H 249 H 262 H Random Glucose Lactic Acid Calcium Phosphorus Magnesium Troponin I Amylase Lipase 05/28/17 05/28/17 05/29/17 23:07 23:55 00:47 WBC RBC Hgb Hct MCV MCH MCHC RDW Plt Count Sodium Potassium Chloride Carbon Dioxide Anion Gap BUN Creatinine Est GFR ( Amer) Est GFR (Non-Af Amer) POC Glucose (mg/dL) 230 H 216 H 198 H Random Glucose Lactic Acid Calcium Phosphorus Magnesium Troponin I Amylase Lipase 05/29/17 05/29/17 05/29/17 01:54 03:09 04:05 WBC RBC Hgb Hct MCV MCH MCHC RDW Plt Count Sodium Potassium Chloride Carbon Dioxide Anion Gap BUN Creatinine Est GFR ( Amer) Est GFR (Non-Af Amer) POC Glucose (mg/dL) 190 H 129 H 183 H Random Glucose Lactic Acid Calcium Phosphorus Magnesium Troponin I Amylase Lipase 05/29/17 05/29/17 05/29/17 04:20 04:20 04:51 WBC 19.4 H RBC 4.52 Hgb 11.6 L D Hct 36.7 MCV 81.2 MCH 25.6 L MCHC 31.6 L RDW 15.4 H Plt Count 199 Sodium 136 Potassium 3.6 Chloride 104 Carbon Dioxide 27 Anion Gap 9 L BUN 13 Creatinine 0.6 L Est GFR ( Amer) > 60 Est GFR (Non-Af Amer) > 60 POC Glucose (mg/dL) 174 H Random Glucose 148 H Lactic Acid Calcium 8.4 Phosphorus Magnesium Troponin I < 0.0120 Amylase Lipase 05/29/17 05/29/17 05/29/17 06:04 10:18 12:25 WBC RBC Hgb Hct MCV MCH MCHC RDW Plt Count Sodium Potassium Chloride Carbon Dioxide Anion Gap BUN Creatinine Est GFR ( Amer) Est GFR (Non-Af Amer) POC Glucose (mg/dL) 168 H 183 H 174 H Random Glucose Lactic Acid Calcium Phosphorus Magnesium Troponin I Amylase Lipase
--- NOTE | 2017-05-28 16:34 | CARD ---
APPROVED REPORT EKG Measurement Heart [id number] <Conclusion> Sinus tachycardia Possible Left atrial enlargement Borderline ECG
[2017-05-28] MEDS ORDERED: Metoprolol 1 mg/ml Inj IVP ONE (16:39)
[2017-05-28] MEDS: Potassium Chloride 20 MEQ in Sodium Chloride 0.45% 1,000 ML IV SCH (17:08)
[2017-05-28 18:24] LABS: AMYLASE 142 U/L (30-110); BLOOD UREA NITROGEN 16 mg/dl (9-20); CALCIUM 8.9 mg/dL (8.4-10.2); GFR AFRICAN-AMERICAN > 60; GFR NON-AFRICAN AMERICAN > 60; LIPASE 75 U/L (23-300)
[2017-05-28 18:53] LABS: MAGNESIUM 1.7 MG/DL (1.6-2.3)
[2017-05-28] MEDS: Sodium Chloride 0.9% 1,000 ML IV SCH (21:20)
--- NOTE | 2017-05-29 02:31 | CON ---
CRITICAL CARE CONSULTATION DATE: 05/28/2017 LOCATION: The patient in ICU bed. TIME SPENT: 35 minutes. HISTORY OF PRESENT ILLNESS: The patient is seen and examined at the bedside. Events in ER reviewed and discussed with ER physician. Mr. Couch is a 62-year-old male with history of substance abuse, former smoker with history significant for diabetes mellitus type 2, hypertension, hyperlipidemia, diabetic neuropathy, and recurrent diabetic gastroparesis. The patient has had multiple admissions for DKA, the last admission was on 05/10/2017. The patient was discharged home on atorvastatin, gabapentin, insulin Lispro 50 units subcutaneously at bedtime, lisinopril 10 mg daily, metformin 1000 mg b.i.d., Reglan 10 mg p.o. q.8 hours, metoprolol 25 mg p.o. q.12 hours, Percocet 1 tablet q.4 hours p.r.n. Compliance with his diet and medication inverting insulin, is uncertain, and presented to emergency room complaining of abdominal pain, nausea, and vomiting. Since this morning not associated with fever, chills, or shortness of breath. No chest pain or dizziness. In the ER, the patient's vital signs showed temperature 98.5, heart rate 135, respiratory rate 22, blood pressure 150/69, and pulse oximetry 98%. Lab data showed white count 19.4, hemoglobin 14, anion gap 21, blood sugar 550, BUN 18, and creatinine 0.8. The patient was given IV fluids followed by insulin drip, also administered Dilaudid for abdominal pain, and admitted to ICU. ALLERGIES: NONE DOCUMENTED. PHYSICAL EXAMINATION: GENERAL: Middle-aged male in [id number] distress associated with abdominal pain. No respiratory distress noted. VITAL SIGNS: Temperature 98.6, heart rate 113, blood pressure 145/64, mean arterial pressure 91, respiratory rate 19 ,saturating 98%. HEAD, EYES, EARS, NOSE, AND THROAT: Pupils are reactive. Conjunctivae pink. Sclerae anicteric. NECK: Supple. Trachea is central. CHEST: Bilateral breath sounds clear to auscultation. HEART: Rhythm regular. S1 and S2 rapid. No S3, S4, or gallop. No audible murmur. ABDOMEN: Bowel sounds present, soft, and mild tenderness in the epigastric periumbilical area. EXTREMITIES: No clubbing, cyanosis, trace edema. NEUROLOGIC: Oriented to name, place, and time. No motor sensory impairment. Cranial nerves are intact. LABORATORY DATA: WBC 19.4, hemoglobin 14, hematocrit 44.6, platelet count 240. SMA-7; sodium 136, potassium 4.2, chloride 95, CO2 of 20, blood urea nitrogen 18, creatinine 0.8, and glucose 550 with anion gap 21. ABG; pH of 7.41, pCO2 of 31, pO2 of 71, oxygen saturation 97.1 on room air consistent with metabolic acidosis with mild respiratory alkalosis. Blood culture drawn report pending. Chest x-ray, no active disease. No acute significant interval change. EKG sinus tachycardia, left atrial enlargement, otherwise unremarkable. IMPRESSION AND PLAN: Endocrine, diabetic ketoacidosis with anion gap metabolic acidosis and mild respiratory alkalosis. Continue insulin drip until acidosis is cleared, IV fluid, switch to D5W when the sugar is less than 250 mg. Endocrine consult requested to optimize regimen for diabetes mellitus type 2. Cardiac stable. Pulmonary no evidence of respiratory distress, mild respiratory alkalosis related to diabetic ketoacidosis, history of diabetes mellitus type 2 noncompliant with medications. GI stable. Keep n.p.o. until acidosis is cleared and able to tolerate feeds, chronic abdominal pain, question gastritis and/or rule out pancreatitis. Follow amylase and lipase. Continue PPI. Renal function stable. Hematology, leukocytosis probably related to systemic inflammatory response syndrome and noted to have previous leukocytosis, hold antibiotic until blood culture is reported. No clear evidence of pneumonia and/or urinary tract infection. EKG is normal. No evidence of MT; however, we will send cardiac enzymes q8hrs x3. Continue DVT and prophylaxis. Dano Perdomo MD RAYMUNDO
[2017-05-29] MEDS: Sodium Chloride 0.9% 1,000 ML IV SCH ×3 (03:20→21:33)
[2017-05-29 05:17] LABS: HEMOGLOBIN 11.6 g/dL (12.0-18.0); MEAN CELL VOLUME 81.2 fl (80.0-94.0); MEAN CORPUSCULAR HEMOGLOBIN 25.6 pg (27.0-31.0); MEAN CORPUSCULAR HGB CONC 31.6 g/dL (33.0-37.0); RBC 4.52 Mil/uL (4.40-5.90); RED CELL DISTRIBUTION WIDTH 15.4 % (11.5-14.5); WHITE BLOOD COUNT 19.4 K/uL (4.8-10.8)
[2017-05-29 05:26] LABS: BLOOD UREA NITROGEN 13 mg/dl (9-20); CALCIUM 8.4 mg/dL (8.4-10.2); GFR AFRICAN-AMERICAN > 60; GFR NON-AFRICAN AMERICAN > 60
[2017-05-29] MEDS ORDERED: Insulin Detemir 100 Units/ml Inj SC STA (05:41)
[2017-05-29] MEDS: Potassium Chloride 20 MEQ in Sodium Chloride 0.45% 1,000 ML IV SCH (06:26)
[2017-05-29] MEDS: Insulin Lispro (humaLOG) 100 Units/ml Inj SC SCH ×4 (06:35→22:14)
--- NOTE | 2017-05-29 07:45 | CP.PCM.PN ---
<Theron Raymundo - Last Filed: 05/29/17 12:22> Subjective - Date & Time of Evaluation Date of Evaluation: 05/29/17 Time of Evaluation: 07:00 - Subjective Subjective: No acute events overnight. Patient seen and examined bedside with Dr. Salvador. Patient is tolerating sips of water. Continues to have pain. No nausea or vomiting. Will start clear liquid diet. Advance as tolerated. Continue with NS @ 150cc/hr. Monitor glucose. Insulin drip has been d/c. Will transfer to telemetry. Objective - Vital Signs/Intake and Output Vital Signs (last 24 hours): Temp Pulse Resp BP Pulse Ox 98.1 F 91 H 20 117/61 97 05/29/17 04:00 05/29/17 06:00 05/29/17 06:00 05/29/17 06:00 05/29/17 06:00 Intake and Output: 05/29/17 05/29/17 06:59 18:59 Intake Total 2578 Output Total 700 Balance 1878 - Medications Medications: Current Medications Atorvastatin Calcium (Lipitor) 10 mg PO DAILY [facility] Dextrose (Dextrose 50% Inj) 0 ml IV STAT PRN; Protocol PRN Reason: Hyglycemia Protocol Dextrose (Glutose 15) 0 gm PO ONCE PRN; Protocol PRN Reason: Hypoglycemia Protocol Dextrose (Dextrose 50% Inj) 0 ml IV STAT PRN; Protocol PRN Reason: Hyglycemia Protocol Dextrose (Glutose 15) 0 gm PO ONCE PRN; Protocol PRN Reason: Hypoglycemia Protocol Enoxaparin Sodium (Lovenox) 40 mg SC DAILY [facility] PRN Reason: Protocol Gabapentin (Neurontin) 600 mg PO TID [facility] Glucagon (Glucagen Diagnostic Kit) 0 mg IM STAT PRN; Protocol PRN Reason: Hypoglycemia Protocol Glucagon (Glucagen Diagnostic Kit) 0 mg IM STAT PRN; Protocol PRN Reason: Hypoglycemia Protocol Hydromorphone HCl (Dilaudid) 2 mg IVP Q6H PRN PRN Reason: Pain, severe (8-10) Last Admin: 05/29/17 03:17 Dose: 2 mg Hydromorphone HCl (Dilaudid) 1 mg IVP Q6 PRN PRN Reason: Pain, moderate (4-7) Potassium Chloride 20 meq/ (Sodium Chloride) 1,010 mls @ 250 mls/hr IV .Q4H3M [facility] Stop: 05/29/17 16:29 Last Admin: 05/29/17 06:26 Dose: Not Given Sodium Chloride (Sodium Chloride 0.9%) 1,000 mls @ 150 mls/hr IV .Q6H40M [facility] Stop: 05/29/17 19:54 Last Admin: 05/29/17 03:20 Dose: 150 mls/hr Sodium Chloride (Sodium Chloride 0.9%) 1,000 mls @ 150 mls/hr IV .Q6H40M [facility] Stop: 05/30/17 05:47 Insulin Human Lispro (Humalog) 0 units SC ACHS [facility] PRN Reason: Protocol Last Admin: 05/29/17 06:35 Dose: 2 units Lisinopril (Zestril) 10 mg PO DAILY [facility] Metoclopramide HCl (Reglan) 10 mg IVP Q8 [facility] Last Admin: 05/29/17 00:44 Dose: 10 mg Metoprolol Tartrate (Lopressor) 25 mg PO Q12 [facility] Last Admin: 05/28/17 20:01 Dose: 25 mg Pantoprazole Sodium (Protonix Inj) 40 mg IVP DAILY [facility] - Labs Labs: 05/29/17 04:20 05/29/17 04:20 PT 11.1 Seconds (9.8-13.1) 05/28/17 13:54 INR 1.1 (0.9-1.2) 05/28/17 13:54 APTT 30.7 Seconds (25.6-37.1) 05/28/17 13:54 - Constitutional Appears: In Acute Distress (secondary to pain) - Head Exam Head Exam: NORMAL INSPECTION - Eye Exam Eye Exam: Normal appearance - ENT Exam ENT Exam: Mucous Membranes Moist - Respiratory Exam Respiratory Exam: NORMAL BREATHING PATTERN - Cardiovascular Exam Cardiovascular Exam: REGULAR RHYTHM (HR 90s), +S1, +S2 - GI/Abdominal Exam GI & Abdominal Exam: Distended, Tenderness. absent: Guarding - Extremities Exam Extremities Exam: absent: Pedal Edema - Neurological Exam Neurological Exam: Alert, Awake, Oriented x3 - Psychiatric Exam Psychiatric exam: Depressed - Skin Skin Exam: Dry, Intact Assessment and Plan (1) IDDM (insulin dependent diabetes mellitus) Assessment & Plan: chronically uncontrolled, blood glucose improving -last hga1c: 12.2% in april 2017 -humalog 52 units with meals, held for now given pt is on will resume once tolerating PO -monitor blood glucose with accuchecks q2 Status: Chronic (2) Hypertension Assessment & Plan: controlled -home meds resumed -metoprolol 25mg q 12 -Lisinopril 10mg Status: Chronic (3) Intractable abdominal pain Assessment & Plan: 2' to gastroparesis pain control with dilaudid q6 famotidine 20mg held, protonix 40mg IVP daily Status: Acute (4) Gastroparesis Assessment & Plan: cause of intractable pain, acutely worsened 2' to uncontrolled DM -reglan 10mg TID, IVP will switch to po once tolerating Status: Chronic (5) Diabetic neuropathy Assessment & Plan: Gabapentin 600mg TID -restart in AM Status: Chronic (6) DVT prophylaxis Assessment & Plan: -lovenox 40 sc Status: Acute (7) DKA (diabetic ketoacidosis) Assessment & Plan: Assessment and Plan: 62 yr old gentleman presented to the ED with complaint of severe abdominal pain with associated nausea and vomiting admitted hyperglycemia. Hyperglycemia resolved. BG 168 this AM. Anion Gap has resolved. Cultures pending , will hold off on antibiotics for now. Leukocytosis stable at 19.4, monitor for fever. -IVF now NS @150cc/hr -pain control - Dilaudid -reglan 10mg TID (home medication) -anion gap WNL, c/w accucheck q 2 Status: Resolved (8) SVT (supraventricular tachycardia) Assessment & Plan: -resolved Status: Acute <Jerzy Salvador - Last Filed: 05/31/17 06:54> Objective - Vital Signs/Intake and Output Vital Signs (last 24 hours): Temp Pulse Resp BP Pulse Ox 97.9 F 73 20 137/71 96 05/31/17 05:19 05/31/17 05:19 05/31/17 05:19 05/31/17 05:19 05/31/17 05:19 - Medications Medications: Current Medications Atorvastatin Calcium (Lipitor) 10 mg PO DAILY [facility] Last Admin: 05/30/17 10:18 Dose: 10 mg Dextrose (Dextrose 50% Inj) 0 ml IV STAT PRN; Protocol PRN Reason: Hyglycemia Protocol Dextrose (Glutose 15) 0 gm PO ONCE PRN; Protocol PRN Reason: Hypoglycemia Protocol Dextrose (Dextrose 50% Inj) 0 ml IV STAT PRN; Protocol PRN Reason: Hyglycemia Protocol Dextrose (Glutose 15) 0 gm PO ONCE PRN; Protocol PRN Reason: Hypoglycemia Protocol Enoxaparin Sodium (Lovenox) 40 mg SC DAILY [facility] PRN Reason: Protocol Last Admin: 05/30/17 10:19 Dose: 40 mg Gabapentin (Neurontin) 600 mg PO TID [facility] Last Admin: 05/30/17 18:09 Dose: 600 mg Glucagon (Glucagen Diagnostic Kit) 0 mg IM STAT PRN; Protocol PRN Reason: Hypoglycemia Protocol Glucagon (Glucagen Diagnostic Kit) 0 mg IM STAT PRN; Protocol PRN Reason: Hypoglycemia Protocol Hydromorphone HCl (Dilaudid) 1 mg IVP Q6 PRN PRN Reason: Pain, severe (8-10) Last Admin: 05/31/17 06:08 Dose: 1 mg Hydromorphone HCl (Dilaudid) 0.5 mg IVP Q6 PRN PRN Reason: Pain, moderate (4-7) Stop: 06/01/17 17:12 Insulin Detemir (Levemir) 30 units SC [facility] Last Admin: 05/30/17 21:55 Dose: 30 units Insulin Human Lispro (Humalog) 0 units SC [facility] PRN Reason: Protocol Last Admin: 05/30/17 21:53 Dose: Not Given Lisinopril (Zestril) 10 mg PO DAILY [facility] Last Admin: 05/30/17 10:18 Dose: 10 mg Metoclopramide HCl (Reglan) 5 mg PO TID [facility] Metoprolol Tartrate (Lopressor) 25 mg PO Q12 [facility] Last Admin: 05/30/17 21:51 Dose: 25 mg - Labs Labs: 05/30/17 04:20 05/30/17 04:20 PT 11.1 Seconds (9.8-13.1) 05/28/17 13:54 INR 1.1 (0.9-1.2) 05/28/17 13:54 APTT 30.7 Seconds (25.6-37.1) 05/28/17 13:54 Attending/Attestation - Attestation I have personally seen and examined this patient.: Yes I have fully participated in the care of the patient.: Yes I have reviewed all pertinent clinical information, including history, physical exam and plan: Yes
[2017-05-29] MEDS: Enoxaparin 40 mg Syringe SC SCH (09:01)
[2017-05-29] MEDS ORDERED: Potassium CL 10 MEQ/50 ML 50 ML IVPB ONE (13:04)
--- NOTE | 2017-05-29 14:07 | CP.CCUPN ---
CCU Subjective - Physician Review Events Since Last Encounter (Free Text): 05/29/17 19:00 The patient was Seen/interviewed and examined by me at the bedside during ICU round, Medical records reviewed and Management issues were discussed and formulated with the house staff. Patient initially admitted for DKA, clinically improving, Off Insulin drip Denies any new complains Pt stable for transfer to telemetry. CCU Objective - Vital Signs / Intake & Output Vital Signs (Last 4 hours): Vital Signs Temp Pulse Resp BP Pulse Ox 05/29/17 12:00 97.7 F 60 11 L 124/62 97 Intake and Output (Last 8hrs): Intake & Output 05/28/17 05/29/17 05/29/17 22:59 06:59 14:59 Intake Total 3356 1613 1490 Output Total 800 300 400 Balance 2556 1313 1090 Intake: IV 3136 1413 1200 Intravenous #1 1000 Intravenous #2 1000 Intake, Piggyback 50 Oral 220 200 240 Output: Urine 800 300 400 Urine, Voided 800 300 400 Other: # Bowel Movements 1 - Physical Exam Head: Positive for: Atraumatic, Normocephalic Pupils: Positive for: PERRL. Negative for: Sluggish, Non-Reactive Extroacular Muscles: Positive for: EOMI Conjunctiva: Positive for: Normal Ears: Positive for: Normal Mouth: Positive for: Moist Mucous Membranes Pharnyx: Positive for: Normal. Negative for: ERYTHEMA, EXUDATE Nose (Internal): Positive for: Normal Inspection, No Active Bleeding Neck: Positive for: Normal Range of Motion, Trachea Midline. Negative for: Meningeal Signs, MIDLINE TENDERNESS, Paraspinal Tenderness, JVD, Lymphadenopathy , Bruit, Other Respiratory/Chest: Positive for: Clear to Auscultation, Good Air Exchange, Decreased Breath Sounds. Negative for: Respiratory Distress, Accessory Muscle Use, Rales, Rhonchi Cardiovascular: Positive for: Regular Rate and Rhythm, Normal S1, S2, Peripheal Pulses Present. Negative for: Murmurs, Rub Abdomen: Positive for: Tenderness (epigastric and periumbilical), Normal Bowel Sounds. Negative for: Distention Neurological: Positive for: GCS=15, CN II-XII Intact, Speech Normal, Motor Func Grossly Intact, Normal Sensory Function Psychiatric: Positive for: Alert, Oriented x 3 - Medications Active Medications: Active Medications Generic Name Dose Route Start Last Admin Trade Name Freq PRN Reason Stop Dose Admin Atorvastatin Calcium 10 mg 05/29/17 09:00 05/29/17 09:01 Lipitor PO 10 mg DAILY [facility] Administration Dextrose 0 ml 05/28/17 15:45 Dextrose 50% Inj IV STAT PRN Hyglycemia Protocol Protocol Dextrose 0 gm 05/28/17 15:45 Glutose 15 PO ONCE PRN Hypoglycemia Protocol Protocol Dextrose 0 ml 05/28/17 16:22 Dextrose 50% Inj IV STAT PRN Hyglycemia Protocol Protocol Dextrose 0 gm 05/28/17 16:22 Glutose 15 PO ONCE PRN Hypoglycemia Protocol Protocol Enoxaparin Sodium 40 mg 05/29/17 09:00 05/29/17 09:01 Lovenox SC 40 mg DAILY [facility] Administration Protocol Gabapentin 600 mg 05/29/17 09:00 05/29/17 12:43 Neurontin PO 600 mg TID [facility] Administration Glucagon 0 mg 05/28/17 15:45 Glucagen Diagnostic Kit IM STAT PRN Hypoglycemia Protocol Protocol Glucagon 0 mg 05/28/17 16:22 Glucagen Diagnostic Kit IM STAT PRN Hypoglycemia Protocol Protocol Hydromorphone HCl 2 mg 05/28/17 16:36 05/29/17 09:22 Dilaudid IVP 2 mg Q6H PRN Administration Pain, severe (8-10) Hydromorphone HCl 1 mg 05/29/17 05:57 Dilaudid IVP Q6 PRN Pain, moderate (4-7) Sodium Chloride 1,000 mls @ 150 mls/hr 05/29/17 06:00 05/29/17 12:46 Sodium Chloride 0.9% IV 05/30/17 05:47 150 mls/hr .[id number] [facility] Administration Insulin Human Lispro 0 units 05/29/17 07:30 05/29/17 12:00 Humalog SC 2 units ACHS [facility] Administration Protocol Lisinopril 10 mg 05/29/17 09:00 05/29/17 09:02 Zestril PO 10 mg DAILY [facility] Administration Metoclopramide HCl 10 mg 05/28/17 17:30 05/29/17 09:02 Reglan IVP 10 mg Q8 [facility] Administration Metoprolol Tartrate 25 mg 05/28/17 21:00 05/29/17 09:01 Lopressor PO 25 mg Q12 [facility] Administration Pantoprazole Sodium 40 mg 05/29/17 09:00 05/29/17 09:01 Protonix Inj IVP 40 mg DAILY [facility] Administration - Patient Studies Lab Studies: Lab Studies 05/29/17 05/29/17 05/29/17 Range/Units 12:25 10:18 06:04 WBC (4.8-10.8) K/uL RBC (4.40-5.90) Mil/uL Hgb (12.0-18.0) g/dL Hct (35.0-51.0) % MCV (80.0-94.0) fl MCH (27.0-31.0) pg MCHC (33.0-37.0) g/dL RDW (11.5-14.5) % Plt Count (130-400) K/uL Sodium (132-148) mmol/l Potassium (3.6-5.0) MMOL/L Chloride (98-107) mmol/L Carbon Dioxide (22-30) mmol/L Anion Gap (10-20) BUN (9-20) mg/dl Creatinine (0.8-1.5) mg/dL Est GFR ( Amer) Est GFR (Non-Af Amer) POC Glucose (mg/dL) 174 H 183 H 168 H (65-110) mg/dL Random Glucose (75-110) mg/dL Lactic Acid (0.7-2.1) MMOL/L Calcium (8.4-10.2) mg/dL Phosphorus (2.5-4.5) mg/dl Magnesium (1.6-2.3) MG/DL Troponin I (0.00-0.120) ng/mL Amylase (30-110) U/L Lipase (23-300) U/L 05/29/17 05/29/17 05/29/17 Range/Units 04:51 04:20 04:20 WBC 19.4 H (4.8-10.8) K/uL RBC 4.52 (4.40-5.90) Mil/uL Hgb 11.6 L D (12.0-18.0) g/dL Hct 36.7 (35.0-51.0) % MCV 81.2 (80.0-94.0) fl MCH 25.6 L (27.0-31.0) pg MCHC 31.6 L (33.0-37.0) g/dL RDW 15.4 H (11.5-14.5) % Plt Count 199 (130-400) K/uL Sodium 136 (132-148) mmol/l Potassium 3.6 (3.6-5.0) MMOL/L Chloride 104 (98-107) mmol/L Carbon Dioxide 27 (22-30) mmol/L Anion Gap 9 L (10-20) BUN 13 (9-20) mg/dl Creatinine 0.6 L (0.8-1.5) mg/dL Est GFR ( Amer) > 60 Est GFR (Non-Af Amer) > 60 POC Glucose (mg/dL) 174 H (65-110) mg/dL Random Glucose 148 H (75-110) mg/dL Lactic Acid (0.7-2.1) MMOL/L Calcium 8.4 (8.4-10.2) mg/dL Phosphorus (2.5-4.5) mg/dl Magnesium (1.6-2.3) MG/DL Troponin I < 0.0120 (0.00-0.120) ng/mL Amylase (30-110) U/L Lipase (23-300) U/L 05/29/17 05/29/17 05/29/17 Range/Units 04:05 03:09 01:54 WBC (4.8-10.8) K/uL RBC (4.40-5.90) Mil/uL Hgb (12.0-18.0) g/dL Hct (35.0-51.0) % MCV (80.0-94.0) fl MCH (27.0-31.0) pg MCHC (33.0-37.0) g/dL RDW (11.5-14.5) % Plt Count (130-400) K/uL Sodium (132-148) mmol/l Potassium (3.6-5.0) MMOL/L Chloride (98-107) mmol/L Carbon Dioxide (22-30) mmol/L Anion Gap (10-20) BUN (9-20) mg/dl Creatinine (0.8-1.5) mg/dL Est GFR ( Amer) Est GFR (Non-Af Amer) POC Glucose (mg/dL) 183 H 129 H 190 H (65-110) mg/dL Random Glucose (75-110) mg/dL Lactic Acid (0.7-2.1) MMOL/L Calcium (8.4-10.2) mg/dL Phosphorus (2.5-4.5) mg/dl Magnesium (1.6-2.3) MG/DL Troponin I (0.00-0.120) ng/mL Amylase (30-110) U/L Lipase (23-300) U/L 05/29/17 05/28/17 05/28/17 Range/Units 00:47 23:55 23:07 WBC (4.8-10.8) K/uL RBC (4.40-5.90) Mil/uL Hgb (12.0-18.0) g/dL Hct (35.0-51.0) % MCV (80.0-94.0) fl MCH (27.0-31.0) pg MCHC (33.0-37.0) g/dL RDW (11.5-14.5) % Plt Count (130-400) K/uL Sodium (132-148) mmol/l Potassium (3.6-5.0) MMOL/L Chloride (98-107) mmol/L Carbon Dioxide (22-30) mmol/L Anion Gap (10-20) BUN (9-20) mg/dl Creatinine (0.8-1.5) mg/dL Est GFR ( Amer) Est GFR (Non-Af Amer) POC Glucose (mg/dL) 198 H 216 H 230 H (65-110) mg/dL Random Glucose (75-110) mg/dL Lactic Acid (0.7-2.1) MMOL/L Calcium (8.4-10.2) mg/dL Phosphorus (2.5-4.5) mg/dl Magnesium (1.6-2.3) MG/DL Troponin I (0.00-0.120) ng/mL Amylase (30-110) U/L Lipase (23-300) U/L 05/28/17 05/28/17 05/28/17 Range/Units 22:06 21:09 19:58 WBC (4.8-10.8) K/uL RBC (4.40-5.90) Mil/uL Hgb (12.0-18.0) g/dL Hct (35.0-51.0) % MCV (80.0-94.0) fl MCH (27.0-31.0) pg MCHC (33.0-37.0) g/dL RDW (11.5-14.5) % Plt Count (130-400) K/uL Sodium (132-148) mmol/l Potassium (3.6-5.0) MMOL/L Chloride (98-107) mmol/L Carbon Dioxide (22-30) mmol/L Anion Gap (10-20) BUN (9-20) mg/dl Creatinine (0.8-1.5) mg/dL Est GFR ( Amer) Est GFR (Non-Af Amer) POC Glucose (mg/dL) 262 H 249 H 270 H (65-110) mg/dL Random Glucose (75-110) mg/dL Lactic Acid (0.7-2.1) MMOL/L Calcium (8.4-10.2) mg/dL Phosphorus (2.5-4.5) mg/dl Magnesium (1.6-2.3) MG/DL Troponin I (0.00-0.120) ng/mL Amylase (30-110) U/L Lipase (23-300) U/L 05/28/17 05/28/17 05/28/17 Range/Units 18:51 18:44 18:06 WBC (4.8-10.8) K/uL RBC (4.40-5.90) Mil/uL Hgb (12.0-18.0) g/dL Hct (35.0-51.0) % MCV (80.0-94.0) fl MCH (27.0-31.0) pg MCHC (33.0-37.0) g/dL RDW (11.5-14.5) % Plt Count (130-400) K/uL Sodium (132-148) mmol/l Potassium (3.6-5.0) MMOL/L Chloride (98-107) mmol/L Carbon Dioxide (22-30) mmol/L Anion Gap (10-20) BUN (9-20) mg/dl Creatinine (0.8-1.5) mg/dL Est GFR ( Amer) Est GFR (Non-Af Amer) POC Glucose (mg/dL) 314 H (65-110) mg/dL Random Glucose (75-110) mg/dL Lactic Acid 1.2 (0.7-2.1) MMOL/L Calcium (8.4-10.2) mg/dL Phosphorus 4.0 (2.5-4.5) mg/dl Magnesium 1.7 (1.6-2.3) MG/DL Troponin I < 0.0120 (0.00-0.120) ng/mL Amylase (30-110) U/L Lipase (23-300) U/L 05/28/17 05/28/17 05/28/17 Range/Units 18:06 17:52 16:55 WBC (4.8-10.8) K/uL RBC (4.40-5.90) Mil/uL Hgb (12.0-18.0) g/dL Hct (35.0-51.0) % MCV (80.0-94.0) fl MCH (27.0-31.0) pg MCHC (33.0-37.0) g/dL RDW (11.5-14.5) % Plt Count (130-400) K/uL Sodium 136 (132-148) mmol/l Potassium 4.3 (3.6-5.0) MMOL/L Chloride 101 (98-107) mmol/L Carbon Dioxide 23 (22-30) mmol/L Anion Gap 16 (10-20) BUN 16 (9-20) mg/dl Creatinine 0.7 L (0.8-1.5) mg/dL Est GFR ( Amer) > 60 Est GFR (Non-Af Amer) > 60 POC Glucose (mg/dL) 292 H 349 H (65-110) mg/dL Random Glucose 355 H (75-110) mg/dL Lactic Acid (0.7-2.1) MMOL/L Calcium 8.9 (8.4-10.2) mg/dL Phosphorus (2.5-4.5) mg/dl Magnesium (1.6-2.3) MG/DL Troponin I (0.00-0.120) ng/mL Amylase 142 H (30-110) U/L Lipase 75 (23-300) U/L 05/28/17 05/28/1705/28/17 Range/Units 16:19 15:30 14:56 WBC (4.8-10.8) K/uL RBC (4.40-5.90) Mil/uL Hgb (12.0-18.0) g/dL Hct (35.0-51.0) % MCV (80.0-94.0) fl MCH (27.0-31.0) pg MCHC (33.0-37.0) g/dL RDW (11.5-14.5) % Plt Count (130-400) K/uL Sodium (132-148) mmol/l Potassium (3.6-5.0) MMOL/L Chloride (98-107) mmol/L Carbon Dioxide (22-30) mmol/L Anion Gap (10-20) BUN (9-20) mg/dl Creatinine (0.8-1.5) mg/dL Est GFR ( Amer) Est GFR (Non-Af Amer) POC Glucose (mg/dL) 389 H 420 H* 450 H* (65-110) mg/dL Random Glucose (75-110) mg/dL Lactic Acid (0.7-2.1) MMOL/L Calcium (8.4-10.2) mg/dL Phosphorus (2.5-4.5) mg/dl Magnesium (1.6-2.3) MG/DL Troponin I (0.00-0.120) ng/mL Amylase (30-110) U/L Lipase (23-300) U/L Laboratory Results - last 24 hr 05/28/17 05/28/17 05/28/17 14:56 15:30 16:19 WBC RBC Hgb Hct MCV MCH MCHC RDW Plt Count Sodium Potassium Chloride Carbon Dioxide Anion Gap BUN Creatinine Est GFR ( Amer) Est GFR (Non-Af Amer) POC Glucose (mg/dL) 450 H* 420 H* 389 H Random Glucose Lactic Acid Calcium Phosphorus Magnesium Troponin I Amylase Lipase 05/28/17 05/28/17 05/28/17 16:55 17:52 18:06 WBC RBC Hgb Hct MCV MCH MCHC RDW Plt Count Sodium 136 Potassium 4.3 Chloride 101 Carbon Dioxide 23 Anion Gap 16 BUN 16 Creatinine 0.7 L Est GFR ( Amer) > 60 Est GFR (Non-Af Amer) > 60 POC Glucose (mg/dL) 349 H 292 H Random Glucose 355 H Lactic Acid Calcium 8.9 Phosphorus Magnesium Troponin I Amylase 142 H Lipase 75 05/28/17 05/28/17 05/28/17 18:06 18:44 18:51 WBC RBC Hgb Hct MCV MCH MCHC RDW Plt Count Sodium Potassium Chloride Carbon Dioxide Anion Gap BUN Creatinine Est GFR ( Amer) Est GFR (Non-Af Amer) POC Glucose (mg/dL) 314 H Random Glucose Lactic Acid 1.2 Calcium Phosphorus 4.0 Magnesium 1.7 Troponin I < 0.0120 Amylase Lipase 05/28/17 05/28/17 05/28/17 19:58 21:09 22:06 WBC RBC Hgb Hct MCV MCH MCHC RDW Plt Count Sodium Potassium Chloride Carbon Dioxide Anion Gap BUN Creatinine Est GFR ( Amer) Est GFR (Non-Af Amer) POC Glucose (mg/dL) 270 H 249 H 262 H Random Glucose Lactic Acid Calcium Phosphorus Magnesium Troponin I Amylase Lipase 05/28/17 05/28/17 05/29/17 23:07 23:55 00:47 WBC RBC Hgb Hct MCV MCH MCHC RDW Plt Count Sodium Potassium Chloride Carbon Dioxide Anion Gap BUN Creatinine Est GFR ( Amer) Est GFR (Non-Af Amer) POC Glucose (mg/dL) 230 H 216 H 198 H Random Glucose Lactic Acid Calcium Phosphorus Magnesium Troponin I Amylase Lipase 05/29/17 05/29/17 05/29/17 01:54 03:09 04:05 WBC RBC Hgb Hct MCV MCH MCHC RDW Plt Count Sodium Potassium Chloride Carbon Dioxide Anion Gap BUN Creatinine Est GFR ( Amer) Est GFR (Non-Af Amer) POC Glucose (mg/dL) 190 H 129 H 183 H Random Glucose Lactic Acid Calcium Phosphorus Magnesium Troponin I Amylase Lipase 05/29/17 05/29/17 05/29/17 04:20 04:20 04:51 WBC 19.4 H RBC 4.52 Hgb 11.6 L D Hct 36.7 MCV 81.2 MCH 25.6 L MCHC 31.6 L RDW 15.4 H Plt Count 199 Sodium 136 Potassium 3.6 Chloride 104 Carbon Dioxide 27 Anion Gap 9 L BUN 13 Creatinine 0.6 L Est GFR ( Amer) > 60 Est GFR (Non-Af Amer) > 60 POC Glucose (mg/dL) 174 H Random Glucose 148 H Lactic Acid Calcium 8.4 Phosphorus Magnesium Troponin I < 0.0120 Amylase Lipase 05/29/17 05/29/17 05/29/17 06:04 10:18 12:25 WBC RBC Hgb Hct MCV MCH MCHC RDW Plt Count Sodium Potassium Chloride Carbon Dioxide Anion Gap BUN Creatinine Est GFR ( Amer) Est GFR (Non-Af Amer) POC Glucose (mg/dL) 168 H 183 H 174 H Random Glucose Lactic Acid Calcium Phosphorus Magnesium Troponin I Amylase Lipase Fingerstick Blood Sugar Results: 174 Review of Systems - Constitutional Constitutional: absent: Fever, Chills - Cardiovascular Cardiovascular: absent: Chest Pain, Chest Pain at Rest, Chest Pain with Activity - Respiratory Respiratory: absent: Cough, Dyspnea, Hemoptysis, Dyspnea on Exertion - Gastrointestinal Gastrointestinal: Abdominal Pain, Heartburn, Nausea, Vomiting Critical Care Progress Note - Nutrition Nutrition: Nutrition Category Date Time Status Liquid Diet [DIET] Diets 05/29/17 Lunch Active Assessment/Plan (1) IDDM (insulin dependent diabetes mellitus) Current Visit: Yes Status: Chronic (2) DKA (diabetic ketoacidosis) Current Visit: Yes Status: Resolved (3) Diabetic neuropathy Current Visit: Yes Status: Chronic (4) Gastroparesis Current Visit: Yes Status: Chronic
[2017-05-29 19:00] LABS: BLOOD UREA NITROGEN 6 mg/dl (9-20); GFR AFRICAN-AMERICAN > 60; GFR NON-AFRICAN AMERICAN > 60
[2017-05-29 19:09] LABS: CALCIUM 5.3 mg/dL (8.4-10.2)
[2017-05-29 22:22] LABS: BLOOD UREA NITROGEN 9 mg/dl (9-20); CALCIUM 7.9 mg/dL (8.4-10.2); GFR AFRICAN-AMERICAN > 60; GFR NON-AFRICAN AMERICAN > 60
[2017-05-30] MEDS: Sodium Chloride 0.9% 1,000 ML IV SCH (03:32)
[2017-05-30 05:19] LABS: HEMOGLOBIN 11.8 g/dL (12.0-18.0); MEAN CELL VOLUME 81.2 fl (80.0-94.0); MEAN CORPUSCULAR HEMOGLOBIN 25.9 pg (27.0-31.0); MEAN CORPUSCULAR HGB CONC 31.9 g/dL (33.0-37.0); RBC 4.54 Mil/uL (4.40-5.90); RED CELL DISTRIBUTION WIDTH 15.7 % (11.5-14.5); WHITE BLOOD COUNT 11.7 K/uL (4.8-10.8)
[2017-05-30 05:25] LABS: BLOOD UREA NITROGEN 8 mg/dl (9-20); CALCIUM 7.8 mg/dL (8.4-10.2); GFR AFRICAN-AMERICAN > 60; GFR NON-AFRICAN AMERICAN > 60
[2017-05-30] MEDS: Insulin Lispro (humaLOG) 100 Units/ml Inj SC SCH ×4 (06:55→21:53)
[2017-05-30] MEDS: Enoxaparin 40 mg Syringe SC SCH (10:19)
--- NOTE | 2017-05-30 16:52 | CP.PCM.PN ---
Addendum entered and electronically signed by Theron Raymundo MD 05/30/17 17: 21: start levemir 30 units qhs Original Note: <Theron Raymundo - Last Filed: 05/30/17 17:02> Subjective - Date & Time of Evaluation Date of Evaluation: 05/30/17 Time of Evaluation: 07:05 - Subjective Subjective: No acute events overnight. Patient seen and examined bedside with Dr. Armstrong. Patient feels better this AM. Tolerating liquid diet. Will advance as tolerated. Continues to complain of pain. Will d/c IVF once tolerating regular diet. On insulin sliding scale, leukocytosis is resolving. Had discussion with the patient on importance of tight glucose control and compliance with prescribed insulin. Risks of continued poor glucose control discussed. The patient voiced his understanding. 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 Objective - Vital Signs/Intake and Output Vital Signs (last 24 hours): Temp Pulse Resp BP Pulse Ox 97.5 F L 67 20 125/70 96 05/30/17 15:40 05/30/17 15:40 05/30/17 15:40 05/30/17 15:40 05/30/17 15:40 - Medications Medications: Current Medications Atorvastatin Calcium (Lipitor) 10 mg PO DAILY [facility] Last Admin: 05/30/17 10:18 Dose: 10 mg Dextrose (Dextrose 50% Inj) 0 ml IV STAT PRN; Protocol PRN Reason: Hyglycemia Protocol Dextrose (Glutose 15) 0 gm PO ONCE PRN; Protocol PRN Reason: Hypoglycemia Protocol Dextrose (Dextrose 50% Inj) 0 ml IV STAT PRN; Protocol PRN Reason: Hyglycemia Protocol Dextrose (Glutose 15) 0 gm PO ONCE PRN; Protocol PRN Reason: Hypoglycemia Protocol Enoxaparin Sodium (Lovenox) 40 mg SC DAILY [facility] PRN Reason: Protocol Last Admin: 05/30/17 10:19 Dose: 40 mg Gabapentin (Neurontin) 600 mg PO TID [facility] Last Admin: 05/30/17 12:15 Dose: Not Given Glucagon (Glucagen Diagnostic Kit) 0 mg IM STAT PRN; Protocol PRN Reason: Hypoglycemia Protocol Glucagon (Glucagen Diagnostic Kit) 0 mg IM STAT PRN; Protocol PRN Reason: Hypoglycemia Protocol Hydromorphone HCl (Dilaudid) 2 mg IVP Q6H PRN PRN Reason: Pain, severe (8-10) Last Admin: 05/30/17 11:12 Dose: 2 mg Hydromorphone HCl (Dilaudid) 1 mg IVP Q6 PRN PRN Reason: Pain, moderate (4-7) Insulin Human Lispro (Humalog) 0 units SC ACHS [facility] PRN Reason: Protocol Last Admin: 05/30/17 12:24 Dose: 6 units Lisinopril (Zestril) 10 mg PO DAILY [facility] Last Admin: 05/30/17 10:18 Dose: 10 mg Metoclopramide HCl (Reglan) 10 mg IVP Q8 [facility] Last Admin: 05/30/17 10:18 Dose: 10 mg Metoprolol Tartrate (Lopressor) 25 mg PO Q12 [facility] Last Admin: 05/30/17 10:19 Dose: 25 mg Pantoprazole Sodium (Protonix Inj) 40 mg IVP DAILY [facility] Last Admin: 05/30/17 10:19 Dose: 40 mg - Labs Labs: 05/30/17 04:20 05/30/17 04:20 PT 11.1 Seconds (9.8-13.1) 05/28/17 13:54 INR 1.1 (0.9-1.2) 05/28/17 13:54 APTT 30.7 Seconds (25.6-37.1) 05/28/17 13:54 - Constitutional Appears: Non-toxic, No Acute Distress (sleeping upon entry to room) - Head Exam Head Exam: NORMOCEPHALIC - ENT Exam ENT Exam: Mucous Membranes Moist - Respiratory Exam Respiratory Exam: NORMAL BREATHING PATTERN - Cardiovascular Exam Cardiovascular Exam: REGULAR RHYTHM, +S1, +S2 - GI/Abdominal Exam GI & Abdominal Exam: Distended (mildly), Tenderness (diffuse), Hypoactive Bowel Sounds. absent: Guarding, Rebound - Rectal Exam Rectal Exam: Deferred - Extremities Exam Extremities Exam: absent: Pedal Edema, Tenderness - Neurological Exam Neurological Exam: Awake, Oriented x3. absent: Motor Sensory Deficit - Psychiatric Exam Psychiatric exam: Depressed - Skin Skin Exam: Dry, Intact Assessment and Plan (1) IDDM (insulin dependent diabetes mellitus) Assessment & Plan: 62 yr old gentleman presented to the ED with complaint of severe abdominal pain with associated nausea and vomiting admitted with hyperglycemia. Hyperglycemia resolved. BG 168 this AM. Anion Gap has resolved. Cultures pending , will hold off on antibiotics for now. Leukocytosis stable at 19.4, monitor for fever. chronically uncontrolled, blood glucose improving -last hga1c: 12.2% in april 2017 -d/c ivf, advance liquid diet -insulin sliding scale -pain control Status: Chronic (2) Hypertension Assessment & Plan: controlled -home meds resumed -metoprolol 25mg q 12 -Lisinopril 10mg Status: Chronic (3) Gastroparesis Assessment & Plan: cause of abdominal pain, 2' to uncontrolled DM -reglan 10mg switch to po Status: Chronic (4) Diabetic neuropathy Assessment & Plan: gabapentin 600mg tid Status: Chronic (5) Intractable abdominal pain Assessment & Plan: 2' to gastroparesis, resolving pain control -resume famotidine in am Status: Acute (6) DVT prophylaxis Assessment & Plan: lovenox 40mg sc Status: Acute (7) DKA (diabetic ketoacidosis) Status: Resolved (8) SVT (supraventricular tachycardia) Status: Resolved <Jordan Armstrong - Last Filed: 06/01/17 06:53> Objective - Vital Signs/Intake and Output Vital Signs (last 24 hours): Temp Pulse Resp BP Pulse Ox 98.8 F 66 18 118/70 97 05/31/17 13:57 05/31/17 13:57 05/31/17 13:57 05/31/17 13:57 05/31/17 13:57 - Labs Labs: 05/30/17 04:20 05/30/17 04:20 PT 11.1 Seconds (9.8-13.1) 05/28/17 13:54 INR 1.1 (0.9-1.2) 05/28/17 13:54 APTT 30.7 Seconds (25.6-37.1) 05/28/17 13:54 Attending/Attestation - Attestation I have personally seen and examined this patient.: Yes I have fully participated in the care of the patient.: Yes I have reviewed all pertinent clinical information, including history, physical exam and plan: Yes
[2017-05-30] MEDS ORDERED: HYDROmorphone 0.5 mg/0.5 ml ISec IVP PRN (17:43)
[2017-05-30] MEDS ORDERED: HYDROmorphone 0.5 mg/0.5 ml ISec IVP SCH (22:00)
[2017-05-30] MEDS ORDERED: Insulin Detemir 100 Units/ml Inj SC SCH (22:00)
[2017-05-31] MEDS: Enoxaparin 40 mg Syringe SC SCH (08:56)
[2017-05-31] MEDS: Insulin Lispro (humaLOG) 100 Units/ml Inj SC SCH ×4 (09:02→13:50)
--- NOTE | 2017-05-31 10:46 | CP.PCM.PN ---
Subjective - Date & Time of Evaluation Date of Evaluation: 05/31/17 Time of Evaluation: 07:00 - Subjective Subjective: No acute events overnight. Patient seen and examined bedside with Dr. Salvador. No distress noted. Sleeping comfortably. Tolerating regular diet. Blood glucose remains elevated despite 30 units of levemir overnight. Will start humalog 20mg with meals and monitor BG. Pain is controlled. Medications adjusted on 05/30. Objective - Vital Signs/Intake and Output Vital Signs (last 24 hours): Temp Pulse Resp BP Pulse Ox 98.1 F 69 20 144/70 95 05/31/17 09:01 05/31/17 09:01 05/31/17 09:01 05/31/17 09:01 05/31/17 09:01 - Medications Medications: Current Medications Atorvastatin Calcium (Lipitor) 10 mg PO DAILY [facility] Last Admin: 05/31/17 08:56 Dose: 10 mg Dextrose (Dextrose 50% Inj) 0 ml IV STAT PRN; Protocol PRN Reason: Hyglycemia Protocol Dextrose (Glutose 15) 0 gm PO ONCE PRN; Protocol PRN Reason: Hypoglycemia Protocol Dextrose (Dextrose 50% Inj) 0 ml IV STAT PRN; Protocol PRN Reason: Hyglycemia Protocol Dextrose (Glutose 15) 0 gm PO ONCE PRN; Protocol PRN Reason: Hypoglycemia Protocol Enoxaparin Sodium (Lovenox) 40 mg SC DAILY [facility] PRN Reason: Protocol Last Admin: 05/30/17 10:19 Dose: 40 mg Gabapentin (Neurontin) 600 mg PO TID [facility] Last Admin: 05/31/17 08:55 Dose: 600 mg Glucagon (Glucagen Diagnostic Kit) 0 mg IM STAT PRN; Protocol PRN Reason: Hypoglycemia Protocol Glucagon (Glucagen Diagnostic Kit) 0 mg IM STAT PRN; Protocol PRN Reason: Hypoglycemia Protocol Hydromorphone HCl (Dilaudid) 1 mg IVP Q6 PRN PRN Reason: Pain, severe (8-10) Last Admin: 05/31/17 06:08 Dose: 1 mg Hydromorphone HCl (Dilaudid) 0.5 mg IVP Q6 PRN PRN Reason: Pain, moderate (4-7) Stop: 06/01/17 17:12 Insulin Detemir (Levemir) 30 units SC [facility] Last Admin: 05/30/17 21:55 Dose: 30 units Insulin Human Lispro (Humalog) 0 units SC ACHS [facility] PRN Reason: Protocol Last Admin: 05/31/17 09:02 Dose: 8 units Insulin Human Lispro (Humalog) 20 units SC [facility] Last Admin: 05/31/17 09:02 Dose: 20 unit Lisinopril (Zestril) 10 mg PO DAILY [facility] Last Admin: 05/31/17 08:56 Dose: 10 mg Metoclopramide HCl (Reglan) 5 mg PO TID [facility] Last Admin: 05/31/17 08:56 Dose: 5 mg Metoprolol Tartrate (Lopressor) 25 mg PO Q12 [facility] Last Admin: 05/31/17 08:56 Dose: 25 mg - Labs Labs: 05/30/17 04:20 05/30/17 04:20 PT 11.1 Seconds (9.8-13.1) 05/28/17 13:54 INR 1.1 (0.9-1.2) 05/28/17 13:54 APTT 30.7 Seconds (25.6-37.1) 05/28/17 13:54 - Constitutional Appears: No Acute Distress - Head Exam Head Exam: NORMOCEPHALIC - Respiratory Exam Respiratory Exam: NORMAL BREATHING PATTERN - Cardiovascular Exam Cardiovascular Exam: REGULAR RHYTHM, +S1, +S2. absent: Bradycardia, Tachycardia , Irregular Rhythm - GI/Abdominal Exam GI & Abdominal Exam: absent: Distended, Guarding, Rebound - Extremities Exam Extremities Exam: absent: Pedal Edema, Tenderness - Neurological Exam Neurological Exam: Alert, Awake, CN II-XII Intact, Oriented x3 - Psychiatric Exam Psychiatric exam: Normal Affect, Normal Mood - Skin Skin Exam: Dry, Intact, Normal Color Assessment and Plan (1) IDDM (insulin dependent diabetes mellitus) Assessment & Plan: 62 yr old gentleman presented to the ED with complaint of severe abdominal pain with associated nausea and vomiting admitted with hyperglycemia. Blood Cultures negative to date. Afebrile, leukocytosis resolved. Levemir 30 units qhs. Start humalog 20mg with meals. chronically uncontrolled. -levemir 30 units qhs started 05/30, BG: >300. Start humalog 20mg with meals. -last hga1c: 12.2% in april 2017 -tolerating regular diet. -insulin sliding scale for coverage Status: Chronic (2) Hypertension Assessment & Plan: controlled -home meds resumed -metoprolol 25mg q 12 -Lisinopril 10mg Status: Chronic (3) Intractable abdominal pain Assessment & Plan: 2' to gastroparesis, controlled with dilaudid, dose decreased yesterday -resume famotidine in am Status: Acute (4) Gastroparesis Assessment & Plan: likely cause of abdominal pain, 2' to uncontrolled DM -reglan 10mg po Status: Chronic (5) Diabetic neuropathy Assessment & Plan: gabapentin 600mg tid Status: Chronic (6) DVT prophylaxis Assessment & Plan: lovenox 40mg sc Status: Acute
--- NOTE | 2017-05-31 12:47 | CP.PCM.DIS ---
Provider - Provider Date of Admission: 05/28/17 14:44 Attending physician: Jordan Mccord MD Time Spent in preparation of Discharge (in minutes): 35 Diagnosis - Discharge Diagnosis (1) IDDM (insulin dependent diabetes mellitus) Status: Chronic (2) Hypertension Status: Chronic (3) Gastroparesis Status: Chronic (4) Diabetic neuropathy Status: Chronic Hospital Course - Lab Results Lab Results: Micro Results 05/28/17 18:06 Naris MRSA Culture (Admit) - Final MRSA NOT DETECTED Most Recent Lab Values WBC 11.7 K/uL (4.8-10.8) H 05/30/17 04:20 RBC 4.54 Mil/uL (4.40-5.90) 05/30/17 04:20 Hgb 11.8 g/dL (12.0-18.0) L 05/30/17 04:20 Hct 36.9 % (35.0-51.0) 05/30/17 04:20 MCV 81.2 fl (80.0-94.0) 05/30/17 04:20 MCH 25.9 pg (27.0-31.0) L 05/30/17 04:20 MCHC 31.9 g/dL (33.0-37.0) L 05/30/17 04:20 RDW 15.7 % (11.5-14.5) H 05/30/17 04:20 Plt Count 173 K/uL (130-400) 05/30/17 04:20 MPV 10.2 fl (7.2-11.7) 05/28/17 13:54 Neut % (Auto) 94.7 % (50.0-75.0) H 05/28/17 13:54 Lymph % (Auto) 3.8 % (20.0-40.0) L 05/28/17 13:54 [place] % (Auto) 1.2 % (0.0-10.0) 05/28/17 13:54 Eos % (Auto) 0.0 % (0.0-4.0) 05/28/17 13:54 Baso % (Auto) 0.3 % (0.0-2.0) 05/28/17 13:54 Neut # 18.4 K/uL (1.8-7.0) H 05/28/17 13:54 Lymph # 0.7 K/uL (1.0-4.3) L 05/28/17 13:54 [place] # 0.2 K/uL (0.0-0.8) 05/28/17 13:54 Eos # 0.0 K/uL (0.0-0.7) 05/28/17 13:54 Baso # 0.0 K/uL (0.0-0.2) 05/28/17 13:54 Neutrophils % (Manual) 94 % (42-75) H 05/28/17 13:54 Band Neutrophils % 1 % (0-2) 05/28/17 13:54 Lymphocytes % (Manual) 4 % (20-50) L 05/28/17 13:54 Monocytes % (Manual) 1 % (0-10) 05/28/17 13:54 Platelet Estimate Normal (NORMAL) 05/28/17 13:54 Large Platelets Present 05/28/17 13:54 Anisocytosis (manual) Slight 05/28/17 13:54 PT 11.1 Seconds (9.8-13.1) 05/28/17 13:54 INR 1.1 (0.9-1.2) 05/28/17 13:54 APTT 30.7 Seconds (25.6-37.1) 05/28/17 13:54 pCO2 31 mm/Hg (35-45) L 05/28/17 10:51 pO2 71 mm/Hg (80-100) L 05/28/17 10:51 HCO3 21.7 mmol/L (21-28) 05/28/17 10:51 ABG pH 7.41 (7.35-7.45) 05/28/17 10:51 ABG Total CO2 20.6 mmol/L (22-28) L 05/28/17 10:51 ABG O2 Saturation 97.1 % (95-98) 05/28/17 10:51 ABG Base Excess -4.0 mmol/L (-2.0-3.0) L 05/28/17 10:51 Kirby Test Yes 05/28/17 10:51 ABG Potassium 4.5 mmol/L (3.6-5.2) 05/28/17 10:51 A-a O2 Difference 40.0 mm/Hg 05/28/17 10:51 Sodium 136.0 mmol/L (132-148) 05/28/17 10:51 Chloride 94.0 mmol/L (98-107) L 05/28/17 10:51 Glucose 586 mg/dL (75-110) H* 05/28/17 10:51 Lactate 3.6 mmol/L (0.7-2.1) H 05/28/17 10:51 FiO2 21.0 % 05/28/17 10:51 Blood Gas Comments Lactate 3.6 05/28/17 10:51 Crit Value Called To chay Tim 05/28/17 10:51 Crit Value Called By 203 05/28/17 10:51 Crit Value Read Back Y 05/28/17 10:51 Blood Gas Notified Time 1058 05/28/17 10:51 Sodium 134 mmol/l (132-148) 05/30/17 04:20 Potassium 3.9 MMOL/L (3.6-5.0) 05/30/17 04:20 Chloride 102 mmol/L (98-107) 05/30/17 04:20 Carbon Dioxide 26 mmol/L (22-30) 05/30/17 04:20 Anion Gap 10 (10-20) 05/30/17 04:20 BUN 8 mg/dl (9-20) L 05/30/17 04:20 Creatinine 0.6 mg/dL (0.8-1.5) L 05/30/17 04:20 Est GFR ( Amer) > 60 05/30/17 04:20 Est GFR (Non-Af Amer) > 60 05/30/17 04:20 POC Glucose (mg/dL) 123 mg/dL (65-110) H 05/31/17 11:31 Random Glucose 271 mg/dL (75-110) H 05/30/17 04:20 Lactic Acid 1.2 MMOL/L (0.7-2.1) 05/28/17 18:06 Calcium 7.8 mg/dL (8.4-10.2) L 05/30/17 04:20 Phosphorus 4.0 mg/dl (2.5-4.5) 05/28/17 18:44 Magnesium 1.7 MG/DL (1.6-2.3) 05/28/17 18:44 Total Bilirubin 0.6 mg/dl (0.2-1.3) 05/28/17 13:54 AST 23 U/L (17-59) 05/28/17 13:54 ALT 30 U/L (21-72) 05/28/17 13:54 Alkaline Phosphatase 106 U/L (38-126) 05/28/17 13:54 Troponin I < 0.0120 ng/mL (0.00-0.120) 05/29/17 04:20 Total Protein 8.2 G/DL (6.3-8.2) 05/28/17 13:54 Albumin 4.7 g/dL (3.5-5.0) 05/28/17 13:54 Globulin 3.5 gm/dL (2.2-3.9) 05/28/17 13:54 Albumin/Globulin Ratio 1.4 (1.0-2.1) 05/28/17 13:54 Amylase 142 U/L (30-110) H 05/28/17 18:06 Lipase 75 U/L (23-300) 05/28/17 18:06 Arterial Blood Potassium 4.5 mmol/L (3.6-5.2) 05/28/17 10:51 Urine Color Lt.yellow (YELLOW) 05/28/17 11:17 Urine Clarity Clear (Clear) 05/28/17 11:17 Urine pH 5.0 (5.0-8.0) 05/28/17 11:17 Ur Specific [place] 1.015 (1.003-1.030) 05/28/17 11:17 Urine Protein 30 mg/dl mg/dL (NEGATIVE) 05/28/17 11:17 Urine Glucose (UA) >=1000 mg/dL (Normal) 05/28/17 11:17 Urine Ketones >=80 mg/dl mg/dL (NEGATIVE) 05/28/17 11:17 Urine Blood Small (NEGATIVE) 05/28/17 11:17 Urine Nitrate Negative (NEGATIVE) 05/28/17 11:17 Urine Bilirubin Negative (NEGATIVE) 05/28/17 11:17 Urine Urobilinogen 0.2 mg/dL (0.2-1.0) 05/28/17 11:17 Ur Leukocyte Esterase Neg Michael/uL (Negative) 05/28/17 11:17 Urine RBC (Auto) 8 /hpf (0-3) H 05/28/17 11:17 Urine Microscopic WBC 3 /hpf (0-5) 05/28/17 11:17 Ur Squamous Epith Cells 3 /hpf (0-5) 05/28/17 11:17 - Date & Time of H&P Date of H&P: 05/28/17 Time of H&P: 16:19 Discharge Plan - Discharge Medications Prescriptions: Insulin Detemir [Levemir] 30 units SC HS #1 vial Insulin Lispro [Humalog (Insulin Lispro)] 20 unit SQ WM #1 cartridge - Follow Up Plan Condition: STABLE Disposition: HOME/ ROUTINE Instructions: Diabetic Gastroparesis (DC) Additional Instructions: Patient to follow up with Dr. Mccord or [place] tomorrow or next week. Patient needs to make appt with Dr. López for appropriate management of his diabetes. Patient needs to make appt with Dr. Renteria for potential gastric stimulator placement. Referrals: Yvette López MD [Medical Doctor] - Yair Renteria MD [Staff Provider] -
[2017-05-31 13:58] VITALS: BP 118/70; PULSE 66; RESP 18; TEMP 98.8; O2SAT 97
== END 2017-05-31 14:24 | disposition home or self-care (01) | DRG 638 ==
LOC: H.ER 10:09 → H.ERHOLD 14:44 → H.ICU/CCU 17:27 → H.TEL 05-29 14:06
PROVIDERS: ADMIT Family Medicine; ATTEND Family Medicine
PROC: 02HV33Z Insertion of Infusion Device into Superior Vena Cava, Percutaneous Approach (ICD-10-PCS; principal; 2017-05-28)
PROC: B518ZZA Fluoroscopy of Superior Vena Cava, Guidance (ICD-10-PCS; 2017-05-28)
PROC: 3E04329 Introduction of Other Anti-infective into Central Vein, Percutaneous Approach (ICD-10-PCS; 2017-05-28)
DX: E13.10 Other specified diabetes mellitus with ketoacidosis without coma (principal); E87.3 Alkalosis; K31.84 Gastroparesis; I47.1 Supraventricular tachycardia; E11.22 Type 2 diabetes mellitus with diabetic chronic kidney disease; E11.43 Type 2 diabetes mellitus with diabetic autonomic (poly)neuropathy; I12.9 Hypertensive chronic kidney disease with stage 1 through stage 4 chronic kidney disease, or unspecified chronic kidney disease; N18.9 Chronic kidney disease, unspecified; E78.5 Hyperlipidemia, unspecified; D72.829 Elevated white blood cell count, unspecified; E78.00 Pure hypercholesterolemia, unspecified; Z91.14 Patient's other noncompliance with medication regimen; Z79.4 Long term (current) use of insulin; Z79.84 Long term (current) use of oral hypoglycemic drugs; Z87.891 Personal history of nicotine dependence; Z87.442 Personal history of urinary calculi